=== PATIENT | female | born 1945 | race Caucasian/White ===

== ENCOUNTER 2018-12-17 20:07 | Emergency (ER) | payer MEDICARE, OTHER ==
[~2018-12-17] VITALS: Ht 160 cm; Wt 92.1 kg
[~2018-12-17 20:07] MED LIST: ACIDOPHILUS1 EAC4 PO; ALBUTEROL2.5 MG/0.5 INH; AMLODIPINE BES2.5 MG PO; BENEFIBER1 EAC1 PO; BIOTIN1 MG PO; BIOTIN800 MCG PO; CALCIUM600 MG PO; CEPHALEXIN500 MG PO; CIPRO500 MG PO; DAILY VITAMIN1 EAC2 PO; DYRENIUM100 MG PO; GABAPENTIN300 MG PO; GABAPENTIN600 MG PO; GLIPIZIDE ER5 MG PO; IBUPROFEN800 MG PO; ICAPS PLUS1 EACH PO; KEFLEX500 MG PO; KONDREMUL2.5 ML/5 M PO; KRILL OIL500 MG PO; LISINOPRIL20 MG PO; MAXZIDE 37.5 MG-1 EA PO; METOPROLOL TART25 MG PO; NORCO 5-325 TA1 EACH PO; PAROXETINE HCL20 MG PO; SEN-O-TAB8.6 MG PO; SULFAMETHOXAZO1 EACH PO; TAMIFLU75 MG PO; TIZANIDINE HCL4 M1 PO; TRAZODONE HCL50 MG PO; TUMS200 MG PO; VICODIN 5-5001 EACH PO; VITAMIN D31000 UNI1 PO
[2018-12-17] MEDS ORDERED: TOPROL XL50 MG PO (20:35)
[2018-12-17] MEDS ORDERED: MACROBID 100 M100 MG PO (21:42)
[2018-12-17] MEDS ORDERED: PYRIDIUM200 MG PO (21:43)
== END 2018-12-17 21:58 | disposition home or self-care (01) ==
LOC: ED 20:07
DX: N39.0 Urinary tract infection, site not specified (principal); I10 Essential (primary) hypertension; E11.9 Type 2 diabetes mellitus without complications; Z88.5 Allergy status to narcotic agent; Z91.041 Radiographic dye allergy status; Z79.899 Other long term (current) drug therapy; Z79.84 Long term (current) use of oral hypoglycemic drugs
CPT/HCPCS: 81001; 99283

== ENCOUNTER 2019-03-09 13:24 | Inpatient (IN) | payer MEDICARE, OTHER ==
[~2019-03-09] VITALS: Ht 160 cm; Wt 86.8 kg
--- OUTSIDE RECORDS SUMMARY | ~2019-03-09 | XMS | Encounter Summary ---
Demographics + + + | Address | [address] | | | [place] [address] | + + + | Home Phone | | + + + | Preferred Language | Unknown | + + + | Marital Status | | + + + | Orthodoxy Affiliation | Unknown | + + + | Race | Unknown | + + + | Ethnic Group | Unknown | + + + Author + + + | Author | [facility] | | | and [place] | + + + | Organization | [facility] | | | and [place] | + + + | Address | Unknown | + + + | Phone | Unavailable | + + + Support + + +---------+ + | Name | Relationship | Address | Phone | + + +---------+ + | Alia Melendez | ECON | Unknown | | + + +---------+ + Care Team Providers + +------+ + | Care Briquette Machine Operator Name | Role | Phone | + +------+ + | Vik Oconnor MD | PCP | | + +------+ + Encounter Details +--------+ + + + + | Date | Type | Department | Care Team | Description | +--------+ + + + + | 02/25/ | Hospital | [facility] | Baljinder Tellez, | Asthma, | | 2016 | Encounter | MED [address] XRAY [address] | DO [address] | intermittent, | | | | [place] | [place] | uncomplicated; | | | | [place] [address] | [address] | Chronic kidney | | | | [phone] | | disease, stage 3; | | | | | Yang Cast MD | Chronic pain | | | | | [address] | syndrome; | | | | | [place] | Dermatitis; | | | | | [address] | Uncomplicated type 2 | | | | | | diabetes mellitus | | | | | | (HCC); Essential | | | | | | hypertension; Family | | | | | | history of benign | | | | | | essential tremor; | | | | | | Other | | | | | | hyperlipidemia; | | | | | | Hyperparathyroidism | | | | | | (HCC); Degeneration, | | | | | | intervertebral | | | | | | disc, cervical; | | | | | | Degeneration, | | | | | | intervertebral disc, | | | | | | lumbar; Non morbid | | | | | | obesity, unspecified | | | | | | obesity type; | | | | | | History of migraine | | | | | | headaches | +--------+ + + + + Social History + +-------+ +--------+------+ | Tobacco Use | Types | Packs/Day | Years | Date | | | | | Used | | + +-------+ +--------+------+ | Never Smoker | | | | | + +-------+ +--------+------+ + +---+---+---+ | Smokeless Tobacco: | | | | | Never Used | | | | + +---+---+---+ + + +---------+ + | Alcohol Use | Drinks/Week | oz/Week | Comments | + + +---------+ + | No | 0 Standard drinks | 0.0 | | | | or equivalent | | | + + +---------+ + + + + | Sex Assigned at | Date Recorded | | | | + + + | Not on file | | + + + + + + + | Job Start Date | Occupation | Industry | + + + + | Not on file | Not on file | Not on file | + + + + + + + + | Travel History | Travel Start | Travel End | + + + + + + | No recent travel history available. | + + documented as of this encounter Medications at Time of Discharge + + + +---------+ + + | Medication | Sig | Dispensed | Refills | Start | End Date | | | | | | Date | | + + + +---------+ + + | albuterol 90 | Inhale 2 puffs into | | 0 | | | | mcg/puff inhaler | the lungs every 6 | | | | | | | hours as needed for | | | | | | | Wheezing. | | | | | + + + +---------+ + + | gabapentin | Take 300 mg by mouth | | 0 | | | | (NEURONTIN) 300 mg | 3 times daily. | | | | | | capsule | | | | | | + + + +---------+ + + | lisinopril | Take 20 mg by mouth | | 0 | | | | (PRINIVIL, ZESTRIL) | Daily. | | | | | | 20 mg tablet | | | | | | + + + +---------+ + + | MEGARED OMEGA-3 | Take 1 capsule by | | 0 | | | | KRILL OIL 500 MG | mouth Daily. | | | | | | CAPS | | | | | | + + + +---------+ + + | Multiple Vitamin | Take 1 tablet by | | 0 | | | | (THERAGRAN PO) | mouth Daily. | | | | | + + + +---------+ + + | Probiotic Product | Take 1 capsule by | | 0 | | | | (PROBIOTIC DAILY) | mouth Daily. | | | | | | CAPS | | | | | | + + + +---------+ + + | triamterene | Take 100 mg by mouth | | 0 | | | | (DYRENIUM) 100 MG | 2 times daily. | | | | | | capsule | | | | | | + + + +---------+ + + | cephalexin | Take 500 mg by mouth | | 0 | | | | (KEFLEX) 500 mg | 2 times daily. | | | | 6 | | capsule | | | | | | + + + +---------+ + + | diazePAM (VALIUM) | Take 1 tablet by | 90 | 0 | 03/09/20 | | | 5 mg tablet | mouth every 6 hours | tablet | | 16 | 7 | | | as needed. | | | | | + + + +---------+ + + | | Take 1-2 tablets by | 120 | 0 | 03/09/20 | | | HYDROcodone-acetamin | mouth every 4 hours | tablet | | 16 | 6 | | ophen (NORCO) 10-325 | as needed for Pain. | | | | | | mg per tablet | | | | | | + + + +---------+ + + | | Take 1 tablet by | | 0 | | | | HYDROcodone-acetamin | mouth every 6 hours | | | | 6 | | ophen (NORCO) 5-325 | as needed for Pain. | | | | | | mg per tablet | | | | | | + + + +---------+ + + | lactulose 10 g/15 | Take 30 mLs by mouth | 240 mL | 2 | 03/09/20 | | | mL solution | 2 times daily. For | | | 16 | 6 | | | constipation | | | | | + + + +---------+ + + | OXYBUTYNIN | Take 5 mg by mouth | | 0 | | | | CHLORIDE ER PO | nightly. | | | | 7 | + + + +---------+ + + | PARoxetine (PAXIL) | Take 20 mg by mouth | | 0 | | | | 20 mg tablet | every morning. | | | | 7 | + + + +---------+ + + | | Take 1 tablet by | | 0 | | | | sulfamethoxazole-tri | mouth nightly. | | | | 7 | | methoprim | | | | | | | (BACTRIM,SEPTRA) | | | | | | | 400-80 MG per tablet | | | | | | + + + +---------+ + + | traZODone | Take 50 mg by mouth | | 0 | | | | (DESYREL) 50 mg | nightly. | | | | 7 | | tablet | | | | | | + + + +---------+ + + documented as of this encounter Plan of Treatment Not on filedocumented as of this encounter Procedures + +--------+ + + + | Procedure Name | Priori | Date/Time | Associated Diagnosis | Comments | | | ty | | | | + +--------+ + + + | XR CHEST PA AND | Routin | 02/26/2016 | Asthma, | Results for this | | LATERAL | e | 12:11 PM | intermittent, | procedure are in the | | | | PDT | uncomplicated | results section. | | | | | Chronic kidney | | | | | | disease, stage 3 | | | | | | Chronic pain | | | | | | syndrome Dermatitis | | | | | | Uncomplicated type | | | | | | 2 diabetes mellitus | | | | | | (HCC) Essential | | | | | | hypertension Family | | | | | | history of benign | | | | | | essential tremor | | | | | | Other hyperlipidemia | | | | | | | | | | | | Hyperparathyroidism | | | | | | (HCC) Degeneration, | | | | | | intervertebral | | | | | | disc, cervical | | | | | | Degeneration, | | | | | | intervertebral disc, | | | | | | lumbar Non morbid | | | | | | obesity, unspecified | | | | | | obesity type | | | | | | History of migraine | | | | | | headaches | | + +--------+ + + + documented in this encounter Results XR Chest PA and Lateral (02/26/2016 12:11 PM PDT) + + | Specimen | + + | | + + + + + | Narrative | Performed At | + + + | TWO-VIEW CHEST: 02/26/2016 12:11 PM CLINICAL HISTORY: PRE | [facility] | | OPERATIVE EXAM COMPARISON: None FINDINGS: Heart size is | [facility] | | normal. Aorta and pulmonary vasculature are within normal limits. No | [facility] | | mediastinal widening. Linear densities in the left midlung, | - IMAGING | | consistent with subsegmental atelectasis or scarring. No other areas | | | of abnormal lung density. No effusion or pneumothorax. No acute | | | bony abnormalities. No upper abdominal abnormalities. IMPRESSION - | | | Left mid lung subsegmental atelectasis or scarring. No acute | | | cardiopulmonary abnormality. Dictated and Signed by: Jesús | | | MD Aditya Electronically signed: 02/26/2016 12:18 PM | | + + + + + | Procedure Note | + + | Art Wolf Results In - 02/26/2016 12:21 PM PDT TWO-VIEW CHEST: 02/26/2016 12:11 PM | | | | CLINICAL HISTORY: PRE OPERATIVE EXAM | | | | COMPARISON: None | | | | FINDINGS: Heart size is normal. Aorta and pulmonary vasculature are within | | normal limits. No mediastinal widening. | | | | Linear densities in the left midlung, consistent with subsegmental atelectasis | | or scarring. No other areas of abnormal lung density. No effusion or | | pneumothorax. | | | | No acute bony abnormalities. No upper abdominal abnormalities. | | | | IMPRESSION - Left mid lung subsegmental atelectasis or scarring. No acute | | cardiopulmonary abnormality. | | | | Dictated and Signed by: Jesús Burgess MD | | Electronically signed: 02/26/2016 12:18 PM | + + + + + + + | Performing | Address | City/State/Zipcode | Phone Number | | Organization | | | | + + + + + | [facility] | [address] | [place] | [phone] | | [facility] | | [address] | | | - IMAGING | | | | + + + + + documented in this encounter Visit Diagnoses + + | Diagnosis | + + | Asthma, intermittent, uncomplicated | + + | Chronic kidney disease, stage 3 (HCC) | + + | Chronic pain syndrome | + + | Dermatitis Contact dermatitis and other eczema, due to unspecified cause | + + | Uncomplicated type 2 diabetes mellitus (HCC) Type II or unspecified type diabetes | | mellitus without mention of complication, not stated as uncontrolled | + + | Essential hypertension Unspecified essential hypertension | + + | Family history of benign essential tremor Family history of other neurological | | diseases | + + | Other hyperlipidemia | + + | Hyperparathyroidism (HCC) Hyperparathyroidism, unspecified | + + | Degeneration, intervertebral disc, cervical Degeneration of cervical intervertebral | | disc | + + | Degeneration, intervertebral disc, lumbar Degeneration of lumbar or lumbosacral | | intervertebral disc | + + | Non morbid obesity, unspecified obesity type | + + | History of migraine headaches Personal history of other disorders of nervous system | | and sense organs | + + documented in this encounter"
--- OUTSIDE RECORDS SUMMARY | ~2019-03-09 | XMS | Encounter Summary ---
Demographics + + + | Address | [address] | | | [place] [address] | + + + | Home Phone | | + + + | Preferred Language | Unknown | + + + | Marital Status | | + + + | Pentecostal Affiliation | Unknown | + + + | Race | Unknown | + + + | Ethnic Group | Unknown | + + + Author + + + | Author | [facility] | | | and [place] | + + + | Organization | [facility] | | | and [...] Team Providers + +------+ + | Care Cable Braider Name | Role | Phone | + +------+ + | Vik Oconnor MD | PCP | | + +------+ + Reason for Visit +--------+ + | Reason | Comments | +--------+ + | Other | Pre op meds to stop | +--------+ + Encounter Details +--------+ + + + + | Date | Type | Department | Care Team | Description | +--------+ + + + + | 02/26/ | Telephone | [facility] | Baljinder Tellez, | Other (Pre op meds | | 2016 | | NE[address]UR[address]ERY [address] | DO [address] | to stop) | | | | [address] | [address] [place], [place] | | | | | [place], [place] | [address] | | | | | [address] | | | | | | [phone] | | | +--------+ + + + + Social [...] Not on filedocumented as of this encounter Visit Diagnoses Not on filedocumented in this encounter"
--- OUTSIDE RECORDS SUMMARY | ~2019-03-09 | XMS | Encounter Summary ---
Demographics + + + | Address | [address] | | | [place] [address] | + + + | Home Phone | | + + + | Preferred Language | Unknown | + + + | Marital Status | | + + + | Mandaen Affiliation | Unknown | + + + | Race | Unknown | + + + | Ethnic Group | Unknown | + + + Author + + + | Author | [facility] | | | and [place] | + + + | Organization | [facility] | | | [...] Team Providers + +------+ + | Care Night Club Manager Name | Role | Phone | + +------+ + | Vik Oconnor MD | PCP | | + +------+ + Reason for Visit + + + | Reason | Comments | + + + | Medication Question | | + + + Encounter Details +--------+ + + + + | Date | Type | Department | Care Team | Description | +--------+ + + + + | 03/04/ | Telephone | [facility] | Baljinder Tellez, | Medication Question | | 2016 | | [address] | DO [address] | | | | | [address] | [address] [place], [place] | | | | | [place], [place] | [address] | | | | | [address] | | | | | | [phone] | | | +--------+ + + + [...]
--- OUTSIDE RECORDS SUMMARY | ~2019-03-09 | XMS | Encounter Summary ---
Demographics + + + | Address | [address] | | | [place] [address] | + + + | Home Phone | | + + + | Preferred Language | Unknown | + + + | Marital Status | | + + + | Rastafari Affiliation | Unknown | + + + | Race | Unknown | + + + | Ethnic Group | Unknown | + + + Author + + + | Author | [facility] | | | and [place] | + + + | Organization | [facility] | | | and [...] Team Providers + +------+ + | Care Aviation Support Equipment Repairer Name | Role | Phone | + +------+ + | Vik Oconnor MD | PCP | | + +------+ + Encounter Details +--------+ + + + + | Date | Type | Department | Care Team | Description | +--------+ + + + + | 10/12/ | Abstract | [facility] [place] | Baljinder Tellez, | | | 2015 | | [address]OSUR[address] | DO [address] | | | | | [address] | [address] [place] | | | | | [place] | [address] | | | | | [address] | | | | | | [phone] | | | +--------+ + + + [...]
--- OUTSIDE RECORDS SUMMARY | ~2019-03-09 | XMS | Encounter Summary ---
Demographics + + + | Address | [address] | | | [place] [address] | + + + | Home Phone | | + + + | Preferred Language | Unknown | + + + | Marital Status | | + + + | Bahai Affiliation | Unknown | + + + | Race | Unknown | + + + | Ethnic Group | Unknown | + + + Author + + + | Author | [facility] | | | and [place] | + + + | Organization | [facility] | | | and [...] Team Providers + +------+ + | Care Machine Rebuilder Name | Role | Phone | + +------+ + | Vik Oconnor MD | PCP | | + +------+ + Encounter Details +--------+ + + + + | Date | Type | Department | Care Team | Description | +--------+ + + + + | 01/06/ | Orders Only | [facility] | Baljinder Tellez, | Asthma, | | 2016 | | NEUROSURGERY [address] | DO [address] | intermittent, | | | | [address] | [address] [place], [place] | uncomplicated | | | | [place], [place] | [address] | (Primary Dx); | | | | [address] | | Chronic kidney | | | | [phone] | | disease, stage 3; | | | | | | Chronic pain | | | | | | syndrome; | | | | | | Dermatitis; | | | | | | Uncomplicated type 2 | | | | | | diabetes mellitus | | | | | | (HCC); Essential | | | | | | hypertension, | | | | | | hypertension with | | | | | | unspecified goal; | | | | | | Family history of | | | | | | benign essential | | | | | | tremor; Other | | | | | | [...] Not on filedocumented as of this encounter Results XR Chest PA and [...] + + | [facility] | [address] | [place] | [phone] | | [facility] | | [address] | | | - IMAGING | | | | + + + + + ECG 12 lead (02/26/2016 11:42 AM PDT) + + + + + + | Component | Value | Ref Range | Performed | Pathologist | | | | | At | Signature | + + + + + + | VENTRICULAR | 58 | BPM | [facility] | | | RATE EKG | | | | | + + + + + + | ATRIAL RATE | 58 | BPM | [facility] | | + + + + + + | P-R | 168 | ms | [facility] | | | INTERVAL | | | | | + + + + + + | QRS | 74 | ms | [facility] | | | DURATION | | | | | + + + + + + | Q-T | 408 | ms | [facility] | | | INTERVAL | | | | | + + + + + + | Q-T | 400 | ms | [facility] | | | INTERVAL | | | | | | (CORRECTED) | | | | | + + + + + + | P WAVE AXIS | 20 | degrees | [facility] | | + + + + + + | QRS AXIS | 11 | degrees | [facility] | | + + + + + + | T AXIS | 20 | degrees | [facility] | | + + + + + + | INTERPRETAT | Sinus | | [facility] | | | ION TEXT | bradycardiaOtherwise | | | | | | normal ECGNo previous | | | | | | ECGs availableConfirmed | | | | | | by LAURENCE SCHMIDT MD | | | | | | ([id number]) on 02/27/2016 | | | | | | 8:13:56 AM | | | | + + + + + + + + | Specimen | + + | | + + + + + | Narrative | Performed At | + + + | | | + + + + +---------+ + + | Performing | Address | City/State/Zipcode | Phone Number | | Organization | | | | + +---------+ + + | [facility] | | | | + +---------+ + + Basic Metabolic Panel (02/26/2016 11:38 AM PDT) + + + + + + | Component | Value | Ref Range | Performed | Pathologist | | | | | At | Signature | + + + + + + | Na | 141 | 136 - 149 | [facility] | | | | | mmol/L | [facility] | | | | | | [facility] | | | | | | CENTER - | | | | | | LABORATORY | | + + + + + + | K | 5.0 | 3.5 - 5.1 | [facility] | | | | | mmol/L | [facility] | | | | | | [facility] | | | | | | CENTER - | | | | | | LABORATORY | | + + + + + + | Cl | 103 | 98 - 109 mmol/L | [facility] | | | | | | [facility] | | | | | | [facility] | | | | | | CENTER - | | | | | | LABORATORY | | + + + + + + | CO2 | 28 | 24 - 31 mmol/L | [facility] | | | | | | [facility] | | | | | | [facility] | | | | | | CENTER - | | | | | | LABORATORY | | + + + + + + | Anion Gap | 10 | 3 - 16 mmol/L | [facility] | | | | | | [facility] | | | | | | MEDICAL | | | | | | CENTER - | | | | | | LABORATORY | | + + + + + + | Glucose | 99 | 70 - 109 mg/dL | [facility] | | | | | | [facility] | | | | | | MEDICAL | | | | | | CENTER - | | | | | | LABORATORY | | + + + + + + | BUN | 22 (H) | 7 - 18 mg/dL | [facility] | | | | | | [facility] | | | | | | MEDICAL | | | | | | CENTER - | | | | | | LABORATORY | | + + + + + + | Creatinine | 1.35 (H) | 0.60 - 1.30 | [facility] | | | | | mg/dL | [facility] | | | | | | MEDICAL | | | | | | CENTER - | | | | | | LABORATORY | | + + + + + + | eGFR if not | 39 (L)Comment: | >=60 | [facility] | | | | GLOMERULAR FILTRATION | mL/min/1.73m2 | [facility] | | | MOZAMBICAN | RATE,ESTIMATED | | MEDICAL | | | | mL/min/1.81q6Sulr than | | CENTER - | | | | 60 Chronic kidney | | LABORATORY | | | | disease,if found over a | | | | | | 3-month period.Less than | | | | | | 15 Kidney failureFor | | | | | | | | | | | | Americans,multiply the | | | | | | calculated GFR by 1.21. | | | | | | | | | | + + + + + + | Calcium | 10.2 | 8.3 - 10.5 | [facility] | | | | | mg/dL | [facility] | | | | | | MEDICAL | | | | | | CENTER - | | | | | | LABORATORY | | + + + + + + | BUN/Creatin | 16.3 | | [facility] | | | ine Ratio | | | [facility] | | | | | | [facility] | | | | | | CENTER - | | | | | | LABORATORY | | + + + + + + + + | Specimen | + + | Blood | + + + + + + + | Performing | Address | City/State/Zipcode | Phone Number | | Organization | | | | + + + + + | [facility] | [address] | [place] | [phone] | | [facility] | | [address] | | | - LABORATORY | | | | + + + + + PTT (02/26/2016 11:38 AM PDT) + +-------+ + + + | Component | Value | Ref Range | Performed | Pathologist | | | | | At | Signature | + +-------+ + + + | aPTT | 29 | 22 - 36 seconds | [facility] | | | | | | [facility] | | | | | | MEDICAL | | | | | | CENTER - | | | | | | LABORATORY | | + +-------+ + + + + + | Specimen | + + | Blood | + + + + + + + | Performing | Address | City/State/Zipcode | Phone Number | | Organization | | | | + + + + + | [facility] | [address] | [place] | [phone] | | [facility] | | [address] | | | - LABORATORY | | | | + + + + + Protime INR (02/26/2016 11:38 AM PDT) + + + + + + | Component | Value | Ref Range | Performed | Pathologist | | | | | At | Signature | + + + + + + | Prothrombin | 14.7 (H) | 11.3 - 13.9 | [facility] | | | Time | | seconds | [facility] | | | | | | MEDICAL | | | | | | CENTER - | | | | | | LABORATORY | | + + + + + + | INR | 1.12 (H)Comment: Usual | 0.90 - 1.10 | [facility] | | | | Oral Anticoagulation | | [facility] | | | | Range: 2.0 - | | MEDICAL | | | | 3.0High Level Oral | | CENTER - | | | | Anticoagulation Range: | | LABORATORY | | | | 2.5 - 3.5 | | | | + + + + + + + + | Specimen | + + | Blood | + + + + + + + | Performing | Address | City/State/Zipcode | Phone Number | | Organization | | | | + + + + + | [facility] | [address] | [place] | [phone] | | [facility] | | [address] | | | - LABORATORY | | | | + + + + + CBC with Differential (02/26/2016 11:38 AM PDT) + +-------+ + + + | Component | Value | Ref Range | Performed | Pathologist | | | | | At | Signature | + +-------+ + + + | WBC | 7.5 | 4.0 - 11.0 K/uL | [facility] | | | | | | [facility] | | | | | | MEDICAL | | | | | | CENTER - | | | | | | LABORATORY | | + +-------+ + + + | RBC | 5.04 | 3.70 - 5.20 | [facility] | | | | | M/uL | [facility] | | | | | | MEDICAL | | | | | | CENTER - | | | | | | LABORATORY | | + +-------+ + + + | Hemoglobin | 14.4 | 11.5 - 16.0 | [facility] | | | | | g/dL | [facility] | | | | | | MEDICAL | | | | | | CENTER - | | | | | | LABORATORY | | + +-------+ + + + | Hematocrit | 43.1 | 34.0 - 47.0 % | [facility] | | | | | | [facility] | | | | | | [facility]ICAL | | | | | | CENTER - | | | | | | LABORATORY | | + +-------+ + + + | MCV | 85.4 | 83.0 - 101.0 fL | [facility] | | | | | | [facility] | | | | | | MEDICAL | | | | | | CENTER - | | | | | | LABORATORY | | + +-------+ + + + | MCH | 28.6 | 28.0 - 35.0 pg | [facility] | | | | | | [facility] | | | | | | [facility]ICAL | | | | | | CENTER - | | | | | | LABORATORY | | + +-------+ + + + | MCHC | 33.5 | 32.0 - 36.0 | [facility] | | | | | g/dL | [facility] | | | | | | [facility]ICAL | | | | | | CENTER - | | | | | | LABORATORY | | + +-------+ + + + | RDW-CV | 14.2 | <15.0 % | [facility] | | | | | | [facility] | | | | | | [facility] | | | | | | CENTER - | | | | | | LABORATORY | | + +-------+ + + + | Platelet | 177 | 140 - 440 K/uL | [facility] | | | Count | | | [facility] | | | | | | [facility]ICAL | | | | | | CENTER - | | | | | | LABORATORY | | + +-------+ + + + | MPV | 9.3 | fL | [facility] | | | | | | [facility] | | | | | | [facility]ICAL | | | | | | CENTER - | | | | | | LABORATORY | | + +-------+ + + + | % | 65.8 | 45.0 - 82.0 % | [facility] | | | Neutrophils | | | [facility] | | | | | | MEDICAL | | | | | | CENTER - | | | | | | LABORATORY | | + +-------+ + + + | % | 23.0 | 20.0 - 45.0 % | [facility] | | | Lymphocytes | | | [facility] | | | | | | MEDICAL | | | | | | CENTER - | | | | | | LABORATORY | | + +-------+ + + + | % Monocytes | 8.0 | 4.0 - 12.0 % | [facility] | | | | | | [facility] | | | | | | [facility]ICAL | | | | | | CENTER - | | | | | | LABORATORY | | + +-------+ + + + | % | 2.4 | 0.0 - 5.0 % | [facility] | | | Eosinophils | | | [facility] | | | | | | MEDICAL | | | | | | CENTER - | | | | | | LABORATORY | | + +-------+ + + + | % Basophils | 0.8 | 0.0 - 1.0 % | [facility] | | | | | | [facility] | | | | | | [facility]ICAL | | | | | | CENTER - | | | | | | LABORATORY | | + +-------+ + + + | Absolute | 5.00 | 1.80 - 8.50 | [facility] | | | Neutrophils | | K/uL | [facility] | | | | | | [facility]ICAL | | | | | | CENTER - | | | | | | LABORATORY | | + +-------+ + + + | Absolute | 1.70 | 0.60 - 3.20 | [facility] | | | Lymphocytes | | K/uL | [facility] | | | | | | MEDICAL | | | | | | CENTER - | | | | | | LABORATORY | | + +-------+ + + + | Absolute | 0.60 | 0.00 - 1.00 | [facility] | | | Monocytes | | K/uL | [facility] | | | | | | MEDICAL | | | | | | CENTER - | | | | | | LABORATORY | | + +-------+ + + + | Absolute | 0.20 | 0.00 - 0.40 | [facility] | | | Eosinophils | | K/uL | [facility] | | | | | | MEDICAL | | | | | | CENTER - | | | | | | LABORATORY | | + +-------+ + + + | Absolute | 0.10 | 0.00 - 0.10 | [facility] | | | Basophils | | K/uL | [facility] | | | | | | MEDICAL | | | | | | CENTER - | | | | | | LABORATORY | | + +-------+ + + + + + | Specimen | + + | Blood | + + + + + + + | Performing | Address | City/State/Zipcode | Phone Number | | Organization | | | | + + + + + | [facility] | [address] | [place] | [phone] | | [facility] | | [address] | | | - LABORATORY | | | | + + + + + documented in this encounter Visit Diagnoses + + | Diagnosis | + + | Asthma, intermittent, uncomplicated - Primary | + + | Chronic kidney disease, stage 3 (HCC) | + + | Chronic pain syndrome | + + | Dermatitis Contact dermatitis and other eczema, due to unspecified cause | + + | Uncomplicated type 2 diabetes mellitus (HCC) Type II or unspecified type diabetes | | mellitus without mention of complication, not stated as uncontrolled | + + | Essential hypertension, hypertension with unspecified goal | + + | Family history of [...]
--- OUTSIDE RECORDS SUMMARY | ~2019-03-09 | XMS | Encounter Summary ---
Demographics + + + | Address | [address] | | | [place] [address] | + + + | Home Phone [...] Team Providers + +------+ + | Care Concrete Building Assembler Name | Role | Phone | + +------+ + | Vik Oconnor MD | PCP | | + +------+ + Reason for Visit + + + | Reason | Comments | + + + | Medication Refill | | + + + Encounter Details +--------+--------+ + + + | Date | Type | Department | Care Team | Description | +--------+--------+ + + + | 03/11/ | Refill | [facility] [place] | Baljinder Tellez, | Medication Refill | | 2015 | | NEUROSURGERY [address] | DO [address] | | | | | [address] | [address] [place], [place] | | | | | [place], [place] | [address] | | | | | [address] | | | | | | [phone] | | | +--------+--------+ + + + Social History + +-------+ [...] + + documented as of this encounter Functional Status + + + + | Functional Status | Response | Date of Assessment | + + + + | Are you deaf or do you have serious | No | 03/09/2016 | | difficulty hearing? | | | + + + + | Are you blind or do you have serious | No | 03/09/2016 | | difficulty seeing, even when wearing | | | | glasses? | | | + + + + | Do you have difficulty dressing or bathing? | No | 03/09/2016 | | (5 years old or older) | | | + + + + | Because of a physical, mental, or emotional | No | 03/09/2016 | | condition, do you have difficulty doing | | | | errands alone such as visiting a doctor's | | | | office or shopping? [15 years old or | | | | older)] | | | + + + + + + + + | Cognitive Status | Response | Date of Assessment | + + + + | Because of a physical, mental, or emotional | No | 03/09/2016 | | condition, do you have serious difficulty | | | | concentrating, remembering, or making | | | | decisions? (5 years old or older) | | | + + + + documented as of this encounter Plan of Treatment Not on filedocumented as of this encounter Visit Diagnoses Not on filedocumented in this encounter"
--- OUTSIDE RECORDS SUMMARY | ~2019-03-09 | XMS | Encounter Summary ---
Demographics + + + | Address | [address] | | | [place] [address] | + + + | Home Phone | | + + + | Preferred Language | Unknown | + + + | Marital Status | | + + + | Mormon Affiliation | Unknown | + + + | Race | Unknown | + + + | Ethnic Group | Unknown | + + + Author + + + | Author | [facility] | | | and [place] | + + + | Organization | [facility] | | | [...] Team Providers + +------+ + | Care Secy Name | Role | Phone | + +------+ + | Vik Oconnor MD | PCP | | + +------+ + Reason for Visit +---------+ + | Reason | Comments | +---------+ + | Post Op | 4W PO | +---------+ + Encounter Details +--------+---------+ + + + | Date | Type | Department | Care Team | Description | +--------+---------+ + + + | 04/13/ | Office | [facility] | Vasu Yun | S/P cervical spinal | | 2016 | Visit | NE[address]UR[address]ERY [address] | [address] | fusion (Primary Dx); | | | | [address] | [address] | Cervicalgia | | | | [place], [place] | [place] | | | | | [address] | [address] | | | | | [phone] | | | +--------+---------+ + + + Social History + +-------+ [...] + + documented as of this encounter Last Filed Vital Signs + + + + + | Vital Sign | Reading | Time Taken | Comments | + + + + + | Blood Pressure | 115/65 | 04/13/2016 12:39 PM | | | | | PST | | + + + + + | Pulse | 69 | 04/13/2016 12:39 PM | | | | | PST | | + + + + + | Temperature | - | - | | + + + + + | Respiratory Rate | - | - | | + + + + + | Oxygen Saturation | - | - | | + + + + + | Inhaled Oxygen | - | - | | | Concentration | | | | + + + + + | Weight | 91.2 kg (201 lb) | 04/13/2016 12:39 PM | | | | | PST | | + + + + + | Height | 162.6 cm (5' 4") | 04/13/2016 12:39 PM | | | | | PST | | + + + + + | Body Mass Index | 34.5 | 04/13/2016 12:39 PM | | | | | PST | | + + + + + documented in this encounter Functional Status + + + [...] + + documented as of this encounter Patient Instructions Patient Instructions Vasu Yun PA-C - 04/13/2016 1:20 PM PSTYou may now slowl y increase your lifting up to 15 pounds as tolerated. You may now reach overhead but it shou ld only be 1-2 pounds. Please refrain from twisting for the next 8 weeks. Lastly, you will s ee Dr. Tellez in approximately 2 months where a new x-ray will be taken at that time. In the meantime, you can also begin to wean out of your brace as instructed below. SPINE BRACE WEANING PROTOCOL (5 WEEKS) Below are instructions for weaning your brace. You can move through the weeks slower if yo u feel the need to do so, but the overall goal is to get you out of the brace slowly over th e next several weeks. WEEK 1 If you have been using your brace for activities like sleeping, showering, do not use the b race for these activities any longer but continue using it for everything else. WEEK 2 Stop wearing your brace for sitting and short distance walking. You should use the brace f or anything more involved. WEEK 3 Stop using the brace for medium distance walking. You can bend and twist your back but sti ll proceed slowly with these activities. WEEK 4 Stop using the brace for everything but the most difficult tasks. You should now be able to go on long walks and lift more weight as directed. Add more bending and twisting as tolera lakia. WEEK 5 Stop using the brace for daily use. I would encourage you to use the brace in the future f or activities that you know might aggravate your back or cause pain. You should still work to strengthen your back and use good technique when garbage pick up man things and bending. Electronica lly signed by Vasu Yun PA-C at 04/13/2016 1:20 PM PST documented in this encounter Progress Notes Vasu Yun PA-C - 04/13/2016 1:20 PM PSTFormatting of this note might be diffe rent from the original. Vasu Ynu PA-C [address] [facility], [address] [place] [address] FAX: NEUROSURGERY FOLLOW-UP CHIEF COMPLAINT: Chief Complaint Patient presents with Post Op 4W PO HISTORY OF PRESENT ILLNESS: The patient is a 70 y.o. female that had a cervical fusion for neck pain and arm pain around 4 weeks ago. She returns and overall is doing good. The pat ient complains of some pain in the neck when she takes off her collar for a long period of t shante in a chair. Her pain overall is doing great. She has been weaning off the pain medicine completely. She had two falls over the past month, but recovered from them fine. The patient has been walking as much as directed. She is still taking pain medications at this point, but weaning off. Swallowing has not been a major problem. The patient has had no issues w ith her surgical site. CURRENT MEDICATIONS: Current Outpatient Prescriptions Medication Sig Dispense Refill albuterol 90 mcg/puff inhaler Inhale 2 puffs into the lungs every 6 hours as needed for Wheezing. diazePAM (VALIUM) 5 mg tablet Take 1 tablet by mouth every 6 hours as needed. 90 tablet 0 gabapentin (NEURONTIN) 300 mg capsule Take 300 mg by mouth 3 times daily. HYDROcodone-acetaminophen (NORCO) 10-325 mg per tablet Take 1-2 tablets by mouth every 4 hours as needed for Pain. 120 tablet 0 lactulose 10 g/15 mL solution Take 30 mLs by mouth 2 times daily. For constipation 240 mL 2 lisinopril (PRINIVIL, ZESTRIL) 20 mg tablet Take 20 mg by mouth Daily. MEGARED OMEGA-3 KRILL OIL 500 MG CAPS Take 1 capsule by mouth Daily. metoprolol tartrate (LOPRESSOR) 25 mg tablet Take 25 mg by mouth 2 times daily. Multiple Vitamin (THERAGRAN PO) Take 1 tablet by mouth Daily. OXYBUTYNIN CHLORIDE ER PO Take 5 mg by mouth nightly. PARoxetine (PAXIL) 20 mg tablet Take 20 mg by mouth every morning. Probiotic Product (PROBIOTIC DAILY) CAPS Take 1 capsule by mouth Daily. sulfamethoxazole-trimethoprim (BACTRIM,SEPTRA) 400-80 MG per tablet Take 1 tablet by mo uth nightly. traZODone (DESYREL) 50 mg tablet Take 50 mg by mouth nightly. triamterene (DYRENIUM) 100 MG capsule Take 100 mg by mouth 2 times daily. No current facility-administered medications for this visit. ALLERGIES: Allergies Allergen Reactions Codeine Shortness Of Breath and Other (See Comments) Asthma Iodine Itching SOCIAL HISTORY: The patient reports that she has never smoked. She has never used smokeless tobacco. She r eports that she does not drink alcohol or use illicit drugs. INTERIM PHYSICAL EXAMINATION: Blood pressure 115/65, pulse 69, height 1.626 m (5' 4"), weight 91.173 kg (201 lb). Body ma ss index is 34.48 kg/(m^2). GENERAL: Katja Wei is in no acute distress with unlabored respirations. SPINE: The patient s incision is healing well without drainage, significant erythema, or discharge. EXTREMITIES: No lower extremity edema. NEUROLOGICAL EXAMINATION: MENTAL STATUS: The patient is awake, alert, and oriented. She follows simple and complex commands MOTOR EXAM: Motor strength is 5/5 bilat UE. This is improved when compared to the preopera tive exam. SENSORY EXAM: The sensory examination is improved when compared to the preoperative exam. RADIOGRAPHIC REVIEW: The patient s x-rays show stable instrumentation and alignment and were reviewed with the patient today. There have been no interval changes since the immediate postoperative films . Complete fusion has not yet occurred, but this is normal and would not be expected at thi s time. ASSESSMENT: Encounter Diagnoses Name Primary? S/P cervical spinal fusion Yes Cervicalgia Past Medical History Diagnosis Date Asthma, intermittent Chronic kidney disease, stage 3 Chronic pain syndrome Dermatitis Uncomplicated type 2 diabetes mellitus (HCC) Essential hypertension Family history of benign essential tremor HLD (hyperlipidemia) Hyperparathyroidism (HCC) Degeneration, intervertebral disc, cervical Degeneration, intervertebral disc, lumbar Obesity History of migraine headaches PLAN: Overall, the patient is doing well. Most of the preoperative symptoms are resolving as exp ected. I increased the patient s activities now allowing 15 pound lifting. The patient and also will begin the process of brace weaning. I would like the patient to advance slowly with t his process and discussed this at length during today's visit. I would also like the patien t to continue with postoperative rehabilitation and to advance with therapy as tolerated.. S he does not appear to need any formal rehab at this time. She was mostly worried about her xrays during this visit. She had two falls during the past month and was concerned. shelter pain medication does not appear to be needed.. I refilled her lactulose to help w ith her stools I am hoping to see improvement over the coming weeks to months and plan to continue to foll ow this patient. The patient will follow-up in clinic in around 8 weeks for re-evaluation. ELECTRONICALLY SIGNED BY: Vasu Yun PA-C, 04/13/2016 13:21 documented in this encounter Plan of Treatment Not on filedocumented as of this encounter Results XR Cervical Spine 2 or 3 Views (06/22/2016 12:33 PM PST) + + | Specimen | + + | | + + + + + | Narrative | Performed At | + + + | EXAM:XR CERVICAL SPINE 2 OR 3 VIEWS CLINICAL HISTORY: s/p | [facility] | | cervical fusion COMPARISON: Cervical spine radiographs dating to | [facility] | | March 08, 2016. FINDINGS: Frontal and lateral views of the [facility] | | cervical spine. Anterior cervical discectomy and fusion changes | - IMAGING | | from C3 through C7. Intact hardware. No change in positioning of | | | the interbody graft markers. No change in spinal alignment. No | | | precervical soft tissue thickening. IMPRESSION - No | | | radiographic evidence for an interval complication. Dictated and | | | Signed by: Harsha Mosley MD Electronically signed: 06/22/2016 | | | 12:47 PM | | + + + + + | Procedure Note | + + | Luciano, Art Results In - 06/22/2016 12:50 PM PST EXAM:XR CERVICAL SPINE 2 OR 3 VIEWS | | | | CLINICAL HISTORY: s/p cervical fusion | | | | COMPARISON: Cervical spine radiographs dating to March 08, 2016. | | | | FINDINGS: Frontal and lateral views of the cervical spine. Anterior cervical | | discectomy and fusion changes from C3 through C7. Intact hardware. No change | | in positioning of the interbody graft markers. No change in spinal alignment. | | No precervical soft tissue thickening. | | | | IMPRESSION - | | | | No radiographic evidence for an interval complication. | | | | Dictated and Signed by: Harsha Mosley MD | | Electronically signed: 06/22/2016 12:47 PM | + + + + + + + | Performing | Address | City/State/[facility] | Phone Number | | Organization | | | | + + + + + | [facility] | [address] | [place] | [phone] | | [facility] | | [id number] | | | - IMAGING | | | | + + + + + documented in this encounter Visit Diagnoses + + | Diagnosis | + + | S/P cervical spinal fusion - Primary Arthrodesis status | + + | Cervicalgia | + + documented in this encounter
--- OUTSIDE RECORDS SUMMARY | ~2019-03-09 | XMS | Encounter Summary ---
Demographics + + + | Address | [address] | | | [place] [address] | + + + | Home Phone | | + + + | Preferred Language | Unknown | + + + | Marital Status | | + + + | Congregation Affiliation | Unknown | + + + | Race | Unknown | + + + | Ethnic Group | Unknown | + + + Author + + + | Author | [facility] | | | and [place] | + + + | Organization | [facility] | | [...] Team Providers + +------+ + | Care Plumbing Engineering Draftsperson Name | Role | Phone | + +------+ + | Vik Oconnor MD | PCP | | + +------+ + Reason for Referral Evaluate & Treat (Routine) +--------+ + + + + + | Status | Reason | Specialty | Diagnoses / | Referred By | Referred To | | | | | Procedures | Contact | Contact | +--------+ + + + + + | Closed | Specialty | Physical | Diagnoses | Geoff | [facility] | | | Services | Therapy | | Baljinder [place] DO | HOSPITAL | | | Required | | Degeneration | [address] PHYSICAL | | | | | , | [address] | TH[address]APY [address] | | | | | intervertebr | [place] | [place] | | | | | al disc, | [address] | [place], [place] | | | | | cervical | Phone: | [phone] | | | | | Degeneration | [phone] | Phone: | | | | | , | Fax: | [phone] | | | | | intervertebr | [phone] | Fax: | | | | | al disc, | | [phone] | | | | | lumbar | | | | | | | Procedures | | | | | | | HIM 06/27/17 | | | +--------+ + + + + + Encounter Details +--------+ + + + + | Date | Type | Department | Care Team | Description | +--------+ + + + + | 04/19/ | Orders Only | [facility] | Baljinder Tellez, | Degeneration, | | 2017 | | NEUROSURGERY [address] | DO [address] | intervertebral disc, | | | | [address] | [address] [place] | cervical (Primary | | | | [place], [place] | [address] | Dx); Degeneration, | | | | [address] | | intervertebral disc, | | | | [phone] | | lumbar | +--------+ + + + + Social [...] as of this encounter Plan of Treatment + + +--------+ + + | Name | Type | Priori | Associated Diagnoses | Order Schedule | | | | ty | | | + + +--------+ + + | [facility] | Outpatient | Routin | Degeneration, | Ordered: 04/19/2017 | | Hospital Physical | Referral | e | intervertebral disc, | | | Therapy, External - | | | cervical | | | AMB Referral | | | Degeneration, | | | | | | intervertebral disc, | | | | | | lumbar | | + + +--------+ + + documented as of this encounter Visit Diagnoses + + | Diagnosis | + + | Degeneration, intervertebral disc, cervical - Primary Degeneration of cervical | | intervertebral disc | + + | Degeneration, intervertebral disc, lumbar Degeneration of lumbar or lumbosacral | | intervertebral disc | + + documented in this encounter"
--- OUTSIDE RECORDS SUMMARY | ~2019-03-09 | XMS | Encounter Summary ---
Demographics + + + | Address | [address] | | | [place] [address] | + + + | Home Phone | | + + + | Preferred Language | Unknown | + + + | Marital Status | | + + + | Confucianist Affiliation | Unknown | + + + | Race | Unknown | + + + | Ethnic Group | Unknown | + + + Author + + + | Author | [facility] | | | and [place] | + + + | Organization | [facility] | | | and [...] Team Providers + +------+ + | Care Real Estate Professor Name | Role | Phone | + [...] [address] | Cervicalgia | | | | [place], [place] | [place] | | | | | [address] | [address] | | | | | [phone] | | | +--------+---------+ + + + [...] 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 [employer] lly signed by Vasu Yun PA-C at 04/13/2016 1:20 PM PST documented in this encounter Progress Notes Vasu Yun PA-C - 04/13/2016 1:20 PM PSTFormatting of this note might be diffe rent from the original. Vasu Yun PA-C [address] [facility], [address] [place] [address] FAX: NEUROSURGERY FOLLOW-UP CHIEF COMPLAINT: Chief Complaint [...] during the past month and was concerned. correction pain medication does not appear to be [...] COMPARISON: Cervical spine radiographs dating to | [facility] | | March 08, 2016. FINDINGS: Frontal and lateral views of the [facility] | | cervical spine. Anterior cervical discectomy [...] + + | Performing | Address | City/State/[facility] | Phone Number | | Organization | | | | + + + + + | [facility] | [address] | [place] | [phone] | | [facility] | | [address] | | | - IMAGING | | | | + + + + + documented in this encounter Visit Diagnoses + + | Diagnosis | + + | S/P cervical spinal fusion - Primary Arthrodesis status | + + | Cervicalgia | + + documented in this encounter
--- OUTSIDE RECORDS SUMMARY | ~2019-03-09 | XMS | Encounter Summary ---
Demographics + + + | Address | [address] | | | [place] [address] | + + + | Home Phone | | + + + | Preferred Language | Unknown | + + + | Marital Status | | + + + | Methodist Affiliation | Unknown | + + + | Race | Unknown | + + + | Ethnic Group | Unknown | + + + Author + + + | Author | [facility] | | | and [place] | + + + | Organization | [facility] | | | [...] Team Providers + +------+ + | Care Senior Mechanical Engineer Name | Role | Phone | + +------+ + | Vik Oconnor MD | PCP | | + +------+ + Encounter Details +--------+ + + + + | Date | Type | Department | Care Team | Description | +--------+ + + + + | 11/23/ | Imaging | [facility] | Provider, | | | 2017 | Exam | MED CTR EXTERNAL | MD [address] | | | | | IMAGING | [place] | | | | | [phone] | [place] [address] | | +--------+ + + + + [...] + +--------+ + + + | XR CERVICAL SPINE 4 | Routin | 10/30/2016 | | Results for this | | OR 5 VWS | e | 1:05 PM | | procedure are in the | | | | PDT | | results section. | + +--------+ + + + documented in this encounter Results XR Cervical Spine 4 or 5 Vws (10/30/2016 1:05 PM PDT) + + | Specimen | + + | | + + + + + | Narrative | Performed At | + + + | External films for comparison only - no result from [place]. | [facility] | + + + + +---------+ + + | Performing | Address | City/State/Zipcode | Phone Number | | Organization | | | | + +---------+ + + | [facility] | | | | + +---------+ + + documented in this encounter Visit Diagnoses Not on filedocumented in this encounter"
--- OUTSIDE RECORDS SUMMARY | ~2019-03-09 | XMS | Encounter Summary ---
Demographics + + + | Address | [address] | | | [place] [address] | + + + | Home Phone | | + + + | Preferred Language | Unknown | + + + | Marital Status | | + + + | Tenriism Affiliation | Unknown | + + + | Race | Unknown | + + + | Ethnic Group | Unknown | + + + Author + + + | Author | [facility] | | | and [place] | + + + | Organization | [facility] | | | [...] Team Providers + +------+ + | Care Car Repairer Name | Role | Phone | + +------+ + | Vik Oconnor MD | PCP | | + +------+ + Encounter Details +--------+ + + + + | Date | Type | Department | Care Team | Description | +--------+ + + + + | 03/09/ | [facility] | [facility] | Rani Sen | | | 2016 | Encounter | MED CTR THERAPY OT | C, OT | | | | | ACUTE [address] | | | | | | [place] | | | | | | [address] | | | | | | [phone] | | | +--------+ + + + [...] + + + +---------+ + + | metoprolol | Take 25 mg by mouth | | 0 | | | | tartrate (LOPRESSOR) | 2 times daily. | | | | | | 25 mg tablet | | | | | [...]
--- OUTSIDE RECORDS SUMMARY | ~2019-03-09 | XMS | Encounter Summary ---
Demographics + + + | Address | [address] | | | [place] [address] | + + + | Home Phone | | + + + | Preferred Language | Unknown | + + + | Marital Status | | + + + | Shinto Affiliation | Unknown | + + + | Race | Unknown | + + + | Ethnic Group | Unknown | + + + Author + + + | Author | [facility] | | | and [place] | + + + | Organization | [facility] | | | [...] Team Providers + +------+ + | Care Air Conditioning Unit Tester Name | Role | Phone | + [...] [address] | [address] [place], [place] | uncomplicated | | | | [place], [place] | [address] | (Primary Dx); | | | | [address] | | Chronic kidney | | | | [phone] | | disease, stage 3; | | [...] [address] | [place] | [phone] | | [facility] | | [address] | | | - IMAGING | | [...] MD | | | | | | ([id number]) on 02/27/2016 | | | | | [...] | mL/min/1.73m2 | KE | | | OMANI | RATE,ESTIMATED | | MEDICAL | | | | mL/min/1.94s0Xvnc than | | CENTER - | | [...] + | [facility] | [address] | [place] | [phone] | | [facility] | | [address] | | | - LABORATORY | | [...] + | [facility] | [address] | [place] | [phone] | | [facility] | | [address] | | | - LABORATORY | | [...] [address] | [place] | [phone] | | [facility] | | [address] | | | - LABORATORY | | [...] [address] | [place] | [phone] | | [facility] | | [address] | | | - LABORATORY | | [...]
--- OUTSIDE RECORDS SUMMARY | ~2019-03-09 | XMS | Encounter Summary ---
Demographics + + + | Address | [address] | | | [place] [address] | + + + | Home Phone | | + + + | Preferred Language | Unknown | + + + | Marital Status | | + + + | Jewish Affiliation | Unknown | + + + | Race | Unknown | + + + | Ethnic Group | Unknown | + + + Author + + + | Author | [facility] | | | and [place] | + + + | Organization | [facility] | | | [...] Team Providers + +------+ + | Care Dancing Teacher Name | Role | Phone | + +------+ + | Vik Oconnor MD | PCP | | + +------+ + Encounter Details +--------+ + + + + | Date | Type | Department | Care Team | Description | +--------+ + + + + | 10/13/ | [facility] | [facility] | Baljinder Tellez, | Neck pain | | 2016 | Encounter | MED CTR XRAY [address] | DO [address] | | | | | [place] | [address] [place] | | | | | [place] [address] | [address] | | | | | [phone] | | | +--------+ + + + [...] at Time of Discharge + + + +---------+--------+ + | Medication | Sig | Dispensed | Refills | Start | End Date | | | | | | Date | | + + + +---------+--------+ + | albuterol 90 | Inhale 2 puffs into | | 0 | | | | mcg/puff inhaler | the lungs every 6 | | | | | | | hours as needed for | | | | | | | Wheezing. | | | | | + + + +---------+--------+ + | gabapentin | Take 300 mg by mouth | | 0 | | | | (NEURONTIN) 300 mg | 3 times daily. | | | | | | capsule | | | | | | + + + +---------+--------+ + | lisinopril | Take 20 mg by mouth | | 0 | | | | (PRINIVIL, ZESTRIL) | Daily. | | | | | | 20 mg tablet | | | | | | + + + +---------+--------+ + | MEGARED OMEGA-3 | Take 1 capsule by | | 0 | | | | KRILL OIL 500 MG | mouth Daily. | | | | | | CAPS | | | | | | + + + +---------+--------+ + | Multiple Vitamin | Take 1 tablet by | | 0 | | | | (THERAGRAN PO) | mouth Daily. | | | | | + + + +---------+--------+ + | Probiotic Product | Take 1 capsule by | | 0 | | | | (PROBIOTIC DAILY) | mouth Daily. | | | | | | CAPS | | | | | | + + + +---------+--------+ + | triamterene | Take 100 mg by mouth | | 0 | | | | (DYRENIUM) 100 MG | 2 times daily. | | | | | | capsule | | | | | | + + + +---------+--------+ + | cephalexin | Take 500 mg by mouth | | 0 | | | | (KEFLEX) 500 mg | 2 times daily. | | | | 6 | | capsule | | | | | | + + + +---------+--------+ + | cyclobenzaprine | Take 10 mg by mouth | | 0 | | | | (FLEXERIL) 10 mg | 3 times daily as | | | | 6 | | tablet | needed for Muscle | | | | | | | spasms. | | | | | + + + +---------+--------+ + | glipiZIDE | Take 5 mg by mouth 2 | | 0 | | | | (GLUCOTROL) 5 mg | times daily (before | | | | 6 | | tablet | meals). | | | | | + + + +---------+--------+ + | | Take 1 tablet by | | 0 | | | | HYDROcodone-acetamin | mouth every 6 hours | | | | 6 | | ophen (NORCO) 5-325 | as needed for Pain. | | | | | | mg per tablet | | | | | | + + + +---------+--------+ + | oxybutynin | Take 15 mg by mouth | | 0 | | | | (DITROPAN XL) 15 MG | Daily. | | | | 6 | | 24 hr tablet | | | | | | + + + +---------+--------+ + | PARoxetine (PAXIL) | Take 20 mg by mouth | | 0 | | | | 20 mg tablet | every morning. | | | | 7 | + + + +---------+--------+ + | | Take 1 tablet by | | 0 | | | | sulfamethoxazole-tri | mouth nightly. | | | | 7 | | methoprim | | | | | | | (BACTRIM,SEPTRA) | | | | | | | 400-80 MG per tablet | | | | | | + + + +---------+--------+ + | traZODone | Take 50 mg by mouth | | 0 | | | | (DESYREL) 50 mg | nightly. | | | | 7 | | tablet | | | | | | + + + +---------+--------+ + documented as of this encounter Plan of Treatment Not on filedocumented as of this encounter Procedures + +--------+ + + + | Procedure Name | Priori | Date/Time | Associated Diagnosis | Comments | | | ty | | | | + +--------+ + + + | XR CERVICAL SPINE 4 | Routin | 10/14/2015 | Neck pain | Results for this | | OR 5 VWS | e | 8:40 AM | | procedure are in the | | | | PDT | | results section. | + +--------+ + + + documented in this encounter Results XR Cervical Spine 4 or 5 Vws (10/14/2015 8:40 AM PDT) + + | Specimen | + + | | + + + + + | Narrative | Performed At | + + + | XR CERVICAL SPINE 4 OR 5 VWS. 10/14/2015 8:40 AM HISTORY: Neck | [facility] | | pain . COMPARISON: MRI cervical spine 05/15/2015 and x-ray | [facility] | | cervical spine 10/29/2014 FINDINGS: There is reversal of the | [facility] | | cervical lordosis on the upright neutral view. There is | - IMAGING | | anterolisthesis of C2 on C3 of the upright neutral view, which does | | | not substantially changed on the flexion view or the extension view. | | | There is anterolisthesis of C3 on C4 on the upright neutral view that | | | does not change on flexion or extension views. There is | | | retrolisthesis of C4 on C5 on the upright neutral view that reduces | | | completely on the flexion view and is stable on the extension view. | | | There is retrolisthesis of C5 on C6 on the upright neutral view that | | | decreases on the flexion view and is stable on the extension view. | | | There is retrolisthesis of C6 on C7 on the upright neutral view that | | | appears to resolve on the flexion view and is stable on the extension | | | view. There is diffuse degenerative disc disease. Decreased disc | | | height seen at the levels of C4-5, C5-6, and C6-7, with endplate | | | sclerotic change and osteophyte formation, with similar changes to a | | | slightly lesser extent at C3-4. There is diffuse uncinate process | | | spurring and facet degenerative hypertrophy. Degenerative change is | | | present at the atlantoaxial articulation. Vertebral body heights | | | are maintained. Prevertebral and paraspinal soft tissues are | | | unremarkable. IMPRESSION - Degenerative disc disease, | | | spondylotic change, and spondylolisthesis, as described above, | | | without evidence of acute fracture or subluxation. Dictated and | | | Signed by: Isaías Adams MD Electronically signed: 10/14/2015 | | | 9:46 AM | | + + + + + | Procedure Note | + + | Luciano, Rad Results In - 10/14/2015 9:49 AM PDT XR CERVICAL SPINE 4 OR 5 VWS. | | 10/14/2015 8:40 AMHISTORY: Neck pain . COMPARISON: MRI cervical spine 05/15/2015 and | | x-ray cervical spine 10/29/2014FINDINGS:There is reversal of the cervical lordosis on the | | upright neutral view.There is anterolisthesis of C2 on C3 of the upright neutral view, | | which does notsubstantially changed on the flexion view or the extension view.There is | | anterolisthesis of C3 on C4 on the upright neutral view that does notchange on flexion | | or extension views. There is retrolisthesis of C4 on C5 onthe upright neutral view that | | reduces completely on the flexion view and isstable on the extension view.There is | | retrolisthesis of C5 on C6 on the upright neutral view that decreaseson the flexion view | | and is stable on the extension view.There is retrolisthesis of C6 on C7 on the upright | | neutral view that appears toresolve on the flexion view and is stable on the extension | | view.There is diffuse degenerative disc disease. Decreased disc height seen at | | thelevels of C4-5, C5-6, and C6-7, with endplate sclerotic change and | | osteophyteformation, with similar changes to a slightly lesser extent at C3-4. There | | isdiffuse uncinate process spurring and facet degenerative hypertrophy. Degenerative | | change is present at the atlantoaxial articulation. Vertebral bodyheights are | | maintained. Prevertebral and paraspinal soft tissues areunremarkable.IMPRESSION | | -Degenerative disc disease, spondylotic change, and spondylolisthesis, asdescribed | | above, without evidence of acute fracture or subluxation.Dictated and Signed by: Isaías | | MD Bryan Electronically signed: 10/14/2015 9:46 AM | |formation, with similar changes to a slightly lesser extent at C3-4. There is | |diffuse uncinate process spurring and facet degenerative hypertrophy. | |Degenerative change is present at the atlantoaxial articulation. Vertebral body | |heights are maintained. Prevertebral and paraspinal soft tissues are | |unremarkable. | | | | | |IMPRESSION - | |Degenerative disc disease, spondylotic change, and spondylolisthesis, as | |described above, without evidence of acute fracture or subluxation. | | | |Dictated and Signed by: Isaías Adams MD | | Electronically signed: 10/14/2015 9:46 AM | + + + + + + + | Performing | Address | City/State/Zipcode | Phone Number | | Organization | | | | + + + + + | [facility] | [address] | [place] | [phone] | | [facility] | | [address] | | | - IMAGING | | | | + + + + + documented in this encounter Visit Diagnoses + + | Diagnosis | + + | Neck pain Cervicalgia | + + documented in this encounter"
--- OUTSIDE RECORDS SUMMARY | ~2019-03-09 | XMS | Clinical Summary ---
Demographics + + + | Address | [address] | | | [place] [address] | + + + | Home Phone | | + + + | Preferred Language | Unknown | + + + | Marital Status | Unknown | + + + | Congregational Affiliation | Unknown | + + + | Race | Unknown | + + + | Ethnic Group | Unknown | + + + Author + + + | Author | [facility] (Historical as of | | | 12-09-18) | + + + | Organization | [facility] (Historical as of | | | 12-09-18) | + + + | Address | Unknown | + + + | Phone | Unavailable | + + + Support + + +---------+ + | Name | Relationship | Address | Phone | + + +---------+ + | Alia Melendez | ECON | Unknown | | + + +---------+ + Care Team Providers + +------+ + | Care Health Services Coordinator Name | Role | Phone | + +------+ + | Vik Oconnor MD | PP | | + +------+ + Allergies + + + + + + | Active Allergy | Reactions | Severity | Noted | Comments | | | | | Date | | + + + + + + | Codeine | Shortness of Breath | High | 02/01/20 | | | | | | 12 | | + + + + + + | Povidone Iodine | Itching | Medium | 02/01/20 | | | | | | 12 | | + + + + + + Current Medications + + +---------+---------+------+------+-------+ | Prescription | Sig. | Disp. | Refills | Star | End | Statu | | | | | | t | Date | s | | | | | | Date | | | + + +---------+---------+------+------+-------+ | paroxetine (PAXIL) | Take 20 mg by mouth | | | | | Activ | | 20 MG tablet | every morning. | | | | | e | + + +---------+---------+------+------+-------+ | lisinopril | Take 20 mg by mouth | | | | | Activ | | (PRINIVIL,ZESTRIL) | daily. | | | | | e | | 20 MG tablet | | | | | | | + + +---------+---------+------+------+-------+ | | Take 1 capsule by | | | | | Activ | | triamterene-hydrochl | mouth daily. | | | | | e | | orothiazide | | | | | | | | (DYAZIDE) 37.5-25 MG | | | | | | | | per capsule | | | | | | | + + +---------+---------+------+------+-------+ | trazodone | Take 50 mg by mouth | | | | | Activ | | (DESYREL) 50 MG | nightly. | | | | | e | | tablet | | | | | | | + + +---------+---------+------+------+-------+ | Cholecalciferol | Take 2,000 Units by | | | | | Activ | | (VITAMIN D3) 2000 | mouth daily. | | | | | e | | UNITS TABS | | | | | | | + + +---------+---------+------+------+-------+ | Multiple | Take 1 tablet by | | | | | Activ | | Vitamins-Minerals | mouth daily. | | | | | e | | (MULTIVITAMIN WITH | | | | | | | | MINERALS) tablet | | | | | | | + + +---------+---------+------+------+-------+ | fish oil-omega-3 | Take 2 g by mouth | | | | | Activ | | fatty acids 1000 MG | daily. | | | | | e | | capsule | | | | | | | + + +---------+---------+------+------+-------+ | Biotin 10 MG TABS | Take by mouth. | | | | | Activ | | | | | | | | e | + + +---------+---------+------+------+-------+ | cyclobenzaprine | Take 20 mg by mouth | | | | | Activ | | (FLEXERIL) 10 MG | daily. | | | | | e | | tablet | | | | | | | + + +---------+---------+------+------+-------+ | | Take 1 tablet by | | | | | Activ | | hydrocodone-acetamin | mouth every 8 | | | | | e | | ophen (VICODIN) | (eight) hours as | | | | | | | 5-500 MG per tablet | needed. | | | | | | + + +---------+---------+------+------+-------+ | Aromatic Inhalants | Inhale into the | | | | | Activ | | (INHALER | lungs. | | | | | e | | DECONGESTANT IN) | | | | | | | + + +---------+---------+------+------+-------+ | gabapentin | Take 1 cap po qam | 90 | 3 | 03/1 | | Activ | | (NEURONTIN) 300 MG | and 2 caps po qhs | capsule | | 8/20 | | e | | capsule | | | | 13 | | | + + +---------+---------+------+------+-------+ Active Problems +---------+ + | Problem | Noted Date | +---------+ + | Tremor | 02/01/2012 | +---------+ + Family History + + +------+ + | Medical History | Relation | Name | Comments | + + +------+ + | Hypertension | Mother | | | + + +------+ + + +------+--------+ + | Relation | Name | Status | Comments | + +------+--------+ + | Mother | | | | + +------+--------+ + Social History + +-------+ +--------+------+ | Tobacco Use | Types | Packs/Day | Years | Date | | | | | Used | | + +-------+ +--------+------+ | Never Smoker | | | | | + +-------+ +--------+------+ + + +---------+ + | Alcohol Use | Drinks/We | oz/Week | Comments | | | ek | | | + + +---------+ + | No | | | | + + +---------+ + + + + | Sex Assigned at | Date Recorded | | | | + + + | Not on file | | + + + Last Filed Vital Signs + + + + | Vital Sign | Reading | Time Taken | + + + + | Blood Pressure | 173/80 | 07/10/2012 11:25 AM PDT | + + + + | Pulse | 61 | 07/10/2012 11:25 AM PDT | + + + + | Temperature | - | - | + + + + | Respiratory Rate | - | - | + + + + | Oxygen Saturation | - | - | + + + + | Inhaled Oxygen | - | - | | Concentration | | | + + + + | Weight | 82.6 kg (182 lb) | 07/10/2012 11:25 AM PDT | + + + + | Height | 160 cm (5' 3") | 07/10/2012 11:25 AM PDT | + + + + | Body Mass Index | 32.24 | 07/10/2012 11:25 AM PDT | + + + + Plan of Treatment + + + + + | Health Maintenance | Due Date | Last Done | Comments | + + + + + | Vaccine: | | | | | Dtap/Tdap/Td (1 - | 4 | | | | Tdap) | | | | + + + + + | Vaccine: Zoster (1 | 09/07/199 | | | | of 2) | 5 | | | + + + + + | DEXA SCAN SCREENING | | | | | | 0 | | | + + + + + | Vaccine: | | | | | Pneumococcal 65+ | 0 | | | | Low/Medium Risk (1 | | | | | of 2 - PCV13) | | | | + + + + + | Vaccine: Influenza | | | | | (#1) | 9 | | | + + + + + Results Not on filefrom Last 3 Months Insurance + +--------+ +--------+-------+ + | Payer | Benefi | Subscriber | Type | Phone | Address | | | t Plan | ID | | | | | | / | | | | | | | Group | | | | | + +--------+ +--------+-------+ + | [place] [id number] | Medica | | | | FAMILY | [place] | | re | | | | | RE | | | | | | | FAMILY | | | | | + +--------+ +--------+-------+ + | [place]ICAID | [place] | [id number] | | | [address] | | | | | | | [place] | | | FAMILY | | | | [phone] | | | CARE | | | | | + +--------+ +--------+-------+ + + +--------+ +--------+ + + | Guarantor Name | Accoun | Relation to | Date | Phone | Billing Address | | | t Type | Patient | of | | | | | | | | | | + +--------+ +--------+ + + | VANI BANGURA | Person [birth year] Self [birth year] Home: | [address] | | | [place] | | 1946 | [phone] | [place] | | | am[place] | | | [address] | [phone] | + +--------+ +--------+ + +
--- OUTSIDE RECORDS SUMMARY | ~2019-03-09 | XMS | Encounter Summary ---
Demographics + + + | Address | [address] | | | [place] [address] | + + + | Home Phone | | + + + | Preferred Language | Unknown | + + + | Marital Status | | + + + | Gnosticist Affiliation | Unknown | + + + | Race | Unknown | + + + | Ethnic Group | Unknown | + + + Author + + + | Author | [facility] | | | and [place] | + + + | Organization | [facility] | | | [...] Providers + +------+ + | Care Senior Energy Consultant Name | Role | Phone | + +------+ + | Vik Oconnor MD | PCP | | + +------+ + Reason for Visit +--------+ + | Reason | Comments | +--------+ + | Other | Post op call | +--------+ + Encounter Details +--------+ + + + + | Date | Type | Department | Care Team | Description | +--------+ + + + + | 03/10/ | Telephone | [facility] | Baljinder Tellez, | Other (Post op call) | | 2016 | | [address]UR[address] | DO [address] | | | | | [address] | [address] [place], [place] | | | | | [place], [place] | [address] | | | | | [address] | | | | | | [phone] | | | +--------+ + + + [...]
--- OUTSIDE RECORDS SUMMARY | ~2019-03-09 | XMS | Clinical Summary ---
Demographics + + + | Address | [address] | | | [place] [address] | + + + | Home Phone | | + + + | Preferred Language | Unknown | + + + | Marital Status | Unknown | + + + | Yazidism Affiliation | Unknown | + + + | Race | Unknown | + + + | Ethnic Group | Unknown | + + + Author + + + | Author | [facility] (Historical as of | | | 12-09-18) | + + + | Organization | [facility] (Historical as of | | | 12-09-18) [...] Team Providers + +------+ + | Care Sales Technician Name | Role | Phone | [...] | [place] | [id number] | Medica | | | | FAMILY | [place] | | re | | | | | RE | | | | | | | FAMILY | | | | | + +--------+ +--------+-------+ + | MEDICAID | [place] | [id number] | | | [address] | | | | | | | [place] | | | FAMILY | | | | [address] | | | CARE | | | [...] ar[place] | | 1946 | [phone] | [place] | | | [place] | | | [address] | [address] | + +--------+ +--------+ + +
--- OUTSIDE RECORDS SUMMARY | ~2019-03-09 | XMS | Encounter Summary ---
Demographics + + + | Address | [address] | | | [place] [address] | + + + | Home Phone | | + + + | Preferred Language | Unknown | + + + | Marital Status | | + + + | Denominational Affiliation | Unknown | + + + | Race | Unknown | + + + | Ethnic Group | Unknown | + + + Author + + + | Author | [facility] | | | and [place] | + + + | Organization | [facility] | | | [...] Team Providers + +------+ + | Care Alarm Investigator Name | Role | Phone | + +------+ + | Vik Oconnor MD | PCP | | + +------+ + Reason for Visit + + + | Reason | Comments | + + + | Imaging Only | 6 month post op xray's | + + + Encounter Details +--------+ + + + + | Date | Type | Department | Care Team | Description | +--------+ + + + + | 09/21/ | Telephone | [facility] | Baljinder Tellez, | Imaging Only (6 | | 2017 | | [address] | DO [address] | month post op xray's | | | | [address] | [address] [place], [place] | ) | | | | [place], [place] | [address] | | | | | [address] | | | | | | [phone] | | | +--------+ + + + [...]
--- OUTSIDE RECORDS SUMMARY | ~2019-03-09 | XMS | Encounter Summary ---
Demographics + + + | Address | [address] | | | [place] [address] | + + + | Home Phone | | + + + | Preferred Language | Unknown | + + + | Marital Status | | + + + | Baptism Affiliation | Unknown | + + + | Race | Unknown | + + + | Ethnic Group | Unknown | + + + Author + + + | Author | [facility] | | | and [place] | + + + | Organization | [facility] | | [...] Team Providers + +------+ + | Care Cosmetology Professor Name | Role | Phone | + +------+ + | Vik Oconnor MD | PCP | | + +------+ + Encounter Details +--------+ + + + + | Date | Type | Department | Care Team | Description | +--------+ + + + + | 04/13/ | Hospital | [facility] | Baljinder Tellez, | Status post cervical | | 2016 | Encounter | MED CTR XRAY [address] | DO [address] | spinal fusion; | | | | [place] | [address] [place], [place] | Spondylolisthesis of | | | | [place] [address] | [address] | cervical region | | | | [phone] | | | +--------+ + + + [...] tablets by | 120 | 0 | 03/12/20 | | | HYDROcodone-acetamin | mouth every 4 hours | tablet | | 16 | 7 | | ophen (NORCO) 10-325 | as needed for Pain. | | | | | | mg per tablet | | | | | | + + + +---------+ + + | lactulose 10 g/15 | Take 30 mLs by mouth | 240 mL | 2 | 04/13/20 | | | mL solution | 2 times daily. For | | | 16 | 7 | | | constipation | | | [...] XR CERVICAL SPINE 2 | Routin | 04/13/2016 | Status post | Results for this | | OR 3 VIEWS | e | 11:43 AM | cervical spinal | procedure are in the | | | | PST | fusion | results section. | | | | | Spondylolisthesis of | | | | | | cervical region | | + +--------+ + + + documented in this encounter Results XR Cervical Spine 2 or 3 Views (04/13/2016 11:43 AM PST) + + | Specimen | + + | | + + + + + | Narrative | Performed At | + + + | CERVICAL SPINE: 04/13/2016 11:43 AM CLINICAL HISTORY: S/P | [facility] | | Cervical Fusion COMPARISON: 03/08/2016 FINDINGS: Upright AP | [facility] | | and lateral views of the cervical spine. Anterior compression | [facility] | | plate and screws and interbody bone graft in stable position | - IMAGING | | extending from C3-C7. Alignment is normally maintained. Hardware | | | position is unchanged. Vertebral body heights are normal. No acute | | | bony abnormality. Adjacent soft tissues are radiographically normal. | | | IMPRESSION - Stable C3-C7 ACDF. Dictated and Signed by: Jesús | | | MD Aditya Electronically signed: 04/13/2016 1:54 PM | | + + + + + | Procedure Note | + + | Luciano, Rad Results In - 04/13/2016 1:57 PM PST CERVICAL SPINE: 04/13/2016 11:43 AM | | | | CLINICAL HISTORY: S/P Cervical Fusion | | | | COMPARISON: 03/08/2016 | | | | FINDINGS: Upright AP and lateral views of the cervical spine. | | | | Anterior compression plate and screws and interbody bone graft in stable | | position extending from C3-C7. Alignment is normally maintained. Hardware | | position is unchanged. Vertebral body heights are normal. No acute bony | | abnormality. Adjacent soft tissues are radiographically normal. | | | | IMPRESSION - Stable C3-C7 ACDF. | | | | Dictated and Signed by: Jesús Burgess MD | | Electronically signed: 04/13/2016 1:54 PM | + + + + + + + | Performing | Address | City/State/Zipcode | Phone Number | | Organization | | | | + + + + + | [facility] | [address] | [place] | [phone] | | [facility] | | [address] | | | - IMAGING | | | | + + + + + documented in this encounter Visit Diagnoses + + | Diagnosis | + + | Status post cervical spinal fusion Arthrodesis status | + + | Spondylolisthesis of cervical region Acquired spondylolisthesis | + + documented in this encounter"
--- OUTSIDE RECORDS SUMMARY | ~2019-03-09 | XMS | Encounter Summary ---
Demographics + + + | Address | [address] | | | [place] [address] | + + + | Home Phone | | + + + | Preferred Language | Unknown | + + + | Marital Status | | + + + | Nondenominational Affiliation | Unknown | + + + | Race | Unknown | + + + | Ethnic Group | Unknown | + + + Author + + + | Author | [facility] | | | and [place] | + + + | Organization | [facility] | | [...] + +------+ + | Care Derrick Worker Well Service Name | Role | Phone | + [...] [address] | intermittent, | | | | [place] | [place] | uncomplicated; | | | | [place] [address] | [address] | Chronic kidney | | | | [phone] | | disease, stage 3; | | | | | Yang Cast MD | Chronic pain | | | | | [address] | syndrome; | | | | | [place] | Dermatitis; | | | | | [address] | Uncomplicated type 2 | | | [...] [address] | [place] | [phone] | | [facility] | | [address] | | | - IMAGING | | [...]
--- OUTSIDE RECORDS SUMMARY | ~2019-03-09 | XMS | Encounter Summary ---
Demographics + + + | Address | [address] | | | [place] [address] | + + + | Home Phone | | + + + | Preferred Language | Unknown | + + + | Marital Status | | + + + | Baptist Affiliation | Unknown | + + + | Race | Unknown | + + + | Ethnic Group | Unknown | + + + Author + + + | Author | [facility] | | | and [place] | + + + | Organization | [facility] | | | [...] Team Providers + +------+ + | Care Coal Yard Supervisor Name | Role | Phone | + [...] + | 02/26/ | Telephone | [facility] | Baljinder Tellez, | Other (Pre op meds | | 2016 | | [address]UR[address] | DO [address] | to stop) | | | | [address] | [address] [place], [place] | | | | | [place], [place] | [address] | | | | | [address] | | | | | | [phone] | | | +--------+ + + + [...]
--- OUTSIDE RECORDS SUMMARY | ~2019-03-09 | XMS | Encounter Summary ---
Demographics + + + | Address | [address] | | | [place] [address] | + + + | Home Phone | | + + + | Preferred Language | Unknown | + + + | Marital Status | | + + + | Jewish Affiliation | Unknown | + + + | Race | Unknown | + + + | Ethnic Group | Unknown | + + + Author + + + | Author | [facility] | | | and [place] | + + + | Organization | [facility] | | | and [...] Team Providers + +------+ + | Care Remedial Masseur Name | Role | Phone | + [...] + + | 09/21/ | Telephone | [facility] | Baljinder Tellez, | Imaging Only (6 | | 2017 | | [address] | DO [address] | month post op xray's | | | | [address] | [address] [place], [place] | ) | | | | [place], [place] | [address] | | | | | [address] | | | | | | [phone] | | | +--------+ + + + [...]
--- OUTSIDE RECORDS SUMMARY | ~2019-03-09 | XMS | Encounter Summary ---
Demographics + + + | Address | [address] | | | [place] [address] | + + + | Home Phone | | + + + | Preferred Language | Unknown | + + + | Marital Status | | + + + | Samaritan Affiliation | Unknown | + + + [...] Team Providers + +------+ + | Care Electrical Equipment Technician Name | Role | Phone | [...] [address] [place] | | | | | [phone] | [place] [address] | | +--------+ + + + + [...] for comparison only - no result from [place]. | [facility] | + + + + +---------+ + + | Performing | Address | City/State/Zipcode | Phone Number | | Organization | | | | + +---------+ + + | [facility] | | | | + +---------+ + + documented in this encounter Visit Diagnoses Not on filedocumented in this encounter"
--- OUTSIDE RECORDS SUMMARY | ~2019-03-09 | XMS | Encounter Summary ---
Demographics + + + | Address | [address] | | | [place] [address] | + + + | Home Phone | | + + + | Preferred Language | Unknown | + + + | Marital Status | | + + + | Hinduism Affiliation | Unknown | + + + | Race | Unknown | + + + | Ethnic Group | Unknown | + + + Author + + + | Author | [facility] | | | and [place] | + + + | Organization | [facility] | | | [...] Team Providers + +------+ + | Care Managed Care Provider Name | Role | Phone | + [...] | | | | | | | [place] | | | | | | | [...] + + + + | 03/08/ | Hospital | [facility] | Baljinder Tellez, | | | 2016 - | Encounter | MED CTR [address] | DO [address] | | | | | [place], | [facility] [place] | | | 03/09/ | | [place] [address] | [id number] | | | 2015 | | [phone] | | | +--------+ + + + [...] + + + | Blood Pressure | 119/47 | 03/09/2016 11:43 AM | | | | | PST | | + + + + + | Pulse | 65 | 03/09/2016 11:43 AM | | | | | PST | | + + + + + | Temperature | 36.9 C (98.4 F) | 03/09/2016 11:43 AM | | | | | PST | | + + + + + | Respiratory Rate | 16 | 03/09/2016 11:43 AM | | | | | PST | | + + + + + | Oxygen Saturation | 92% | 03/09/2016 11:43 AM | | | | | PST | | + + + + + | Inhaled Oxygen | - | - | | | Concentration | | | | + + + + + | Weight | 96.3 kg (212 lb 4.9 | 03/09/2016 5:32 AM | | | | oz) | PST | | + + + + + | Height | 162.6 cm (5' 4") | 03/08/2016 6:30 PM | | | | | PST | | + + + + + | Body Mass Index | 36.44 | 03/08/2016 6:30 PM | | | | | PST [...] + + documented as of this encounter Discharge Summaries Umang Parker PA - 03/09/2016 7:23 AM PSTFormatting of this note might be different f rom the original. DISCHARGE SUMMARY Pt. Name/Age/: Katja Wei 70 y.o. 1945 Date of Admission: 03/08/2016 Date of Discharge: 03/09/2016 Admitting Physician: Baljinder Tellez DO PCP: Vik Oconnor Discharging Physician: ANGEL LUIS Nelson Primary Discharge Dx: <principal problem not specified> Secondary Discharge Dx: Patient Active Problem List Diagnosis Asthma, intermittent Chronic kidney disease, stage 3 Chronic pain syndrome Dermatitis Uncomplicated type 2 diabetes mellitus Essential hypertension Family history of benign essential tremor HLD (hyperlipidemia) Hyperparathyroidism Degeneration, intervertebral disc, cervical Degeneration, intervertebral disc, lumbar Obesity History of migraine headaches Reason for Admission (Brief): Ms. Wei is a 70-year-old woman, who presented with sign s and symptoms and radiographic evidence of cervical kyphosis, spondylolisthesis, spondylosi s, and stenosis - upper extremity radiculopathy and neck pain. She failed conservative treat ment and symptoms continued to progress. MRI of the cervical spine demonstrated kyphosis, sp ondylolisthesis, spondylosis, and stenosis C3-C7. Given the progression of her symptoms, she decided to proceed with anterior cervical fusion C3-7 Hospital Course, including Complications: On the day of admission the patient was admitted to [facility] and underwent a C3-C7 fusion. Patient was transferred to PACU and then to the neurosurgical floor. In brief, the hospital stay was uncomplicated, the patient mobilized well with physical therapy and occup ational therapy. There were no cardiac issues, pulmonary issues, evidence of DVT or infecti on. Appropriate discharge plans were made in line with her progress and mobility and she was ultimately discharged to home. Medications Reconciled upon Discharge are: Discharge Medications New Medications Details diazePAM 5 mg tablet Take 1 tablet by mouth every 6 hours as needed. aka: VALIUM HYDROcodone-acetaminophen 10-325 mg per tablet Replaces: HYDROcodone-acetaminophen 5-325 mg per tablet Take 1-2 tablets by mouth every 4 hours as needed for Pain. aka: NORCO lactulose 10 g/15 mL solution Take 30 mLs by mouth 2 times daily. For constipation Unchanged Medications Details albuterol 90 mcg/puff inhaler Inhale 2 puffs into the lungs every 6 hours as needed for Wheezing. gabapentin 300 mg capsule Take 300 mg by mouth 3 times daily. aka: NEURONTIN lisinopril 20 mg tablet Take 20 mg by mouth Daily. aka: PRINIVIL, ZESTRIL MEGARED OMEGA-3 KRILL OIL 500 MG Caps Take 1 capsule by mouth Daily. metoprolol tartrate 25 mg tablet Take 25 mg by mouth 2 times daily. aka: LOPRESSOR OXYBUTYNIN CHLORIDE ER PO Take 5 mg by mouth nightly. PARoxetine 20 mg tablet Take 20 mg by mouth every morning. aka: PAXIL PROBIOTIC DAILY Caps Take 1 capsule by mouth Daily. sulfamethoxazole-trimethoprim 400-80 MG per tablet Take 1 tablet by mouth nightly. aka: BACTRIM,SEPTRA THERAGRAN PO Take 1 tablet by mouth Daily. traZODone 50 mg tablet Take 50 mg by mouth nightly. aka: DESYREL triamterene 100 MG capsule Take 100 mg by mouth 2 times daily. aka: DYRENIUM Discontinued Medications HYDROcodone-acetaminophen 5-325 mg per tablet aka: NORCO Replaced by: HYDROcodone-acetaminophen 10-325 mg per tablet Condition on Discharge: Stable Disposition: Patient was discharged to home Follow-Up Plans: Follow-up with: Dr. Tellez's office in 4 weeks Follow-up with primary care physician as needed. Diet: Resume regular diet Activity: Continue to follow guidelines and precautions as previously discussed. Brace: B Electronically signed by: Umang Parker, 03/09/2016 7:23 [facility] documented in this encounter Discharge Instructions Instructions Umang Parker PA - 03/09/2016Discharge Instructions for Cervical Fusion You had a cervical fusion. During this procedure, your doctor lockedtogether (fused) some of the bones in the curve of your neck. This limits the movement of these bones to help rel ieve your pain. Here s what you need to know about home care following a cervical fusion. Activity Arrange your household to keep the items you need within reach. Remove electrical cords, throw rugs,and anything else that may cause you to fall. Follow your doctor s instructions for wearing acervical collar or brace. The neck co llar or brace is important because it supports and correctly positions your neck after surge ry. Be sure to follow instructions for its care, use, and the length of time you must wear i t. Don t raise your hands over your head [id number])after your surgery. Don t drive until your doctor says it s OK. This will most likely be when you can mo ve your neck from side to side freely and without pain. Never drive while you are taking opi oid pain medication. Walk as much as possible. You may also go up and down stairs as much as you can tolerate . Walking outside or walking on a treadmill at a slow speed with no incline is OK. Don t lift anything heavier than5 pounds. Ask your doctor when you can return to work. Other home care Take your medication exactly as directed. Talk to your doctor about pain medication. Don t take nonsteroidal, anti-inflammatory medications (NSAIDs),such as ibuprofen un less your doctor approves. They may delay or prevent proper fusion of bone. As long as you keep your incision dry you may shower as desired after your surgery. You may allow shower water to run over the incision and get it wet after 5 days, but do not subm erse the incision under water until after you see your provider at your 1 month post op visi t. You may be instructed to use a neck collar while you shower. If so, carefully remove it when you finish showering. Then keep your neck correctly positioned as you gently pat dry y our skin, the incision, and the neck collar. Then put the neck collar back on. Don t soak in bathtubs, hot tubs, or swimming pools until instructed by your doctor. Your incision mayhave beenclosed using sutures, radha, or strips of tape. You can allow strips of tape to fall off on their own. Don t rub the incision, or apply creams or lotions onit. If you smoke, quit. Smoking slows healing of bone. Enroll in a stop-smoking program to i mprove your chances of success. Follow-up Most patients will have a 4 week follow up appointment. Please get your 1 month post op x-rays prior to this your 1 month post op appointment. [phone] [address] [place] [phone]. All righ ts reserved. This information is not intended as a substitute for professional medical care. Always follow your healthcare professional's instructions. documented in this encounter Medications at Time of Discharge [...] + + documented as of this encounter Progress Notes Tea Amezcua PharmD - 03/09/2016 9:13 AM PSTFormatting of this note might be differ ent from the original. PHARMACY CONSULT - BACTRIM DOSING Subjective/Objective: Katja Wei is a 70 y.o. 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 Assessment/Plan: 1. Patient takes bactrim SS 400-80 mg once daily orally for chronic UTI at home. The same d ose was ordered inpatient on 03/08. 2. Patients CrCl today is 44mL/min. For CrCl > 30mL/min, no dosage adjustments are needed. 3. Dose appropriate for renal function and indication 4. Continue with Bactrim SS 400-80mg once daily PO. 5. Pharmacy will continue to follow and recommend dose adjustments as appropriate to clinic al condition and creatinine clearance changes Electronically signed by: Tea Amezcua PHARMD 03/09/2016 9:13 Natali Arguello PA - 03/09/2016 7:14 AM PSTFormatting of this note might be different from the konrad [facility]over [facility] NEUROSURGERY PROGRESS NOTE Pt. Name/Age/: Katja Wei 70 y.o. 1945 Post operative day 1 SUBJECTIVE: Patient is doing well overall. She spent the night in the ICU because she was w aking up slowly from surgery and anesthesia and director of investigations thought this would be most appro priate. She states her left arm is better now than it was before surgery. Her pain is well c ontrolled and she has no other C/C. OBJECTIVE: Patient Vitals for the past 24 hrs: BP Temp Temp src Pulse Resp SpO2 Height Weight 03/09/16 0532 - - - - - - - 96.3 kg (212 lb 4.9 oz) 03/09/16 0400 133/55 mmHg 37.2 C (99 F) Oral 62 15 91 % - - 03/09/16 0252 - - - 67 10 90 % - - 03/09/16 0200 144/57 mmHg - - 63 11 97 % - - 03/09/16 0036 - - - 68 14 91 % - - 03/09/16 0031 - - - 72 11 (!) 88 % - - 03/09/16 0000 135/59 mmHg - - 75 14 95 % - - 03/08/16 2300 126/67 mmHg 36.4 C (97.5 F) Oral 78 16 97 % - - 03/08/16 2225 130/78 mmHg - - 70 12 97 % - - 03/08/160 - - - 119 8 93 % - - 03/08/16 2145 144/68 mmHg - - 120 10 94 % - - 03/08/16 2130 144/64 mmHg - - 123 14 94 % - - 03/08/16 2113 150/66 mmHg - - 122 - - - - 03/08/16 2100 150/64 mmHg - - 121 10 93 % - - 03/08/162020 160/81 mmHg 36.3 C (97.3 F) Oral - - - - - 03/08/16 1945 143/66 mmHg - - 90 19 99 % - - 03/08/16 1930 146/68 mmHg - - 94 25 99 % - - 03/08/16 1918 153/68 mmHg - - 94 17 99 % - - 03/08/16 191 - - - 94 13 100 % - - 03/08/16 1900 149/64 mmHg - - 95 10 95 % - - 03/08/16 1845 - - - 90 11 95 % - - 03/08/16 1830 97/67 mmHg 36.3 C (97.3 F) Oral 94 16 94 % 1.626 m (5' 4") 96 kg (211 lb 10.3 oz) 03/08/16 1801 143/58 mmHg - - 92 12 94 % - - 03/08/16 1756 143/67 mmHg - - 92 9 94 % - - 03/08/16 1751 146/65 mmHg - - 92 10 94 % - - 03/08/16 1747 145/58 mmHg - - 93 10 93 % - - 03/08/16 1741 148/63 mmHg - - 94 13 93 % - - 03/08/16 1736 155/52 mmHg - - 96 14 93 % - - 03/08/16 1731 160/58 mmHg - - 94 16 93 % - - 03/08/16 1727 148/76 mmHg - - 95 18 93 % - - 03/08/16 1722 150/64 mmHg - - 93 15 92 % - - 03/08/16 1717 170/65 mmHg - - 94 16 92 % - - 03/08/16 1711 153/64 mmHg - - 94 13 94 % - - 03/08/16 1706 138/87 mmHg - - 96 14 93 % - - 03/08/16 1701 156/65 mmHg - - 94 14 93 % - - 03/08/16 1656 158/69 mmHg - - 93 13 94 % - - 03/08/16 1651 161/60 mmHg - - 96 17 94 % - - 03/08/16 1647 159/57 mmHg - - 95 14 95 % - - 03/08/16 1640 152/58 mmHg - - 95 13 93 % - - 03/08/16 1635 156/72 mmHg - - 97 19 94 % - - 03/08/16 1630 168/64 mmHg - - 98 18 93 % - - 03/08/16 1625 167/68 mmHg - - 96 13 93 % - - 03/08/16 1620 167/61 mmHg - - 97 14 95 % - - 03/08/16 1615 165/63 mmHg - - 100 15 94 % - - 03/08/16 1610 175/71 mmHg - - 95 15 94 % - - 03/08/16 1605 171/66 mmHg - - 91 12 93 % - - 03/08/16 1600 184/68 mmHg - - 94 15 93 % - - 03/08/16 1555 183/77 mmHg - - 93 17 93 % - - 03/08/16 1553 - - - 94 14 94 % - - 03/08/16 1550 170/73 mmHg - - 92 10 94 % - - 03/08/16 1545 187/77 mmHg - - 90 12 93 % - - 03/08/16 1540 190/79 mmHg - - 89 12 93 % - - 03/08/16 1535 (!) 187/92 mmHg - - 91 11 (!) 87 % - - 03/08/16 1530 (!) 173/94 mmHg - - 88 11 95 % - - 03/08/16 1525 165/68 mmHg - - 81 (!) 7 94 % - - 03/08/16 1520 161/76 mmHg - - 81 8 92 % - - 03/08/16 1518 169/66 mmHg 36 C (96.8 F) Temporal 81 12 92 % - - 03/08/16 1514 - - - - - 90 % - - 03/08/16 1512 - - - 82 - 91 % - - 03/08/16 1000 109/62 mmHg 36.4 C (97.5 F) Temporal 59 18 95 % 1.626 m (5' 4") 93.895 kg (207 lb) I/O last 24 Hours: In: 4239 [P.O.:800; I.V.:3182; IV Piggyback:257] Out: 1130 [Urine:900; Other:130; Blood:100] Min/Max Temp past 24 hours:Temp Av.4 C (97.6 F) Min: 36 C (96.8 F) Max: 37. 2 C (99 F) General: Alert, oriented, no acute distress Dressing: Clean/Dry/Intact Neurological: normal DRAIN OUTPUT: 15 CCs from 1:00-7:00 Labs Recent Results (from the past 24 hour(s)) Type and Screen Result Value Ref Range ABO A Rh Type Negative Antibody Screen Negative POC Glucose Result Value Ref Range Glucose, POC 108 70-150 mg/dL ASSESSMENT:SP C3-C7 fusion Plan:Mobilize. May pull drain after breakfast. Plan on DC home later this AM around noon. Electronically signed by: Umang Parker, 03/09/2016 7:15 [facility] Ronald Landry PharmD - 03/08/2016 4:04 PM PSTFormatting of this note might be different from the origin al. PHARMACY CONSULT - BACTRIM DOSING Subjective/Objective: Katja Wei is a 70 y.o. 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 Assessment/Plan: 1. Patient takes bactrim SS 400-80 mg once daily orally for chronic UTI. Ordered the same d ose here. 2. Pharmacy will continue to follow and recommend dose adjustments as appropriate to clinic al condition and creatinine clearance changes Electronically signed by: Ronald Campos PHARMD 03/08/2016 16:05 documented in this encounter Plan of Treatment Not on filedocumented as of this encounter Procedures + +--------+ + + + | Procedure Name | Priori | Date/Time | Associated Diagnosis | Comments | | | ty | | | | + +--------+ + + + | EXTRA KORY TOP | Routin | 03/09/2016 | | Results for this | | TUBE | e | 7:55 AM | | procedure are in the | | | | PST | | results section. | + +--------+ + + + | CREATININE | Routin | 03/09/2016 | | Results for this | | | e | 7:55 AM | | procedure are in the | | | | PST | | results section. | + +--------+ + + + | CULTURE, MRSA | Routin | 03/08/2016 | | Results for this | | | e | 11:27 PM | | procedure are in the | | | | PST | | results section. | + +--------+ + + + | XR CERVICAL SPINE 2 | STAT | 03/08/2016 | | Results for this | | OR 3 VIEWS | | 10:14 PM | | procedure are in the | | | | PST | | results section. | + +--------+ + + + | FL ION STATS NO | Routin | 03/08/2016 | | Results for this | | CHARGE | e | 2:57 PM | | procedure are in the | | | | PST | | results section. | + +--------+ + + + | FUSION CERVICAL | | 03/08/2016 | Spondylolisthesis | | | ANTERIOR W/ PLATING | | 12:12 PM | of cervical region | | | | | PST | | | + +--------+ + + + +---+--------+ | | Case | | | Notes | | | | | | C-ARM, | | | | | | DRILL, | | | | | | MICROS | | | COPE | | | EST | | | TIME: | | | 2.5H | | | BIOLOG | | | ICS: | | | GRAFTO | | | N | | | TABLE: | | | | | | SKYTRO | | | N | +---+--------+ | | | | | Specia | | | l | | | Needs | | | Jake | | | | | | Wenceslao | | | ; | | | Atlant | | | is | | | Transi | | | tional | | | and | | | Bone | | | Spacer | | | | +---+--------+ + +--------+ +---+ + | POC GLUCOSE | Routin | 03/08/2016 | | Results for this | | | e | 11:24 AM | | procedure are in the | | | | PST | | results section. | + +--------+ +---+ + | TYPE AND SCREEN | Routin | 03/08/2016 | | Results for this | | | e | 11:19 AM | | procedure are in the | | | | PST | | results section. | + +--------+ +---+ + documented in this encounter Results Extra Lavender Top Tube (03/09/2016 7:55 AM PST) + +-------+ + + + | Component | Value | Ref Range | Performed | Pathologist | | | | | At | Signature | + +-------+ + + + | Extra | Done | | [facility] | | | Lavender | | | [facility] | | | Top Tube | | | MEDICAL | | | [...] [address] | [place] | [phone] | | [facility] | | [address] | | | - LABORATORY | | | | + + + + + Creatinine (03/09/2016 7:55 AM PST) + + + + + + | Component | Value | Ref Range | Performed | Pathologist | | | | | At | Signature | + + + + + + | Creatinine | 1.33 (H) | 0.60 - 1.30 | [facility] | | | | | mg/dL | [facility] | | | | | | MEDICAL | | | | | | CENTER - | | | | | | LABORATORY | | + + + + + + | eGFR if not | 39 (L)Comment: | >=60 | [facility] | | | | GLOMERULAR FILTRATION | mL/min/1.73m2 | [facility] | | | TURKMEN | RATE,ESTIMATED | | MEDICAL | | | | mL/min/1.36r8Veay than | | CENTER - | | [...] | + + + + + | [facility] | [address] | [place] | [phone] | | [facility] | | [address] | | | - LABORATORY | | | | + + + + + Culture, MRSA (03/08/2016 11:27 PM PST) + + + + + + | Component | Value | Ref Range | Performed | Pathologist | | | | | At | Signature | + + + + + + | Culture | Negative for MRSA by | | [facility] | | | | chromogenic agar method | | [facility] | | | | | | MEDICAL | | | | | | CENTER - | | | | | | LABORATORY | | + + + + + + + + | Specimen | + + | Respiratory - Both | | anterior nares (body | | structure) | + + + + + + + | Performing | Address | City/State/Zipcode | Phone Number | | Organization | | | | + + + + + | [facility] | [address] | [place] | [phone] | | [facility] | | [address] | | | - LABORATORY | | | | + + + + + XR Cervical Spine 2 or 3 Views (03/08/2016 10:14 PM PST) + + | Specimen | + + | | + + + + + | Narrative | Performed At | + + + | EXAM: XR CERVICAL SPINE 2 OR 3 VIEWS HISTORY: post op | [facility] | | cervical surgery TECHNIQUE: AP and lateral views of the cervical | | | spine COMPARISON: 10/14/2015 FINDINGS: Status post C3-C7 | | | ACDF, in approximate anatomic alignment. Surgical hardware appears | | | intact. No fractures are evident. Surgical drain projects over the | | | anterior cervical soft tissues. IMPRESSION - Status post C3-C7 | | | ACDF with expected post-operative findings. CRITICAL VALUE: No | | | Dictated and Signed by: Chris Vela MD Electronically signed: | | | 03/09/2016 8:01 AM | | + + + + + | Procedure Note | + + | Luciano, Rad Results In - 03/09/2016 8:04 AM PST EXAM: XR CERVICAL SPINE 2 OR 3 VIEWS | | | | HISTORY: post op cervical surgery | | | | TECHNIQUE: AP and lateral views of the cervical spine | | | | COMPARISON: 10/14/2015 | | | | FINDINGS: | | | | Status post C3-C7 ACDF, in approximate anatomic alignment. | | Surgical hardware appears intact. | | No fractures are evident. | | Surgical drain projects over the anterior cervical soft tissues. | | | | IMPRESSION - | | Status post C3-C7 ACDF with expected post-operative findings. | | | | CRITICAL VALUE: No | | | | Dictated and Signed by: Perez Dane, MD | | Electronically signed: 03/09/2016 8:01 AM | + + + +---------+ + + | Performing | Address | City/State/Zipcode | Phone Number | | Organization | | | | + +---------+ + + | [facility] | | | | + +---------+ + + [place] Rob-Espinoza Weaver No Charge (03/08/2016 2:57 PM PST) + + | Specimen | + + | | + + + + + | Narrative | Performed At | + + + | No Radiologist interpretation, please see Chart Review. | [facility] | + + + + +---------+ + + | Performing | Address | City/State/Zipcode | Phone Number | | Organization | | | | + +---------+ + + | [facility] | | | | + +---------+ + + POC Glucose (03/08/2016 11:24 AM PST) + +-------+ + + + | Component | Value | Ref Range | Performed | Pathologist | | | | | At | Signature | + +-------+ + + + | Glucose, | 108 | 70 - 150 mg/dL | [facility] | | | POC | | | [facility] | | [...] | [facility] | [address] | [place] | [phone] | | [facility] | | [address] | | | - LABORATORY | | | | + + + + + Type and Screen (03/08/2016 11:19 AM PST) + + + + + + | Component | Value | Ref Range | Performed | Pathologist | | | | | At | Signature | + + + + + + | ABO | A | | [facility] | | | | | | [facility] | | | | | | MEDICAL | | | | | | CENTER - | | | | | | BLOOD BANK | | + + + + + + | Rh Type | Negative | | [facility] | | | | | | [facility] | | | | | | MEDICAL | | | | | | CENTER - | | | | | | BLOOD BANK | | + + + + + + | Antibody | Negative | | [facility] | | | Screen | | | [facility] | | | | | | MEDICAL | | | | | | CENTER - | | | | | | BLOOD BANK | | + + + + + + + + | Specimen | + + | Blood specimen | | (specimen) | + + + + + + + | Performing | Address | City/State/Zipcode | Phone Number | | Organization | | | | + + + + + | [facility] | [address] | [place] | | | [facility] | | [address] | | | - BLOOD BANK | | | | + + + + + documented in this encounter Visit Diagnoses Not on filedocumented in this encounter Administered Medications + +--------+ +--------+------+------+ | Medication Order | MAR | Action | Dose | Rate | Site | | | Action | Date | | | | + +--------+ +--------+------+------+ | albuterol 2.5 mg/3 mL nebulizer | Given | 03/08/20 | 2.5 mg | | | | solution 2.5 mg 2.5 mg, | | 16 3:34 | | | | | Nebulization, ONCE PRN, Wheezing, | | PM PST | | | | | Starting 03/08/16 at 1454, | | | | | | | For 1 dose, Notify anesthesia if | | | | | | | patient is wheezing and does not | | | | | | | have a history of asthma or COPD | | | | | | | or current smoking., | | | | | | | Recovery/Phase I | | | | | | + +--------+ +--------+------+------+ +---+---+ | | | +---+---+ + +---------+ +-----+-------+---+ | ceFAZolin (ANCEF, KEFZOL) 2 g | New Bag | 03/09/20 | 2 g | 100 | | | in sodium chloride 0.9% 50 mL | | 16 3:59 | | mL/hr | | | IVPB 2 g, Intravenous, | | AM PST | | | | | Administer over 30 Minutes, EVERY | | | | | | | 8 HOURS INTERVAL, First dose on | | | | | | | 03/08/16 at 2030, For 2 | | | | | | | doses, Start 8 hours after | | | | | | | previous dose. Last dose to be | | | | | | | given within 24 hours of surgery | | | | | | | end time., Post-op/Phase II, | | | | | | | Indications: Surgical Prophylaxis | | | | | | + +---------+ +-----+-------+---+ +---------+ +-----+-------+---+ | New Bag | 03/08/20 | 2 g | 100 | | | | 16 8:23 | | mL/hr | | | | PM PST | | | | +---------+ +-----+-------+---+ +---+---+ | | | +---+---+ + +-------+ +------+---+---+ | diazePAM (VALIUM) tablet 5 mg | Given | 03/08/20 | 5 mg | | | | 5 mg, Oral, EVERY 6 HOURS PRN, | | 16 10:27 | | | | | Muscle spasms, Starting Mon | | PM PST | | | | | 03/08/16 at 1900, Use if | | | | | | | methocarbamol and cyclobenzaprine | | | | | | | ineffective or not ordered., | | | | | | | Post-op/Phase II | | | | | | + +-------+ +------+---+---+ +---+---+ | | | +---+---+ + +-------+ +--------+---+---+ | docusate sodium (COLACE) | Given | 03/09/20 | 100 mg | | | | capsule 100 mg 100 mg, Oral, 2 | | 16 8:18 | | | | | TIMES DAILY, First dose on Mon | | AM PST | | | | | 03/08/16 at 2100, First line | | | | | | | agent for constipation, | | | | | | | Post-op/Phase II | | | | | | + +-------+ +--------+---+---+ +-------+ +--------+---+---+ | Given | 03/08/20 | 100 mg | | | | | 16 9:14 | | | | | | PM PST | | | | +-------+ +--------+---+---+ +---+---+ | | | +---+---+ + +-------+ +--------+---+---+ | gabapentin (NEURONTIN) capsule | Given | 03/09/20 | 300 mg | | | | 300 mg 300 mg, Oral, 3 TIMES | | 16 8:21 | | | | | DAILY, First dose on 03/08/16 | | AM PST | | | | | at 2100, Post-op/Phase II | | | | | | + +-------+ +--------+---+---+ +-------+ +--------+---+---+ | Given | 03/08/20 | 300 mg | | | | | 16 9:13 | | | | | | PM PST | | | | +-------+ +--------+---+---+ +---+---+ | | | +---+---+ + + + +------+---+---+ | hydrALAZINE (APRESOLINE) | Given by | 03/08/20 | 5 mg | | | | injection 5 mg 5 mg, | Other | 16 4:01 | | | | | Intravenous, EVERY 20 MINUTES | | PM PST | | | | | PRN, For SBP > 180, DBP > 100, | | | | | | | Starting 03/08/16 at 1454, | | | | | | | Hold if HR > 100. Maximum total | | | | | | | dose 40 mg. Use labetalol first | | | | | | | if available., Recovery/Phase I | | | | | | + + + +------+---+---+ +-------+ +------+---+---+ | Given | 03/08/20 | 5 mg | | | | | 16 3:38 | | | | | | PM PST | | | | +-------+ +------+---+---+ +---+---+ | | | +---+---+ + +-------+ +---------+---+---+ | HYDROcodone-acetaminophen | Given | 03/09/20 | 2 | | | | (NORCO) 10-325 mg per tablet 1-2 | | 16 8:19 | tablets | | | | tablet 1-2 tablet, Oral, EVERY 4 | | AM PST | | | | | HOURS PRN, Pain, Starting Mon | | | | | | | 03/08/16 at 1900, Post-op/Phase | | | | | | | II | | | | | | + +-------+ +---------+---+---+ +-------+ + +---+---+ | Given | 03/09/20 | 2 | | | | | 16 2:25 | tablets | | | | | AM PST | | | | +-------+ + +---+---+ | Given | 03/08/20 | 1 tablet | | | | | 16 8:21 | | | | | | PM PST | | | | +-------+ + +---+---+ +---+---+ | | | +---+---+ + +-------+ +-------+---+---+ | lisinopril (PRINIVIL, ZESTRIL) | Given | 03/09/20 | 20 mg | | | | tablet 20 mg 20 mg, Oral, DAILY, | | 16 8:18 | | | | | First dose on 03/08/16 at | | AM PST | | | | | 1930, Post-op/Phase II | | | | | | + +-------+ +-------+---+---+ +-------+ +-------+---+---+ | Given | 03/08/20 | 20 mg | | | | | 16 8:21 | | | | | | PM PST | | | | +-------+ +-------+---+---+ +---+---+ | | | +---+---+ + +---------+ +--------+--------+---+ | methocarbamol (ROBAXIN) 750 mg | New Bag | 03/09/20 | 750 mg | 143.3 | | | in sodium chloride 0.9% 100 mL | | 16 8:15 | | mL/hr | | | IVPB 750 mg, Intravenous, | | AM PST | | | | | Administer over 45 Minutes, EVERY | | | | | | | 8 HOURS INTERVAL, First dose on | | | | | | | 03/08/16 at 1630, For 4 | | | | | | | doses, Post-op/Phase II | | | | | | + +---------+ +--------+--------+---+ +---------+ +--------+--------+---+ | New Bag | 03/09/20 | 750 mg | 143.3 | | | | 16 12:41 | | mL/hr | | | | AM PST | | | | +---------+ +--------+--------+---+ | New Bag | 03/08/20 | 750 mg | 143.3 | | | | 16 4:32 | | mL/hr | | | | PM PST | | | | +---------+ +--------+--------+---+ +---+---+ | | | +---+---+ + +-------+ +-------+---+---+ | metoprolol tartrate (LOPRESSOR) | Given | 03/09/20 | 25 mg | | | | tablet 25 mg 25 mg, Oral, 2 | | 16 8:19 | | | | | TIMES DAILY, First dose on Mon | | AM PST | | | | | 03/08/16 at 2100, Post-op/Phase | | | | | | | II | | | | | | + +-------+ +-------+---+---+ +-------+ +-------+---+---+ | Given | 03/08/20 | 25 mg | | | | | 16 9:13 | | | | | | PM PST | | | | +-------+ +-------+---+---+ +---+---+ | | | +---+---+ + +-------+ +------+---+---+ | ondansetron (ZOFRAN ODT) | Given | 03/08/20 | 4 mg | | | | disintegrating tablet 4 mg 4 mg, | | 16 8:21 | | | | | Oral, EVERY 6 HOURS PRN, Nausea, | | PM PST | | | | | Vomiting, Starting Tue03/08/16 | | | | | | | at 1900, First line agent, | | | | | | | Post-op/Phase II | | | | | | + +-------+ +------+---+---+ +---+---+ | | | +---+---+ + +-------+ +------+---+---+ | oxybutynin (DITROPAN XL) ER | Given | 03/08/20 | 5 mg | | | | tablet 5 mg 5 mg, Oral, NIGHTLY, | | 16 9:14 | | | | | First dose on Tue03/08/16 at | | PM PST | | | | | 2100, Post-op/Phase II | | | | | | + +-------+ +------+---+---+ +---+---+ | | | +---+---+ + +-------+ +-------+---+---+ | PARoxetine (PAXIL) tablet 20 mg | Given | 03/09/20 | 20 mg | | | | 20 mg, Oral, EVERY MORNING, | | 16 8:18 | | | | | First dose on Tue03/08/16 at | | AM PST | | | | | 1930, Reproductive Risk: Use | | | | | | | appropriate handling | | | | | | | precautions., Post-op/Phase II | | | | | | + +-------+ +-------+---+---+ +-------+ +-------+---+---+ | Given | 03/08/20 | 20 mg | | | | | 16 9:13 | | | | | | PM PST | | | | +-------+ +-------+---+---+ +---+---+ | | | +---+---+ + +---------+ +--------+-------+---+ | sodium chloride 0.9% (NS) | New Bag | 03/08/20 | 1,000 | 100 | | | infusion at 100 mL/hr, | | 16 11:29 | mLs | mL/hr | | | Intravenous, CONTINUOUS, Starting | | AM PST | | | | | Tue03/08/16 at 1100, Pre-op | | | | | | + +---------+ +--------+-------+---+ +---+---+ | | | +---+---+ + +---------+ +---------+-------+---+ | sodium chloride 0.9% (NS) | New Bag | 03/09/20 | 950 mLs | 100 | | | infusion at 100 mL/hr, | | 16 8:09 | | mL/hr | | | Intravenous, CONTINUOUS, Starting | | AM PST | | | | | 03/08/16 at 1930, | | | | | | | Post-op/Phase II | | | | | | + +---------+ +---------+-------+---+ +---------+ +---+-------+---+ | New Bag | 03/08/20 | | 100 | | | | 16 7:44 | | mL/hr | | | | PM PST | | | | +---------+ +---+-------+---+ +---+---+ | | | +---+---+ + +-------+ +---------+---+---+ | sulfamethoxazole-trimethoprim | Given | 03/09/20 | 0.5 | | | | (BACTRIM DS) 800-160 mg per | | 16 8:18 | tablets | | | | tablet 0.5 tablet 0.5 tablet, | | AM PST | | | | | Oral, DAILY, First dose on Mon | | | | | | | 03/08/16 at 1630, Indications: | | | | | | | Urinary Tract Infection | | | | | | + +-------+ +---------+---+---+ +-------+ +---------+---+---+ | Given | 03/08/20 | 0.5 | | | | | 16 8:20 | tablets | | | | | PM PST | | | | +-------+ +---------+---+---+ +---+---+ | | | +---+---+ + +-------+ +-------+---+---+ | traZODone (DESYREL) tablet 50 | Given | 03/08/20 | 50 mg | | | | mg 50 mg, Oral, NIGHTLY, First | | 16 9:13 | | | | | dose on 03/08/16 at 2100, | | PM PST | | | | | Post-op/Phase II | | | | | | + +-------+ +-------+---+---+ +---+---+ | | | +---+---+ + +-------+ +--------+---+---+ | triamterene (DYRENIUM) capsule | Given | 03/09/20 | 100 mg | | | | 100 mg 100 mg, Oral, 2 TIMES | | 16 9:04 | | | | | DAILY, First dose on 03/08/16 | | AM PST | | | | | at 2100, Post-op/Phase II | | | | | | + +-------+ +--------+---+---+ +-------+ +--------+---+---+ | Given | 03/08/20 | 100 mg | | | | | 16 8:28 | | | | | | PM PST | | | | +-------+ +--------+---+---+ +---+---+ | | | +---+---+ documented in this encounter
--- OUTSIDE RECORDS SUMMARY | ~2019-03-09 | XMS | Encounter Summary ---
Demographics + + + | Address | [address] | | | [place] [address] | + + + | Home Phone | | + + + | Preferred Language | Unknown | + + + | Marital Status | | + + + | Cheondoism Affiliation | Unknown | + + + | Race | Unknown | + + + | Ethnic Group | Unknown | + + + Author + + + | Author | [facility] | | | and [place] | + + + | Organization | [facility] | | | and [...] Team Providers + +------+ + | Care Hand Ironer Name | Role | Phone | + +------+ + | Vik Oconnor MD | PCP | | + +------+ + Encounter Details +--------+ + + + + | Date | Type | Department | Care Team | Description | +--------+ + + + + | 03/04/ | Orders Only | [facility] | Baljinder Tellez, | Spondylolisthesis of | | 2016 | | NEUROSURGERY [address] | DO [address] | cervical region | | | | [address] | [address] [place], [place] | (Primary Dx); Status | | | | [place], [place] | [address] | post cervical | | | | [address] | | spinal fusion | | | | [phone] | | | +--------+ + + + [...] 2 or 3 Views (04/13/2016 11:43 AM [facility]) + + | Specimen | + + [...] | [facility] | [address] | [place] | [phone] | | [facility] | | [address] | | | - IMAGING | | | | + + + + + documented in this encounter Visit Diagnoses + + | Diagnosis | + + | Spondylolisthesis of cervical region - Primary Acquired spondylolisthesis | + + | Status post cervical spinal fusion Arthrodesis status | + + documented in this encounter"
--- OUTSIDE RECORDS SUMMARY | ~2019-03-09 | XMS | Encounter Summary ---
Demographics + + + | Address | [address] | | | [place] [address] | + + + | Home Phone | | + + + | Preferred Language | Unknown | + + + | Marital Status | | + + + | Roman Catholic Affiliation | Unknown | + + + | Race | Unknown | + + + | Ethnic Group | Unknown | + + + Author + + + | Author | [facility] | | | and [place] | + + + | Organization | [facility] | | | [...] Team Providers + +------+ + | Care Manager Engagement Name | Role | Phone | + [...] | 03/10/ | Telephone | [facility] | Baljinder Tellez, | Other (Post op call) | | 2016 | | NEUROSUR[address] | DO [address] | | | | | [address] | [address] [place], [place] | | | | | [place], [place] | [address] | | | | | [address] | | | | | | [phone] | | | +--------+ + + + [...]
--- OUTSIDE RECORDS SUMMARY | ~2019-03-09 | XMS | Encounter Summary ---
Demographics + + + | Address | [address] | | | [place] [address] | + + + | Home Phone | | + + + | Preferred Language | Unknown | + + + | Marital Status | | + + + | Alevism Affiliation | Unknown | + + + | Race | Unknown | + + + | Ethnic Group | Unknown | + + + Author + + + | Author | [facility] | | | and [place] | + + + | Organization | [facility] | | | [...] Team Providers + +------+ + | Care Color Television Console Monitor Name | Role | Phone | + [...] | | | | | myelopathy | [address] | [place], [place] | | | | | or | Phone: | [phone] | | | | | radiculopath | [phone] | Phone: | | | | | y Lumbar | Fax: | [phone] | | | | | stenosis | [phone] | Fax: | | | | | Chronic | | [phone] | | | | | midline low [...] + + | 11/22/ | Office | [facility] | Baljinder Tellez, | 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 A small pillow or rolled towel [...] in the groin area Date Last Reviewed: 09/24/201519990317-2697 [employer]. [address] [place] [address]. All righ ts reserved. This information is not intended as a substitute for professional medical care. Always follow your healthcare professional's instructions. documented in this encounter Progress Notes Baljinder Tellez DO - 11/22/2016 1:00 PM PDTFormatting of this note might be different fro m the original. Baljinder Tellez DO [address] [facility], [address] [place] [address] FAX: NEUROSURGERY FOLLOW-UP CHIEF COMPLAINT: [...] Plating; Barb geon: Baljinder Tellez DO; Location: [facility] MAIN OR CYSTOCELE REPAIR 06/10/14 HYSTERECTOMY 1989 [...] options, [facility]. I will refer her [...]
--- OUTSIDE RECORDS SUMMARY | ~2019-03-09 | XMS | Encounter Summary ---
Demographics + + + | Address | [address] | | | [place] [address] | + + + | Home Phone | | + + + | Preferred Language | Unknown | + + + | Marital Status | | + + + | Roman Catholic Affiliation | Unknown | + + + | Race | Unknown | + + + | Ethnic Group | Unknown | + + + Author + + + | Author | [facility] | | | and [place] | + + + | Organization | [facility] | | | [...] Team Providers + +------+ + | Care Primary Teacher Name | Role | Phone | + +------+ + | Vik Oconnor MD | PCP | | + +------+ + Reason for Referral Diagnostic/Screening (Routine) +--------+--------+ + + + + | Status | Reason | Specialty | Diagnoses / | Referred By | Referred To | | | | | Procedures | Contact | Contact | +--------+--------+ + + + + | Closed | | Radiology | Diagnoses | Geoff | [facility] | | | | | | Baljinder Hood DO | [address] | | | | | Spondylolist | [address] | [place], | | | | | sree, | [address] | [place] | | | | | lumbar | [place] | [address] | | | | | region | [address] | Phone: | | | | | Postural | Phone: | [phone] | | | | | kyphosis of | [phone] | Fax: | | | | | thoracolumba | Fax: | [phone] | | | | | r region | [phone] | | | | | | Osteoarthrit | | | | | | | is of spine | | | | | | | with | | | | | | | radiculopath | | | | | | | y, lumbar | | | | | | | region | | | | | | | Lumbar | | | | | | | radicular | | | | | | | pain | | | | | | | Chronic | | | | | | | midline low | | | | | | | back pain | | | | | | | with | | | | | | | right-sided | | | | | | | sciatica | | | | | | | Procedures | | | | | | | MRI Lumbar | | | | | | | Spine wo | | | | | | | Contrast | | | +--------+--------+ + + + + Reason for Visit Diagnostic/Screening (Routine) +--------+--------+ + + + + | Status | Reason | Specialty | Diagnoses / | Referred By | Referred To | | | | | Procedures | Contact | Contact | +--------+--------+ + + + + | Closed | | Radiology | Diagnoses | Geoff, | [facility] | | | | | | Baljinder Hood DO | [address] | | | | | Spondylolist | [address] | [place], | | | | | hesis, | [address] | [place] | | | | | lumbar | [place], [place] | [address] | | | | | region | [address] | Phone: | | | | | Postural | Phone: | [phone] | | | | | kyphosis of | [phone] | Fax: | | | | | thoracolumba | Fax: | [phone] | | | | | r region | [phone] | | | | | | Osteoarthrit | | | | | | | is of spine | | | | | | | with | | | | | | | radiculopath | | | | | | | y, lumbar | | | | | | | region | | | | | | | Lumbar | | | | | | | radicular | | | | | | | pain | | | | | | | Chronic | | | | | | | midline low | | | | | | | back pain | | | | | | | with | | | | | | | right-sided | | | | | | | sciatica | | | | | | | Procedures | | | | | | | MRI Lumbar | | | | | | | Spine wo | | | | | | | Contrast | | | +--------+--------+ + + + + Encounter Details +--------+ + + + + | Date | Type | Department | Care Team | Description | +--------+ + + + + | 11/18/ | Hospital | [facility] | Baljinder Tellez, | Spondylolisthesis, | | 2017 | Encounter | MED CTR MRI [address] | DO [address] | lumbar region; | | | | [address] [place], | [address] [place], [place] | Postural kyphosis of | | | | [place] [id number] | [address] | thoracolumbar | | | | [phone] | | region; | | | | | | Osteoarthritis of | | | | | | spine with | | | | | | radiculopathy, | | | | | | lumbar region; | | | | | | Lumbar radicular | | | | | | pain; Chronic | | | | | | midline low back | | | | | | pain with | | | | | | right-sided sciatica | +--------+ + + + + Social [...] + +---------+ + + | cephalexin | Daily. | | 0 | 10/07/19 | | | (KEFLEX) 250 mg | | | | 17 | | | capsule | | | | | | + + + +---------+ + + | ciprofloxacin | take 1 tablet by | | 0 | 05/10/19 | | | (CIPRO) 500 mg | mouth twice a day | | | 17 | | | tablet | | | | | | + + + +---------+ + + | gabapentin | Take 300 mg by mouth | | 0 | | | | (NEURONTIN) 300 mg | 3 times daily. | | | | | | capsule | | | | | | + + + +---------+ + + | glipiZIDE | | | 0 | 06/05/19 | | | (GLUCOTROL XL) 5 mg | | | | 17 | | | 24 hr tablet | | | | | | + + + +---------+ + + | | as needed. | | 0 | 09/25/19 | | | HYDROcodone-acetamin | | | | 17 | | | ophen (NORCO) 5-325 | | | | | | | mg [...] + + + +---------+ + + | MYRBETRIQ 50 MG ER | Take 50 mg by mouth | | 0 | 06/15/20 | | | tablet | Daily. | | | 17 | | + + + +---------+ + + | Probiotic Product | Take 1 capsule by | | 0 | | | | (PROBIOTIC DAILY) | mouth Daily. | | | | | | CAPS | | | | | | + + + +---------+ + + | tiZANidine | Take 2 mg by mouth | | 0 | 09/25/19 | | | (ZANAFLEX) 2 MG | as needed. | | | 17 | | | tablet | | | | | | + + + +---------+ + + | triamterene | Take 100 mg by mouth | | 0 | | | | (DYRENIUM) 100 MG | 2 times daily. | | | | | | capsule | | | | | | + + + +---------+ + + | | | | 0 | 06/13/19 | | | triamterene-hydrochl | | | | 17 | | | orothiazide | | | | | | | (MAXZIDE-25) 37.5-25 | | | | | | | mg per tablet | | | | | | + + + +---------+ + + | cyclobenzaprine | Take 20 mg by mouth. | | 0 | | | | (FLEXERIL) 10 mg | | | | | 7 | [...] | + +--------+ + + + | MRI LUMBAR SPINE WO | Routin | 11/18/2016 | Spondylolisthesis, | Results for this | | CONTRAST | e | 10:40 AM | lumbar region | procedure are in the | | | | PDT | Postural kyphosis of | results section. | | | | | thoracolumbar | | | | | | region | | | | | | Osteoarthritis of | | | | | | spine with | | | | | | radiculopathy, | | | | | | lumbar region | | | | | | Lumbar radicular | | | | | | pain Chronic | | | | | | midline low back | | | | | | pain with | | | | | | right-sided sciatica | | + +--------+ + + + documented in this encounter Results MRI Lumbar Spine wo Contrast (11/18/2016 10:40 AM PDT) + + | Specimen | + + | | + + + + + | Narrative | Performed At | + + + | UNENHANCED MRI LUMBAR SPINE 11/18/2016 10:02 AM CLINICAL HISTORY: | [facility] | | Lumbar radiculoapthy with spondylolisthesis and thoracolumbar | [facility] | | kyphosis COMPARISON: MRI April 2015 TECHNIQUE: The | [facility] | | following 1.5T MR sequences of the lumbar spine were obtained: 1. | - IMAGING | | Axial and sagittal T1. 2. Axial, sagittal, and coronal T2. 3. | | | Sagittal STIR. FINDINGS: Five non rib-bearing, lumbar type | | | vertebrae are suggested on the coronal sequence. Rightward lumbar | | | curvature centered at L1-2 persists, along with exaggeration of the | | | lumbar lordosis. Vertebral height is maintained. Thinning, if not | | | disruption of the right L5 pars interarticularis is apparent. No | | | suspicious marrow abnormality is evident. The conus medullaris is | | | unremarkable, terminating at T12. At least one rounded low signal | | | gallstone is present within the gallbladder. There is stable mild | | | fullness of the adrenal glands. Imaged intra-abdominal and | | | paraspinal structures are otherwise unremarkable. T11-12: Disc | | | desiccation, disc space narrowing, Modic endplate hyperintensity and | | | a broad-based right paramedian disc protrusion persist, along with | | | minimal central canal stenosis and flattening of the right ventral | | | spinal cord. T12-L1: Disc desiccation, disc space narrowing, Modic | | | endplate hyperintensity, 2 mm retrolisthesis and a generalized | | | posterior disc bulge and small left paramedian disc protrusion again | | | mildly narrow the central canal. Bilateral facet joint effusions | | | persist. L1-2: Disc desiccation, mild disc space narrowing, | | | annular tears, 3 mm retrolisthesis and a generalized posterior disc | | | bulge again combine with dorsal ligamentous and facet hypertrophy to | | | mildly narrow the central canal and left neural foramen to a similar | | | degree. There is no visible nerve root encroachment. Small facet | | | joint effusions persist. L2-3: Anterior annular tear is now | | | apparent. Disc desiccation, mild disc space narrowing, 2 mm | | | retrolisthesis and a generalized posterior disc bulge again combine | | | with dorsal ligamentous and facet hypertrophy to minimally narrow the | | | central canal and foramina to a similar degree. Bilateral facet | | | joint effusions persist. L3-4: Disc desiccation, annular tear, 2 | | | mm anterolisthesis and a minimal posterior disc bulge combining with | | | dorsal ligamentous and facet hypertrophy to mildly narrow the central | | | canal and foramina to a similar degree. There is no visible nerve | | | root encroachment. L4-5: Disc desiccation, 2 mm anterolisthesis | | | and a generalized posterior disc bulge combine with dorsal | | | ligamentous and facet hypertrophy to mildly narrow the central canal | | | and minimally narrow the foramina to a similar degree. L5-S1: Disc | | | desiccation, moderate to severe disc space narrowing, Modic endplate | | | hyperintensity, 2 mm anterolisthesis and a generalized posterior disc | | | bulge as well as left and right lateral disc osteophyte complexes | | | combine with dorsal ligamentous and facet hypertrophy to mildly | | | narrow the foramina to a similar degree. Disc/vertebral osteophytes | | | again approximate the exiting L5 nerve roots, left greater than | | | right, along with the descending S1 nerve roots within the | | | subarticular recesses. IMPRESSION - 1. SIMILAR DEGENERATIVE | | | DISC DISEASE AND MILD ANTEROLISTHESIS AT L5-S1 WITH ENCROACHMENT ON | | | THE EXITING L5 NERVE ROOTS AND DESCENDING S1 NERVE ROOTS, IN THE | | | SETTING OF POTENTIAL UNILATERAL L5 SPONDYLOLYSIS. 2. SIMILAR | | | DEGENERATIVE DISC DISEASE, MILD SPONDYLOLISTHESIS AND MILD STENOSIS | | | ELSEWHERE IN THE LUMBAR AND IMAGED LOWER THORACIC SPINE WITHOUT | | | VISIBLE NERVE ROOT ENCROACHMENT. 3. DEXTROSCOLIOSIS AND | | | EXAGGERATION OF THE LUMBAR LORDOSIS WITH MULTILEVEL FACET | | | ARTHROPATHY. 4. CHOLELITHIASIS. Dictated and Signed by: Adams Esteves MD Electronically signed: 11/18/2016 11:42 AM | | + + + + + | Procedure Note | + + | Art Wolf In - 11/18/2016 11:45 AM PDT UNENHANCED MRI LUMBAR SPINE 11/18/2016 | | 10:02 AMCLINICAL HISTORY: Lumbar radiculoapthy with spondylolisthesis and | | thoracolumbarkyphosis COMPARISON: MRI April 2015TECHNIQUE: The following 1.5T MR | | sequences of the lumbar spine were obtained:1. Axial and sagittal T1.2. Axial, | | sagittal, and coronal T2.3. Sagittal STIR.FINDINGS: Five non rib-bearing, lumbar type | | vertebrae are suggested on thecoronal sequence. Rightward lumbar curvature centered at | | L1-2 persists, alongwith exaggeration of the lumbar lordosis. Vertebral height is | | maintained. Thinning, if not disruption of the right L5 pars interarticularis is | | apparent. No suspicious marrow abnormality is evident. The conus medullaris | | isunremarkable, terminating at T12. At least one rounded low signal gallstone ispresent | | within the gallbladder. There is stable mild fullness of the adrenalglands. Imaged | | intra-abdominal and paraspinal structures are otherwiseunremarkable.T11-12: Disc | | desiccation, disc space narrowing, Modic endplate hyperintensityand a broad-based right | | paramedian disc protrusion persist, along with minimalcentral canal stenosis and | | flattening of the right ventral spinal cord.T12-L1: Disc desiccation, disc space | | narrowing, Modic endplate hyperintensity, 2mm retrolisthesis and a generalized posterior | | disc bulge and small leftparamedian disc protrusion again mildly narrow the central | | canal. Bilateralfacet joint effusions persist.L1-2: Disc desiccation, mild disc space | | narrowing, annular tears, 3 mmretrolisthesis and a generalized posterior disc bulge | | again combine with dorsalligamentous and facet hypertrophy to mildly narrow the central | | canal and leftneural foramen to a similar degree. There is no visible nerve | | rootencroachment. Small facet joint effusions persist.L2-3: Anterior annular tear is | | now apparent. Disc desiccation, mild disc spacenarrowing, 2 mm retrolisthesis and a | | generalized posterior disc bulge againcombine with dorsal ligamentous and facet | | hypertrophy to minimally narrow thecentral canal and foramina to a similar degree. | | Bilateral facet joint effusionspersist.L3-4: Disc desiccation, annular tear, 2 mm | | anterolisthesis and a minimalposterior disc bulge combining with dorsal ligamentous and | | facet hypertrophy tomildly narrow the central canal and foramina to a similar degree. | | There is novisible nerve root encroachment.L4-5: Disc desiccation, 2 mm anterolisthesis | | and a generalized posterior discbulge combine with dorsal ligamentous and facet | | hypertrophy to mildly narrow thecentral canal and minimally narrow the foramina to a | | similar degree.L5-S1: Disc desiccation, moderate to severe disc space narrowing, Modic | | endplatehyperintensity, 2 mm anterolisthesis and a generalized posterior disc bulge | | aswell as left and right lateral disc osteophyte complexes combine with | | dorsalligamentous and facet hypertrophy to mildly narrow the foramina to a | | similardegree. Disc/vertebral osteophytes again approximate the exiting L5 nerveroots, | | left greater than right, along with the descending S1 nerve roots withinthe subarticular | | recesses.IMPRESSION -1. SIMILAR DEGENERATIVE DISC DISEASE AND MILD ANTEROLISTHESIS AT | | L5-S1 WITHENCROACHMENT ON THE EXITING L5 NERVE ROOTS AND DESCENDING S1 NERVE ROOTS, IN | | THESETTING OF POTENTIAL UNILATERAL L5 SPONDYLOLYSIS.2. SIMILAR DEGENERATIVE DISC | | DISEASE, MILD SPONDYLOLISTHESIS AND MILD STENOSISELSEWHERE IN THE LUMBAR AND IMAGED | | LOWER THORACIC SPINE WITHOUT VISIBLE NERVEROOT ENCROACHMENT.3. DEXTROSCOLIOSIS AND | | EXAGGERATION OF THE LUMBAR LORDOSIS WITH MULTILEVELFACET ARTHROPATHY.4. | | CHOLELITHIASIS.Dictated and Signed by: Adams Esteves MD Electronically signed: 11/18/2016 | | 11:42 AM | |mildly narrow the central canal and foramina to a similar degree. There is no | |visible nerve root encroachment. | | | |L4-5: Disc desiccation, 2 mm anterolisthesis and a generalized posterior disc | |bulge combine with dorsal ligamentous and facet hypertrophy to mildly narrow the | |central canal and minimally narrow the foramina to a similar degree. | | | |L5-S1: Disc desiccation, moderate to severe disc space narrowing, Modic endplate | |hyperintensity, 2 mm anterolisthesis and a generalized posterior disc bulge as | |well as left and right lateral disc osteophyte complexes combine with dorsal | |ligamentous and facet hypertrophy to mildly narrow the foramina to a similar | |degree. Disc/vertebral osteophytes again approximate the exiting L5 nerve | |roots, left greater than right, along with the descending S1 nerve roots within | |the subarticular recesses. | | | |IMPRESSION - | |1. SIMILAR DEGENERATIVE DISC DISEASE AND MILD ANTEROLISTHESIS AT L5-S1 WITH | |ENCROACHMENT ON THE EXITING L5 NERVE ROOTS AND DESCENDING S1 NERVE ROOTS, IN THE | |SETTING OF POTENTIAL UNILATERAL L5 SPONDYLOLYSIS. | | | |2. SIMILAR DEGENERATIVE DISC DISEASE, MILD SPONDYLOLISTHESIS AND MILD STENOSIS | |ELSEWHERE IN THE LUMBAR AND IMAGED LOWER THORACIC SPINE WITHOUT VISIBLE NERVE | |ROOT ENCROACHMENT. | | | |3. DEXTROSCOLIOSIS AND EXAGGERATION OF THE LUMBAR LORDOSIS WITH MULTILEVEL | |FACET ARTHROPATHY. | | | |4. CHOLELITHIASIS. | | | |Dictated and Signed by: Adams Esteves MD | | Electronically signed: 11/18/2016 11:42 AM | + + + + + + + | Performing | Address | City[facility] | Phone Number | | Organization | | | | + + + + + | [facility] | [address] 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
--- OUTSIDE RECORDS SUMMARY | ~2019-03-09 | XMS | Encounter Summary ---
Demographics + + + | Address | [address] | | | [place] [address] | + + + | Home Phone | | + + + | Preferred Language | Unknown | + + + | Marital Status | | + + + | Hoahaoism Affiliation | Unknown | + + + | Race | Unknown | + + + | Ethnic Group | Unknown | + + + Author + + + | Author | [facility] | | | and [place] | + + + | Organization | [facility] | | | [...] Team Providers + +------+ + | Care Pictures Editor Name | Role | Phone | + +------+ + | Vik Oconnor MD | PCP | | + +------+ + Encounter Details +--------+ + + + + | Date | Type | Department | Care Team | Description | +--------+ + + + + | 02/25/ | Preadmit | [facility] | Baljinder Tellez, | Pre-operative | | 2016 | Visit | [facility] | DO [address] | clearance (Primary | | | | CLINIC [address] | [address] [place], [place] | Dx); Asthma, | | | | [place], [place] | [address] | intermittent, | | | | [address] | | uncomplicated; | | | | | | Chronic kidney | | | | | | disease, stage 3; | | [...] | + + +--------+ + + | Culture, MRSA | Microbiolog | Routin | Pre-operative | 1 Occurrences | | | y | e | clearance | starting 02/25/2016 | | | | | | until 02/24/2017 | + + +--------+ + + documented as of this encounter Procedures + +--------+ + + + | Procedure Name | Priori | Date/Time | Associated Diagnosis | Comments | | | ty | | | | + +--------+ + + + | ECG 12 LEAD | Routin | 02/26/2016 | Asthma, | Results for this | | | e | 11:42 AM | intermittent, | procedure are in the [...] mellitus | | | | | | ([facility]) Essential | | | | | | [...] | + +--------+ + + + | PTT | Routin | 02/26/2016 | Asthma, | Results for this | | | e | 11:38 AM | intermittent, | procedure are in the [...] | + +--------+ + + + | PROTIME INR | Routin | 02/26/2016 | Asthma, | Results for this | | | e | 11:38 AM | intermittent, | procedure are in the [...] | + +--------+ + + + | CBC WITH | Routin | 02/26/2016 | Asthma, | Results for this | | DIFFERENTIAL | e | 11:38 AM | intermittent, | procedure are in the [...] | + +--------+ + + + | BASIC METABOLIC | Routin | 02/26/2016 | Asthma, | Results for this | | PANEL | e | 11:38 AM | intermittent, | procedure are in the [...] + | CULTURE, MRSA | Routin | 02/26/2016 | | Results for this | | | e | 11:37 AM | | procedure are in the | | | | PDT | | results section. | + +--------+ + + + documented in this encounter Results ECG 12 lead (02/26/2016 11:42 AM PDT) + + + + + + | Component | Value | Ref Range | Performed | Pathologist | | | | | At | Signature | + + + + + + | VENTRICULAR | 58 | BPM | [facility] | | | RATE EKG | [...] MD | | | | | | ([id number]) on 02/27/2016 | | | | | [...] | | GLOMERULAR FILTRATION | mL/min/1.73m2 | [facility] | | | [facility] | RATE,ESTIMATED | | MEDICAL | | | | mL/min/1.29o2Gxsb than | | CENTER - | | [...] | | | | | mg/dL | [facility] | | | | [...] + | [facility] | [address] | [place] | [phone] | | [facility] | | [address] | | | - LABORATORY | | [...] + | [facility] | [address] | [place] | [phone] | | [facility] | | [address] | | | - LABORATORY | | [...] | | Time | | seconds | [facility] | | | | | | MEDICAL | | | | | | CENTER - | | | | | | LABORATORY | | + + + + + + | INR | 1.12 (H)Comment: Usual | 0.90 - 1.10 | [facility] | | | | Oral Anticoagulation | | [facility] | | | | Range: 2.0 - [...] + | [facility] | [address] | [place] | [phone] | | [facility] | | [address] | | | - LABORATORY | | | | + + + + + CBC with Differential (02/26/2016 11:38 AM PDT) + +-------+ + + + | Component | Value | Ref Range | Performed | Pathologist | | | | | At | Signature | + +-------+ + + + | WBC | 7.5 | 4.0 - 11.0 K/uL | [facility] | | | | | | [facility] | | | [...] | | | | g/dL | [facility] | | | | [...] | | Eosinophils | | K/uL | [facility] | | | | | | [...] [address] | [place] | [phone] | | [facility] | | [address] | | | - LABORATORY | | | | + + + + + Culture, MRSA (02/26/2016 11:37 AM PDT) + + + + + + | Component | Value | Ref Range | Performed | Pathologist | | | | | At | Signature | + + + + + + | Culture | Negative for MRSA by | | TOD[facility] | | | | chromogenic agar method | | [facility] | | | [...] ST[facility] | [address] | [place], [place] | [phone] | | [facility] | | [address] | | | - LABORATORY | | | | + + + + + documented in this encounter Visit Diagnoses + + | Diagnosis | + + | Pre-operative clearance - Primary Preoperative examination, unspecified | + + | Asthma, intermittent, uncomplicated [...]
--- OUTSIDE RECORDS SUMMARY | ~2019-03-09 | XMS | Encounter Summary ---
Demographics + + + | Address | [address] | | | [place] [address] | + + + | Home Phone | | + + + | Preferred Language | Unknown | + + + | Marital Status | | + + + | Voodoo Affiliation | Unknown | + + + | Race | Unknown | + + + | Ethnic Group | Unknown | + + + Author + + + | Author | [facility] | | | and [place] | + + + | Organization | [facility] | | [...] Team Providers + +------+ + | Care Stone Processing Machine Operator Name | Role | Phone [...] | | | | | | | [place] | | | | | | | [...] Description | +--------+---------+ + + + | 03/08/ | Surgery | [facility] | Baljinder Tellez, | C3-4, C4-5, C5-6, | | 2016 | | MED CTR OR INTRA OP | DO [address] | C6-7 Anterior | | | | [address] | [address] [place] | Cervical Discectomy | | | | [place] | [address] | w/ Fusion and | | | | [address] | | Plating | | | | [phone] | | | +--------+---------+ + + + [...] of admission the patient was admitted to [facility] and underwent a C3-C7 fusion. Patient was [...] follow guidelines and precautions as previously discussed. Dianne: B Electronically signed by: Umang Parker, 03/09/2016 7:23 [facility] documented in this encounter Discharge Instructions [...] t raise your hands over your head [id number](s)after your surgery. Don t drive until your [...] this your 1 month post op appointment. [id number] [email or web address]. [address] [place] [address]. All righ ts reserved. This information is [...] on 03/08/2016 9:47 and is on bactrim NET APPLICATION SUPPORT SPECIALIST for chronic UTI BP 116/50 mmHg | [...] clearance changes Electronically signed by: Tea Amezcua PHARMFrancisco 03/09/2016 9:13 Natali Arguello PA - 03/09/2016 7:14 AM PSTFormatting of this note might be different from the konrad hoover [facility] NEUROSURGERY PROGRESS NOTE Pt. Name/Age/: Katja Wei 70 y.o. 1945 Post operative day 1 SUBJECTIVE: Patient is doing well overall. She spent the night in the ICU because she was w aking up slowly from surgery and anesthesia and fireworks maker thought this would be most appro priate. [...] - 70 12 97 % - - 03/08/16 2150 - - - 119 8 93 % - - 03/08/16 214 144/68 mmHg - - 120 10 94 % - - 03/08/16 2130 144/64 mmHg - - 123 14 94 % - - 03/08/162112 150/66 mmHg - - 122 - - - - 03/08/16 2100 150/64 mmHg - - 121 10 93 % - - 03/08/162020 160/81 mmHg 36.3 C (97.3 F) Oral - - - - - 03/08/16 194 143/66 mmHg - - 90 19 99 % - - 03/08/16 1930 146/68 mmHg - - 94 25 99 % - - 03/08/161917 153/68 mmHg - - 94 17 99 % - - 03/08/161914 - - - 94 13 100 % [...] Electronically signed by: Umang Parker, 03/09/2016 7:15 [facility] Ronald Landry PharmD - 03/08/2016 4:04 PM PSTFormatting of this note might be different from the origin al. PHARMACY CONSULT - BACTRIM DOSING Subjective/Objective: Katja Wei is a 70 y.o. year old female admitted on 03/08/2016 9:47 and is on bactrim NET APPLICATION SUPPORT SPECIALIST for chronic UTI BP 183/77 mmHg | [...] +--------+ + + + | EXTRA KORY ANTHONY | Routin | 03/09/2016 | | Results [...] + | Extra | Done | | [facility] | | | Lavender | | | [...] + + | [facility] | [address] | [place] | [phone] | | [facility] | | [address] | | | - LABORATORY | | | | + + + + + Creatinine (03/09/2016 7:55 AM PST) + + + + + + | Component | Value | Ref Range | Performed | Pathologist | | | | | At | Signature | + + + + + + | Creatinine | 1.33 (H) | 0.60 - 1.30 | [facility] | | | | | mg/dL | [...] mL/min/1.73m2 | [facility] | | | [place] | RATE,ESTIMATED | | MEDICAL | | | | mL/min/1.49o7Xcth than | | CENTER - | | [...] ST. | [address] | [place] | [phone] | | [facility] | | [address] | | | - LABORATORY | | [...] | | chromogenic agar method | | [facility] | | | [...] ST. | [address] | [place] | [phone] | | [facility] | | [address] | | | - LABORATORY | | [...] Dictated and Signed by: Chris Vela MD | | Electronically signed: 03/09/2016 8:01 AM | + + + +---------+ + + | Performing | Address | City/State/Zipcode | Phone Number | | Organization | | | | + +---------+ + + | [facility] | | | | + +---------+ + + [place] C-Arm Stats No Charge (03/08/2016 2:57 PM PST) + [...] 108 | 70 - 150 mg/dL | [facility] | | | POC | | | [facility] | | [address] | [place] | [phone] | | [facility] | | [address] | | | - LABORATORY | | [...] | | Screen | | | [facility] | | [address] | [place] | | | [facility] | | [address] | | | - BLOOD BANK | | | | + + + + + documented in this encounter Visit Diagnoses + + | Diagnosis | + + | Spondylolisthesis of cervical region Acquired spondylolisthesis | + + documented in this encounter
--- OUTSIDE RECORDS SUMMARY | ~2019-03-09 | XMS | Clinical Summary ---
Demographics + + + | Address | [address] | | | [place] [address] | + + + | Home Phone | | + + + | Preferred Language | Unknown | + + + | Marital Status | Unknown | + + + | Buddhism Affiliation | Unknown | + + + | Race | Unknown | + + + | Ethnic Group | Unknown | + + + Author + + + | Author | [employer] [facility] [facility] (Historical as of | | | 12-09-18) | + + + | Organization | [facility] (Historical as of | | | 12-09-18) [...] Team Providers + +------+ + | Care Brazer Production Line Name | Role | Phone | + [...] | [place] | [id number] | Medica | | | | FAMILY | [place] | | re | | | | | RE | | | | | | | FAMILY | | | | | + +--------+ +--------+-------+ + | MEDICAID | [place] | [id number] | | | [address] | | | | | | | [place] | | | FAMILY | | | | [address] | | | CARE | | | [...] | [birth year] | Home: | [address] | | | arin/Edmundo | | 1946 | [phone] | [place] | | | amita | | | [address] | [address] | + +--------+ +--------+ + +
--- OUTSIDE RECORDS SUMMARY | ~2019-03-09 | XMS | Encounter Summary ---
Demographics + + + | Address | [address] | | | [place] [address] | + + + | Home Phone | | + + + | Preferred Language | Unknown | + + + | Marital Status | | + + + | Restoration Affiliation | Unknown | + + + | Race | Unknown | + + + | Ethnic Group | Unknown | + + + Author + + + | Author | [facility] | | | and [place] | + + + | Organization | [facility] | | | [...] Team Providers + +------+ + | Care Special Education Para Professional Name | Role | Phone | + [...] + | 03/04/ | Telephone | [facility] | Baljinder Tellez, | Medication Question | | 2016 | | NEUROSURGERY [address] | DO [address] | | | | | [address] | [address] [place], [place] | | | | | [place], [place] | [address] | | | | | [address] | | | | | | [phone] | | | +--------+ + + + [...]
--- OUTSIDE RECORDS SUMMARY | ~2019-03-09 | XMS | Encounter Summary ---
Demographics + + + | Address | [address] | | | [place] [address] | + + + | Home Phone | | + + + | Preferred Language | Unknown | + + + | Marital Status | | + + + | Zoroastrian Affiliation | Unknown | + + + | Race | Unknown | + + + | Ethnic Group | Unknown | + + + Author + + + | Author | [facility] | | | and [place] | + + + | Organization | [facility] | | | [...] Team Providers + +------+ + | Care Auto Tire Recapper Name | Role | Phone | + [...] | | | | al disc, | [address] | [place], [place] | | | | | cervical | Phone: | [address] | | | | | Degeneration | [phone] | Phone: | | | | | , | Fax: | [phone] | | | | | intervertebr | [phone] | Fax: | | | | | al disc, | | [phone] | | | | | lumbar | [...] | cervical (Primary | | | | [place], [place] | [address] | Dx); Degeneration, | | | | [address]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
--- OUTSIDE RECORDS SUMMARY | ~2019-03-09 | XMS | Encounter Summary ---
Demographics + + + | Address | [address] | | | [place] [address] | + + + | Home Phone | | + + + | Preferred Language | Unknown | + + + | Marital Status | | + + + | Jainism Affiliation | Unknown | + + + | Race | Unknown | + + + | Ethnic Group | Unknown | + + + Author + + + | Author | [facility] | | | and [place] | + + + | Organization | [facility] | | | and [...] Team Providers + +------+ + | Care Cutting And Splicing Supervisor Name | Role | Phone | [...] | | | | | myelopathy | [address] | [place], [place] | | | | | or | Phone: | [phone] | | | | | radiculopath | [phone] | Phone: | | | | | y Lumbar | Fax: | [phone] | | | | | stenosis | [phone] | Fax: | | | | | Chronic | | [phone] | | | | | midline low [...] + + | 11/22/ | Office | [facility] | Baljinder Tellez, | 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 A small pillow or rolled towel [...] in the groin area Date Last Reviewed: 09/24/201519999256-1540 [employer]. [address] [place] [address]. All righ ts reserved. This information is not intended as a substitute for professional medical care. Always follow your healthcare professional's instructions. documented in this encounter Progress Notes Baljinder Tellez DO - 11/22/2016 1:00 PM PDTFormatting of this note might be different fro m the original. Baljinder Tellez DO [address] [facility], [address] [place] [address] FAX: NEUROSURGERY FOLLOW-UP CHIEF COMPLAINT: [...] Plating; Barb geon: Baljinder Tellez DO; Location: [facility] MAIN OR CYSTOCELE REPAIR 06/10/14 HYSTERECTOMY 1989 [...] options, [facility] conservative management. I will refer her [...]
--- OUTSIDE RECORDS SUMMARY | ~2019-03-09 | XMS | Encounter Summary ---
Demographics + + + | Address | [address] | | | [place] [address] | + + + | Home Phone | | + + + | Preferred Language | Unknown | + + + | Marital Status | | + + + | Caodaism Affiliation | Unknown | + + + [...] Team Providers + +------+ + | Care Pilot Steam Yacht Name | Role | Phone | + [...] | | | | | | | [place] | | | | | | | [...] + + | 03/08/ | Hospital | [facility] | Baljinder Tellez, | | | 2016 - | Encounter | MED CTR ICU [address] | DO [address] | | | | | [place], | TIM [facility] [place] | | | 03/09/ | | [place] [address] | [id number] | | | 2015 | | [phone] | | | +--------+ + + + [...] of admission the patient was admitted to [facility] and underwent a C3-C7 fusion. Patient [...] signed by: Umang Parker, 03/09/2016 7:23 [facility] documented in this encounter Discharge Instructions Instructions [...] t raise your hands over your head [id number](s)after your surgery. Don t drive until your [...] this your 1 month post op appointment. [id number] [employer] [place] [address]. All righ ts reserved. This information is [...] on 03/08/2016 9:47 and is on bactrim DIGITAL DEVELOPER for chronic UTI BP 116/50 mmHg | [...] might be different from the konrad hoover [facility] NEUROSURGERY PROGRESS NOTE Pt. Name/Age/: Katja Wei 70 y.o. 1945 Post operative day 1 SUBJECTIVE: Patient is doing well overall. She spent the night in the ICU because she was w aking up slowly from surgery and anesthesia and chronometer assembler and adjuster thought this would be most appro priate. [...] Electronically signed by: Umang Parker, 03/09/2016 7:15 [facility] Ronald Landry PharmD - 03/08/2016 4:04 PM PSTFormatting of this note might be different from the origin al. PHARMACY CONSULT - BACTRIM DOSING Subjective/Objective: Katja Wei is a 70 y.o. year old female admitted on 03/08/2016 9:47 and is on bactrim DIGITAL DEVELOPER for chronic UTI BP 183/77 mmHg | [...] [address] | [place] | [phone] | | [facility] | | [address] | | | - LABORATORY | | [...] | | GLOMERULAR FILTRATION | mL/min/1.73m2 | [facility] | | | JORDAN[place] | RATE,ESTIMATED | | MEDICAL | | | | mL/min/1.85k7Tnys than | | CENTER - | | [...] + | [address] | [address] | [place] | [phone] | | [facility] | | [address] | | | - LABORATORY | | [...] [address] | [place] | [phone] | | [facility] | | [address] | | | - LABORATORY | | [...] [address] | [place] | [phone] | | [facility] | | [address] | | | - LABORATORY | | [...] ST. | [address] | [place] | | | [facility] | | [address] | | | - BLOOD BANK | [...]
--- OUTSIDE RECORDS SUMMARY | ~2019-03-09 | XMS | Encounter Summary ---
Demographics + + + | Address | [address] | | | [place] [address] | + + + | Home Phone [...] Team Providers + +------+ + | Care Tack Welder Name | Role | Phone | + [...] | 03/10/ | Telephone | [facility] [place] | Baljinder Tellez, | Other (Post op call) | | 2016 | | NEUROSURGERY [address] | DO [address] | | | | | [address] | [address] [place], [place] | | | | | [place], [place] | [address] | | | | | [address] | | | | | | [phone] | | | +--------+ + + + [...]
--- OUTSIDE RECORDS SUMMARY | ~2019-03-09 | XMS | Encounter Summary ---
Demographics + + + | Address | [address] | | | [place] [address] | + + + | Home Phone | | + + + | Preferred Language | Unknown | + + + | Marital Status | | + + + | Congregational Affiliation | Unknown | + + + | Race | Unknown | + + + | Ethnic Group | Unknown | + + + Author + + + | Author | [facility] | | | and [place] | + + + | Organization | [facility] | | [...] Team Providers + +------+ + | Care Hospital Recruiter Name | Role | Phone | + [...] | | | | | | | [place] | | | | | | | [...] | | | | | [address] | [address] [place] | | | | | [place] | [address] | | | | | [address] | | | | | | [phone] | | | +--------+ + + + [...] +----+---+ + + | | 1 | [place] | | | | 2 | 43-degrees | | | | 3 | | | | | 7 | | | +----+---+ + + | | 1 | First | | | | 2 | Inc/Proc St | | | | 5 | | | | | 1 | | | +----+---+ + + | | 1 | [place] off | | | | 4 | [...] video scope | | | | | ([facility] 3); Laryngoscope Blade | | | [...]
--- OUTSIDE RECORDS SUMMARY | ~2019-03-09 | XMS | Encounter Summary ---
Demographics + + + | Address | [address] | | | [place] [address] | + + + | Home Phone | | + + + | Preferred Language | Unknown | + + + | Marital Status | | + + + | Mandaen Affiliation | Unknown | + + + | Race | Unknown | + + + | Ethnic Group | Unknown | + + + Author + + + | Author | [facility] | | | and [place] | + + + | Organization | [facility] | | | [...] Team Providers + +------+ + | Care Patrol Judge Name | Role | Phone | + +------+ + | Vik Oconnor MD | PCP | | + +------+ + Reason for Visit + + + | Reason | Comments | + + + | Imaging Only | | + + + Encounter Details +--------+ + + + + | Date | Type | Department | Care Team | Description | +--------+ + + + + | 03/30/ | Telephone | [facility] [place] | Baljinder Tellez, | Imaging Only | | 2017 | | NEUROSURGERY [address] | DO [address] | | | | | [address] | [address] [place], [place] | | | | | [place], [place] | [address] | | | | | [address] | | | | | | [phone] | | | +--------+ + + + [...]
--- OUTSIDE RECORDS SUMMARY | ~2019-03-09 | XMS | Encounter Summary ---
Demographics + + + | Address | [address] | | | [place] [address] | + + + | Home Phone | | + + + | Preferred Language | Unknown | + + + | Marital Status | | + + + | Latter Day Affiliation | Unknown | + + + | Race | Unknown | + + + | Ethnic Group | Unknown | + + + Author + + + | Author | [facility] | | | and [place] | + + + | Organization | [facility] | | | and [...] Team Providers + +------+ + | Care Densitometer Reader Name | Role | Phone | + [...] + + | 09/21/ | Telephone | [facility] | Baljinder Tellez, | Imaging Only (6 | | 2017 | | NEUROSURGERY [address] | DO [address] | month post op xray's | | | | [address] | [address] [place], [place] | ) | | | | [place], [place] | [address] | | | | | [address] | | | | | | [phone] | | | +--------+ + + + [...]
--- OUTSIDE RECORDS SUMMARY | ~2019-03-09 | XMS | Encounter Summary ---
Demographics + + + | Address | [address] | | | [place] [address] | + + + | Home Phone | | + + + | Preferred Language | Unknown | + + + | Marital Status | | + + + | Religion Affiliation | Unknown | + + + | Race | Unknown | + + + | Ethnic Group | Unknown | + + + Author + + + | Author | [facility] | | | and [place] | + + + | Organization | [facility] | | | and [...] Team Providers + +------+ + | Care Product Safety Expert Name | Role | Phone | + [...] | | | | | | | [place] | | | | | | | [...] | | | | | [address] | [address] [place] | | | | | [place] | [address] | | | | | [address] | | | | | | [phone] | | | +--------+ + + + [...] +----+---+ + + | | 1 | [place] | | | | 2 | 43-degrees | | | | 3 | | | | | 7 | | | +----+---+ + + | | 1 | First | | | | 2 | Inc/Proc St | | | | 5 | | | | | 1 | | | +----+---+ + + | | 1 | [place] off | | | | 4 | [...] video scope | | | | | ([facility] 3); Laryngoscope Blade | | | | [...]
--- OUTSIDE RECORDS SUMMARY | ~2019-03-09 | XMS | Encounter Summary ---
Demographics + + + | Address | [address] | | | [place] [address] | + + + | Home Phone | | + + + | Preferred Language | Unknown | + + + | Marital Status | | + + + | Scientologist Affiliation | Unknown | + + + | Race | Unknown | + + + | Ethnic Group | Unknown | + + + Author + + + | Author | [facility] | | | and [place] | + + + | Organization | [facility] | | | [...] Team Providers + +------+ + | Care Road Machine Runner Name | Role | Phone | + [...] | | | | | | | [place] | | | | | | | [...] Anterior | | | | [address] | [address] [place] | Cervical Discectomy | | | | [place] | [address] | w/ Fusion and | | | | [address] | | Plating | | | | [phone] | | | +--------+---------+ + + + [...] of admission the patient was admitted to [facility] and underwent a C3-C7 fusion. [...] Electronically signed by: Umang Parker, 03/09/2016 7:23 [facility] documented in this encounter Discharge Instructions [...] t raise your hands over your head bad8pyay(s)after your surgery. Don t drive until your [...] this your 1 month post op appointment. [id number] [employer]. [address] [place] [address]. All righ ts reserved. This information is [...] on 03/08/2016 9:47 and is on bactrim SUBSTATION SUPERINTENDENT for chronic UTI BP 116/50 mmHg | [...] by: Tea Amezcua PHARMFrancisco 03/09/2016 9:13 Natali Arguelol PA - 03/09/2016 7:14 AM PSTFormatting of this note might be different from the konrad hoover [facility] NEUROSURGERY PROGRESS NOTE Pt. Name/Age/: Katja Wei 70 y.o. 1945 Post operative day 1 SUBJECTIVE: Patient is doing well overall. She spent the night in the ICU because she was w aking up slowly from surgery and anesthesia and behavioral health care coordinator thought this would be most appro priate. [...] signed by: Umang Parker, 03/09/2016 7:15 [facility] Ronald Landry PharmD - 03/08/2016 4:04 PM PSTFormatting of this note might be different from the origin al. PHARMACY CONSULT - BACTRIM DOSING Subjective/Objective: Katja Wei is a 70 y.o. year old female admitted on 03/08/2016 9:47 and is on bactrim SUBSTATION SUPERINTENDENT for chronic UTI BP 183/77 mmHg | [...] [address] | [place] | [phone] | | [facility] | | [address] | | | - LABORATORY | | [...] mL/min/1.73m2 | [facility] | | | [place] | RATE,ESTIMATED | | MEDICAL | | | | mL/min/1.63l3Tvga than | | CENTER - | | [...] ST. | [address] | [place] | [phone] | | [facility] | | [address] | | | - LABORATORY | | [...] ST. | [address] | [place] | [phone] | | [facility] | | [address] | | | - LABORATORY | | [...] [address] | [place] | [phone] | | [facility] | | [address] | | | - LABORATORY | | [...] St | [place] | | | [facility] | | [address] | | | - BLOOD BANK | | | | + + + + + documented in this encounter Visit Diagnoses + + | Diagnosis | + + | Spondylolisthesis of cervical region Acquired spondylolisthesis | + + documented in this encounter
--- OUTSIDE RECORDS SUMMARY | ~2019-03-09 | XMS | Encounter Summary ---
Demographics + + + | Address | [address] | | | [place] [address] | + + + | Home Phone | | + + + | Preferred Language | Unknown | + + + | Marital Status | | + + + | Zoroastrianism Affiliation | Unknown | + + + [...] Team Providers + +------+ + | Care Web Marketing Specialist Name | Role | Phone | + +------+ + | Vik Oconnor MD | PCP | | + +------+ + Encounter Details +--------+ + + + + | Date | Type | Department | Care Team | Description | +--------+ + + + + | 04/13/ | Hospital | [facility] | Baljinder Tellez, | Status post cervical | | 2016 | Encounter | MED CTR XRAY [address] | DO [address] | spinal fusion; | | | | [place] | [address] [place], [place] | Spondylolisthesis of | | | | [place] [address] | [address] | cervical region | | | | [phone] | | | +--------+ + + + [...] | + + + + + | [facility] | [address] | [place] | [phone] | | [facility] | | [address] | | | - IMAGING | | | | + + + + + documented in this encounter Visit Diagnoses + + | Diagnosis | + + | Status post cervical spinal fusion Arthrodesis status | + + | Spondylolisthesis of cervical region Acquired spondylolisthesis | + + documented in this encounter"
--- OUTSIDE RECORDS SUMMARY | ~2019-03-09 | XMS | Encounter Summary ---
Demographics + + + | Address | [address] | | | [place] [address] | + + + | Home Phone | | + + + | Preferred Language | Unknown | + + + | Marital Status | | + + + | Spiritism Affiliation | Unknown | + + + [...] Team Providers + +------+ + | Care Neuropsychiatric Aide Name | Role | Phone | + +------+ + | Vik Oconnor MD | PCP | | + +------+ + Encounter Details +--------+ + + + + | Date | Type | Department | Care Team | Description | +--------+ + + + + | 10/13/ | [facility] | [facility] | Baljinder Tellez, | Neck pain | | 2016 | Encounter | MED CTR XRAY [address] | DO [address] | | | | | [place] | [address] [place] | | | | | [place] [address] | [address] | | | | | [phone] | | | +--------+ + + + [...] [address] | [place] | [phone] | | [facility] | | [address] | | | - IMAGING | | | | + + + + + documented in this encounter Visit Diagnoses + + | Diagnosis | + + | Neck pain Cervicalgia | + + documented in this encounter"
--- OUTSIDE RECORDS SUMMARY | ~2019-03-09 | XMS | Encounter Summary ---
Demographics + + + | Address | [address] | | | [place] [address] | + + + | Home Phone | | + + + | Preferred Language | Unknown | + + + | Marital Status | | + + + | Anglican Affiliation | Unknown | + + + | Race | Unknown | + + + | Ethnic Group | Unknown | + + + Author + + + | Author | [facility] | | | and [place] | + + + | Organization | [facility] | | | [...] Team Providers + +------+ + | Care Pupil Personnel Services Director Name | Role | Phone | + [...] [address] | [address] [place], [place] | | | | | [place], [place] | [address] | | | | | [address] | | | | | | [phone] | | | +--------+--------+ + + + [...]
--- OUTSIDE RECORDS SUMMARY | ~2019-03-09 | XMS | Encounter Summary ---
Demographics + + + | Address | [address] | | | [place] [address] | + + + | Home Phone [...] Team Providers + +------+ + | Care Ending Machine Operator Name | Role | Phone | + +------+ + | Vik Oconnor MD | PCP | | + +------+ + Encounter Details +--------+ + + + + | Date | Type | Department | Care Team | Description | +--------+ + + + + | 10/13/ | [facility] | [facility] | Baljinder Tellez, | Neck pain | | 2016 | Encounter | MED CTR XRAY [address] | DO [address] | | | | | [place] | [address] [place] | | | | | [place] [address] | [address] | | | | | [phone] | | | +--------+ + + + [...] [address] | [place] | [phone] | | [facility] | | [address] | | | - IMAGING | | | | + + + + + documented in this encounter Visit Diagnoses + + | Diagnosis | + + | Neck pain Cervicalgia | + + documented in this encounter"
--- OUTSIDE RECORDS SUMMARY | ~2019-03-09 | XMS | Encounter Summary ---
Demographics + + + | Address | [address] | | | [place] [address] | + + + | Home Phone | | + + + | Preferred Language | Unknown | + + + | Marital Status | | + + + | Amish Affiliation | Unknown | + + + | Race | Unknown | + + + | Ethnic Group | Unknown | + + + Author + + + | Author | [facility] | | | and [place] | + + + | Organization | [facility] | | [...] Team Providers + +------+ + | Care Computer Animator Name | Role | Phone | + [...] | | | | | | | [place] | | | | | | | [...] | | | | | [address] | [address] [place] | | | | | [place] | [address] | | | | | [address] | | | | | | [phone] | | | +--------+ + + + [...] +----+---+ + + | | 1 | [place] | | | | 2 | 43-degrees | | | | 3 | | | | | 7 | | | +----+---+ + + | | 1 | First | | | | 2 | [address] | | | | 5 | | | | | 1 | | | +----+---+ + + | | 1 | [place] off | | | | 4 | [...] video scope | | | | | ([facility] 3); Laryngoscope Blade | | | | [...]
--- OUTSIDE RECORDS SUMMARY | ~2019-03-09 | XMS | Encounter Summary ---
Demographics + + + | Address | [address] | | | [place] [address] | + + + | Home Phone | | + + + | Preferred Language | Unknown | + + + | Marital Status | | + + + | Quaker Affiliation | Unknown | + + + | Race | Unknown | + + + | Ethnic Group | Unknown | + + + Author + + + | Author | [facility] | | | and [place] | + + + | Organization | [facility] | | | and [...] Team Providers + +------+ + | Care Load Out Person Name | Role | Phone | + [...] | | | | [place] | [address] | | | | | [address] | | | | | | [phone] | | | +--------+ + + + [...]
--- OUTSIDE RECORDS SUMMARY | ~2019-03-09 | XMS | Encounter Summary ---
Demographics + + + | Address | [address] | | | [place] [address] | + + + | Home Phone | | + + + | Preferred Language | Unknown | + + + | Marital Status | | + + + | Uatsdin Affiliation | Unknown | + + + | Race | Unknown | + + + | Ethnic Group | Unknown | + + + Author + + + | Author | [facility] | | | and [place] | + + + | Organization | [facility] | | | [...] Team Providers + +------+ + | Care Delivery Aide Name | Role | Phone | [...] | | | | | | | [place] | | | | | | | [...] + + | 03/08/ | Hospital | [facility] | Baljinder Tellez, | | | 2016 | Encounter | MED CTR XRAY [address] | DO [address] | | | | | [place] | [place] [address] [place] | | | | | [place] [address] | [address] | | | | | [phone] | | | +--------+ + + + [...] | + +--------+ + + + | VARIL LEMON STATS NO | Routin | 03/08/2016 | | Results for this | | CHARGE | e | 2:57 PM | | procedure are in the | | | | PST | | results section. | + +--------+ + + + documented in this encounter Results PR Rob-Arm Stats No Charge (03/08/2016 2:57 PM [...]
--- OUTSIDE RECORDS SUMMARY | ~2019-03-09 | XMS | Encounter Summary ---
Demographics + + + | Address | [address] | | | [place] [address] | + + + | Home Phone | | + + + | Preferred Language | Unknown | + + + | Marital Status | | + + + | Synagogue Affiliation | Unknown | + + + | Race | Unknown | + + + | Ethnic Group | Unknown | + + + Author + + + | Author | [facility] | | | and [place] | + + + | Organization | [facility] | | | [...] Team Providers + +------+ + | Care Clerical Assistant Name | Role | Phone | + +------+ + | Vik Oconnor MD | PCP | | + +------+ + Reason for Visit + + + | Reason | Comments | + + + | Pre-op Exam | | + + + Encounter Details +--------+---------+ + + + | Date | Type | Department | Care Team | Description | +--------+---------+ + + + | 02/25/ | Office | [facility] | ShawndaniaVasu | Cervicalgia (Primary | | 2016 | Visit | NEUR[address]URGERY [address] | D, [address] | Dx); Cervical | | | | [address] | [address] | radiculopathy; | | | | [place], [place] | [place], [place] | Cervical spinal | | | | [address] | [address] | stenosis; | | | | [phone] | | Spondylolisthesis of | | | | | | cervical region | +--------+---------+ + + + Social History [...] + + + | Blood Pressure | 130/71 | 02/26/2016 2:00 PM | | | | | PDT | | + + + + + | Pulse | 67 | 02/26/2016 2:00 PM | | | | | PDT [...] + + + + | Weight | 95.3 kg (210 lb) | 02/26/2016 2:00 PM | | | | | PDT | | + + + + + | Height | 152.4 cm (5') | 02/26/2016 2:00 PM | | | | | PDT | | + + + + + | Body Mass Index | 41.01 | 02/26/2016 2:00 PM | | | | | PDT | | + + + + + documented in this encounter Patient Instructions Patient Instructions Vasu Yun PA-C - 02/26/2016 2:28 PM PDT.Please remember not to take any anti-inflammatories within 7 days of surgery. This includes ibuprofen, Motr in, Advil, aspirin, naproxen, and Aleve. You may have a small glass of water on the morning of surgery to take your normal morning medications. Otherwise, nothing to eat or drink aft er midnight. If you have any change in your health status, please call and let us know. Frank pollard, If you have any questions, please feel free to give our office a call. Otherwise, we w ill see you on the morning of surgery. documented in this encounter Progress Notes Vasu Yun PA-C - 02/26/2016 3:48 PM PDTFormatting of this note might be diffe rent from the original. Vasu Yun PA-C [address] [facility], [address] [place] [address] FAX: NEUROSURGERY HISTORY AND PHYSICAL EXAMINATION CHIEF COMPLAINT: Chief Complaint Patient presents with Pre-op Exam HISTORY OF PRESENT ILLNESS: The patient presents today for her preoperative appointment for her upcoming C3-C7 cervical fusion on 03/08/16. She has had no interval changes in the severity or character of her sy mptoms since her last visit. She denies any shortness of breath or chest pain. She denies any fever or chills.She has no open sores on her body and has not had any antibiotics rece ntly. The PCP has seen her and they have cleared her for surgery. The patient is a 70 y.o. female with the complaint of neck pain symptoms that began many ye ars ago. The patient describes insidious onset. She remembers taking her driving test as a teenager and having the pain. The symptoms have been rapidly worsening. She rates the pain as severe. The [...] Past Surgical History Procedure Laterality Date Hysterectomy 1990 Parathyroidectomy 02/09/2013 Bladder suspension 06/10/14 Cystocele repair 06/10/14 CURRENT MEDICATIONS: Current Outpatient Prescriptions Medication Sig Dispense Refill albuterol 90 mcg/puff inhaler Inhale 2 puffs into the lungs every 6 hours as needed for Wheezing. cephalexin (KEFLEX) 500 mg capsule Take 500 mg by mouth 2 times daily. gabapentin (NEURONTIN) 300 mg capsule Take 300 mg by mouth 3 times daily. HYDROcodone-acetaminophen (NORCO) 5-325 mg per tablet Take 1 tablet by mouth every 6 ho urs as needed for Pain. lisinopril (PRINIVIL, ZESTRIL) 20 mg tablet Take 20 mg by mouth Daily. MEGARED OMEGA-3 KRILL OIL 500 MG CAPS Take 1 capsule by mouth Daily. Multiple Vitamin (THERAGRAN PO) Take 1 tablet by mouth Daily. PARoxetine (PAXIL) 20 mg [...] Mother Hypertension Maternal Grandmother Alcohol abuse Father Depression Father Early Father 55 Suicide Father Other [...] no rheumatoid arthritis. PHYSICAL EXAMINATION: Blood pressure 130/71, pulse 67, height 1.524 m (5'), weight 95.255 kg (210 lb). Body mass index is 41.01 kg/(m^2). 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 CRANIAL NERVES: II: Acuity is intact. [...] Intrinsics 5 4 Ulnar Intrinsics 5 4 Electronic Publications Specialist Strength 4+ 4 Hip Flexion 5 5 [...] DOWNGOING GAIT: Gait is steady. PERIPHERAL NERVE/MISC: Straight leg raise is negative bilaterally. Walter's [...] ASSESSMENT: NEUROSURGICAL DIAGNOSES: Encounter Diagnoses Name Primary? Cervicalgia Yes Cervical radiculopathy Cervical spinal stenosis Spondylolisthesis of cervical region GENERAL DIAGNOSES: Past Medical History Diagnosis Date [...] benefits to surgical intervention with Ms. Armstrong francesco in clinic. These risks included but were [...] the probability and rate of fusion. She would like to move forward with her upcoming cervical fusion. ELECTRONICALLY SIGNED BY: Vasu Yun PA-C, 02/26/2016 15:55 documented in this encounter Plan of Treatment Not on filedocumented as of this encounter Visit Diagnoses + + | Diagnosis | + + | Cervicalgia - Primary | + + | Cervical radiculopathy Brachial neuritis or radiculitis nos | + + | Cervical spinal stenosis Spinal stenosis in cervical region | + + | Spondylolisthesis of cervical region Acquired spondylolisthesis | + + documented in this encounter"
--- OUTSIDE RECORDS SUMMARY | ~2019-03-09 | XMS | Encounter Summary ---
Demographics + + + | Address | [address] | | | [place] [address] | + + + | Home Phone | | + + + | Preferred Language | Unknown | + + + | Marital Status | | + + + | Yazidism Affiliation | Unknown | + + + | Race | Unknown | + + + | Ethnic Group | Unknown | + + + Author + + + | Author | [facility] | | | and [place] | + + + | Organization | [facility] | | | [...] Team Providers + +------+ + | Care Insulation Manager Name | Role | Phone | [...] | Baljinder Hood DO | [address] | | | | | Spondylolist | [address] | [place], | | | | | sree, | [address] | [place] | | | | | lumbar | [place] | [address] | | | | | region | [address] | Phone: | | | | | Postural | Phone: | [phone] | | | | | kyphosis of | [phone] | Fax: | | | | | thoracolumba | Fax: | [phone] | | | | | r region | [phone] | | | | | | Osteoarthrit [...] | Baljinder Hood DO | [address] | | | | | Spondylolist | [address] | [place], | | | | | hesis, | [address] | [place] | | | | | lumbar | [place], [place] | [address] | | | | | region | [address] | Phone: | | | | | Postural | Phone: | [phone] | | | | | kyphosis of | [phone] | Fax: | | | | | thoracolumba | Fax: | [phone] | | | | | r region | [phone] | | | | | | Osteoarthrit [...] + + | 11/18/ | Hospital | [facility] | Baljinder Tellez, | Spondylolisthesis, | | 2017 | Encounter | MED CTR MRI [address] | DO [address] | lumbar region; | | | | [address], | [address] [place], [place] | 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 | [address] | [place] | [phone] | | [facility] | | [address] | | | - IMAGING | | [...]
--- OUTSIDE RECORDS SUMMARY | ~2019-03-09 | XMS | Encounter Summary ---
Demographics + + + | Address | [address] | | | [place] [address] | + + + | Home Phone [...] Team Providers + +------+ + | Care Private Branch Exchange Service Adviser Name | Role | Phone | + +------+ + | Vik Oconnor MD | PCP | | + +------+ + Encounter Details +--------+ + + + + | Date | Type | Department | Care Team | Description | +--------+ + + + + | 02/25/ | Preadmit | [facility] | Baljinder Tellez, | Pre-operative | | 2016 | Visit | MED CTR PREADMIT | DO [address] | clearance (Primary | | | | CLINIC [address] | [address] [place], [place] | Dx); Asthma, | | | | [place], [place] | [address] | intermittent, | | | | [address] | | uncomplicated; | | | | [...] mellitus | | | | | | ([facility]) Essential | | | | | | [...] MD | | | | | | ([id number]) on 02/27/2016 | | | | | [...] mL/min/1.73m2 | [facility] | | | [facility] | RATE,ESTIMATED | | MEDICAL | | | | mL/min/1.92t5Nrzy than | | CENTER - | | [...] [address] | [place] | [phone] | | [facility] | | [address] | | | - LABORATORY | | [...] [address] | [place] | [phone] | | [facility] | | [address] | | | - LABORATORY | | [...] + | [facility] [facility] | [address] | [place] | [phone] | | [facility] | | [address] | | | - LABORATORY | | [...] | | | | | | [facility] | | | | | | MEDICAL [...] | | Eosinophils | | K/uL | [facility] | | | | [...] [address] | [place] | [phone] | | [facility] | | [address] | | | - LABORATORY | | [...] ST. | [address] | [place], [place] | [phone] | | [facility] | | [address] | | | - LABORATORY | | [...]
--- OUTSIDE RECORDS SUMMARY | ~2019-03-09 | XMS | Encounter Summary ---
Demographics + + + | Address | [address] | | | [place] [address] | + + + | Home Phone | | + + + | Preferred Language | Unknown | + + + | Marital Status | | + + + | Catholic Affiliation | Unknown | + + + | Race | Unknown | + + + | Ethnic Group | Unknown | + + + Author + + + | Author | [facility] | | | and [place] | + + + | Organization | [facility] | | [...] Team Providers + +------+ + | Care Direct Sales Consultant Name | Role | Phone | [...] [address] [place] | | | | | [phone] | [place] [address] | | +--------+ + + + + [...] for comparison only - no result from [place]. | | + + + + +---------+ + + | Performing | Address | City/State/Zipcode | Phone Number | | Organization | | | | + +---------+ + + | [facility] | | | | + +---------+ + + documented in this encounter Visit Diagnoses Not on filedocumented in this encounter"
--- OUTSIDE RECORDS SUMMARY | ~2019-03-09 | XMS | Encounter Summary ---
Demographics + + + | Address | [address] | | | [place] [address] | + + + | Home Phone | | + + + | Preferred Language | Unknown | + + + | Marital Status | | + + + | Worship Affiliation | Unknown | + + + | Race | Unknown | + + + | Ethnic Group | Unknown | + + + Author + + + | Author | [facility] | | | and [place] | + + + | Organization | [facility] | | | [...] Team Providers + +------+ + | Care High School English Teacher Name | Role | Phone | + +------+ + | Vik Oconnor MD | PCP | | + +------+ + Encounter Details +--------+ + + + + | Date | Type | Department | Care Team | Description | +--------+ + + + + | 08/10/ | Orders Only | [facility] | Baljinder Tellez, | Neck pain (Primary | | 2016 | | NEUROSURGERY [address] | DO [address] | Dx) | | | | [address] | [address] [place], [place] | | | | | [place] | [address] | | | | | [address] | | | | | | [phone] | | | +--------+ + + + [...] of this encounter Results XR Cervical Spine 4 [...] | + + + + + | [facility] | [address] | [place] | [phone] | | [facility] | | [address] | | | - IMAGING | | | | + + + + + documented in this encounter Visit Diagnoses + + | Diagnosis | + + | Neck pain - Primary Cervicalgia | + + documented in this encounter"
--- OUTSIDE RECORDS SUMMARY | ~2019-03-09 | XMS | Clinical Summary ---
Demographics + + + | Address | [address] | | | [place] [address] | + + + | Home Phone | | + + + | Preferred Language | Unknown | + + + | Marital Status | | + + + | Sikhism Affiliation | Unknown | + + + [...] Team Providers + +------+ + | Care Workplace Relations Adviser Name | Role | Phone | + +------+ + | Vik Oconnor MD | PCP | | + +------+ + Allergies + + + + + + | Active Allergy | Reactions | Severity | Noted | Comments | | | | | Date | | + + + + + + | Codeine | Shortness Of Breath, | High | 10/13/19 | Asthma | | | Other (See | | 16 | | | | Comments) | | | | + + + + + + | Iodine | Itching | | 10/13/19 | | | | | | 16 | | + + + + + + | Povidone Iodine | Itching | Medium | 02/01/20 | | | | | | 12 | | + + + + + + Medications + + + +---------+------+------+-------+ | Medication | Sig | Dispensed | Refills | Star | End | Statu | | | | | | t | Date | s | | | | | | Date | | | + + + +---------+------+------+-------+ | triamterene | Take 100 mg by mouth | | 0 | | | Activ | | (DYRENIUM) 100 MG | 2 times daily. | | | | | e | | capsule | | | | | | | + + + +---------+------+------+-------+ | gabapentin | Take 300 mg by mouth | | 0 | | | Activ | | (NEURONTIN) 300 mg | 3 times daily. | | | | | e | | capsule | | | | | | | + + + +---------+------+------+-------+ | lisinopril | Take 20 mg by mouth | | 0 | | | Activ | | (PRINIVIL, ZESTRIL) | Daily. | | | | | e | | 20 mg tablet | | | | | | | + + + +---------+------+------+-------+ | albuterol 90 | Inhale 2 puffs into | | 0 | | | Activ | | mcg/puff inhaler | the lungs every 6 | | | | | e | | | hours as needed for | | | | | | | | Wheezing. | | | | | | + + + +---------+------+------+-------+ | Probiotic Product | Take 1 capsule by | | 0 | | | Activ | | (PROBIOTIC DAILY) | mouth Daily. | | | | | e | | CAPS | | | | | | | + + + +---------+------+------+-------+ | Multiple Vitamin | Take 1 tablet by | | 0 | | | Activ | | (THERAGRAN PO) | mouth Daily. | | | | | e | + + + +---------+------+------+-------+ | MEGARED OMEGA-3 | Take 1 capsule by | | 0 | | | Activ | | KRILL OIL 500 MG | mouth Daily. | | | | | e | | CAPS | | | | | | | + + + +---------+------+------+-------+ | metoprolol | Take 25 mg by mouth | | 0 | | | Activ | | tartrate (LOPRESSOR) | 2 times daily. | | | | | e | | 25 mg tablet | | | | | | | + + + +---------+------+------+-------+ | ciprofloxacin | take 1 tablet by | | 0 | 01/1 | | Activ | | (CIPRO) 500 mg | mouth twice a day | | | 6/20 | | e | | tablet | | | | 17 | | | + + + +---------+------+------+-------+ | glipiZIDE | | | 0 | 02/1 | | Activ | | (GLUCOTROL XL) 5 mg | | | | 1/20 | | e | | 24 hr tablet | | | | 17 | | | + + + +---------+------+------+-------+ | | | | 0 | 02/1 | | Activ | | triamterene-hydrochl | | | | 9/20 | | e | | orothiazide | | | | 17 | | | | (MAXZIDE-25) 37.5-25 | | | | | | | | mg per tablet | | | | | | | + + + +---------+------+------+-------+ | tiZANidine | Take 2 mg by mouth | | 0 | 06/0 | | Activ | | (ZANAFLEX) 2 MG | as needed. | | | 2/20 | | e | | tablet | | | | 17 | | | + + + +---------+------+------+-------+ | | as needed. | | 0 | 06/0 | | Activ | | HYDROcodone-acetamin | | | | 2/20 | | e | | ophen (NORCO) 5-325 | | | | 17 | | | | mg per tablet | | | | | | | + + + +---------+------+------+-------+ | cephalexin | Daily. | | 0 | 06/1 | | Activ | | (KEFLEX) 250 mg | | | | 4/20 | | e | | capsule | | | | 17 | | | + + + +---------+------+------+-------+ | MYRBETRIQ 50 MG ER | Take 50 mg by mouth | | 0 | 06/1 | | Activ | | tablet | Daily. | | | 5/20 | | e | | | | | | 17 | | | + + + +---------+------+------+-------+ Active Problems + + + | Problem | Noted Date | + + + | Asthma, intermittent | | + + + | Chronic kidney disease, stage 3 | | + + + | Chronic pain syndrome | | + + + | Dermatitis | | + + + | Uncomplicated type 2 diabetes mellitus | | + + + | Essential hypertension | | + + + | Family history of benign essential tremor | | + + + | HLD (hyperlipidemia) | | + + + | Hyperparathyroidism | | + + + | Degeneration, intervertebral disc, cervical | | + + + | Degeneration, intervertebral disc, lumbar | | + + + | Obesity | | + + + | History of migraine headaches | | + + + Family History + + +------+ + | Medical History | Relation | Name | Comments | + + +------+ + | Alcohol abuse | Father | | | + + +------+ + | Depression | Father | | | + + +------+ + | Early | Father | | | + + +------+ + | Suicide | Father | | | + + +------+ + | Cancer | Maternal | | PANCREATIC | | | Grandmoth | | | | | er | | | + + +------+ + | Hypertension | Maternal | | | | | Grandmoth | | | | | er | | | + + +------+ + | Hypertension | Mother | | | + + +------+ + | Migraines | Mother | | | + + +------+ + | Other (see comment) | Mother | | SEPSIS: BOWEL BROKE | + + +------+ + + +------+ + + | Relation | Name | Status | Comments | + +------+ + + | Child | | Alive | | + +------+ + + | Child | | Alive | | + +------+ + + | Daughter | | Alive | | + +------+ + + | Father | | | SUICIDE | | | | (Age | | | | | 55) | | + +------+ + + | Maternal Grandmother | | | | + +------+ + + | Mother | | | SEPSIS | | | | (Age | | | | | 90) | | + +------+ + + Social History + +-------+ +--------+------+ [...] recent travel history available. | + + Last Filed Vital Signs + [...] | | + + + + + Plan of Treatment + + + + + | Health Maintenance | Due Date | Last Done | Comments | + + + + + | Hepatitis C | | | | | Screening | 5 | | | + + + + + | Diabetic Eye Exam | | | | | | 3 | | | + + + + + | Diabetic Foot Exam | | | | | | 3 | | | + + + + + | Hemoglobin A1c | | | | | Screening | 3 | | | + + + + + | Vaccine: | | | | | Dtap/Tdap/Td (1 - | 4 | | | | Tdap) | | | | + + + + + | Colorectal Cancer | | | | | Screening | 5 | | | | (Colonoscopy) | | | | + + + + + | Vaccine: Zoster (1 | | | | | of 2) | 5 | | | + + + + + | Breast Cancer | | | | | Screening | 0 | | | + + + + + | Vaccine: | | | | | Pneumococcal 65+ (1 | 0 | | | | of 2 - PCV13) | | | | + + + + + | Adult Annual | | | | | Wellness Visit | 6 | | | + + + + + | Statin Therapy | | | | | (optimal intensity) | 6 | | | + + + + + | Vaccine: Influenza | | | | | (#1) | 9 | | | + + + + + Implants + +--------+--------+ +--------+--------+--------+ | Implanted | Type | Area | Manufacture | Device | Shelf | Model | | | | | r | | Expira | / | | | | | | Identi | tion | Serial | | | | | | fier | Date | / Lot | + +--------+--------+ +--------+--------+--------+ | Imp Rockn Amy Giron [id number] - | Generi | N/A: | [employer] - | | 11/05/ | [id number] | | [id number]: Qty: 1 | c | Spine | MEDT | | 2023 | 1 / | | on 03/08/2016 by Geoff, | | Cervic | | | | /[id number] | | Baljinder Hood DO at [facility] | | al | | | | | | [facility] | | | | | | | + +--------+--------+ +--------+--------+--------+ | Imp Spn Amy Peek [id number] - | Generi | N/A: | [employer] - | | 10/21/ | [id number] | | [id number]: Qty: 1 | c | Spine | MEDT | | 2023 | 1 / | | on 03/08/2016 by Geoff, | | Cervic | | | | /[id number] | | Baljinder Hood DO at [facility] | | al | | | | | | [facility] | | | | | | | + +--------+--------+ +--------+--------+--------+ | Imp Spn Amy Peek [id number] - | Generi | N/A: | [employer] - | | 09/11/ | [id number] | | [id number]: Qty: 1 | c | Spine | MEDT | | 2023 | 1 / | | on 03/08/2016 by Geoff, | | Pradeepic | | | | /[id number] | | Baljinder Hood DO at [facility] | | al | | | | | | [facility] | | | | | | | + +--------+--------+ +--------+--------+--------+ | Imp Spn Amy Peek [id number] - | Generi | N/A: | [employer] - | | 11/05/ | [id number] | | [id number]: Qty: 1 | c | Spine | MEDT | | 2023 | 1 / | | on 03/08/2016 by Geoff, | | Dain | | | | /[id number] | | Baljinder Hood DO at [facility] | | al | | | | | | [facility] | | | | | | | + +--------+--------+ +--------+--------+--------+ | Putty Bone [facility] Grftn 2.5cc - | Graft | N/A: | [employer] - | | 10/06/ | [id number] | | [id number]: Qty: 1 on | | Spine | MEDT | | 2019 | | | 03/08/2016 by Baljinder Tellez | | Dain | | | | /[id number] | | DO Erwin at [facility] | | al | | | | [id number] | | [facility] | | | | | | / | + +--------+--------+ +--------+--------+--------+ | Plate Ant [place] Cerv 75mm | Plate | N/A: | [employer] - | | | [id number] | | - [id number]: Qty: 1 | | Spine | MEDT | | | 5 / / | | on 03/08/2016 by Geoff | Piyush Gautam | | | | | | Baljinder Hood DO at [facility] | | al | | | | | | [facility] | | | | | | | + +--------+--------+ +--------+--------+--------+ | Screw Slf-Drl V/A 4.0x14mm - | Screw | N/A: | [employer] | | | [id number] | | [id number]: Qty: 2 on | | Spine | DANEK - DIV | | | 4 / / | | 03/08/2016 by Baljinder Tellez | | Pradeepic | [employer] | | | | | A, DO at [facility] | | al | - [facility] | | | | | [facility] | | | | | | | + +--------+--------+ +--------+--------+--------+ | Screw Slf-Drl V/A 4.0x15mm - | Screw | N/A: | [employer] | | | [id number] | | [id number]: Qty: 8 on | | Spine | DANEK - DIV | | | 5 / / | | 03/08/2016 by Baljinder Tellez | | Pradeepic | [employer] | | | | | A, DO at [facility] | | al | - [facility] | | | | | [facility] | | | | | | | + +--------+--------+ +--------+--------+--------+ Results Not on filefrom Last 3 Months Insurance + +--------+ +--------+ +---------+--------+ | Payer | Benefi | Subscriber | Effect | Phone | Address | Type | | | t Plan | ID | juan m | | | | | | / | | Dates | | | | | | Group | | | | | | + +--------+ +--------+ +---------+--------+ | MEDICARE | MEDICA | [id number] | 08/24/19 | [phone] | | Medica | | | RE | | 11-Pre | 5 | | re | | | PART A | | sent | | | | | | AND B | | | | | | + +--------+ +--------+ +---------+--------+ | [employer] | MODA | [id number] | 10/24/19 | [phone] | | Medica | | MEDICAID HMO | HEALTH | | 14-Pre | 1 | | id | | | MDCD | | sent | | | | | | HMO [place] | | | | | | + +--------+ +--------+ +---------+--------+ + +--------+ +--------+ + + | Guarantor Name | Accoun | Relation to | Date | Phone | Billing Address | | | t Type | Patient | of | | | | | | | | | | + +--------+ +--------+ + + | Katja Wei | Person | Self [birth year] | [address] | | [place] | al/Fam | | 1946 | [phone] | [place] | | | amita | | | 3 (Home) | [address] | + +--------+ +--------+ + + Advance Directives + + + + + | Type | Date Recorded | Patient | Explanation | | | | Support Merchandiser | | + + + + + | Power of | | | | | Risk Management Consultant | | | | + + + + + | Advance | 02/26/2016 11:34 | | @ [facility] | | Directive | AM | | | + + + + + + + + + + | Code Status | Date | Date | Comments | | | Activated | Inactivated | | + + + + + | Full Code | 03/08/2016 | 03/09/2016 | | | | 7:00 PM | 3:38 PM | | + + + + +
--- OUTSIDE RECORDS SUMMARY | ~2019-03-09 | XMS | Encounter Summary ---
Demographics + + + | Address | [address] | | | [place] [address] | + + + | Home Phone | | + + + | Preferred Language | Unknown | + + + | Marital Status | | + + + | Amish Affiliation | Unknown | + + + | Race | Unknown | + + + | Ethnic Group | Unknown | + + + Author + + + | Author | [facility] | | | and [place] | + + + | Organization | [facility] | | | [...] Providers + +------+ + | Care Aviation Tactical Readiness Officer Name | Role | Phone | + +------+ + | Vik Oconnor MD | PCP | | + +------+ + Encounter Details +--------+ + + + + | Date | Type | Department | Care Team | Description | +--------+ + + + + | 06/22/ | Hospital | [facility] | Vasu Yun | S/P cervical spinal | | 2017 | Encounter | MED CTR XRAY [address] | D, PA-C [address] | fusion; Cervicalgia | | | | [place] | [address] | | | | | [place] [address] | [place], [place] | | | | | [phone] | [address] | | | | | | | [...] XR CERVICAL SPINE 2 | Routin | 06/22/2016 | S/P cervical | Results for this | | OR 3 VIEWS | e | 12:33 PM | spinal fusion | procedure are in the | | | | PST | Cervicalgia | results section. | + +--------+ + [...] COMPARISON: Cervical spine radiographs dating to | [facility] | | March 08, 2016. FINDINGS: Frontal and lateral views of the [facility] | | cervical spine. Anterior cervical discectomy [...] + | Luciano, Rad Results In - 06/22/2016 12:50 PM PST [...] [address] | [place] | [phone] | | [facility] | | [address] | | | - IMAGING | | | | + + + + + documented in this encounter Visit Diagnoses + + | Diagnosis | + + | S/P cervical spinal fusion Arthrodesis status | + + | Cervicalgia | + + documented in this encounter"
--- OUTSIDE RECORDS SUMMARY | ~2019-03-09 | XMS | Encounter Summary ---
Demographics + + + | Address | [address] | | | [place] [address] | + + + | Home Phone | | + + + | Preferred Language | Unknown | + + + | Marital Status | | + + + | Judaism Affiliation | Unknown | + + + [...] Providers + +------+ + | Care Supervisor Sample Preparation Name | Role | Phone | + [...] | | | | | | | [place] | | | | | | | [...] Anterior | | | | [address] | [address] [place] | Cervical Discectomy | | | | [place] | [address] | w/ Fusion and | | | | [address] | | Plating | | | | [phone] | | | +--------+---------+ + + + [...] of admission the patient was admitted to [facility] and underwent a C3-C7 fusion. Patient was [...] Electronically signed by: Umang Parker, 03/09/2016 7:23 [facility] documented in this encounter Discharge Instructions Instructions [...] t raise your hands over your head vrd8gnoo(s)after your surgery. Don t drive until your [...] this your 1 month post op appointment. [id number] [employer] [address] [place] [address]. All righ ts reserved. 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 Name/Age/: Katja Wei 70 y.o. 1945 Post operative day 1 SUBJECTIVE: Patient is doing well overall. She spent the night in the ICU because she was w aking up slowly from surgery and anesthesia and electron tube assembler thought this would be most appro priate. [...] signed by: Umang Parker, 03/09/2016 7:[address] [facility] Ronald Landry PharmD - 03/08/2016 4:04 PM PSTFormatting of this note might be different from the origin al. PHARMACY CONSULT - BACTRIM DOSING Subjective/Objective: Katja Wei is a 70 y.o. 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 | | | [facility] | RATE,ESTIMATED | | MEDICAL | | | | mL/min/1.22i9Niho than | | CENTER - | | [...] ST. | [address] | [place] | [phone] | | [facility] | | [address] | | | - LABORATORY | | [...] ST. | [address] | [place] | [phone] | | [facility] | | [address] | | | - LABORATORY | | [...] [address] | [place] | [phone] | | [facility] | | [address] | | | - LABORATORY | | [...] [place] | | | [facility] | | [address] | | | - BLOOD BANK | | | | + + + + + documented in this encounter Visit Diagnoses + + | Diagnosis | + + | Spondylolisthesis of cervical region Acquired spondylolisthesis | + + documented in this encounter
--- OUTSIDE RECORDS SUMMARY | ~2019-03-09 | XMS | Encounter Summary ---
Demographics + + + | Address | [address] | | | [place] [address] | + + + | Home Phone | | + + + | Preferred Language | Unknown | + + + | Marital Status | | + + + | Nondenominational Affiliation | Unknown | + + + | Race | Unknown | + + + | Ethnic Group | Unknown | + + + Author + + + | Author | [facility] | | | and [place] | + + + | Organization | [facility] | | [...] Team Providers + +------+ + | Care Catering Sous Chef Name | Role | Phone | + [...] [address] [place] | | | | | [phone] | [place] [address] | | +--------+ + + + + [...] for comparison only - no result from [place]. | [facility] | + + + + +---------+ + + | Performing | Address | City/State/Zipcode | Phone Number | | Organization | | | | + +---------+ + + | [facility] | | | | + +---------+ + + documented in this encounter Visit Diagnoses Not on filedocumented in this encounter"
--- OUTSIDE RECORDS SUMMARY | ~2019-03-09 | XMS | Encounter Summary ---
Demographics + + + | Address | [address] | | | [place] [address] | + + + | Home Phone | | + + + | Preferred Language | Unknown | + + + | Marital Status | | + + + | Episcopalian Affiliation | Unknown | + + + | Race | Unknown | + + + | Ethnic Group | Unknown | + + + Author + + + | Author | [facility] | | | and [place] | + + + | Organization | [facility] | | [...] Providers + +------+ + | Care Tack Coverer Name | Role | Phone | + [...] [address] | Cervicalgia | | | | [place], [place] | [place] | | | | | [address] | [address] | | | | | [phone] | | | +--------+---------+ + + + [...] your back and 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 Electronica lly signed by Vasu Yun PA-C at 04/13/2016 1:20 PM PST documented in this encounter Progress Notes Vasu Yun PA-C - 04/13/2016 1:20 PM PSTFormatting of this note might be diffe rent from the original. Vasu Yun PA-C [address] [facility] [address] [place] [address] FAX: NEUROSURGERY FOLLOW-UP CHIEF COMPLAINT: Chief Complaint [...] during the past month and was concerned. residential pain medication does not appear to be [...] COMPARISON: Cervical spine radiographs dating to | [facility] | | March 08, 2016. FINDINGS: Frontal and lateral views of the [facility] | | cervical spine. Anterior cervical discectomy [...] + + | Performing | Address | City/State[facility] | Phone Number | | Organization | | | | + + + + + | [facility] | [address] | [place] | [phone] | | [facility] | | [address] | | | - IMAGING | | | | + + + + + documented in this encounter Visit Diagnoses + + | Diagnosis | + + | S/P cervical spinal fusion - Primary Arthrodesis status | + + | Cervicalgia | + + documented in this encounter
--- OUTSIDE RECORDS SUMMARY | ~2019-03-09 | XMS | Encounter Summary ---
Demographics + + + | Address | [address] | | | [place] [address] | + + + | Home Phone | | + + + | Preferred Language | Unknown | + + + | Marital Status | | + + + | Mormonism Affiliation | Unknown | + + + [...] Team Providers + +------+ + | Care Tub Attendant Name | Role | Phone | [...] [address] | [address] [place], [place] | | | | | [place] | [address] | | | | | [address] | | | | | | [phone] | | | +--------+ + + + [...] [address] | [place] | [phone] | | [facility] | | [address] | | | - IMAGING | | | | + + + + + documented in this encounter Visit Diagnoses + + | Diagnosis | + + | Neck pain - Primary Cervicalgia | + + documented in this encounter"
--- OUTSIDE RECORDS SUMMARY | ~2019-03-09 | XMS | Encounter Summary ---
Demographics + + + | Address | [address] | | | [place] [address] | + + + | Home Phone | | + + + | Preferred Language | Unknown | + + + | Marital Status | | + + + | Spiritism Affiliation | Unknown | + + + | Race | Unknown | + + + | Ethnic Group | Unknown | + + + Author + + + | Author | [facility] | | | and [place] | + + + | Organization | [facility] | | | and [...] Team Providers + +------+ + | Care Multicultural Services Librarian Name | Role | Phone | + +------+ + | Vik Oocnnor MD | PCP | | + +------+ [...] | Baljinder Hood DO | [address] | | | | | Spondylolist | [address] | [place], | | | | | sree, | [address] | [place] | | | | | lumbar | [place] | [address] | | | | | region | [address] | Phone: | | | | | Postural | Phone: | [phone] | | | | | kyphosis of | [phone] | Fax: | | | | | thoracolumba | Fax: | [phone] | | | | | r region | [phone] | | | | | | Osteoarthrit [...] | Baljinder Hood DO | [address] | | | | | Spondylolist | [address] | [place], | | | | | [place], | [address] | [place] | | | | | lumbar | [place] | [address] | | | | | region | [address] | Phone: | | | | | Postural | Phone: | [phone] | | | | | kyphosis of | [phone] | Fax: | | | | | thoracolumba | Fax: | [phone] | | | | | r region | [phone] | | | | | | Osteoarthrit [...] + + | 11/18/ | Hospital | [facility] | Baljinder Tellez, | Spondylolisthesis, | | 2017 | Encounter | MED CTR MRI [address] | DO [address] | lumbar region; | | | | [address] [place], | [address] [place], [place] | 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 | [address] | [place] | [phone] | | [facility] | | [address] | | | - IMAGING | | [...]
--- OUTSIDE RECORDS SUMMARY | ~2019-03-09 | XMS | Encounter Summary ---
Demographics + + + | Address | [address] | | | [place] [address] | + + + | Home Phone | | + + + | Preferred Language | Unknown | + + + | Marital Status | | + + + | Cheondoism Affiliation | Unknown | + + + | Race | Unknown | + + + | Ethnic Group | Unknown | + + + Author + + + | Author | [facility] | | | and [place] | + + + | Organization | [facility] | | | [...] Team Providers + +------+ + | Care Candy Attendant Name | Role | Phone | + +------+ + PCP | Unavailable | + +------+ + Encounter Details +--------+ + + + + | Date | Type | Department | Care Team | Description | +--------+ + + + + | 03/27/ | Hospital | [facility] | Conversion | | | 2011 | Encounter | [facility] [address] | Transaction, | | | | | [address] | Provider Unknown | | | | | [place] | | | | | | [address] | (Fax) | | | | | [phone] | | | +--------+ + + + [...]
--- OUTSIDE RECORDS SUMMARY | ~2019-03-09 | XMS | Encounter Summary ---
Demographics + + + | Address | [address] | | | [place] [address] | + + + | Home Phone | | + + + | Preferred Language | Unknown | + + + | Marital Status | | + + + | Christianity Affiliation | Unknown | + + + | Race | Unknown | + + + | Ethnic Group | Unknown | + + + Author + + + | Author | [facility] | | | and [place] | + + + | Organization | [facility] | | [...] Team Providers + +------+ + | Care Radiology Special Procedure Tech Name | Role | Phone | + [...] [address] | [address] [place], [place] | | | | | [place], [place] | [address] | | | | | [address] | | | | | | [phone] | | | +--------+ + + + [...]
--- OUTSIDE RECORDS SUMMARY | ~2019-03-09 | XMS | Encounter Summary ---
Demographics + + + | Address | [address] | | | [place] [address] | + + + | Home Phone | | + + + | Preferred Language | Unknown | + + + | Marital Status | | + + + | Methodist Affiliation | Unknown | + + + | Race | Unknown | + + + | Ethnic Group | Unknown | + + + Author + + + | Author | [facility] | | | and [place] | + + + | Organization | [facility] | | [...] Team Providers + +------+ + | Care Tanbark Laborer Name | Role | Phone | + [...] [address] | [address] [place], [place] | | | | | [place] | [address] | | | | | [address] | | | | | | [phone] | | | +--------+ + + + [...] [address] | [place] | [phone] | | [facility] | | [address] | | | - IMAGING | | | | + + + + + documented in this encounter Visit Diagnoses + + | Diagnosis | + + | Neck pain - Primary Cervicalgia | + + documented in this encounter"
--- OUTSIDE RECORDS SUMMARY | ~2019-03-09 | XMS | Clinical Summary ---
Demographics + + + | Address | [address] | | | [place] [address] | + + + | Home Phone | | + + + | Preferred Language | Unknown | + + + | Marital Status | | + + + | Hindu Affiliation | Unknown | + + + [...] Team Providers + +------+ + | Care Baby Counselor Name | Role | Phone | + [...] +--------+--------+ +--------+--------+--------+ | Imp Rockn Amy Giron [id number] - | Generi | N/A: | [facility] - | | 11/05/ | [id number] | | [id number]: Qty: 1 | c | Spine | MEDT | | 2023 | 1 / | | on 03/08/2016 by Geoff, | | Cervic | | | | /96CD | | Baljinder Hood DO at [facility] | | al | | | | | | [facility] | | | | | | | + +--------+--------+ +--------+--------+--------+ | Imp Spn Amy Peek [id number] - | Generi | N/A: | [facility] - | | 10/21/ | [id number] | | [id number]: Qty: 1 | c | Spine | MEDT | | 2023 | 1 / | | on 03/08/2016 by Geoff, | | Cervic | | | | /04CC | | Baljinder Hood DO at [facility] | | al | | | | | | [facility] | | | | | | | + +--------+--------+ +--------+--------+--------+ | Imp Spn Amy Peek [id number] - | Generi | N/A: | [facility] - | | 09/11/ | [id number] | | [id number]: Qty: 1 | c | Spine | MEDT | | 2023 | 1 / | | on 03/08/2016 by Geoff, | | Pradeepic | | | | /59BT | | Baljinder Hood DO at [facility] | | al | | | | | | [facility] | | | | | | | + +--------+--------+ +--------+--------+--------+ | Imp Spn Amy Peek [id number] - | Generi | N/A: | [facility] - | | 11/05/ | [id number] | | [id number]: Qty: 1 | c | Spine | MEDT | | 2023 | 1 / | | on 03/08/2016 by Geoff, | | Dain | | | | /96CD | | Baljinder Hood DO at [facility] | | al | | | | | | [facility] | | | | | | | + +--------+--------+ +--------+--------+--------+ | Putty Bone [facility] Grftn 2.5cc - | Graft | N/A: | [facility] - | | 10/06/ | [id number] | | [id number]: Qty: 1 on | | Spine | MEDT | | 2019 | | | 03/08/2016 by Baljinder Tellez | | Dain | | | | /[id number] | | DO Erwin at [facility] | | al | | | | 5-046 | | [facility] | | | | | | / | + +--------+--------+ +--------+--------+--------+ | Plate Ant Spearman Cerv 75mm | Plate | N/A: | [facility] - | | | [id number] | | - [id number]: Qty: 1 | | Spine | MEDT | | | 5 / / | | on 03/08/2016 by Geoff | Piyush Gautam | | | | | | Baljinder Hood DO at [facility] | | al | | | | | | [facility] | | | | | | | + +--------+--------+ +--------+--------+--------+ | Screw Slf-Drl V/A 4.0x14mm - | Screw | N/A: | [facility] | | | [id number] | | [id number]: Qty: 2 on | | Spine | DANEK - DIV | | | 4 / / | | 03/08/2016 by Baljinder Tlelez | | Pradeepic | [facility] | | | | | A, DO at [facility] | | al | - [facility] | | | | | [facility] | | | | | | | + +--------+--------+ +--------+--------+--------+ | Screw Slf-Drl V/A 4.0x15mm - | Screw | N/A: | [facility] | | | [id number] | | [id number]: Qty: 8 on | | Spine | DANEK - DIV | | | 5 / / | | 03/08/2016 by Baljinder Tellez | | Pradeepic | [facility] | | | | | A, DO at [facility] | | al | - [facility] | | | | | [facility] | | | | | | [...] +--------+ +---------+--------+ | MEDICARE | MEDICA | [id number] | 08/24/19 | [phone] | | Medica | | | RE | | 11-Pre | 5 | | re | | | PART A | | sent | | | | | | AND B | | | | | | + +--------+ +--------+ +---------+--------+ | [employer] | MODA | [id number] | 10/24/19 | [phone] | | Medica | | MEDICAID HMO [...] amita | | | 3 (Home) | [id number] | + +--------+ +--------+ + + Advance Directives + + + + + | Type | Date Recorded | Patient | Explanation | | | | French Comber | | + + + + + | Power of | | | | | Steel Die Printer | | | | + + + [...]
--- OUTSIDE RECORDS SUMMARY | ~2019-03-09 | XMS | Encounter Summary ---
Demographics + + + | Address | [address] | | | [place] [address] | + + + | Home Phone | | + + + | Preferred Language | Unknown | + + + | Marital Status | | + + + | Islam Affiliation | Unknown | + + + | Race | Unknown | + + + | Ethnic Group | Unknown | + + + Author + + + | Author | [facility] | | | and [place] | + + + | Organization | [facility] | | [...] Team Providers + +------+ + | Care Panelbeater Name | Role | Phone | + +------+ + | Vik Oconnor MD | PCP | | + +------+ + Encounter Details +--------+ + + + + | Date | Type | Department | Care Team | Description | +--------+ + + + + | 03/09/ | [facility] | [facility] | Rani Sen | | | 2016 | Encounter | MED CTR THERAPY OT | C, OT | | | | | ACUTE [address] | | | | | | [place] | | | | | | [address] | | | | | | [phone] | | | +--------+ + + + [...]
--- OUTSIDE RECORDS SUMMARY | ~2019-03-09 | XMS | Encounter Summary ---
Demographics + + + | Address | [address] | | | [place] [address] | + + + | Home Phone | | + + + | Preferred Language | Unknown | + + + | Marital Status | | + + + | Muslim Affiliation | Unknown | + + + | Race | Unknown | + + + | Ethnic Group | Unknown | + + + Author + + + | Author | [facility] | | | and [place] | + + + | Organization | [facility] | | | [...] Team Providers + +------+ + | Care Chief Nurse Anesthetist Name | Role | Phone | + [...] | | | , | [place], | [address] Phone: | | | | | unspecified | [place] [address] | [phone] | | | | | cervical | Phone: | Fax: | | | | | region | [phone] | [phone] | | | | | Other | Fax: | | | | | | intervertebr | [phone] | | | | | | al disc | | | | | | | degeneration | | | | | | | , lumbar | | | | | | | region | | | | | | | Procedures | | | | | | | [place] OFFICE | | | | | | [...] + + | 10/13/ | Office | [facility] | Baljinder Tellez, | Spondylolisthesis, | | 2016 | Visit | NEUROSURGERY [address] | DO [address] | cervical region | | | | [address] | [address] [place], [place] | (Primary Dx); 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 Baljinder Tellez DO [address] [facility], [address] [place] [address] FAX: NEUROSURGERY HISTORY AND PHYSICAL EXAMINATION CHIEF [...] has no apparent deficits with short or [facility] memory. CRANIAL NERVES: II: Acuity is intact. [...] Intrinsics 5 4 Ulnar Intrinsics 5 4 Horse Doctor Strength 4+ 4 Hip Flexion 5 5 [...]
--- OUTSIDE RECORDS SUMMARY | ~2019-03-09 | XMS | Encounter Summary ---
Demographics + + + | Address | [address] | | | [place] [address] | + + + | Home Phone | | + + + | Preferred Language | Unknown | + + + | Marital Status | | + + + | Christian Affiliation | Unknown | + + + | Race | Unknown | + + + | Ethnic Group | Unknown | + + + Author + + + | Author | [facility] | | | and [place] | + + + | Organization | [facility] | | | [...] Team Providers + +------+ + | Care Physicist Light And Optics Name | Role | Phone | + +------+ + | Vik Oconnor MD | PCP | | + +------+ + Encounter Details +--------+ + + + + | Date | Type | Department | Care Team | Description | +--------+ + + + + | 03/09/ | [facility] | [facility] | [place], | | | 2016 | Encounter | MED CTR SPEECH | Lelo Anderson, Speech | | | | | THERAPY [address] | Pathologist [address] | | | | [place], | [address] [place] | | | | | [place] [address] | [place] [address] | | | | | [phone] | [phone] | | | | | | | [...]
--- OUTSIDE RECORDS SUMMARY | ~2019-03-09 | XMS | Encounter Summary ---
Demographics + + + | Address | [address] | | | [place] [address] | + + + | Home Phone [...] Team Providers + +------+ + | Care Digital Media Intern Name | Role | Phone | + [...] + | 03/04/ | Telephone | [facility] | Baljinder Tellez, | Medication Question | | 2016 | | NEUROSURGERY [address] | DO [address] | | | | | [address] | [address] [place], [place] | | | | | [place], [place] | [address] | | | | | [address] | | | | | | [phone] | | | +--------+ + + + [...]
--- OUTSIDE RECORDS SUMMARY | ~2019-03-09 | XMS | Encounter Summary ---
Demographics + + + | Address | [address] | | | [place] [address] | + + + | Home Phone | | + + + | Preferred Language | Unknown | + + + | Marital Status | | + + + | Buddhism Affiliation [...] Team Providers + +------+ + | Care Rn Admissions Name | Role | Phone | + [...] | | | | | | | [place] | | | | | | | [...] + + | 03/08/ | Hospital | [facility] | Baljinder Tellez, | | | 2016 | Encounter | MED CTR XRAY [address] | DO [address] | | | | | [place] | [place] [address] [place] | | | | | [place] [address] | [address] | | | | | [phone] | | | +--------+ + + + [...] + + documented in this encounter Results AR Rob-Arm Stats No Charge (03/08/2016 2:57 PM [...]
--- OUTSIDE RECORDS SUMMARY | ~2019-03-09 | XMS | Encounter Summary ---
Demographics + + + | Address | [address] | | | [place] [address] | + + + | Home Phone [...] Team Providers + +------+ + | Care Pharmacy Customer Care Specialist Name | Role | Phone | + +------+ + | Vik Oconnor MD | PCP | | + +------+ + Encounter Details +--------+ + + + + | Date | Type | Department | Care Team | Description | +--------+ + + + + | 02/25/ | Hospital | [facility] | Baljinder Tellez, | Asthma, | | 2016 | Encounter | MED CTR XRAY [address] | DO [address] | intermittent, | | | | [place] | [place] | uncomplicated; | | | | [place] [address] | [address] | Chronic kidney | | | | [phone] | | disease, stage 3; | | | | | Yang Cast MD | Chronic pain | | | | | [address] | syndrome; | | | | | [place] | Dermatitis; | | | | | [address] | Uncomplicated type 2 | | | [...] [address] | [place] | [phone] | | [facility] | | [address] | | | - IMAGING | | [...]
--- OUTSIDE RECORDS SUMMARY | ~2019-03-09 | XMS | Encounter Summary ---
Demographics + + + | Address | [address] | | | [place] [address] | + + + | Home Phone | | + + + | Preferred Language | Unknown | + + + | Marital Status | | + + + | Episcopal Affiliation | Unknown | + + + [...] Team Providers + +------+ + | Care Professional Benefits Sales Consultant Name | Role | Phone [...] | | | | al disc, | [address] | [place], [place] | | | | | cervical | Phone: | [address] | | | | | Degeneration | [phone] | Phone: | | | | | , | Fax: | [phone] | | | | | intervertebr | [phone] | Fax: | | | | | al disc, | | [phone] | | | | | lumbar | [...] | cervical (Primary | | | | [place], [place] | [address] | Dx); Degeneration, | | | | [address]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
--- OUTSIDE RECORDS SUMMARY | ~2019-03-09 | XMS | Encounter Summary ---
Demographics + + + | Address | [address] | | | [place] [address] | + + + | Home Phone | | + + + | Preferred Language | Unknown | + + + | Marital Status | | + + + | Jew Affiliation | Unknown | + + + | Race | Unknown | + + + | Ethnic Group | Unknown | + + + Author + + + | Author | [facility] | | | and [place] | + + + | Organization | [facility] | | | [...] Providers + +------+ + | Care Senior Tax Accountant Name | Role | Phone | + [...] [address] | [address] [place], [place] | uncomplicated | | | | [place], [place] | [address] | (Primary Dx); | | | | [address] | | Chronic kidney | | | | [phone] | | disease, stage 3; | | [...] [address] | [place] | [phone] | | [facility] | | [address] | | | - IMAGING | | [...] MD | | | | | | ([id number]) on 02/27/2016 | | | | | [...] | mL/min/1.73m2 | KE | | | TURKMEN | RATE,ESTIMATED | | MEDICAL | | | | mL/min/1.32a1Vlib than | | CENTER - | | [...] + | [facility] | [address] | [place] | [phone] | | [facility] | | [address] | | | - LABORATORY | | [...] + | [facility] | [address] | [place] | [phone] | | [facility] | | [address] | | | - LABORATORY | | [...] [address] | [place] | [phone] | | [facility] | | [address] | | | - LABORATORY | | [...] [address] | [place] | [phone] | | [facility] | | [address] | | | - LABORATORY | | [...]
--- OUTSIDE RECORDS SUMMARY | ~2019-03-09 | XMS | Encounter Summary ---
Demographics + + + | Address | [address] | | | [place] [address] | + + + | Home Phone [...] Team Providers + +------+ + | Care Director Of Institutional Sales Name | Role | Phone | + [...] [address] | [address] [place], [place] | (Primary Dx); Status | | | | [place], [place] | [address] | post cervical | | | | [address] | | spinal fusion | | | | [phone] | | | +--------+ + + + [...] 2 or 3 Views (04/13/2016 11:43 AM [facility]) + + | Specimen | + + [...] ST. | [address] | [place] | [phone] | | [facility] | | [address] | | | - IMAGING | | | | + + + + + documented in this encounter Visit Diagnoses + + | Diagnosis | + + | Spondylolisthesis of cervical region - Primary Acquired spondylolisthesis | + + | Status post cervical spinal fusion Arthrodesis status | + + documented in this encounter"
--- OUTSIDE RECORDS SUMMARY | ~2019-03-09 | XMS | Encounter Summary ---
Demographics + + + | Address | [address] | | | [place] [address] | + + + | Home Phone | | + + + | Preferred Language | Unknown | + + + | Marital Status | | + + + | Shinto Affiliation | Unknown | + + + | Race | Unknown | + + + | Ethnic Group | Unknown | + + + Author + + + | Author | [facility] | | | and [place] | + + + | Organization | [facility] | | | [...] Team Providers + +------+ + | Care Acetone Button Paster Name | Role | Phone | + +------+ + | Vik Oconnor MD | PCP | | + +------+ + Encounter Details +--------+ + + + + | Date | Type | Department | Care Team | Description | +--------+ + + + + | 02/25/ | Preadmit | [facility] | Baljinder Tellez, | Pre-operative | | 2016 | Visit | MED CTR PREADMIT | DO [address] | clearance (Primary | | | | CLINIC [address] | [address] [place], [place] | Dx); Asthma, | | | | [place], [place] | [address] | intermittent, | | | | [address] | | uncomplicated; | | | | [...] | | | | | ([facility]) Essential | | | | | [...] MD | | | | | | ([id number]) on 02/27/2016 | | | | | [...] mL/min/1.73m2 | [facility] | | | [facility] | RATE,ESTIMATED | | MEDICAL | | | | mL/min/1.30x7Kake than | | CENTER - | | [...] [address] | [place] | [phone] | | [facility] | | [address] | | | - LABORATORY | | [...] [address] | [place] | [phone] | | [facility] | | [address] | | | - LABORATORY | | [...] + | [facility] | [address] | [place] | [phone] | | [facility] | | [address] | | | - LABORATORY | | [...] [address] | [place] | [phone] | | [facility] | | [address] | | | - LABORATORY | | [...] ST. | [address] | [place], [place] | [phone] | | [facility] | | [address] | | | - LABORATORY | | [...]
--- OUTSIDE RECORDS SUMMARY | ~2019-03-09 | XMS | Encounter Summary ---
Demographics + + + | Address | [address] | | | [place] [address] | + + + | Home Phone [...] Team Providers + +------+ + | Care Slip Seat Coverer Name | Role | Phone | [...] [address] | [address] [place], [place] | | | | | [place], [place] | [address] | | | | | [address] | | | | | | [phone] | | | +--------+ + + + [...]
--- OUTSIDE RECORDS SUMMARY | ~2019-03-09 | XMS | Encounter Summary ---
Demographics + + + | Address | [address] | | | [place] [address] | + + + | Home Phone [...] Team Providers + +------+ + | Care Dry Cleaning Teacher Name | Role | Phone | [...] [address] | | | | | [phone] | [place] [address] | | +--------+ + + + + [...] for comparison only - no result from [facility]. | | + + + + +---------+ + + | Performing | Address | City/State/Zipcode | Phone Number | | Organization | | | | + +---------+ + + | [facility] | | | | + +---------+ + + documented in this encounter Visit Diagnoses Not on filedocumented in this encounter"
--- OUTSIDE RECORDS SUMMARY | ~2019-03-09 | XMS | Encounter Summary ---
Demographics + + + | Address | [address] | | | [place] [address] | + + + | Home Phone | | + + + | Preferred Language | Unknown | + + + | Marital Status | | + + + | Sikh Affiliation | Unknown | + + + [...] Team Providers + +------+ + | Care Mangle Press Catcher Name | Role | Phone | + +------+ + | Vik Oconnor MD | PCP | | + +------+ + Encounter Details +--------+ + + + + | Date | Type | Department | Care Team | Description | +--------+ + + + + | 03/09/ | [facility] | [facility] | Rani Sen | | | 2016 | Encounter | MED CTR THERAPY OT | C, OT | | | | | ACUTE [address] | | | | | | [place] | | | | | | [address] | | | | | | [phone] | | | +--------+ + + + [...]
--- OUTSIDE RECORDS SUMMARY | ~2019-03-09 | XMS | Encounter Summary ---
Demographics + + + | Address | [address] | | | [place] [address] | + + + | Home Phone [...] Providers + +------+ + | Care Auto Painter Helper Name | Role | Phone | + [...] | | | , | [place], | [address] Phone: | | | | | unspecified | [place] [address] | [phone] | | | | | cervical | Phone: | Fax: | | | | | region | [phone] | [phone] | | | | | Other | Fax: | | | | | | intervertebr | [phone] | | | | | | al disc | | | | | | | degeneration | | | | | | | , lumbar | | | | | | | region | | | | | | | Procedures | | | | | | | [place] OFFICE | | | | | | [...] + + | 10/13/ | Office | [facility] | Baljinder Tellez, | Spondylolisthesis, | | 2016 | Visit | NEUROSURGERY [address] | DO [address] | cervical region | | | | [address] | [address] [place], [place] | (Primary Dx); Other | | | | [place], [place]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 Baljinder Tellez DO [address] [facility], [address] [place] [address] FAX: NEUROSURGERY HISTORY AND PHYSICAL EXAMINATION CHIEF [...] has no apparent deficits with short or fci memory. CRANIAL NERVES: II: Acuity is intact. [...] Intrinsics 5 4 Ulnar Intrinsics 5 4 Medical Art Therapist Strength 4+ 4 Hip Flexion 5 5 [...]
--- OUTSIDE RECORDS SUMMARY | ~2019-03-09 | XMS | Clinical Summary ---
Demographics + + + | Address | [address] | | | [place] [address] | + + + | Home Phone | | + + + | Preferred Language | Unknown | + + + | Marital Status | | + + + | Presybeterian Affiliation | Unknown | + + + | Race | Unknown | + + + | Ethnic Group | Unknown | + + + Author + + + | Author | [facility] | | | and [place] | + + + | Organization | [facility] | | | [...] Team Providers + +------+ + | Care Patient Support Representative Name | Role | Phone | + [...] +--------+--------+ +--------+--------+--------+ | Imp Rockn Amy Giron [id number] - | Generi | N/A: | [facility] - | | 11/05/ | [id number] | | [id number]: Qty: 1 | c | Spine | MEDT | | 2023 | 1 / | | on 03/08/2016 by Geoff, | | Cervic | | | | /96CD | | Baljinder Hood DO at [facility] | | al | | | | | | [facility] | | | | | | | + +--------+--------+ +--------+--------+--------+ | Imp Spn Amy Peek [id number] - | Generi | N/A: | [facility] - | | 10/21/ | [id number] | | [id number]: Qty: 1 | c | Spine | MEDT | | 2023 | 1 / | | on 03/08/2016 by Geoff, | | Cervic | | | | /04CC | | Baljinder Hood DO at [facility] | | al | | | | | | [facility] | | | | | | | + +--------+--------+ +--------+--------+--------+ | Imp Spn Amy Peek [id number] - | Generi | N/A: | [facility] - | | 09/11/ | [id number] | | [id number]: Qty: 1 | c | Spine | MEDT | | 2023 | 1 / | | on 03/08/2016 by Geoff, | | Pradeepic | | | | /59BT | | Baljinder Hood DO at [facility] | | al | | | | | | [facility] | | | | | | | + +--------+--------+ +--------+--------+--------+ | Imp Spn Amy Peek [id number] - | Generi | N/A: | [facility] - | | 11/05/ | [id number] | | [id number]: Qty: 1 | c | Spine | MEDT | | 2023 | 1 / | | on 03/08/2016 by Geoff, | | Dain | | | | /96CD | | Baljinder Hood DO at [facility] | | al | | | | | | [facility] | | | | | | | + +--------+--------+ +--------+--------+--------+ | Putty Bone [facility] Grftn 2.5cc - | Graft | N/A: | [facility] - | | 10/06/ | [id number] | | [id number]: Qty: 1 on | | Spine | MEDT | | 2019 | | | 03/08/2016 by Baljinder Tellez | | Dain | | | | /[id number] | | DO [place] at [facility] | | al | | | | 5-046 | | [facility] | | | | | | / | + +--------+--------+ +--------+--------+--------+ | Plate Ant [place] Cerv 75mm | Plate | N/A: | [facility] - | | | [id number] | | - [id number]: Qty: 1 | | Spine | MEDT | | | 5 / / | | on 03/08/2016 by Geoff | Piyush Gautam | | | | | | Baljinder Hood DO at [facility] | | al | | | | | | [facility] | | | | | | | + +--------+--------+ +--------+--------+--------+ | Screw Slf-Drl V/A 4.0x14mm - | Screw | N/A: | SOFAMOR | | | [id number] | | [id number]: Qty: 2 on | | Spine | DANEK - DIV | | | 4 / / | | 03/08/2016 by Baljinder Tellez | | Pradeepic | MEDTRONIC | | | | | A, DO at [facility] | | al | - [facility] | | | | | [facility] | | | | | | | + +--------+--------+ +--------+--------+--------+ | Screw Slf-Drl V/A 4.0x15mm - | Screw | N/A: | SOFAMOR | | | [id number] | | [id number]: Qty: 8 on | | Spine | DANEK - DIV | | | 5 / / | | 03/08/2016 by Baljinder Tellez | | Pradeepic | MEDTRONIC | | | | | A, DO at [facility] | | al | - [facility] | | | | | [facility] | | | | | | [...] +--------+ +---------+--------+ | MEDICARE | MEDICA | [id number] | 08/24/19 | [phone] | | Medica | | | RE | | 11-Pre | 5 | | re | | | PART A | | sent | | | | | | AND B | | | | | | + +--------+ +--------+ +---------+--------+ | [employer] | MODA | [id number] | 10/24/19 | [phone] | | Medica | | MEDICAID HMO [...] amita | | | 3 (Home) | [id number] | + +--------+ +--------+ + + Advance Directives + + + + + | Type | Date Recorded | Patient | Explanation | | | | Packing Attendant | | + + + + + | Power of | | | | | Refractory Specialist | | | | + + + [...]
--- OUTSIDE RECORDS SUMMARY | ~2019-03-09 | XMS | Encounter Summary ---
Demographics + + + | Address | [address] | | | [place] [address] | + + + | Home Phone [...] + + | Author | [facility] | | | and [place] | + + + | Organization | [facility] | | [...] Team Providers + +------+ + | Care Insurance Marketing Rep Name | Role | Phone | + +------+ + | Vik Oconnor MD | PCP | | + +------+ + Encounter Details +--------+ + + + + | Date | Type | Department | Care Team | Description | +--------+ + + + + | 06/22/ | Hospital | [facility] | Vasu Yun | S/P cervical spinal | | 2017 | Encounter | MED CTR XRAY [address] | D, PA-C [address] | fusion; Cervicalgia | | | | [place] | [address] | | | | | [place] [address] | [place], [place] | | | | | [phone] | [address] | | | | | | | [...] COMPARISON: Cervical spine radiographs dating to | [facility] | | March 08, 2016. FINDINGS: Frontal and lateral views of the [facility] | | cervical spine. Anterior cervical [...] [address] | [place] | [phone] | | [facility] | | [address] | | | - IMAGING | | | | + + + + + documented in this encounter Visit Diagnoses + + | Diagnosis | + + | S/P cervical spinal fusion Arthrodesis status | + + | Cervicalgia | + + documented in this encounter"
--- OUTSIDE RECORDS SUMMARY | ~2019-03-09 | XMS | Encounter Summary ---
Demographics + + + | Address | [address] | | | [place] [address] | + + + | Home Phone | | + + + | Preferred Language | Unknown | + + + | Marital Status | | + + + | Anabaptism Affiliation | Unknown | + + + [...] Team Providers + +------+ + | Care Reactor Operator Name | Role | Phone | [...] + + | 02/25/ | Office | [facility] | ShawndaniaVasu | Cervicalgia (Primary | | 2016 | Visit | NEUROSURGERY [address] | D, [address] | Dx); Cervical | | | | [address] | [address] | radiculopathy; | | | | [place], [place] | [place], [place] | Cervical spinal | | | | [address] | [address] | stenosis; | | | | [phone] | | Spondylolisthesis of | | | [...] from the original. 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
--- OUTSIDE RECORDS SUMMARY | ~2019-03-09 | XMS | Encounter Summary ---
Demographics + + + | Address | [address] | | | [place] [address] | + + + | Home Phone | | + + + | Preferred Language | Unknown | + + + | Marital Status | | + + + | Bahai Affiliation | Unknown | + + + | Race | Unknown | + + + | Ethnic Group | Unknown | + + + Author + + + | Author | [facility] | | | and [place] | + + + | Organization | [facility] | | | [...] Team Providers + +------+ + | Care Global Marketing Manager Name | Role | Phone | [...] | Baljinder Hood DO | [address] | | | | | Spondylolist | [address] | [place], | | | | | sree, | [address] | [place] | | | | | lumbar | [place] | [address] | | | | | region | [address] | Phone: | | | | | Postural | Phone: | [phone] | | | | | kyphosis of | [phone] | Fax: | | | | | thoracolumba | Fax: | [phone] | | | | | r region | [phone] | | | | | | Osteoarthrit [...] + + | 06/22/ | Office | [facility] | Baljinder Tellez, | 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 | [address] | [place], [place] | [phone] | | [facility] | | [address] | | | - IMAGING | | [...]
--- OUTSIDE RECORDS SUMMARY | ~2019-03-09 | XMS | Encounter Summary ---
Demographics + + + | Address | [address] | | | [place] [address] | + + + | Home Phone | | + + + | Preferred Language | Unknown | + + + | Marital Status | | + + + | Orthodoxy Affiliation | Unknown | + + + | Race | Unknown | + + + | Ethnic Group | Unknown | + + + Author + + + | Author | [facility] | | | and [place] | + + + | Organization | [facility] | | [...] Team Providers + +------+ + | Care Tar Heat Exchanger Cleaner Name | Role | Phone | + +------+ + | Vik Oconnor MD | PCP | | + +------+ + Encounter Details +--------+ + + + + | Date | Type | Department | Care Team | Description | +--------+ + + + + | 03/09/ | [facility] | [facility] | [place], | | | 2016 | Encounter | MED CTR SPEECH | Lelo Anderson, Speech | | | | | THERAPY [address] | Pathologist [address] | | | | | [place], | [address] [place] | | | | | [place] [address] | [place] [address] | | | | | [phone] | [phone] | | | | | | | [...]
--- OUTSIDE RECORDS SUMMARY | ~2019-03-09 | XMS | Encounter Summary ---
Demographics + + + | Address | [address] | | | [place] [address] | + + + | Home Phone | | + + + | Preferred Language | Unknown | + + + | Marital Status | | + + + | Restorationism Affiliation | Unknown | + + + | Race | Unknown | + + + | Ethnic Group | Unknown | + + + Author + + + | Author | [facility] | | | and [place] | + + + | Organization | [facility] | | [...] Providers + +------+ + | Care Hand Miter Operator Name | Role | Phone | + +------+ + PCP | Unavailable | + +------+ + Encounter Details +--------+ + + + + | Date | Type | Department | Care Team | Description | +--------+ + + + + | 03/27/ | Hospital | [facility] MED[facility] | Conversion | | | 2011 | Encounter | [facility] [address] | Transaction, | | | | | [address] | Provider Unknown | | | | | [place] | | | | | | [address] | (Fax) | | | | | [phone] | | | +--------+ + + + [...]
--- OUTSIDE RECORDS SUMMARY | ~2019-03-09 | XMS | Encounter Summary ---
Demographics + + + | Address | [address] | | | [place] [address] | + + + | Home Phone | | + + + | Preferred Language | Unknown | + + + | Marital Status | | + + + | Sabianism Affiliation | Unknown | + + + | Race | Unknown | + + + | Ethnic Group | Unknown | + + + Author + + + | Author | [facility] | | | and [place] | + + + | Organization | [facility] [...] Team Providers + +------+ + | Care Secretary To Board Of Commissioners Name | Role | Phone | + +------+ + | Vik Oconnor MD | PCP | | + +------+ + Encounter Details +--------+ + + + + | Date | Type | Department | Care Team | Description | +--------+ + + + + | 06/22/ | Hospital | [facility] | Vasu Yun | S/P cervical spinal | | 2017 | Encounter | MED CTR XRAY [address] | D, PA-C [address] | fusion; Cervicalgia | | | | [place] | [address] | | | | | [place] [address] | [place], [place] | | | | | [phone] | [address] | | | | | | | [...] COMPARISON: Cervical spine radiographs dating to | [facility] | | March 08, 2016. FINDINGS: Frontal and lateral views of the [facility] | | cervical spine. Anterior cervical [...] [address] | [place] | [phone] | | [facility] | | [address] | | | - IMAGING | | | | + + + + + documented in this encounter Visit Diagnoses + + | Diagnosis | + + | S/P cervical spinal fusion Arthrodesis status | + + | Cervicalgia | + + documented in this encounter"
--- OUTSIDE RECORDS SUMMARY | ~2019-03-09 | XMS | Encounter Summary ---
Demographics + + + | Address | [address] | | | [place] [address] | + + + | Home Phone [...] Providers + +------+ + | Care Pharmacy Informatics Specialist Name | Role | Phone | [...] [address] | [address] [place], [place] | | | | | [place], [place] | [address] | | | | | [address] | | | | | | [phone] | | | +--------+--------+ + + + [...]
--- OUTSIDE RECORDS SUMMARY | ~2019-03-09 | XMS | Encounter Summary ---
Demographics + + + | Address | [address] | | | [place] [address] | + + + | Home Phone [...] Team Providers + +------+ + | Care Fire Prevention Bureau Captain Name | Role | Phone | + [...] Richa LEPE | | | | | [phone] | [place] [address] | | +--------+ + + + + [...] for comparison only - no result from [place]. | | + + + + +---------+ + + | Performing | Address | City/State/Zipcode | Phone Number | | Organization | | | | + +---------+ + + | [facility] | | | | + +---------+ + + documented in this encounter Visit Diagnoses Not on filedocumented in this encounter"
--- OUTSIDE RECORDS SUMMARY | ~2019-03-09 | XMS | Encounter Summary ---
Demographics + + + | Address | [address] | | | [place] [address] | + + + | Home Phone | | + + + | Preferred Language | Unknown | + + + | Marital Status | | + + + | Faith Affiliation | Unknown | + + + | Race | Unknown | + + + | Ethnic Group | Unknown | + + + Author + + + | Author | [facility] | | | and [place] | + + + | Organization | [facility] | | | [...] Team Providers + +------+ + | Care Roster Clerk Name | Role | Phone | [...] | | | | | | | ID | | | | | | | [...] + + | 03/08/ | Hospital | [facility] | Baljinder Tellez, | | | 2016 - | Encounter | MED CTR ICU [address] | DO [address] | | | | | [place], | [facility] [place] | | | 03/09/ | | [place] [address] | [id number] | | | 2015 | | [phone] | | | +--------+ + + + [...] of admission the patient was admitted to [facility] and underwent a C3-C7 fusion. [...] signed by: Umang Parker, 03/09/2016 7:23 [facility] documented in this encounter Discharge Instructions [...] t raise your hands over your head [id number](s)after your surgery. Don t drive until your [...] this your 1 month post op appointment. [id number] [employer]. [address] [place] [address]. All righ ts reserved. This information is [...] on 03/08/2016 9:47 and is on bactrim CVIR TECH for chronic UTI BP 116/50 mmHg | [...] might be different from the konrad hoover [facility] NEUROSURGERY PROGRESS NOTE Pt. Name/Age/: Katja Wei 70 y.o. 1945 Post operative day 1 SUBJECTIVE: Patient is doing well overall. She spent the night in the ICU because she was w aking up slowly from surgery and anesthesia and disaster recovery consultant thought this would be most appro priate. [...] Electronically signed by: Umang Parker, 03/09/2016 7:15 [facility] Ronald Landry PharmD - 03/08/2016 4:04 PM PSTFormatting of this note might be different from the origin al. PHARMACY CONSULT - BACTRIM DOSING Subjective/Objective: Katja Wei is a 70 y.o. year old female admitted on 03/08/2016 9:47 and is on bactrim CVIR TECH for chronic UTI BP 183/77 mmHg | [...] [address] | [place] | [phone] | | [facility] | | [address] | | | - LABORATORY | | [...] | | GLOMERULAR FILTRATION | mL/min/1.73m2 | [facility] | | | MALAGASY | RATE,ESTIMATED | | MEDICAL | | | | mL/min/1.77c3Aeht than | | CENTER - | | [...] + | [address] | [address] | [place] | [phone] | | [facility] | | [address] | | | - LABORATORY | | [...] [address] | [place] | [phone] | | [facility] | | [address] | | | - LABORATORY | | [...] [address] | [place] | [phone] | | [facility] | | [address] | | | - LABORATORY | | [...] ST. | [address] | [place] | | | [facility] | | [address] | | | - BLOOD BANK | [...]
--- OUTSIDE RECORDS SUMMARY | ~2019-03-09 | XMS | Encounter Summary ---
Demographics + + + | Address | [address] | | | [place] [address] | + + + | Home Phone | | + + + | Preferred Language | Unknown | + + + | Marital Status | | + + + | Sikh Affiliation | Unknown | + + + | Race | Unknown | + + + | Ethnic Group | Unknown | + + + Author + + + | Author | [facility] | | | and [place] | + + + | Organization | [facility] | | | [...] Team Providers + +------+ + | Care Band Saw Marker Name | Role | Phone | + [...] | | | | | | Baljinder oHod DO | [address] | | | | | Spondylolist | [address] | [place], | | | | | sree, | [address] | [place] | | | | | lumbar | [place] | [address] | | | | | region | [address] | Phone: | | | | | Postural | Phone: | [phone] | | | | | kyphosis of | [phone] | Fax: | | | | | thoracolumba | Fax: | [phone] | | | | | r region | [phone] | | | | | | Osteoarthrit [...] + | 06/22/ | [facility] | [facility] | Baljinder Tellez, | 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 Baljinder Tellez DO [address] [facility], [address] [place] [address] FAX: NEUROSURGERY FOLLOW-UP CHIEF COMPLAINT: Chief Complaint [...] Plating; Nguyễn rgeon: Baljinder Tellez DO; Location: [facility] MAIN OR CURRENT MEDICATIONS: Current Outpatient Prescriptions [...] [address] | [place], [place] | [phone] | | [facility] | | [address] | | | - IMAGING | | [...]
--- OUTSIDE RECORDS SUMMARY | ~2019-03-09 | XMS | Encounter Summary ---
Demographics + + + | Address | [address] | | | [place] [address] | + + + | Home Phone [...] Providers + +------+ + | Care Manager Monitoring Name | Role | Phone | + +------+ + | Vik Oconnor MD | PCP | | + +------+ + Encounter Details +--------+ + + + + | Date | Type | Department | Care Team | Description | +--------+ + + + + | 03/09/ | [facility] | [facility] | [place], | | | 2016 | Encounter | MED CTR SPEECH | Lelo Anderson, Speech | | | | | THERAPY [address] | Pathologist [address] | | | | | [place], | [address] [place] | | | | | [place] [address] | [place] [address] | | | | | [phone] | [phone] | | | | | | | [...]
--- OUTSIDE RECORDS SUMMARY | ~2019-03-09 | XMS | Encounter Summary ---
Demographics + + + | Address | [address] | | | [place] [address] | + + + | Home Phone | | + + + | Preferred Language | Unknown | + + + | Marital Status | | + + + | Advent Affiliation | Unknown | + + + | Race | Unknown | + + + | Ethnic Group | Unknown | + + + Author + + + | Author | [facility] | | | and [place] | + + + | Organization | [facility] | [...] Team Providers + +------+ + | Care Christmas Tree Contractor Name | Role | Phone | + [...] + | 02/26/ | Telephone | [facility] | Baljinder Tellez, | Other (Pre op meds | | 2016 | | NEUROSURGERY [address] | DO [address] | to stop) | | | | [address] | [address] [place], [place] | | | | | [place], [place] | [address] | | | | | [address] | | | | | | [phone] | | | +--------+ + + + [...]
--- OUTSIDE RECORDS SUMMARY | ~2019-03-09 | XMS | Encounter Summary ---
Demographics + + + | Address | [address] | | | [place] [address] | + + + | Home Phone [...] + + | Author | [facility] | | | and [place] | + + + | Organization | [facility] | | | [...] Team Providers + +------+ + | Care Electric Power Line Repairer Name | Role | Phone | [...] | | | | [place] | [address] | | | | | [address] | | | | | | [phone] | | | +--------+ + + + [...]
--- OUTSIDE RECORDS SUMMARY | ~2019-03-09 | XMS | Encounter Summary ---
Demographics + + + | Address | [address] | | | [place] [address] | + + + | Home Phone [...] Team Providers + +------+ + | Care Ash Kier Boiler Name | Role | Phone | + [...] | | | , | [place], | [address] Phone: | | | | | unspecified | [place] [address] | [phone] | | | | | cervical | Phone: | Fax: | | | | | region | [phone] | [phone] | | | | | Other | Fax: | | | | | | intervertebr | [phone] | | | | | | al disc | | | | | | | degeneration | | | | | | | , lumbar | | | | | | | region | | | | | | | Procedures | | | | | | | [place] OFFICE | | | | | | [...] [address] | [address] [place], [place] | (Primary Dx); 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 Baljinder Tellez DO [address] [facility], [address] [place] [address] FAX: NEUROSURGERY HISTORY AND PHYSICAL EXAMINATION CHIEF [...] has no apparent deficits with short or shelter memory. CRANIAL NERVES: II: Acuity is intact. [...] Intrinsics 5 4 Ulnar Intrinsics 5 4 Net Manager Strength 4+ 4 Hip Flexion 5 5 [...]
--- OUTSIDE RECORDS SUMMARY | ~2019-03-09 | XMS | Encounter Summary ---
Demographics + + + | Address | [address] | | | [place] [address] | + + + | Home Phone | | + + + | Preferred Language | Unknown | + + + | Marital Status | | + + + | Church Affiliation | Unknown | + + + [...] Team Providers + +------+ + | Care Comb Capper Name | Role | Phone | + [...] + + | 03/08/ | Hospital | [facility] | Baljinder Tellez, | | | 2016 | Encounter | MED CTR XRAY [address] | DO [address] | | | | | [place] | [place] [address] [place] | | | | | [place] [address] | [address] | | | | | [phone] | | | +--------+ + + + [...] + + documented in this encounter Results [place] Rob-Arm Stats No Charge (03/08/2016 2:57 PM [...]
--- OUTSIDE RECORDS SUMMARY | ~2019-03-09 | XMS | Encounter Summary ---
Demographics + + + | Address | [address] | | | [place] [address] | + + + | Home Phone [...] Providers + +------+ + | Care Chief Petroleum Engineer Name | Role | Phone | [...] + + | 02/25/ | Office | [facility] | ShawndaniaVasu | Cervicalgia (Primary | | 2016 | Visit | NEUROSURGERY [address] | D, [address] | Dx); Cervical | | | | [address] | [address] | radiculopathy; | | | | [place], [place] | [place], [place] | Cervical spinal | | | | [address] | [address] | stenosis; | | | | [phone] | | Spondylolisthesis of | | | [...] [address] [facility], [address] [place] [address] FAX: NEUROSURGERY HISTORY AND PHYSICAL EXAMINATION CHIEF [...] has no apparent deficits with short or intermediate designer memory. CRANIAL NERVES: II: Acuity is intact. [...] Intrinsics 5 4 Ulnar Intrinsics 5 4 Time Stamp Assembler Strength 4+ 4 Hip Flexion 5 5 [...] her upcoming cervical fusion. ELECTRONICALLY SIGNED BY: aVsu Yun PA-C, 02/26/2016 15:55 documented in this [...]
--- OUTSIDE RECORDS SUMMARY | ~2019-03-09 | XMS | Encounter Summary ---
Demographics + + + | Address | [address] | | | [place] [address] | + + + | Home Phone [...] Team Providers + +------+ + | Care Filemaker Developer Name | Role | Phone | + +------+ + PCP | Unavailable | + +------+ + Encounter Details +--------+ + + + + | Date | Type | Department | Care Team | Description | +--------+ + + + + | 03/27/ | Hospital | [facility] MEDICAL | Conversion | | | 2011 | Encounter | [facility] [address] | Transaction, | | | | | [address] | Provider Unknown | | | | | [place] | | | | | | [address] | (Fax) | | | | | [phone] | | | +--------+ + + + [...]
--- OUTSIDE RECORDS SUMMARY | ~2019-03-09 | XMS | Encounter Summary ---
Demographics + + + | Address | [address] | | | [place] [address] | + + + | Home Phone | | + + + | Preferred Language | Unknown | + + + | Marital Status | | + + + | Taoist Affiliation | Unknown | + + + | Race | Unknown | + + + | Ethnic Group | Unknown | + + + Author + + + | Author | [facility] | | | and [place] | + + + | Organization | [facility] | | | [...] Team Providers + +------+ + | Care Telecom Coordinator Name | Role | Phone | [...] [address] | [address] [place], [place] | (Primary Dx); Status | | | | [place], [place] | [address] | post cervical | | | | [address] | | spinal fusion | | | | [phone] | | | +--------+ + + + [...] 2 or 3 Views (04/13/2016 11:43 AM [facility]) + + | Specimen | + [...] ST. | [address] | [place] | [phone] | | [facility] | | [address] | | | - IMAGING | | | | + + + + + documented in this encounter Visit Diagnoses + + | Diagnosis | + + | Spondylolisthesis of cervical region - Primary Acquired spondylolisthesis | + + | Status post cervical spinal fusion Arthrodesis status | + + documented in this encounter"
--- OUTSIDE RECORDS SUMMARY | ~2019-03-09 | XMS | Encounter Summary ---
Demographics + + + | Address | [address] | | | [place] [address] | + + + | Home Phone | | + + + | Preferred Language | Unknown | + + + | Marital Status | | + + + | Buddhist Affiliation | Unknown | + + + [...] Providers + +------+ + | Care Air Moving Technician Name | Role | Phone | [...] | | | | | myelopathy | [address] | [place], [place] | | | | | or | Phone: | [address] | | | | | radiculopath | [phone] | Phone: | | | | | y Lumbar | Fax: | [phone] | | | | | stenosis | [phone] | Fax: | | | | | Chronic | | [phone] | | | | | midline low [...] + + | 11/22/ | Office | [facility] | Baljinder Tellez, | 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 A small pillow or rolled towel [...] in the groin area Date Last Reviewed: 09/24/201519990157-2708 [employer]. [address] [place] [address]. All righ ts reserved. This information is not intended as a substitute for professional medical care. Always follow your healthcare professional's instructions. documented in this encounter Progress Notes Baljinder Tellez DO - 11/22/2016 1:00 PM PDTFormatting of this note might be different fro m the original. Baljinder Tellez DO [address] [facility], [address] [place] [address] FAX: NEUROSURGERY FOLLOW-UP CHIEF COMPLAINT: [...] Plating; Barb geon: Baljinder Tellez DO; Location: [facility] MAIN OR CYSTOCELE REPAIR 06/10/14 HYSTERECTOMY [...] options, she would like to continue w [facility] conservative management. I will refer her [...]
--- OUTSIDE RECORDS SUMMARY | ~2019-03-09 | XMS | Encounter Summary ---
Demographics + + + | Address | [address] | | | [place] [address] | + + + | Home Phone | | + + + | Preferred Language | Unknown | + + + | Marital Status | | + + + | Islam Affiliation | Unknown | + + + | Race | Unknown | + + + | Ethnic Group | Unknown | + + + Author + + + | Author | [facility] | | | and [place] | + + + | Organization | [facility] | | | [...] Team Providers + +------+ + | Care State Director Name | Role | Phone | [...] | Baljinder Hood DO | [address] | | | | | Spondylolist | [address] | [place], | | | | | sree, | [address] | [place] | | | | | lumbar | [place] | [address] | | | | | region | [address] | Phone: | | | | | Postural | Phone: | [phone] | | | | | kyphosis of | [phone] | Fax: | | | | | thoracolumba | Fax: | [phone] | | | | | r region | [phone] | | | | | | Osteoarthrit [...] + + | 06/22/ | Office | [facility] | Baljinder Tellez, | 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 | [address] | [place], [place] | [phone] | | [facility] | | [address] | | | - IMAGING | | [...]
--- OUTSIDE RECORDS SUMMARY | ~2019-03-09 | XMS | Encounter Summary ---
Demographics + + + | Address | [address] | | | [place] [address] | + + + | Home Phone | | + + + | Preferred Language | Unknown | + + + | Marital Status | | + + + | Lutheran Affiliation | Unknown | + + + | Race | Unknown | + + + | Ethnic Group | Unknown | + + + Author + + + | Author | [facility] | | | and [place] | + + + | Organization | [facility] | | | [...] Providers + +------+ + | Care Machine Shop Specialist Name | Role | Phone | + +------+ + | Vik Oconnor MD | PCP | | + +------+ + Encounter Details +--------+ + + + + | Date | Type | Department | Care Team | Description | +--------+ + + + + | 04/13/ | Hospital | [facility] | Baljinder Tellez, | Status post cervical | | 2016 | Encounter | MED CTR XRAY [address] | DO [address] | spinal fusion; | | | | [place] | [address] [place], [place] | Spondylolisthesis of | | | | [place] [address] | [address] | cervical region | | | | [phone] | | | +--------+ + + + [...] | + + + + + | [facility] | [address] | [place] | [phone] | | [facility] | | [address] | | | - IMAGING | | | | + + + + + documented in this encounter Visit Diagnoses + + | Diagnosis | + + | Status post cervical spinal fusion Arthrodesis status | + + | Spondylolisthesis of cervical region Acquired spondylolisthesis | + + documented in this encounter"
[~2019-03-09 13:24] MED LIST changes: +MACROBID 100 M100 MG PO; +PYRIDIUM200 MG PO; +TOPROL XL50 MG PO
--- NOTE | 2019-03-09 18:16 | NUR ---
IV SITES ARE INTACT, NO SWELLING OR REDNESS NOTED, NO LEAKING AT EITHER SITE. PT IS ALERT TO SELF, FAMILY, AND FOLLOWING DIRECTIONS. PT DENIES PAIN, SOB, AND NAUSEA. VITAL SIGNS ARE WNL.
--- NOTE | 2019-03-09 19:06 | NUR ---
pt is one person assist up to the bedside commode, able to void 150 ml dilute urine. pt refuses eddy cath at this time. pt is cooperative. has been educated on using call light for help.
--- NOTE | 2019-03-09 19:30 | NUR ---
REPORT RECEIVED FROM REINALDO CARABALLO. PT UP IN BED, HR 80'S, VISITING [facility] FAMILY. NO NEEDS AT THIS TIME.
--- NOTE | 2019-03-09 20:14 | NUR ---
IN TO DO ASSESSMENT. PT C/O PAIN ONLY WITH TOUCH OR MOVEMENT OF LLE. LLE ELEVATED UP ON PILLOWS. REDDENED AREA MARKED BY PREVIOUS SHIFT, NOT SPREAD AT THIS POINT. IVF INFUSING. PT GIVEN SUGARFREE JELLO AND SHE ATE IT ALL AND STATED IT MADE HER FEEL BETTER. UP TO BSC TO VOID 125ML CLEAR URINE. BACK TO BED, TO CONTINUE VISITING WITH FAMILY.
--- NOTE | 2019-03-09 22:00 | NUR ---
PT APPEARS TO BE RESTING/EYES CLOSED RESP EVEN AND UNLABORED AND HR 80'S.
--- NOTE | 2019-03-09 23:57 | NUR ---
UP TO BSC TO VOID THEN BACK TO BED. HR FROM 80'S TO 115 WHEN UP AND DOWN SLOWLY TO 90'S ONCE BACK IN BED. ASSESSMENT UNCHANGED FROM PREVIOUS. CONT TO DENY NEED FOR PAIN MEDICINE.
--- NOTE | 2019-03-10 02:56 | NUR ---
UP TO BSC TO VOID 200ML THEN BACK TO BED. STATES PAIN HAS BEEN MUCH LESS SINCE LLE ELEVATED MORE.
--- NOTE | 2019-03-10 04:43 | NUR ---
UP TO BSC TO VOID THEN BACK TO BED WITH LLE ELEVATED. HR STEADY WHILE UP. REQUESTS PAIN MED, TYLENOL GIVEN WITH AM LOPRESSOR.
--- NOTE | 2019-03-10 06:50 | NUR ---
UP TO BSC AND BACK TO BED, LLE UP ON PILLOWS. PT REPORTS THAT THE TYLENOL "REALLY HELPED AND SO DID PUTTING IT UP". GIVEN SOME JELLO AND SHE ATE IT ALL, CHRISTIAN WELL.
--- NOTE | 2019-03-10 08:07 | NUR ---
PT UP TO THE BEDSIDE COMMODE WITH ONE PERSON STANDBY ASSIST. PT AWAKE AND ALERT X4, DENIES NAUSEA AND SOB. PT C/O 6/10 PAIN IN LEFT FOOT/LOW LEG, 500 MG PO TYLENOL GIVEN. PT WASHED HANDS WITH WARM SOAPY WASH CLOTH. VITALS ALL WNL.
--- NOTE | 2019-03-10 08:11 | NUR ---
PT IN BED, LEFT LEG ELEVATED WITH TWO PILLOWS
--- NOTE | 2019-03-10 08:40 | NUR ---
IV SITES ARE INTACT, NO REDNESS OR SWELLING NOTED, FLUIDS AND FLUSHES INFUSE EASILY. PT DENIES PAIN AT EITHER SITE.
[2019-03-10] MEDS ORDERED: GLIPIZIDE5 MG PO (09:18)
[2019-03-10] MEDS ORDERED: METOPROLOL TART50 MG PO (09:19)
[2019-03-10] MEDS ORDERED: METFORMIN HCL500 M1 PO (09:19)
[2019-03-10] MEDS ORDERED: DYAZIDE 37.5-251 EA PO (09:21)
--- NOTE | 2019-03-10 09:34 | NUR ---
IN FOR INITIAL CASE MANAGEMENT ASSESSMENT. PT REPORTS NOT NEEDS AT HOME.
[2019-03-10] MEDS ORDERED: AMLODIPINE BESYL5 MG PO (10:37)
--- NOTE | 2019-03-10 10:38 | NUR ---
Medications reconciled using pharmacy records and patient interview. Patient recently stopped metformin due to severe nausea
--- NOTE | 2019-03-10 11:02 | NUR ---
PT GIVEN 1 TAB NORCO FOR LEFT FOOT/LOW LEG PAIN. PT AWAKE AND ALERT, ABLE TO SWALLOW PILL EASILY. PT ALSO GIVEN 2 TABS SENNAKOT.
--- NOTE | 2019-03-10 11:20 | NUR ---
PT TRANSFERED TO ROOM 112 ON MED/SURG. ALL PERSONAL BELONINGS WENT WITH PT. FULL REPORT GIVEN TO RHONDA CARABALLO, ALL QUESTIONS ANSWERED.
--- NOTE | 2019-03-10 11:28 | NUR ---
REPORT WAS RECEIVED FROM REINALDO CARABALLO IN CCU. PT TO ROOM 112 VIA BED AND IS ALERT AND ORIENTED. VSS. PT ASSISTED UP TO SHOWER CHAIR AND TO SHOWER WITH 2PA. TAWNYA KAY IN TO ASSIST PT WITH SHOWER. NO FURTHER NEEDS OR CONCERNS VOICED.
--- NOTE | 2019-03-10 12:03 | NUR ---
PATIENT TRANSFERRED FROM CCU. IV WRAPPED. PATIENT IN BED. PATIENT TRANSFERRED TO SHOWER CHAIR. TWO PERSON ASSISTING. PATIENT GOES TO TAKE A SHOWER. ONE PERSON ASSISTING. LINENS CHANGED. PATIENT USING A CLEAN GOWN. PATIENT BACKS TO BED. TWO PERSON ASSISTING. CALL LIGHT WITHIN REACH. NO OTHER NEEDS AT THIS TIME
--- NOTE | 2019-03-10 12:12 | NUR ---
PT SITTING UP LUNCH TRAY ARRIVED. BLOOD SUGAR 148 SO CORRECTIONAL INSULIN ADMINSITERED. NO FURTHER NEEDS OR CONCERNS VOICED. CALL LIGHT AND H2O IN REACH.
--- NOTE | 2019-03-10 13:00 | NUR ---
PATIENT RESTING PATIENT WAS A TRANSFER FROM CCU
--- NOTE | 2019-03-10 13:21 | NUR ---
PATIENT RESTING IN BED. DAUGHTER IN ROOM. VITAL SIGNS AND I&O DONE. CALL LIGHT WITHIN REACH. NO OTHER NEEDS AT THIS TIME
--- NOTE | 2019-03-10 14:45 | NUR ---
PT RESTING IN BED LLE ELEVATED ON PILLOWS. ASSESSMENT COMPLETED. CALL LIGHT AND H2O IN REACH. PT APPEARS TO BE IN NO ACUTE DISTRESS. NO NEEDS OR CONCERNS VOICED. FAMILY AT BEDSIDE.
--- NOTE | 2019-03-10 16:53 | NUR ---
PT REPORTS PAIN OF 7/10 TO LEFT FOOT. PT ALSO HAS TEMPERATURE OF 100.00 ORAL. PT REQEUSTED AND RECEIVED PRN PO HYDROCODONE 5/325MG -SEE EMAR. CMS AT BASELINE FOR PATIENT. PT REPORTS ONLY CHRONIC NEUROPATHY TO "BOTH MY BIG TOES". NO FURTHER NEEDS OR CONCERNS VOICED. FRESH ICE WATER AND CALL LIGHT IN REACH.
--- NOTE | 2019-03-10 17:21 | NUR ---
PATIENT IN BED, BLOOD SUGAR CECKED PATIENT IS CURRENTLY EATING DINNER
--- NOTE | 2019-03-10 17:29 | NUR ---
PATIENT RESTING IN BED. VITAL SIGNS AND I&O DONE. LOW OUTPUT. RN NOTIFIED. CALL LIGHT WITHIN REACH. NO OTHER NEEDS AT THIS TIME
--- NOTE | 2019-03-10 19:59 | EKG ---
[facility] [address] [facility] [place], [place] [address] Signed Sinus tachycardia Otherwise normal ECG No previous ECGs available Confirmed by VIVIAN CAMACHO MD ([id number]) on 03/10/2019 7:59:11 PM Electronically Signed By: VIVIAN CAMACHO MD 03/10/191958 PATIENT NAME: VANI BANGURA Electrocardiogram DATE OF : 43 PHYSICIAN: VIVIAN CAMACHO MD REPORT #: [id number] REPORT IS CONFIDENTIAL AND NOT TO BE RELEASED WITHOUT AUTHORIZATION
--- NOTE | 2019-03-10 21:52 | NUR ---
TOOK VITALS/I&Os FOR RN TO GIVE PT MEDS, GAVE PT FRESH WATER, 1-2PA PIVOT PT TO BSC, 1PA PIVOT PT BK INTO BED, NOTHING ELSE NEEDED AT THIS TIME, LEFT PT TO RELAX WHILE RN GOT PT'S MEDS, CALL LIGHT AND BS TABLE IN PLACE
--- NOTE | 2019-03-10 22:16 | NUR ---
AAOX4 AND RESPONDS APPROPRIATELY. VITALS WNL. LUNGS CLEAR THROUGHOUT. BOWEL TONES ACTIVE. VOIDING QS. PAIN 7/10, PRN NORCO GIVEN. EDEMA TO LEFT AND RIGHT FOOT. REDNESS TO LEFT FOOT OUTLINED. IV SITE LEAKY. FAMILY AT BEDSIDE. REINFORCED SAFETY AND FALL PRECAUTION. DENIES OTHER NEEDS. CALL LIGHT WITHIN REACH.
--- NOTE | 2019-03-11 00:36 | NUR ---
PT RESTING WITH EYES CLOSED. RESPIRATIONS EVEN AND UNLABORED. NO ACUTE DISTRESS NOTED. DAUGHTER AT BEDSIDE.
--- NOTE | 2019-03-11 02:10 | NUR ---
ASSISTED PT TO THE SBA. REMINDED HER TO NOT BEAR WEIGHT ON HER LEFT LEG D/T FRACTURE. PT ASKED FURTHER QUESTIONS ABOUT FRACTURE AND WAS ADVISED THAT WE WILL KNOW MORE ABOUT TREATMENT WHEN SHE IS ASSESSED BY DR HARRIS TOMORROW AND AFTER TALKING WITH DR CAMACHO. PT DENIES FURTHER NEED AT THIS TIME AND CALL LIGHT IS CLOSE.
--- NOTE | 2019-03-11 02:25 | NUR ---
PT CALLED REQUESTING PAIN MEDS. SHE RATES LLE PAIN AT 9/10 AT THIS TIME. NORCO ADMINISTERED AND PT DENIES FURTHER NEEDS. CALL LIGHT IS WITHIN REACH.
--- NOTE | 2019-03-11 05:45 | NUR ---
VITALS AND I&OS DONE AN DCHARTED. FRESH WATER AND AN ICE PACK GIVEN.
--- NOTE | 2019-03-11 07:07 | NUR ---
PT RESTING SUPINE IN BED ALERT AND ORIENTED. CALL LIGHT AND H2O IN REACH. NO NEEDS OR CONCERNS VOICED. LLE ELEVATED ON PILLOW. BEDSIDE REPORT RECEIVED FROM RASHMI ROBLERO.
--- NOTE | 2019-03-11 07:22 | NUR ---
ASSTD PT ONTO BEDPAN, PRECIOUS CARE DONE, LEFT PT TO RELAX, CALL LIGHT IN REACH
--- NOTE | 2019-03-11 07:57 | NUR ---
patient used the bedpan this morning, she is waiting for breakfast, blood sugar was done
--- NOTE | 2019-03-11 08:15 | NUR ---
PT SITTING UP IN BED EATING BREAKFAST. CALL LIGHT AND H2O IN REACH. PT DENIES NEEDS OR CONCERNS. ASSESSMENT COMPLETED. PT DENIES PAIN STATES "NO THAT PAIN PILL IS WORKING REALLY WELL". RR14 VSS, AM MEDS ADMINISTERED -SEE EMAR.
--- NOTE | 2019-03-11 09:32 | NUR ---
PATIENT IN BED, USED BEDPAN, VITAL SIGNS AND OUTPUT AND INPUT PUT IN, PATIENT NEEDED NO OTHER ASSISTANCE AT THIS TIME
--- NOTE | 2019-03-11 14:58 | NUR ---
PT REPORTS INCREASED PAIN TO LEFT LE. PT REQUESTED AND RECEIVED PRN PO ANALGESIC -SEE EMAR. CMS REMAINS INTACT WITH ONLY BASELINE NEUROPATHY. CALL LIGHT AND H2O IN REACH. ASSESSMENT COMPLETED. NO FURTHER NEEDS OR CONCERNS VOICED.
--- NOTE | 2019-03-11 17:06 | NUR ---
PT RESTING IN SEMIFOWLERS POSITION INBED EATING DINNER. SCHEDULED MEDS AMDINSITERED. PT DENIES NEEDS OR CONCERNS. CALL LIGHT AND H2O IN REACH.
--- NOTE | 2019-03-11 19:20 | NUR ---
SHIFT REPORT RECIEVED FROM RHONDA CARABALLO. PT RESTING IN BED, WATCHING TV. PRN PAIN MED PROVIDED BY RHONDA CARABALLO AT THIS TIME. NO OTHER NEEDS AT THIS TIME. CALL LIGHT IN REACH.
--- NOTE | 2019-03-11 21:00 | NUR ---
PT ASSESSMENT COMPLETED. SCHEDULED MEDS PROVIDED. NO OTHER NEEDS AT THIS TIME.
--- NOTE | 2019-03-11 21:07 | NUR ---
VITALS I&OS AND BLOOD SUGAR DONE AND CHARTED. HELPED PT GET ONTO THE BEDPAN. CLEANED HER UP . PT NEEDS NOTHING MORE AT THIS TIME.
--- NOTE | 2019-03-11 23:16 | NUR ---
SCHEDULED MED PROVIDED. NO OTHER NEEDS. CALL LIGHT IN REACH.
--- NOTE | 2019-03-11 23:43 | NUR ---
PRN PAIN MEDICATION ADMINISTERED FOR 8/10 PAIN IN LEFT FOOT. pt REFUSES TO PIVOT TO BSC AT THIS TIME, EDUCATION PROVIDED. STATES "IT HURTS TOO BAG RIGHT NOW." BED VELASQUEZ PROVIDED. UNMEASURED VOID ON CHUX, DRAW SHEET AND CHUX CHANGED. SMALL SMEAR OF BM NOTED. LEFT LEG ELEVATED ON PILLOWS. CALL LIGHT IN REACH. NO ADDITIONAL REQUESTS AT THIS TIME.
--- NOTE | 2019-03-12 02:00 | NUR ---
CALL LIGHT ANSWERED. pt ASSISTED TO VOID IN BED VELASQUEZ. LINENS CHANGED. IV SITE SL. IV ANTIBIOTIC INFUSION COMPLETE. CALL LIGHT IN REACH. pt RATES PAIN 8/10 IN LEFT LEG, NECK, BACK. PRIMARY RN NOTIFIED.
--- NOTE | 2019-03-12 02:08 | NUR ---
PAIN 8/10 LLE. PRN PAIN MED PROVIDED. ASSESSMENT COMPLETED. NO CHANGES TO EDMEA OR REDNESS IN LLE. NO OTHER NEEDS AT THIS TIME. CALL LIGHT IN REACH.
--- NOTE | 2019-03-12 03:36 | NUR ---
CALL LIGHT ANSWERED. VOID IN BED VELASQUEZ. pt RATES PAIN 8/10 IN LEFT FOOT. PRN PAIN MEDICATION ADMINISTERED. LLE ELEVATED ON PILLOWS. CALL LIGHT AND PERSONAL SUPPLIES IN REACH.
--- NOTE | 2019-03-12 04:16 | NUR ---
PT RESTING IN BED, EYES CLOSED. RR 16, EVEN, UNLABORED. CALL LIGHT IN REACH.
--- NOTE | 2019-03-12 04:44 | NUR ---
PT UP TO BSC AND BACK TO BED. TOLERATED PIVOT WELL. NO OTHER NEEDS. CALL LIGHT IN REACH.
--- NOTE | 2019-03-12 04:46 | NUR ---
HELPED PT ON THE BSC. CHANGED HER REN AND CLEANED HER UP. GARBAGES EMPTIED AND ROOM CLEANED UP. BEDSIDE TABLE AND CALL LIGHT IN REACH.
--- NOTE | 2019-03-12 04:51 | NUR ---
VITALS AND I&OS DONE AND CHARTED.
--- NOTE | 2019-03-12 06:13 | NUR ---
ASSESSMENT COMPLETED. REDNESS WITHIN OUTLINE ON LLE. PAIN 5/10, PT DENIES NEED FOR PAIN INTERVENTION. NO CHANGES IN EDEMA IN LLE. IV CDI, WNL. NO OTHER NEEDS. CALL LIGHT IN REACH.
--- NOTE | 2019-03-12 06:21 | NUR ---
PT HAS SLEPT MOST THE SHIFT. PAIN MANAGED WITH PRN MEDS. EDEMA UNCHANGED THIS SHIFT, REDNESS HAS NOT PROGRESSED OUTSIDE THE OUTLINE. PT TOLERATED IV MEDS WELL. IV CDI, WNL, FLUSHED WELL.
--- NOTE | 2019-03-12 07:04 | NUR ---
PT RESTING SUPINE IN BED WITH LLE ELEVATED ON PILLOWS. EYES CLOSED AND RESPIRATIONS EVEN AND UNLABORED. CALL LIGHT NAD H2O IN REACH. PT APPEARS TO BE SLEEPING COMFORTABLY. RR16. REPORT RECEIVED FROM RASHMI GARY.
--- NOTE | 2019-03-12 08:10 | NUR ---
PT RESTING SUPINE IN BED ALERT AND ORIENTED PT REPORTS INCREASED 7/10 PAIN TO LLE. PT REQEUSTED AND RECEIVED PRN PO NORCO. CALL LIGHT AND H2O IN REACH. ASSESSMENT COMPLETED. AM MEDS ADMINISTERED. NO FURTHER NEEDS OR CONCERNS VOICED.
--- NOTE | 2019-03-12 08:30 | NUR ---
Pt discussed in AM report. Discussed with Dr. Saba, PT, OT, nursing staff. Pt. may be a good candidate for TC. OT and PT need to evaluate. I will discuss with Breana to confirm her acceptance of this pt.
--- NOTE | 2019-03-12 09:48 | NUR ---
IN TO ANSWER CALL LIGHT PT RESTING RECLINED IN CHAIR ALERT AND ORIENTED. PT REQUESTED AND RECEIVED FRESH WATER. NO FURTHER NEEDS VOICED. LLE ELEVATED ON PILLOWS. PT WATCHING TV AND APPEARS TO BE IN NO ACUTE DISTRESS.
--- NOTE | 2019-03-12 10:26 | NUR ---
PT ALERT AND ORIENTED SITTING UP IN CHAIR WITH LLE ELEVATED ON PILLOWS. PT REQUESTED AND RECEIVED ASSISTANCE TO RESTROOM WITH SBA AND FWW. PT TOLERATED ACTIVITY FAIRLY WITH SLOW GAIT AND LIMP TO LEFT FOOT WHICH SHE WAS ONLY COMFORTABLE PUTTING LIGHT PRESSURE ON DUE TO PAIN AND SWELLING. BLISTERS REMAIN INTACT AND ARE NOT DRAINING TO LEFT FOOT. REDNESS REMAINS WITHIN CIRCLED REGION TO LEFT ANKLE/FOOT. PT ASSISTED BACK TO BED. LLE ELEVATED ON PILLOW. PT DECLINES ICE PACK AT THIS TIME. CALL LIGHT AND H2O IN REACH. NO NEEDS OR CONCERNS VOICED. FAMILY NOW AT BEDSIDE VISITING WITH PATIENT.
--- NOTE | 2019-03-12 11:30 | NUR ---
Spoke with Kandis from OT. Pt does not need further OT, but she feels she would benefit from further PT. Spoke with Caryl, PT and she agrees. Spoke with Dr. Saba and Breana. All are in agreement. Spoke with Katja and she is in agreement she is in need of further PT to discharge home safely. Pt. c/o of severe pain in her LLE when she gets up and c/o effort to do so. Plan is to admit to TC bed.
--- NOTE | 2019-03-12 12:04 | NUR ---
PT REPORTS INCREASED PAIN TO LLE OF 8/10. PRN PO NORCO ADMINISTERED PER PT REQUEST. BLOOD SUGAR CHECKED AT THIS TIME AND WAS 122 SO NO INSULIN ADMINISTERED. LUNCH ORDER RECEIVED AND PT SET UP TO EAT. CALL LIGHT AND H2O IN REACH. NO FURTHER NEEDS OR CONCERNS VOICED.
--- NOTE | 2019-03-12 14:01 | NUR ---
PT ALERT, ORIENTED AND SEEMED PLEASED I STOPPED BY. INFECTION VERY EVIDENT ON PTS' L ANKLE WITH OUTLINE INFECTION HAS TRAVELLED. PT MENTIONED THAT PAIN IS CONTROLLED AND THAT HER RESEARCH ANTHROPOLOGIST HAD BEEN BY TO VISIT. THAT SEEMED TO PLEASE HER. PT REQUESTED PRAYER, WILL FOLLOW NEEDED
--- NOTE | 2019-03-12 16:30 | NUR ---
PT RESTING SUPINE IN BED WITH LLE ELEVATED ON PILLOWS. PT REQUESTED AND RECEIVED ASSISTANCE GETTING UP TO BSC WITH SBA AND FWW PT VOIDS YELLOW URINE AND BACK TO BED. LLE ELEVATED ON PILLOWS AND PER PT REQEUST PRN PO ANALGESIC ADMINSITERED FOR INCREASED PAIN TO LLE. CALL LIGHT AND H2O IN REACH. NO FURTHER NEEDS OR CONCERNS WERE VOICED SPOKE WITH DR DELATORRE REGARDING INCREASED BLISTERING NOTED TO PT'S LLE AND INQUIRED ON POSSIBILITY FOR PICC CONSULT. NO NEW ORDERS AT THIS TIME.
--- NOTE | 2019-03-12 19:20 | NUR ---
SHIFT REPORT RECIEVED FROM RHONDA CARABALLO. PT VISITING WITH FAMILY IN ROOM. PAIN 5/, LLE, PT DENIES NEED FOR INTERVENTION. NO OTHER NEEDS AT THIS TIME. CALL LIGHT IN REACH.
--- NOTE | 2019-03-12 20:40 | NUR ---
CALL LIGHT ANSWERED. 2PA TO PIVOT TRANSFER TO [facility]. pt TOLERATED WELL. CALL LIGHT IN REACH. IV SITE SL WNL.
--- NOTE | 2019-03-12 21:29 | NUR ---
ASSESSMENT COMPLETED. PAIN 8/10, PRN PAIN MED PROVIDED. SCHEDULED MEDS PROVIDED. UP TO BR. NO OTHER NEEDS. CALL LIGHT IN REACH.
--- NOTE | 2019-03-12 21:33 | NUR ---
1PA TO BSC. pt ABLE TO PIVOT TRANSFER. BACK IN BED. LEFT LEG ELEVATED. CALL LIGHT IN REACH. IV ANTIBIOTIC INFUSING WNL.
--- NOTE | 2019-03-12 23:28 | NUR ---
PT RESTING IN BED, EYES CLOSED. RR 18, EVEN, UNLABORED. LLE ELEVATED. IV FLUIDS INFUSING PER ORDER. CALL LIGHT IN REACH.
--- NOTE | 2019-03-12 23:38 | NUR ---
PT UP TO BSC. TOLERATED PIVOT WELL. NO OTHER NEEDS. CALL LIGHT IN REACH.
--- NOTE | 2019-03-12 23:40 | NUR ---
PT RESTING IN BED, EYES CLOSED. RR 18, EVEN, UNLABORED. LLE ELEVATED. CALL LIGHT IN REACH.
--- NOTE | 2019-03-13 01:37 | NUR ---
PT RESTING IN BED, EYES CLOSED. RR 16, EVEN, UNLABORED. CALL LIGHT IN REACH.
--- NOTE | 2019-03-13 02:07 | NUR ---
PT UP TO BSC. PAIN 8/10, PRN PAIN MED PROVIDED. ICE PACK AND ICE WATER PROVIDED. ASSESSMENT COMPLETED. IV CDI, WNL. BLISTERS DEVELOPING ON DORSAL FOOT. NO OTHER NEEDS AT THIS TIME. CALL LIGHT IN REACH.
--- NOTE | 2019-03-13 04:50 | NUR ---
8/10 PAIN REPORTED. PRN PAIN MED PROVIDED. LLE ELEVATED. NO OTHER NEEDS AT THIS TIME. CALL LIGHT IN REACH.
--- NOTE | 2019-03-13 05:52 | NUR ---
PT SLEPT OFF AND ON THIS SHIFT. LLE REDNESS DID NOT ADVANCE OUTSIDE THE OUTLINE. BLISTERS TO TOP OF LEFT FOOT MORE ABUNDANT. PAIN MANAGED WITH SCHEDULED AND PRN PAIN MEDS. PT TOLERATED ELEVATION AND COLD PACKS TO EXTREMITY.UO SUFFICIENT. PT PIVOTS WELL TO BSC. BG MANAGED WITH SLIDING SCALE.
--- NOTE | 2019-03-13 06:35 | NUR ---
CALL LIGHT ANSWERED. 1PA TO PIVOT TO BSC FOR VOID, MINIMAL WEIGHT ON LEFT LEG. TOLERATED WELL. ICE WATER PROVIDED. CALL LIGHT IN REACH. LLE ELEVATED ON PILLOWS.
--- NOTE | 2019-03-13 06:51 | NUR ---
PT STATES PAIN 10/02, LLE. PRN PAIN MED PROVIDED. NO OTHER NEEDS AT THIS TIME. CALL LIGHT IN REACH.
--- NOTE | 2019-03-13 09:09 | NUR ---
PT AWAKE TALKING ON PHONE WITH FAMILY. PT PAIN HAS INPROVED THIS AM. PT PATIENT THE BLISTERS ON HER FOOT ARE LARGER., BUT THE REDNESS HAS STAYED IN THE MARGINS EXCEPT AT THE TOP ON THE ANKLE
--- NOTE | 2019-03-13 10:31 | NUR ---
PT UP TO THE [facility] WITH PT AND THEN TO THE BS COMMODE. AFTER PT WAS DONE SHE WANTED TO GO BACK TO BED. EXPLAINED TO PT THAT IT IS DAYTIME AND SHE NEEDS TO KEEP THE SCHEDULE OF BEING UP DURING THE DAY AND SLEEP AT NIGHT. EXPLAINED THAT HER ROOM WILL BE BRIGHT AND LITE DURING THE DAY AND SHE CAN HAVE IT DARK DURING THE NIGHT. EXPLAINED THAT SHE WILL BE UP IN THE CHAIR FOR ALL MEALS AND SOME OTHER TIMES DURING THE DAY. PT DAUGHTER IS OKAY WITH THIS SO THAT PT CAN GET STRONGER AND BETTER SO THAT SHE CAN GO HOME.
--- NOTE | 2019-03-13 16:47 | NUR ---
PT DOING WELL THIS AFTERNOON PER HIS REPORT. PT IS ON RA, RESP EVEN AND NON LABORED. PT TOOK A WALK IN [place] THIS AFTERNOON, TOLERATING WELL WITH WALKER.
--- NOTE | 2019-03-13 17:00 | NUR ---
In to speak with Katja and her daughter is present. Pt states she is attempting to get up and down, but it is very painful. Daughter given brochure for swing bed. Pt. denies needs at this time. Discussed Dr. Saba is not ready for pt to go to transitional care bed at his time. Pt states understanding as he discussed this with her.
--- NOTE | 2019-03-13 17:14 | NUR ---
PICC LINE PLACEMENT AT THIS TIME. CURRENT DUE MEDICATIONS WILL BE ADMINISTERED ONCE PT AVAIL.
--- NOTE | 2019-03-13 18:45 | NUR ---
PICC INSERTION NOTE: ASKED BY HOSPITALIST TO EVALUATE PATIENT FOR POTENTIAL PICC LINE PLACEMENT. AFTER REVIEWING THE CHART AND INTERVIEWING THE PATIENT AND FAMILY, NO ABSOLUTE CONTRAINDICATIONS WERE IDENTIFIED. PATIENT ABLE TO SIGN THE CONSENT FORM FOR PICC. PATIENT'S LEFT ARM WAS EVALUATED AND ATTEMPTED FIRST BY A PICC LINE RN, NOT THIS RN. 3 TOTAL ATTEMPTS WERE MADE ON LEFT ARM WHICH WERE UNSUCCESSFUL AT GAINING IV ACCESS. THIS RN THEN EVALUATED PATIENT'S RIGHT ARM AND BOTH THE BASILIC AND BRACHIAL VEINS WERE IDENTIFIED. A CEPHALIC VEIN WAS NOT VISUALIZED ON THIS PATIENT. PATIENT'S BRACHIAL AND BASILIC BOTH WERE GREATER THAN 8 FR BY SITE SYLVIA U/S. BASILIC VEIN WAS ATTEMPTED FIRST BUT UNABLE TO THREAD CATHETER INTO VEIN. PT'S BRACHIAL VEIN WAS THEN ATTEMPTED AND ABLE TO GAIN ACCESS INTO VEIN EASILY. DARK, NONPULSATILE BLOOD RETURN WAS NOTED. GUIDEWIRE THEN ADVANCED INTO VEIN WITH SOME DIFFICULTY, BUT ULTIMATELY WAS ADVANCED. INTRODUCER AND PICC WERE NEXT ADVANCED WITHOUT DIFFICULTY. [employer] MAGNET TIP LOCATION DEVICE WAS USED AND SHOWED THE TIP TO BE IN THE EXPECTED AREA FOR A CENTRAL LINE. DRESSING WAS PLACED AND A CHEST XRAY OBTAINED WHICH SHOWED THE TIP TO BE IN AN IDEAL LOCATION. DR. DELATORRE REVIEWED CHEST XRAY IN ROOM AND GAVE APPROVAL FOR USE. PICC LINE FLUSHES WELL AND ASPIRATES BLOOD WITHOUT PROBLEM. 1 CM WAS LEFT EXPOSED. PATIENT AND HER DAUGHTER WERE GIVEN EDUCATION REGARDING HER PICC LINE AND ENCOURAGED TO ASK QUESTIONS.
--- NOTE | 2019-03-13 18:46 | NUR ---
PICC LINE PLACED. DR. DELATORRE VERIFIED PICC LINE PLACEMENT AT BEDSIDE VIA XRAY. RIGHT EXT RESITRICTION BAND PLACED. PT TOLERATED PICC PLACEMENT WELL. MEDICATIONS ADMIN PER DOC ORDER FROM EARLIER.
--- NOTE | 2019-03-13 19:05 | NUR ---
SHIFT REPORT RECIEVED FROM SABINE CARABALLO. NO OTHER NEEDS AT THIS TIME. FAMILY IN ROOM. CALL LIGHT IN REACH,
--- NOTE | 2019-03-13 19:30 | NUR ---
REPORT RECEIVED FROM RASHMI ORTEGA. THIS RN TO TAKE OVER PT CARE.
--- NOTE | 2019-03-13 19:55 | NUR ---
PT PAIN 8/10, PRN PAIN MED PROVIDED. UP TO BSC. TOLERATES PIVOT WELL. NO OTHER NEEDS. FAMILY IN ROOM. CALL LIGHT IN REACH.
--- NOTE | 2019-03-13 22:01 | NUR ---
PT UP TO BSC. RIGHT HAND IV DCd.
--- NOTE | 2019-03-13 22:14 | NUR ---
PT RESTING IN BED, FAMILY IN ROOM. PICC LINE FLUSHED AND HEPARIN LOCKED. NO OTHER NEEDS. CALL LIGHT IN REACH.
--- NOTE | 2019-03-13 23:10 | NUR ---
CALL LIGHT ANSWERED. SBA FOR pt TO PIVOT BACK TO BED FROM BSC. LEFT LEG BLISTER WEEPING SEROUS FLUID. ELEVATED ON PILLOW WITH CHUX. OPEN TO AIR. ICE WATER PROVIDED. CALL LIGHT IN REACH. FAMILY IN ROOM.
--- NOTE | 2019-03-14 00:08 | NUR ---
PT RESTING IN BED, EYES CLOSED. RR 16, EVEN, UNLABORED. DAUGHTER IN ROOM. CALL LIGHT IN REACH.
--- NOTE | 2019-03-14 01:19 | NUR ---
PT UP TO BSC. PAIN 8/10, PRN PAIN MED PROVIDED. DAUGHTER IN ROOM. NO OTHER NEEDS. CALL LIGHT IN REACH.
--- NOTE | 2019-03-14 02:45 | NUR ---
PT RESTING IN BED, EYES CLOSED. RR 14, EVEN, UNLABORED. DAUGHTER IN ROOM. CALL LIGHT IN REACH.
--- NOTE | 2019-03-14 03:22 | NUR ---
ANSWERED CALL LIGHT 1 PA TO BEDSIDE COMMODE AND BACK TO BED. CALL LIGHT IN REACH. NO OTHER NEEDS AT THIS MOMENT.
--- NOTE | 2019-03-14 03:36 | NUR ---
PAIN 9/10, PRN PAIN MED PROVIDED. ASSESSMENT COMPLETED. RED AREA ON ANTERIOR LEG HAS MOVED OUTSIDE THE PREVIOUS OUTLINE SLIGHTLY. OUTLINED AND DATED NEW AREA. NO OTHER NEEDS. CALL LIGHT IN REACH.
--- NOTE | 2019-03-14 05:14 | NUR ---
SCHEDULED MED PROVIDED. PT UP TO BSC. ICE WATER PROVIDED. NO OTHER NEEDS. DAUGHTER IN ROOM. CALL LIGHT IN REACH.
--- NOTE | 2019-03-14 05:20 | NUR ---
PT HAS SLEPT MOST THE SHIFT. DAUGHTER SPENT THE NIGHT IN ROOM. PAIN MANAGED WITH PRN PAIN MEDS. PT TOLERATED IV MEDICATIONS WELL. PIVOT TO BSC TOLERATED WELL. BLISTERS HAVE MODERATE CLEAR TO YELLOW DISCHARGE. PICC CDI, WNL, GOOD BLOOD RETURN. REDNESS ADVANCED OUTSIDE THE OUTLINE ON THE ANTERIOR LLE. OUTLINED AND DATED NEW AREA.
--- NOTE | 2019-03-14 06:14 | NUR ---
PT PICC ACCESSED FOR BLOOD DRAW, FLUSHED. IV MEDS RESTARTED. PT TOLERATED WELL. NO OTHER NEEDS. CALL LIGHT IN REACH.
--- NOTE | 2019-03-14 06:54 | NUR ---
PICTURES TAKEN OF LLE, PRINTED, PLACED IN CHART. NO OTHER NEEDS AT THIS TIME. CALL LIGHT IN REACH.
--- NOTE | 2019-03-14 08:25 | NUR ---
PT RESTING SUPINE IN BED ALERT AND ORIENTED, LLE ELEVATED ON PILLOWS AND ICE PACKS APPLIED. ASSESSMENT COMPLETED. CALL LIGHT AND FRESH H2O IN REACH. REDNESS AND BLISTERING APPEARS INCREASED TO LLE. AUTOMOTIVE SERVICE TECHNICIAN NOTIFIED AND STATES MD IS AWARE.
--- NOTE | 2019-03-14 11:20 | NUR ---
PT RESTING SUPINE IN BED WITH LLE ELEVATED ON PILLOW. DR MORRISON IN TO PERFORM WOUND CX'S AND TO WRAP LEFT FOOT. AFTER MD COMPLETED LLE WRAP WITH UNABOOT PT ASSISTED BACK TO POSTIION OF COMFORT. CALL LIGHT AND H2O IN REACH.
--- NOTE | 2019-03-14 13:44 | NUR ---
In and spoke with Katja and her daughter. Daughter stating concern as she feels infection is worsening. Updated Dr has ordered culture of wound (blister which is now opening and leaking fluid) He has also ordered consult from podiatist. Understanding stated and concerns decreased. Dr. Glover arrives as I am leaving and request dressing for unaboot. Unaboot ordered from pharmacy by RN.
--- NOTE | 2019-03-14 16:49 | NUR ---
PT RESTING SUPINE IN BED ALERT AND ORIENTED. PT REPORTS 9/10 PAIN TO LLE SO PRN PO NORCO ADMINSITERED PER PT REQUEST. CALL LIGHT AND H2O IN REACH. NO FURHTER NEEDS OR CONCERNS VOICED.
--- NOTE | 2019-03-14 19:10 | NUR ---
SHIFT REPORT RECEIVED FROM DAYSHIFT RASHMI ELLIS AT BEDSIDE. PT AWAKE AND RESTING IN BED AND VISITING WITH FAMILY. BLE ELEVATED IN BED. PT APPEARS IN GOOD SPIRITS, NO DISTRESS NOTED. CALL LIGHT IN REACH.
--- NOTE | 2019-03-14 19:41 | NUR ---
HELPED PT BACK TO THE BED FROM THE BSC. PT IS ASKING FOR TYLENOL, I INFORMED HER RN [place]. BEDSIDE TABLE AND CALL BRENT STACK.
--- NOTE | 2019-03-14 20:03 | NUR ---
PRN TYLENOL ADMINISTERED FOR 9/10 PAIN IN LLE. NO FURTHER NEEDS, CALL LIGHT IN REACH. FAMILY IN ROOM.
--- NOTE | 2019-03-14 20:33 | NUR ---
ROUNDED CHARGE. PATIENT IS RESTING IN BED. PATIENT DENIES ANY COMMENTS, QUESTIONS OR CONCERNS. NO NEEDS NOTED. CALL LIGHT IN REACH.
--- NOTE | 2019-03-14 21:45 | NUR ---
ASSESSMENT COMPLETE, SCHEDULED MEDICATIONS GIVEN (SEE EMAR). PT REPORTS 9/10 PAIN, PRN PAIN PILL ALSO GIVEN. VSS, PT ON RA. SCHEDULED IV ABX INFUSING, PICC LINE PATENT, BLOOD RETURN NOTED. DRESSING INTACT. DRESSING TO LLE INTACT, SMALL AMOUNT OF YELLOW SHADOWING NOTED TO DRESSING AND ON CHUCKS. CMS INTACT, PT ABLE TO WIGGLE TOES. BILATERAL PEDAL PULSES OBTAINED. PT DENIES ADDITIONAL NEEDS, CALL LIGHT IN REACH.
--- NOTE | 2019-03-14 22:17 | NUR ---
HELPED PT TO THE BSC AND BACK TO BED. BEDSIDE TABLE AND CALL LIGHT WITHIN REACH.
--- NOTE | 2019-03-14 23:02 | NUR ---
SCHEDULED IV VANCO INFUSING PER MD ORDERS, PICC LINE PATENT, BLOOD RETURN NOTED. PT UP SBA TO BSC, 250MLS OUTPUT. PT ABCK IN BED, DENIES ADDITIONAL NEEDS, CALL LIGHT IN REACH.
--- NOTE | 2019-03-15 00:54 | NUR ---
IV VANCO COMPLETE, DRESSING INTACT. BLOOD RETURN NOTED, FLUSHED PER PROTOCAL AND HEP LOCKED. PT DENIES ADDITIONAL NEEDS, CALL LIGHT IN REACH. FAMILY AT BEDSIDE.
--- NOTE | 2019-03-15 01:50 | NUR ---
PRN PAIN MEDICATION GIVEN FOR 8/10 PAIN IN LLE. NO ADDITIONAL NEEDS AT THIS TIME, CALL LIGHT IN REACH.
--- NOTE | 2019-03-15 03:06 | NUR ---
ASSESSMENT COMPLETE, NO NEW CHANGES OR CONCERNS. PT REPORTS TOLERABLE 5/10 PAIN PRIOR TO AMBULATING TO BSC TO VOID. PT BACK IN BED, DENIES ADDITIONAL NEEDS. YELLOW SHADOWING NOTED TO LLE AT NEAR HEAL, NEW CHUCKS IN PLACE, LLE ELEVATED. CMS INTACT, PT ABLE TO WIGGLE TOES. BILATERAL PEDAL PULSES NOTED. CALL LIGHT IN REACH.
--- NOTE | 2019-03-15 05:34 | NUR ---
PT A/OX4, PAIN CONTROLLED WITH PRN PAIN MEDICATIONS. VSS, PICC LINE DRESSING CDI, HEP LOCKED. SCHEDULEV IV ABX. SBA WITH FWW TO BSC, VOIDING QS. ADA DIET, TOLERATING WELL. NO NAUSEA THIS SHIFT. UNNA BOOT TO LLE, WBAT DUE TO FX. PT USES CALL LIGHT APPROPERIATELY.
--- NOTE | 2019-03-15 06:10 | NUR ---
DR MORRISON IN ROOM TO COMPLETE DRESSING CHANGE TO LLE. VSS AND I&O'S COLLECTED. PRN PAIN MEDICATION GIVEN FOR 8/10 PAIN. NO FURTHER NEEDS, CALL LIGHT IN REACH. FAMILY IN ROOM.
--- NOTE | 2019-03-15 08:08 | NUR ---
REPORT RECIEVED FROM LEARNING ADMINISTRATOR RN.CONTACT PRECAUTIONS IN PLACE. PICC LINE HEP LOCKED. DRESSING TO LEFT LOWER LEG C/D/I. REPORTS PIAN 5 TOLERABLE. STAND PIVOT ASSIST TO BSC. VOIDED 200ML. THEN ASSISTED TO CHAIR FOR BREAKFAST.
--- NOTE | 2019-03-15 08:12 | NUR ---
BLOOD GLUCOSE CHECKED AND DOCUMENTED. PAIN WAS REASSESSED. HUMALOG GIVEN PER SLIDING SCALE. SCHEDULED 0800 MEDS GIVEN, SEE EMAR. SHE TRANSFERRED FROM BED TO CHAIR. LLE ELEVATED WITH PILLOWS. PATIENT EATING BREAKFAST WITH DAUGHTER PRESENT.
--- NOTE | 2019-03-15 09:01 | NUR ---
PATIENT RESTING COMFORTABLY IN HER CHAIR, LLE ELEVATED WITH PILLOWS. SHE USED BEDSIDE COMMODE WITH ASSISTANCE. 0900 SCHEDULED MEDICATIONS GIVEN, SEE EMAR. DAUGHTER RETURNED TO ROOM AND IS SITTING WITH PATIENT. PATIENT WATCHING TV.
--- NOTE | 2019-03-15 09:32 | NUR ---
PATIENT WAS ASSISTED TO USE BEDSIDE COMMODE, BACK IN CHAIR RESTING COMFORTABLY. LLE ELEVATED WITH PILLOWS. ADDRESSED PAIN AND DISCUSSED WHEN SHE WAS DUE FOR NORCO. PATIENT COMFORTABLE WITH PLAN. DAUGHTER IS GIVING PATIENT PROBIOTICS. PATIENT ON PHONE WITH THREE VISITORS IN ROOM.
--- NOTE | 2019-03-15 10:45 | NUR ---
ASSESSMENT COMPLETED. PT UP IN CHAIR. REPORTS PAIN 11/01. PRN NORCO ADMINISTERED. CAP REFILL IN LLE 2. UNABLE TO ASSESS PULSES. DRESSING C/D/I. PT REPORTS SONE NUMBNESS (R/T DIABETES) IN BILAT LE TOES. NO CALF PAIN. LUNGS CLEAR. BOWLE TONES ACTIVE. PT IS ALERT AND ORIENTED. CALL LIGHT IN REACH. DENIES FURHTER NEEDS.
--- NOTE | 2019-03-15 11:06 | NUR ---
DISCUSSED PAIN LEVEL WITH PATIENT, SHE NOTES IMPROVED PAIN AND WOULD PREFER IF PHYSICAL THERAPY COULD COME SOON POSSIBLE DUE TO RELIEVED PAIN AT THE MOMENT. REMAINS RESTING IN CHAIR WITH LLE ELEVATED ON PILLOWS.
[2019-03-15] MEDS ORDERED: MEGARED OMEGA-1 EAC1 PO (12:21)
[2019-03-15] MEDS ORDERED: PROBIOTIC1 EAC1 PO (12:22)
[2019-03-15] MEDS ORDERED: ON GUARD PO (12:27)
--- NOTE | 2019-03-15 13:30 | NUR ---
Spoke with pt and her daughters. plans to transfer pt to [facility]itional [facility] Program. Pt and daughters are in agreement.
== END 2019-03-15 13:00 | disposition swing bed (61) | DRG 872 ==
LOC: ED 13:24 → CCU 15:58 → MS 15:58 → CCU 17:27 → MS 03-10 11:28
PROVIDERS: ADMIT Internal Medicine
PROC: 02HV33Z Insertion of Infusion Device into Superior Vena Cava, Percutaneous Approach (ICD-10-PCS; principal; 2019-03-13 17:30)
DX: A41.9 Sepsis, unspecified organism (principal); L03.116 Cellulitis of left lower limb; R65.20 Severe sepsis without septic shock; S82.832A Other fracture of upper and lower end of left fibula, initial encounter for closed fracture; I10 Essential (primary) hypertension; E11.65 Type 2 diabetes mellitus with hyperglycemia; G25.0 Essential tremor; G89.4 Chronic pain syndrome; Z66 Do not resuscitate; Z88.5 Allergy status to narcotic agent; Z88.8 Allergy status to other drugs, medicaments and biological substances; Z79.84 Long term (current) use of oral hypoglycemic drugs; Z79.899 Other long term (current) drug therapy
CPT/HCPCS: 36415; 36569; 51701; 71045; 73610; 80048; 80053; 80202; 81001; 82550; 82565; 83036; 83605; 83735; 84100; 84520; 85025; 86060; 87040; 93005; 93010; 97110; 97116; 97162; 97165; 99285-25; C1751; J0696; J1650; J1815; J2405; J2543; J3370; J3475; J3480; J7030; J7060; J7121

== ENCOUNTER 2019-03-15 13:05 | Inpatient (IN) | payer MEDICARE, OTHER ==
[~2019-03-15] VITALS: Ht 160 cm; Wt 86.8 kg
--- OUTSIDE RECORDS SUMMARY | ~2019-03-15 | XMS | Encounter Summary ---
Demographics + + + | Address | [address] | | | [place] [address] | + + + | Home Phone | | + + + | Preferred Language | Unknown | + + + | Marital Status | | + + + | Druze Affiliation | Unknown | + + + | Race | Unknown | + + + | Ethnic Group | Unknown | + + + Author + + + | Author | [facility] | | | and [place] | + + + | Organization | [facility] | | [...] Team Providers + +------+ + | Care Derrick Worker Name | Role | Phone | + +------+ + PCP | Unavailable | + +------+ + Encounter Details +--------+ + + + + | Date | Type | Department | Care Team | Description | +--------+ + + + + | 03/27/ | Hospital | [facility] | Conversion | | | 2011 | Encounter | [facility] [address] | Transaction, | | | | | [address] | Provider Unknown | | | | | [place] | | | | | | [address] | (Fax) | | | | | [phone] | | | +--------+ + + + + Social History + +-------+ +--------+------+ | Tobacco Use | Types | Packs/Day | Years | Date | | | | | Used | | + +-------+ +--------+------+ | Never Assessed | | | | | + +-------+ +--------+------+ + + + | Sex Assigned at [...]
--- OUTSIDE RECORDS SUMMARY | ~2019-03-15 | XMS | Encounter Summary ---
Demographics + + + | Address | [address] | | | [place] [address] | + + + | Home Phone | | + + + | Preferred Language | Unknown | + + + | Marital Status | | + + + | Gnosticist Affiliation | Unknown | + + + | Race | Unknown | + + + | Ethnic Group | Unknown | + + + Author + + + | Author | [facility] | | | and [place] | + + + | Organization | [facility] | | | [...] Team Providers + +------+ + | Care Supervisor Title Name | Role | Phone | + +------+ + | Vik Oconnor MD | PCP | | + +------+ + Reason for Visit Auth/Cert +--------+--------+ + + + + | Status | Reason | Specialty | Diagnoses / | Referred By | Referred To | | | | | Procedures | Contact | Contact | +--------+--------+ + + + + | | | | Diagnoses | | | | | | | | | | | | | | 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 | | | | | | | cervical | | | | | | | region | | | | | | | 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 | | | | | | | cervical | | | | | | | region | | | | | | | [M43.12] | | | | | | | Procedures | | | | | | | AL | | | | | | | ARTHRODESIS | | | | | | | ANT | | | | | | | INTERBODY | | | | | | | INC | | | | | | | DISCECTOMY, | | | | | | | CERVICAL | | | | | | | BELOW C2 | | | | | | | FUSION | | | | | | | CERVICAL | | | | | | | ANTERIOR W/ | | | | | | | PLATING | | | +--------+--------+ + + + + Encounter Details +--------+ + + + + | Date | Type | Department | Care Team | Description | +--------+ + + + + | 03/08/ | Anesthesia | [facility] | Matt Douglas | | | 2016 | Event | [facility] | MD Irish [address] | | | | | [address] | [address] [place] | | | | | [place] | [id number] | | | | | [phone] | | | | | | [phone] | | | +--------+ + + + + Anesthesia Record + + + + + | Procedure Name | Responsible | Anesthesia Start | Anesthesia Stop Time | | | Anesthesiologist | Time | | + + + + + | C3-4, C4-5, C5-6, | Matt Douglas, | 03/08/16 1223 | 03/08/16 1530 | | C6-7 Anterior | MD | | | | Cervical Discectomy | | | | | w/ Fusion and | | | | | Plating (N/A Neck) | | | | + + + + + +----+---+ + + | Da | T | Event | Comment | | te | i | | | | | m | | | | | e | | | +----+---+ + + | 11 | 1 | | | | /1 | 1 | | | | 4/ | 1 | | | | 20 | 4 | | | | 16 | | | | +----+---+ + + | | 1 | An Checkout | Pre-use anesthesia machine/equipment checkout. | | | 2 | | | | | 1 | | | | | 7 | | | +----+---+ + + | | 1 | Antibiotic | | | | 2 | Given | | | | 2 | | | | | 3 | | | +----+---+ + + | | 1 | An Start | Versed 2 mg IV in SDS 9, then to OR 2 with sedated patient. | | | 2 | | Reassessment prior to anesthesia induction/procedure. | | | 2 | | | | | 3 | | | +----+---+ + + | | 1 | an irene now | | | | 2 | | | | | 2 | | | | | 6 | | | +----+---+ + + | | 1 | Preoxygenat | | | | 2 | ed | | | | 2 | | | | | 7 | | | +----+---+ + + | | 1 | An | | | | 2 | Induction | | | | 3 | | | | | 0 | | | +----+---+ + + | | 1 | An | | | | 2 | Intubation | | | | 3 | | | | | 3 | | | +----+---+ + + | | 1 | AN Bite | | | | 2 | Block | | | | 3 | | | | | 3 | | | +----+---+ + + | | 1 | [place] | | | | 2 | 43-degrees | | | | 3 | | | | | 7 | | | +----+---+ + + | | 1 | First | | | | 2 | Inc/Proc St | | | | 5 | | | | | 1 | | | +----+---+ + + | | 1 | [place] off | | | | 4 | | | | | 5 | | | | | 8 | | | +----+---+ + + | | 1 | AN No | TOF 4/4 with sustained tetanus. | | | 4 | Residual | | | | 5 | NMB | | | | 8 | | | +----+---+ + + | | 1 | Breathing | | | | 5 | Spontaneous | | | | 0 | ly | | | | 3 | | | +----+---+ + + | | 1 | Oropharynx | | | | 5 | Suctioned | | | | 1 | | | | | 8 | | | +----+---+ + + | | 1 | Moving | | | | 5 | Purposefull | | | | 3 | y | | | | 0 | | | +----+---+ + + | | 1 | Extubated | | | | 5 | Awake | | | | 3 | | | | | 0 | | | +----+---+ + + | | 1 | An Stop | Patient handed off to recovery nurse. | | | 3 | | | | | 0 | | | +----+---+ + + +------+ | Meds | +------+ + + + | Name | Total | + + + | midazolam | 2 mg | + + + | lidocaine 2% (PF) | 60 mg | + + + | vecuronium | 5 mg | + + + | ondansetron | 4 mg | + + + | HYDROmorphone | 2 mg | + + + | propofol | 150 mg | + + + | ceFAZolin (ANCEF, KEFZOL) 2 g in | 2 g | | sodium chloride 0.9% 50 mL IVPB | | + + + | ketamine | 50 mg | + + + | sodium chloride 0.9% (NS) | 1,000 mL | | infusion | | + + + | LR (Infusion) | 400 mL | + + + + + | Name | + + | N2O Flow Rate (L/Min) | + + | O2 Flow Rate (L/Min) | + + | Insp O2 | + + | Exp SEV | + + | Exp CARLOTA | + + | Air Flow Rate (L/Min) | + + + + | No blood administrations on file. | + + +--------+ + + + | Type | Details | Placement | Removal | +--------+ + + + | Brace/ | 03/08/16; cervical collar; | 03/08/16 0000 by | 07/17/18 1643 by | | Orthot | 07/17/18 (Removed/Completed by | Jeison Mccormack RN | User Epic | | ic/Ort | utility); 1643 (Removed/Completed | | | | hosis | by utility) | | | +--------+ + + + | Periph | 03/08/16; 1128; Right; Wrist; 18 | 03/08/16 1128 by | 03/09/16 1302 by | | eral | gauge, 1 1/4 in length; Blood | Marcin La RN | Komal Hermosillo, | | IV | Bank; intradermal injection, | | RN | | | distraction, tolerated well; no | | | | | longer indicated; 03/09/16; 1302 | | | +--------+ + + + | Airway | Placement Date: 03/08/16; | 03/08/16 1233 by | 03/08/16 1530 by | | | Placement Time: 1233; Mask | Matt Douglas, | Matt Douglas, | | | Ventilation: EZ; Airway Grade: | MD | MD | | | 2a; External Maneuvers: CP; | | | | | Successful Technique: video scope | | | | | ([facility] 3); Laryngoscope Blade | | | | | Size: 3; Airway Type: | | | | | endotracheal, oral, cuffed, | | | | | fenestrated, disposable; Size: | | | | | 6.5; Position: Right; Airway Tube | | | | | Secured At: 22; Tube Reference | | | | | Point: secure and patent; Other | | | | | Equipment: tooth guard, stylette; | | | | | Placement Check: breath sounds | | | | | equal bilaterally, bilateral | | | | | chest rise, exhaled CO2 detection | | | | | device; Removal Date: 03/08/16; | | | | | Removal Time: 1530 | | | +--------+ + + + | Read | 03/08/16; 1334; Right; neck; | 03/08/16 1334 by | 07/18/18 1342 by | | only - | 07/18/18 (Completed/Removed by | Perry Simental RN | User Epic | | | Utility); 1342 (Completed/Removed | | | | Incisi | by Utility) | | | | on | | | | +--------+ + + + | Drain/ | 03/08/16; 1336; #1; Right; | 03/08/16 1336 by | 03/09/16 0745 by | | Device | anterior; neck; collapsible | Perry Simental RN | Komal Hermosillo, | | Site | closed device; 10 fr round drain; | | RN | | | tip intact, LIP notified; short | | | | | term use; 03/09/16; 0745 | | | +--------+ + + + documented in this encounter Social History + +-------+ +--------+------+ | Tobacco [...] Visit Diagnoses Not on filedocumented in this encounter Administered Medications + +---------+ +------+------+------+ | Medication Order | MAR | Action | Dose | Rate | Site | | | Action | Date | | | | + +---------+ +------+------+------+ | ceFAZolin (ANCEF, KEFZOL) 2 g | New Bag | 03/08/20 | 2 g | | | | in sodium chloride 0.9% 50 mL | | 16 12:23 | | | | | IVPB 2 g, Intravenous, | | PM PST | | | | | Administer over 30 Minutes, Prior | | | | | | | to Incision, Starting Mon | | | | | | | 03/08/16 at 1034, For 1 dose, | | | | | | | Administer within 1 hour of | | | | | | | surgical incision., Pre-op, | | | | | | | Indications: Surgical Prophylaxis | | | | | | + +---------+ +------+------+------+ +---+---+ | | | +---+---+ + +-------+ +------+---+---+ | HYDROmorphone (DILAUDID) 2 | Given | 03/08/20 | 1 mg | | | | mg/mL injection PRN, Pain, | | 16 12:56 | | | | | Starting 03/08/16 at 1229, | | PM PST | | | | | Anesthesia Intra-op | | | | | | + +-------+ +------+---+---+ +-------+ +------+---+---+ | Given | 03/08/20 | 1 mg | | | | | 16 12:29 | | | | | | PM PST | | | | +-------+ +------+---+---+ +---+---+ | | | +---+---+ + +-------+ +-------+---+---+ | ketamine 50 mg/mL injection | Given | 03/08/20 | 50 mg | | | | PRN, Starting Tue03/08/16 at | | 16 1:17 | | | | | 1317, Anesthesia Intra-op | | PM PST | | | | + +-------+ +-------+---+---+ +---+---+ | | | +---+---+ + +---------+ +---+---+---+ | lactated ringers (LR) infusion | New Bag | 03/08/20 | | | | | Intravenous, CONTINUOUS PRN, | | 16 1:30 | | | | | Starting Tue03/08/16 at 1330, | | PM PST | | | | | Anesthesia Intra-op | | | | | | + +---------+ +---+---+---+ +---+---+ | | | +---+---+ + +-------+ +-------+---+---+ | lidocaine (PF) 2% injection | Given | 03/08/20 | 60 mg | | | | PRN, Starting Tue03/08/16 at | | 16 12:30 | | | | | 1230, Anesthesia Intra-op | | PM PST | | | | + +-------+ +-------+---+---+ +---+---+ | | | +---+---+ + +-------+ +------+---+---+ | midazolam (VERSED) 1 mg/mL | Given | 03/08/20 | 2 mg | | | | injection Intravenous, PRN, | | 16 12:23 | | | | | Anxiety, Starting Tue03/08/16 at | | PM PST | | | | | 1223, Anesthesia Intra-op | | | | | | + +-------+ +------+---+---+ +---+---+ | | | +---+---+ + +-------+ +------+---+---+ | ondansetron (ZOFRAN) injection | Given | 03/08/20 | 4 mg | | | | PRN, Nausea, Vomiting, Starting | | 16 12:29 | | | | | 03/08/16 at 1229, Anesthesia | | PM PST | | | | | Intra-op | | | | | | + +-------+ +------+---+---+ +---+---+ | | | +---+---+ + +-------+ +--------+---+---+ | propofol (DIPRIVAN) injection | Given | 03/08/20 | 150 mg | | | | Intravenous, PRN, Starting Mon | | 16 12:30 | | | | | 03/08/16 at 1230, Anesthesia | | PM PST | | | | | Intra-op | | | | | | + +-------+ +--------+---+---+ +---+---+ | | | +---+---+ + +-------+ +------+---+---+ | vecuronium (NORCURON) injection | Given | 03/08/20 | 5 mg | | | | Intravenous, PRN, Ventilator | | 16 12:29 | | | | | Dyssynchrony, Starting Mon | | PM PST | | | | | 03/08/16 at 1229, Anesthesia | | | | | | | Intra-op | | | | | | + +-------+ +------+---+---+ +---+---+ | | | +---+---+ documented in this encounter"
--- OUTSIDE RECORDS SUMMARY | ~2019-03-15 | XMS | Encounter Summary ---
Demographics + + + | Address | [address] | | | [place] [address] | + + + | Home Phone | | + + + | Preferred Language | Unknown | + + + | Marital Status | | + + + | Amish Affiliation | Unknown | + + + | Race | Unknown | + + + | Ethnic Group | Unknown | + + + Author + + + | Author | [facility] | | | and [place] | + + + | Organization | [facility] | | | and [...] Team Providers + +------+ + | Care Health Record Technician Name | Role | Phone | + [...] | | | | [place] | [address] | | | | | [address] | | | | | | [phone] | | | +--------+ + + + [...]
--- OUTSIDE RECORDS SUMMARY | ~2019-03-15 | XMS | Encounter Summary ---
Demographics + + + | Address | [address] | | | [place] [address] | + + + | Home Phone | | + + + | Preferred Language | Unknown | + + + | Marital Status | | + + + | Restoration Affiliation | Unknown | + + + | Race | Unknown | + + + | Ethnic Group | Unknown | + + + Author + + + | Author | [facility] | | | and [place] | + + + | Organization | [facility] | | | and [place] | + + + | Address | Unknown | + + + | Phone | Unavailable | + + + Support + + +---------+ + | Name | Relationship | Address | Phone | + + +---------+ + | Alai Melendez | ECON | Unknown | | + + +---------+ + Care Team Providers + +------+ + | Care Fender Repairer Name | Role | Phone | + +------+ + | Vik Oconnor MD | PCP | | + +------+ + Encounter Details +--------+ + + + + | Date | Type | Department | Care Team | Description | +--------+ + + + + | 04/08/ | Imaging | [facility] | Provider, | | | 2017 | Exam | [facility] | [address] | | | | | IMAGING | [place] | | | | | [phone] | [place] [address] | | +--------+ + + + + [...] + + + | XR CERVICAL SPINE 2 | Routin | 04/04/2017 | | Results for this | | OR 3 VIEWS | e | 11:00 AM | | procedure are in the | | | | PST | | results section. | + +--------+ + + + documented in this encounter Results XR Cervical Spine 2 or 3 Views (04/04/2017 11:00 AM PST) + + | Specimen | + + | | + + + + + | Narrative | Performed At | + + + | External films | [facility] | | for comparison only - no result from [place]. | | + + + + +---------+ + + | Performing | Address | City/State/Zipcode | Phone Number | | Organization | | | | + +---------+ + + | [facility] | | | | + +---------+ + + documented in this encounter Visit Diagnoses Not on filedocumented in this encounter"
--- OUTSIDE RECORDS SUMMARY | ~2019-03-15 | XMS | Encounter Summary ---
Demographics + + + | Address | [address] | | | [place] [address] | + + + | Home Phone | | + + + | Preferred Language | Unknown | + + + | Marital Status | | + + + | Yazidism Affiliation | Unknown | + + + | Race | Unknown | + + + | Ethnic Group | Unknown | + + + Author + + + | Author | [facility] | | | and [place] | + + + | Organization | [facility] | | | and [...] Team Providers + +------+ + | Care Passenger Car Upholsterer Apprentice Name | Role | Phone | + [...] [address] | Cervicalgia | | | | [place], [place] | [place] | | | | | [address] | [address] | | | | | [phone] | | | +--------+---------+ + + + [...] your back and use good technique when clam picker things and bending. Electronic[employer] lly signed by Vasu Yun PA-C at 04/13/2016 1:20 PM PST documented in this encounter Progress Notes Vasu Yun PA-C - 04/13/2016 1:20 PM PSTFormatting of this note might be diffe rent from the original. Vasu Yun PA-C [address] [facility], [address] [place] [address] FAX: NEUROSURGERY FOLLOW-UP CHIEF COMPLAINT: Chief Complaint [...] during the past month and was concerned. [facility] pain medication does not appear to be [...] COMPARISON: Cervical spine radiographs dating to | [facility] | | March 08, 2016. FINDINGS: Frontal and lateral views of the [facility] | | cervical spine. Anterior cervical [...] + + | Performing | Address | City/State/[facility] | Phone Number | | Organization | | | | + + + + + | [facility] | [address] | [place] | [phone] | | [facility] | | [address] | | | - IMAGING | | | | + + + + + documented in this encounter Visit Diagnoses + + | Diagnosis | + + | S/P cervical spinal fusion - Primary Arthrodesis status | + + | Cervicalgia | + + documented in this encounter
--- OUTSIDE RECORDS SUMMARY | ~2019-03-15 | XMS | Encounter Summary ---
Demographics + + + | Address | [address] | | | [place] [address] | + + + | Home Phone | | + + + | Preferred Language | Unknown | + + + | Marital Status | | + + + | Sabianist Affiliation | Unknown | + + + [...] Team Providers + +------+ + | Care Breakdown Worker Name | Role | Phone | [...] | Physical | Diagnoses | Geoff | [address] | | | Services | Therapy | Spondylosis | Baljinder Hood DO | [facility] | | | Required | | of lumbar | [address] | HOSPITAL | | | | | region | [address] | [address] | | | | | without | [place] | AVE | | | | | myelopathy | [id number] | [place], [place] | | | | | or | Phone: | [phone] | | | | | radiculopath | [phone] | Phone: | | | | | y Lumbar | Fax: | [phone] | | | | | stenosis | [phone] | Fax: | | | | | Chronic | | [phone] | | | | | midline low | | | | | | | back pain | | | | | | | without | | | | | | | sciatica | | | +--------+ + + + + + Reason for Visit + + + | Reason | Comments | + + + | Follow-up | Review of lumbar MRI | + + + Encounter Details +--------+---------+ + + + | Date | Type | Department | Care Team | Description | +--------+---------+ + + + | 11/22/ | Office | [facility] | Baljinder Tellez, | Spondylosis of | | 2017 | Visit | NEUROSURGERY [address] | DO [address] | lumbar region | | | | [address] [place], [place] | without myelopathy | | | | [place], [place] | [address] | or radiculopathy | | | | [address] | | (Primary Dx); Lumbar | | | | [phone] | | stenosis; Chronic | | | | | | midline low back | | | | | | pain without | | | | | | sciatica | +--------+---------+ + + + Social History [...] + + + | Blood Pressure | 125/67 | 11/22/2016 12:58 PM | | | | | PDT | | + + + + + | Pulse | 67 | 11/22/2016 12:58 PM | | | | | PDT | | + + + + + [...] + + + + | Weight | 90.7 kg (200 lb) | 11/22/2016 12:58 PM | | | | | PDT | | + + + + + | Height | 162.6 cm (5' 4") | 11/22/2016 12:58 PM | | | | | PDT | | + + + + + | Body Mass Index | 34.33 | 11/22/2016 12:58 PM | | | | | PDT | | + + + + + [...] of this encounter Patient Instructions Patient Instructions Baljinder Tellez DO - 11/22/2016 2:26 PM PDTPlease obtain a lumbar br yamilet for your comfort. Please start physical therapy. Please follow-up with me as needed. Back Care Tips Caring for your back These are things you can do to prevent a recurrence of acute back pain and to reduce sympto ms from chronic back pain: Maintain a healthy weight. If you are overweight, losing weight will help most types of back pain. Exercise is an important part of recovery from most types of back pain. The muscles behi nd and in front of the spine support the back. This means strengthening both the back muscle s and the abdominal muscles will provide better support for your spine. Swimming and brisk walking are good overall exercises to improve your fitness level. Practice safe lifting methods (below). Practice good posture when sitting, standing and walking. Avoid prolonged sitting. This puts more stress on the lower back than standing or walking. Wear quality shoes with sufficient arch support. Foot and ankle alignment can affect iqra k symptoms. Women should avoid wearing high heels. Therapeutic massage can help relax the back muscles without stretching them. During the first 24 to 72 hours after an acute injury or flare-up of chronic back pain, apply an ice pack to the painful area for 20 minutes and then remove it for 20 minutes, over a period of 60 to 90 minutes, or several times a day. As a safety precaution, do not use a heating pad at bedtime. Sleeping on a heating pad can lead to skin woody or tissue damage. You can alternate ice and heat therapies. Medications Talk to your healthcare provider before using medicines, especially if you have other medic al problems or are taking other medicines. You may use acetaminophen or ibuprofen to control pain, unless your healthcare provider prescribed other pain medicine. If you have chronic conditions like diabetes, liver or kidne y disease, stomach ulcers, or gastrointestinal bleeding, or are taking blood thinners, talk with your healthcare provider before taking any medicines. Be careful if you are given prescription pain medicines, narcotics, or medicine for musc le spasm. They can cause drowsiness, affect your coordination, reflexes, and judgment. Do no t drive or operate heavy machinery while taking these types of medicines. Take prescription pain medicine only as prescribed by your healthcare provider. Lumbar stretch Here is a simple stretching exercise that will help relax muscle spasm and keep your back m ore limber. If exercise makes your back pain worse, don t do it. Lie on your back with your knees bent and both feet on the ground. Slowly raise your left knee to your chest as you flatten your lower back against the chevy or. Hold for 5 seconds. Relax and repeat the exercise with your right knee. Do 10 of these exercises for each leg. Safe lifting method Don t bend over at the waist to lift an object off the floor. Instead, bend your kne es and hips in a squat. Keep your back and head upright Hold the object close to your body, directly in front of you. Straighten your legs to lift the object. Lower the object to the floor in the reverse fashion. If you must slide something across the floor, push it. Posture tips Sitting Sit in chairs with straight backs or low-back support. Keep your knees lower than your hips , with your feet flat on the floor. When driving, sit up straight. Adjust the seat forward so you are not leaning toward the [employer] wheel. A small pillow or rolled towel behind your lower back may help if you are dr iving long distances. Standing When standing for long periods, shift most of your weight to one leg at a time. Alternate l egs every few minutes. Sleeping The best way to sleep is on your side with your knees bent. Put a low pillow under your hea d to support your neck in a neutral spine position. Avoid thick pillows that bend your neck to one side. Put a pillow between your legs to further relax your lower back. If you sleep o n your back, put pillows under your knees to support your legs in a slightly flexed position . Use a firm mattress. If your mattress sags, replace it, or use a 1/2-inch plywood board un roro the mattress to add support. Follow-up care Follow up with yourhealthcare provider, or as advised. If X-rays, a CT scan or an MRI scan were taken, they will be reviewed by a radiologist. You will be notified of any new findings that may affect your care. Call 911 Seek emergency medical care if any of the following occur: Trouble breathing Confusion Very drowsy Fainting or loss of consciousness Rapid or very slow heart rate Loss of bowel or bladder control When to seek medical care Call your healthcare provider if any of the following occur: Pain becomes worse or spreads to your arms or legs Weakness or numbness in one or both arms or legs Numbness in the groin area Date Last Reviewed: 09/24/201519999973-6332 [employer]. [address] [place] [address]. All righ ts reserved. This information is not intended as a substitute for professional medical care. Always follow your healthcare professional's instructions. documented in this encounter Progress Notes Baljinder Tellez DO - 11/22/2016 1:00 PM PDTFormatting of this note might be different fro m the original. Baljinder Tellez DO [address] [facility], [address] [place] [address] FAX: NEUROSURGERY FOLLOW-UP CHIEF COMPLAINT: Chief Complaint Patient presents with Follow-up Review of lumbar MRI HISTORY OF PRESENT ILLNESS: The patient is a 70 y.o. female that had an ACDF C3-7 by me fo r neck pain, arm pain, and arm weakness around 3 months ago. She returns and overall is doi ng well with respect to the neck diseae. The patient complains of low back pain, right leg pain, and difficulty walking. Issues with swallowing have not been a major issue. Most of the pre- and postsurgical complaints have continued to improve overall. Since her last visit her symptoms have persisted in terms of back pain. She has difficultly changing position. Her leg pain is not much of an issue anymore. She presents to review a r ecent MRI of the lumbar spine. PAST MEDICAL HISTORY: Past Medical History: Diagnosis Date Asthma, intermittent Chronic kidney disease, stage 3 Chronic pain syndrome Degeneration, intervertebral disc, cervical Degeneration, intervertebral disc, lumbar Dermatitis Essential hypertension Family history of benign essential tremor History of migraine headaches HLD (hyperlipidemia) Hyperparathyroidism (HCC) Obesity Uncomplicated type 2 diabetes mellitus (HCC) PAST SURGICAL HISTORY: Past Surgical History: Procedure Laterality Date BLADDER SUSPENSION 06/10/14 CERVICAL SPINE SURGERY N/A 03/08/2016 Procedure: C3-4, C4-5, C5-6, C6-7 Anterior Cervical Discectomy w/ Fusion and Plating; Barb geon: Baljinder Tellez DO; Location: [facility] MAIN OR CYSTOCELE REPAIR 06/10/14 HYSTERECTOMY 1989 PARATHYROIDECTOMY 02/09/2013 CURRENT MEDICATIONS: Current Outpatient Prescriptions Medication Sig Dispense Refill albuterol 90 mcg/puff inhaler Inhale 2 puffs into the lungs every 6 hours as needed for Wheezing. cephalexin (KEFLEX) 250 mg capsule Daily. 0 ciprofloxacin (CIPRO) 500 mg tablet take 1 tablet by mouth twice a day 0 gabapentin (NEURONTIN) 300 mg capsule Take 300 mg by mouth 3 times daily. glipiZIDE (GLUCOTROL XL) 5 mg 24 hr tablet 0 HYDROcodone-acetaminophen (NORCO) 5-325 mg per tablet as needed. 0 lisinopril (PRINIVIL, ZESTRIL) 20 mg tablet Take 20 mg by mouth Daily. MEGARED OMEGA-3 KRILL OIL 500 MG CAPS Take 1 capsule by mouth Daily. metoprolol tartrate (LOPRESSOR) 25 mg tablet Take 25 mg by mouth 2 times daily. Multiple Vitamin (THERAGRAN PO) Take 1 tablet by mouth Daily. MYRBETRIQ 50 MG ER tablet Take 50 mg by mouth Daily. 0 Probiotic Product (PROBIOTIC DAILY) CAPS Take 1 capsule by mouth Daily. tiZANidine (ZANAFLEX) 2 MG tablet Take 2 mg by mouth as needed. 0 triamterene (DYRENIUM) 100 MG capsule Take 100 mg by mouth 2 times daily. triamterene-hydrochlorothiazide (MAXZIDE-25) 37.5-25 mg per tablet 0 No current facility-administered medications for this visit. ALLERGIES: Allergies Allergen Reactions Codeine Shortness Of Breath and Other (See Comments) Asthma Povidone Iodine Itching Iodine Itching SOCIAL HISTORY: The patient reports that she has never smoked. She has never used smokeless tobacco. She r eports that she does not drink alcohol or use drugs. FAMILY HISTORY: Family History Problem Relation Age of Onset Alcohol abuse Father Depression Father Early Father 55 Suicide Father Migraines Mother Hypertension Mother Other (see comment) Mother SEPSIS: BOWEL BROKE Cancer Maternal Grandmother PANCREATIC Hypertension Maternal Grandmother REVIEW OF SYSTEMS GENERALLY: No fever, no night sweats, no anemia, no fatigue, no recent profound weight burgess ges. EYES: No eye problems, + use of corrective lenses, no eye injury, no double vision, no blin dness. EARS, NOSE, AND THROAT: No changes in taste or smell, + hearing difficulty, + ringing in th e ears, + ear drainage, no dizziness, no voice changes, no difficulty swallowing, + signific ant snoring, no sleep apnea, no sinus problems, no major dental work. NEUROLOGICALLY: Please see the review of systems discussed above in the history of present illness. In addition, the patient has numbness and pain of legs, tremor/shaking, pain in iqra k. PSYCHIATRIC: No depression, no sleep disorders, no anxiety, no bipolar disorder, no psychot ic episodes. CARDIOVASCULAR: No heart attacks, no heart murmur, no heart fluttering, no chest pain, no a nkle swelling. LUNG DISEASE: No shortness of breath, no cough, no tuberculosis, no bloody cough, no asthma , no emphysema/COPD. GASTROINTESTINAL: No bowel disease, no nausea or vomiting, no rectal bleeding, no constipat ion, no stool incontinence, no liver disease, no gallbladder disease, no abdominal pain, no ulcers. KIDNEY DISEASE: + urinary frequency, no painful or difficult urination, + incontinence, + b ladder problems. ENDOCRINE: + diabetes, no thyroid disease, no osteopenia or osteoporosis, no breast drainag e. SKIN: No breast lumps, no skin changes, no rashes, no itches. HEMATOLOGIC/LYMPHATIC: No enlarged lymph nodes, no easy or unusual bleeding, no personal hi story of cancer. RHEUMATOLOGIC: + joint arthritis, no rheumatoid arthritis. INTERIM PHYSICAL EXAMINATION: Blood pressure 125/67, pulse 67, height 1.626 m (5' 4"), weight 90.7 kg (200 lb). Body mass index is 34.33 kg/m. GENERAL: Katja Wei is in no acute distress with unlabored respirations. HEENT: HEAD/FACE: Normocephalic and atraumatic. There are no areas of recent trauma. SPINE: The patient s incision has healed further and is again without drainage, erythema, or discharge EXTREMITIES: No lower extremity edema. NEUROLOGICAL EXAMINATION: MENTAL STATUS: The patient is awake, alert, and oriented. She follows simple and complex commands MOTOR EXAM: Motor strength is 4+/5 left UE and 5/5 right UE. This is improved from the pre operative exam. SENSORY EXAM: The sensory examination improved from the preoperative exam. REFLEXES: Reflexes are unchanged from her preoperative history and physical. RADIOGRAPHIC REVIEW: The MRI of the lumbar spine from 11/18/16 demonstrates diffuse spondylosis. There are Modic changes T11-12, T12-L1, and L5-S1. There is mild stenosis throughout the region. ASSESSMENT: S/P ACDF C3-7: Encounter Diagnoses Name Primary? Spondylosis of lumbar region without myelopathy or radiculopathy Yes Lumbar stenosis Chronic midline low back pain without sciatica Past Medical History: Diagnosis Date Asthma, intermittent Chronic kidney disease, stage 3 Chronic pain syndrome Degeneration, intervertebral disc, cervical Degeneration, intervertebral disc, lumbar Dermatitis Essential hypertension Family history of benign essential tremor History of migraine headaches HLD (hyperlipidemia) Hyperparathyroidism (HCC) Obesity Uncomplicated type 2 diabetes mellitus (HCC) PLAN: Overall, the patient is doing fairly well. She has spondylosis and mild stenosis throughou t the region. This is likely contributing to her back pain. After a full discussion of operative and non-surgical options, she would like to continue w [facility] conservative management. I will refer her for physical therapy for posture and lumbar st rength training. I will also order a lumbar brace for external stabilization that she can we ar for her comfort. She will follow-up with me as needed. We discussed the possibility of physiatry referral if her pain does not improve with these treatments. ELECTRONICALLY SIGNED BY: Baljinder Tellez DO, 11/22/2016 14:27 documented in this encounter Plan of Treatment + + +--------+ + + | Name | Type | Priori | Associated Diagnoses | Order Schedule | | | | ty | | | + + +--------+ + + | Ambulatory referral | Outpatient | Routin | Spondylosis of | 1 Occurrences | | to Physical Therapy | Referral | e | lumbar region | starting 11/22/2016 | | | | | without myelopathy | until 11/22/2017 | | | | | or radiculopathy | | | | | | Lumbar stenosis | | | | | | Chronic midline low | | | | | | back pain without | | | | | | sciatica | | + + +--------+ + + documented as of this encounter Procedures + +--------+ + + + | Procedure Name | Priori | Date/Time | Associated Diagnosis | Comments | | | ty | | | | + +--------+ + + + | IMAGING REPORT - | | 11/19/2016 | | Results for this | | EXTERNAL SCAN | | 12:00 AM | | procedure are in the | | | | PDT | | results section. | + +--------+ + + + documented in this encounter Results IMAGING REPORT - EXTERNAL SCAN (11/19/2016 12:00 AM PDT) + + + | Narrative | Performed At | + + + | Ordered by an | | | unspecified provider. | | + + + documented in this encounter Visit Diagnoses + + | Diagnosis | + + | Spondylosis of lumbar region without myelopathy or radiculopathy - Primary | | Lumbosacral spondylosis without myelopathy | + + | Lumbar stenosis Spinal stenosis, lumbar region, without neurogenic claudication | + + | Chronic midline low back pain without sciatica | + + documented in this encounter
--- OUTSIDE RECORDS SUMMARY | ~2019-03-15 | XMS | Encounter Summary ---
Demographics + + + | Address | [address] | | | [place] [address] | + + + | Home Phone | | + + + | Preferred Language | Unknown | + + + | Marital Status | | + + + | Lutheran Affiliation | Unknown | + + + [...] Team Providers + +------+ + | Care Piping Engineer Name | Role | Phone | + +------+ + | Vik Oconnor MD | PCP | | + +------+ + Reason for Visit + + + | Reason | Comments | + + + | Neck Pain | | + + + Evaluate & Treat (Routine) +--------+--------+ + + + + | Status | Reason | Specialty | Diagnoses / | Referred By | Referred To | | | | | Procedures | Contact | Contact | +--------+--------+ + + + + | Closed | | Neurosurgery | Diagnoses | Elvin, | Geoff, | | | | | Other | Vik | Baljinder Hood DO | | | | | cervical | MD Kendra | [address] | | | | | disc | [address] | [address] | | | | | degeneration | [address] | [place] | | | | | , | [place], | [address] Phone: | | | | | unspecified | [place] [address] | [phone] | | | | | cervical | Phone: | Fax: | | | | | region | [phone] | [phone] | | | | | Other | Fax: | | | | | | intervertebr | [phone] | | | | | | al disc | | | | | | | degeneration | | | | | | | , lumbar | | | | | | | region | | | | | | | Procedures | | | | | | | SD OFFICE | | | | | | | CONSULTATION | | | | | | | NEW/ESTAB | | | | | | | PATIENT 60 | | | | | | | MIN | | | +--------+--------+ + + + + Encounter Details +--------+---------+ + + + | Date | Type | Department | Care Team | Description | +--------+---------+ + + + | 10/13/ | Office | [facility] | Baljinder Tellez, | Spondylolisthesis, | | 2016 | Visit | NEUROSURGERY [address] | DO [address] | cervical region | | | | [address] | [address] [place], [place] | (Primary Dx); Other | | | | [place], [place] | [address] | secondary kyphosis, | | | | [address] | | cervical region; | | | | [phone] | | Osteoarthritis of | | | | | | spine with | | | | | | radiculopathy, | | | | | | cervical region; | | | | | | Cervical stenosis of | | | | | | spinal canal; | | | | | | Cervical radicular | | | | | | pain; Cervicalgia | +--------+---------+ + + + Social History [...] + + + | Blood Pressure | 115/73 | 10/14/2015 9:30 AM | | | | | PDT | | + + + + + | Pulse | 72 | 10/14/2015 9:30 AM | | | | | PDT | | + + + + + | Temperature | - | - | | + + + + + | Respiratory Rate | 16 | 10/14/2015 9:30 AM | | | | | PDT | | + + + + + | Oxygen Saturation | - | - | | + + + + + | Inhaled Oxygen | - | - | | | Concentration | | | | + + + + + | Weight | 93 kg (205 lb) | 10/14/2015 9:30 AM | | | | | PDT | | + + + + + | Height | 152.4 cm (5') | 10/14/2015 9:30 AM | | | | | PDT | | + + + + + | Body Mass Index | 40.04 | 10/14/2015 9:30 AM | | | | | PDT | | + + + + + documented in this encounter Patient Instructions Patient Instructions Baljinder Tellez DO - 10/14/2015 9:54 AM PDTPlease follow-up with you r primary care physician for preoperative clearance. Please present for surgery when scheduled. documented in this encounter Progress Notes Baljinder Tellez DO - 10/14/2015 9:54 AM PDTFormatting of this note might be different fro m the original. Baljinder Tellez DO [address] [facility], [address] [place] [address] FAX: NEUROSURGERY HISTORY AND PHYSICAL EXAMINATION CHIEF COMPLAINT: Chief Complaint Patient presents with Neck Pain HISTORY OF PRESENT ILLNESS: The patient is a 69 y.o. female with the complaint of neck sandy n symptoms that began many years ago. The patient describes insidious onset. She remembers taking her driving test as a teenager and having the pain. The symptoms have been rapidly w orsening. She rates the pain as severe. The symptoms are frequent, daily, continuous. She describes the pain as aching and stabbing. The patient describes arm symptoms down the left side. The arm symptoms account for at shana st greater than or equal to 50% of her symptoms. Her pain travels from her neck down into h er hand. She also describes dropping objects and decreased range of motion. She does indic ate a history of loss of fine motor function. Other findings of progressive myelopathy are not present. She also complains of back and leg symptoms, but her neck and arm symptoms are her primary concern. Her symptoms improve with rest and changing position. Her symptoms worsen with standing, sitting, walking, running, kneeling, bending, twisting a nd light exertion. She has tried lifestyle modification, rest, physical therapy, pain medicaitons. PAST MEDICAL HISTORY: Past Medical History Diagnosis Date Asthma, intermittent Chronic kidney disease, stage 3 Chronic pain syndrome Dermatitis Uncomplicated type 2 diabetes mellitus (HCC) Essential hypertension Family history of benign essential tremor HLD (hyperlipidemia) Hyperparathyroidism (HCC) Degeneration, intervertebral disc, cervical Degeneration, intervertebral disc, lumbar Obesity History of migraine headaches PAST SURGICAL HISTORY: Past Surgical History Procedure Laterality Date Hysterectomy 1989 Parathyroidectomy 02/09/2013 Bladder suspension 06/10/14 Cystocele repair 06/10/14 CURRENT MEDICATIONS: Current Outpatient Prescriptions Medication Sig Dispense Refill albuterol 90 mcg/puff inhaler Inhale 2 puffs into the lungs every 6 hours as needed for Wheezing. cephalexin (KEFLEX) 500 mg capsule Take 500 mg by mouth 2 times daily. cyclobenzaprine (FLEXERIL) 10 mg tablet Take 10 mg by mouth 3 times daily as needed for Muscle spasms. gabapentin (NEURONTIN) 300 mg capsule Take 300 mg by mouth 3 times daily. glipiZIDE (GLUCOTROL) 5 mg tablet Take 5 mg by mouth 2 times daily (before meals). HYDROcodone-acetaminophen (NORCO) 5-325 mg per tablet Take 1 tablet by mouth every 6 ho urs as needed for Pain. lisinopril (PRINIVIL, ZESTRIL) 20 mg tablet Take 20 mg by mouth Daily. MEGARED OMEGA-3 KRILL OIL 500 MG CAPS Take 1 capsule by mouth Daily. Multiple Vitamin (THERAGRAN PO) Take 1 tablet by mouth Daily. oxybutynin (DITROPAN XL) 15 MG 24 hr tablet Take 15 mg by mouth Daily. PARoxetine (PAXIL) 20 mg tablet Take 20 mg by mouth every morning. Probiotic Product (PROBIOTIC DAILY) CAPS Take 1 capsule by mouth Daily. sulfamethoxazole-trimethoprim (BACTRIM,SEPTRA) 400-80 MG per tablet Take 1 tablet by mo ut nightly. traZODone (DESYREL) 50 mg tablet Take [...] not drink alcohol or use illicit drugs. FAMILY HISTORY: Family History Problem Relation Age of Onset Migraines Mother Cancer Maternal Grandmother PANCREATIC Hypertension Mother Hypertension Maternal Grandmother Alcohol abuse Father Depressive disorder Father Early Father 55 Suicide Father Other (see comment) Mother SEPSIS: BOWEL BROKE REVIEW OF SYSTEMS GENERALLY: No fever, + night sweats, no anemia, no fatigue, + recent profound weight change s. EYES: No eye problems, + use of corrective lenses, no eye injury, no double vision, no blin dness. EARS, NOSE, AND THROAT: No changes in taste or smell, + hearing difficulty, + ringing in th e ears, no ear drainage, no dizziness, no voice changes, no difficulty swallowing,+ signific ant snoring, no sleep apnea, + sinus problems, + major dental work. NEUROLOGICALLY: Please see the review of systems discussed above in the history of present illness. In addition, the patient has numbness/pain of arms, numbness/pain of legs, muscle a aiyana, pain in neck, pain in back, tremor/shaking, migraine. PSYCHIATRIC: + depression, + sleep disorders, +anxiety, no bipolar disorder, no psychotic e pisodes. CARDIOVASCULAR: No heart attacks, no heart murmur, no heart fluttering, no chest pain, + an kle swelling. LUNG DISEASE: + shortness of breath, no cough, no tuberculosis, no bloody cough, + asthma, no emphysema/COPD. GASTROINTESTINAL: No bowel disease, no nausea or vomiting, no rectal bleeding, + constipati on, no stool incontinence, no liver disease, no gallbladder disease, no abdominal pain, no u lcers. KIDNEY DISEASE: + urinary frequency, no painful or difficult urination, + incontinence, + b ladder problems . ENDOCRINE: + diabetes, + thyroid disease, no osteopenia or osteoporosis, no breast drainage . SKIN: No breast lumps, no skin changes, no rashes, no itches. HEMATOLOGIC/LYMPHATIC: No enlarged lymph nodes, no easy or unusual bleeding, no personal hi story of cancer. RHEUMATOLOGIC: + joint arthritis, no rheumatoid arthritis. PHYSICAL EXAMINATION: Blood pressure 115/73, pulse 72, resp. rate 16, height 1.524 m (5'), weight 92.987 kg (205 lb). Body mass index is 40.04 kg/(m^2). GENERAL: Katja Wei is in no acute distress with unlabored respirations. The patient does appear uncomfortable throughout the exam today. HEENT: HEAD/FACE: EYES: EARS: NASOPHARNYX: OROPHARNYX: Normocephalic and atraumatic. There are no areas of recent trauma. Normal sclerae without icterus. No drainage or tenderness. Clear without drainage. Clear without erythema. NECK (ANTERIOR): Supple and without palpable masses. CHEST: Clear to ausculation without crackles or wheeze. HEART: Regular rate and rhythm without murmurs. ABDOMEN: Soft, non-tender, non-distended, and without palpable masses. The patient is obe se. SPINE: The cervical spine exam shows there is tenderness over the C-3, C-4, C-5, C-6 and C- 7 region. Range of motion is limited. Rotation and extension does cause symptoms to radiat e into the extremities on left side. Flexion and extension of the neck does cause severe d iscomfort. No tenderness in the midline of the thoracic or lumbar spine. There is no major palpable d eformity of the spine. EXTREMITIES: No cyanosis, clubbing, or edema. Distal pulses are palpable. NEUROLOGICAL EXAM: MENTAL STATUS: The patient is awake, alert, and oriented. She follows simple and complex commands. Her speech is fluent, she comprehends speech well, and she repeats well. She has no apparent deficits with short or assisted memory. CRANIAL NERVES: II: Acuity is intact. Plasencia are full to confrontation. III, IV, : The pupils are reactive. Extraocular movements are intact. No ptosis is note d. V: Facial sensation is intact and symmetric. VII: Facial movements are symmetric. VIII: Hearing is intact bilaterally. IX, X: The uvula and palate move appropriately. XI: Shrug is equal bilaterally. XII: Tongue protrusion is midline. MOTOR EXAM: (5 IS NORMAL) * Indicates pain limited MUSCLE/ MOVEMENT: RIGHT LEFT Deltoids 5 4+ Biceps 5 4+ Triceps 5 4+ Wrist Flexion 5 4 Wrist Extension 5 4 Median Intrinsics 5 4 Ulnar Intrinsics 5 4 Cylinder Block Hole Reliner Strength 4+ 4 Hip Flexion 5 5 Hip Extension 5 5 Knee Flexion 5 5 Knee Extension 5 5 Dorsiflexion 5 5 Extensor Hallicus Longus 5 5 Plantarflexion 5 5 SENSORY EXAM: Sensory exam shows left C4, C5, C6, and C7-type dysesthesia. REFLEXES: (2 OR 2+ IS NORMAL) REFLEX: RIGHT LEFT BICEPS 2+ 2+ BRACHIORADIALIS 2+ 2+ TRICEPS 2+ 2+ PATELLAR 2+ 2+ ACHILLES 2+ 2+ WINTERS'S PRESENT PRESENT PLANTAR DOWNGOING DOWNGOING GAIT: Gait is steady. PERIPHERAL NERVE/MISC: Tinel is negative at the wrists and elbows bilaterally. Phalen is negative. Straight leg raise is negative bilaterally. Walter's test of the hips is negative bilaterally. RADIOGRAPHIC REVIEW: The patient's imaging was reviewed in detail with the patient today during the visit. The MRI of the cervical spine from 05/15/15 demonstrates loss of cervical lordosis with kyphosis from C3-7. There is spondylolisthesis C3-4 with spondylosis C4-7. There is resulting central and foraminal stenosis C3-7. Cervical flexion and extension views show spondylolisthesis C3-4. ASSESSMENT: NEUROSURGICAL DIAGNOSES: Encounter Diagnoses Name Primary? 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, cervical region Cervical stenosis of spinal canal Cervical radicular pain Cervicalgia GENERAL DIAGNOSES: Past Medical History Diagnosis Date Asthma, intermittent Chronic kidney disease, stage 3 Chronic pain syndrome Dermatitis Uncomplicated type 2 diabetes mellitus (HCC) Essential hypertension Family history of benign essential tremor HLD (hyperlipidemia) Hyperparathyroidism (HCC) Degeneration, intervertebral disc, cervical Degeneration, intervertebral disc, lumbar Obesity History of migraine headaches PLAN: Katja Wei presented today, and it was a pleasure seeing this patient and asse ssing her problems. The patient has cervical kyphosis, spondylolisthesis, spondylosis, and stenosis C3-7. This is likely contributing to her neck pain, arm pain, and arm weakness. I had a lengthy discussion with the patient about her options for care including surgical a nd non-surgical options. She would like to proceed with ACDF C3-7. We discussed the risks, alternatives, and benefits to surgical intervention with Ms. Armstrong ort in clinic. These risks included but were not limited to , stroke, heart attack, nu mbness, weakness, paralysis, failure of fusion, failure of hardware, subsidence, adjacent se gment degeneration, cerebrospinal fluid leak, bleeding, infection, injury to surrounding tis sues and organs, injury from positioning, injury to the nerves, difficulty with breathing, d ifficulty with swallowing, difficulty with voice change, and need for additional surgery. Surgical options were discussed and the technique to be employed was described in detail to her. All her questions were answered. We discussed that the goal of the surgery is to prevent progression of her disease, but it is not considered a cure. We also discussed that although some patients may obtain 100% sym ptom relief, it is realistic to anticipate that some symptoms will continue postoperatively despite a successful surgery. We also discussed that there is no guarantee that surgery will provide improvement in her c ondition, and indeed may even worsen the symptoms. We also discussed that in the course of the procedure the operative plan may be altered to include more, less, or different levels d epending upon findings in order to provide her with the best possible outcome. I recommend and would prescribe a cervical collar before surgery to improve her stability n ow to support her weak muscles and to reduce pain by restricting mobility. For multiple (more than 1 level fusions), I recommend the use of a bone growth stimulator p ostoperatively. This is to improve the probability and rate of fusion. She will follow-up with her primary care provider for preoperative clearance and optimizati on prior to presenting for surgery. ELECTRONICALLY SIGNED BY: Baljinder Tellez DO, 10/14/2015 10:00 documented in this en counter Plan of Treatment Not on filedocumented as of this encounter Visit Diagnoses + + | Diagnosis | + + | Spondylolisthesis, cervical region - Primary | + + | Other secondary kyphosis, cervical region | + + | Osteoarthritis of spine with radiculopathy, cervical region | + + | Cervical stenosis of spinal canal Spinal stenosis in cervical region | + + | Cervical radicular pain Brachial neuritis or radiculitis nos | + + | Cervicalgia | + + documented in this encounter"
--- OUTSIDE RECORDS SUMMARY | ~2019-03-15 | XMS | Encounter Summary ---
Demographics + + + | Address | [address] | | | [place] [address] | + + + | Home Phone [...] Team Providers + +------+ + | Care Wire Transfer Clerk Name | Role | Phone | + [...] | | | | | | | [place] | | | | | | | [...] + + | 03/08/ | Hospital | [facility] | Baljinder Tellez, | | | 2016 | Encounter | MED CTR XRAY [address] | DO [address] | | | | | [place] | [place] [address] [place] | | | | | [place] [address] | [address] | | | | | [phone] | | | +--------+ + + + [...] | + +--------+ + + + | AVRIL LEMON STATS NO | Routin | 03/08/2016 | | Results for this | | CHARGE | e | 2:57 PM | | procedure are in the | | | | PST | | results section. | + +--------+ + + + documented in this encounter Results GA Rob-Arm Stats No Charge (03/08/2016 2:57 PM PST) [...]
--- OUTSIDE RECORDS SUMMARY | ~2019-03-15 | XMS | Encounter Summary ---
Demographics + + + | Address | [address] | | | [place] [address] | + + + | Home Phone | | + + + | Preferred Language | Unknown | + + + | Marital Status | | + + + | Adventism Affiliation | Unknown | + + + [...] Team Providers + +------+ + | Care Reinforcing Metal Worker Name | Role | Phone | + +------+ + | Vik Oconnor MD | PCP | | + +------+ + Encounter Details +--------+ + + + + | Date | Type | Department | Care Team | Description | +--------+ + + + + | 04/13/ | Hospital | [facility] | Baljinder Tellez, | Status post cervical | | 2016 | Encounter | MED CTR XRAY [address] | DO [address] | spinal fusion; | | | | [place] | [address] [place], [place] | Spondylolisthesis of | | | | [place] [address] | [address] | cervical region | | | | [phone] | | | +--------+ + + + [...] | + + + + + | [facility] | [address] | [place] | [phone] | | [facility] | | [address] | | | - IMAGING | | | | + + + + + documented in this encounter Visit Diagnoses + + | Diagnosis | + + | Status post cervical spinal fusion Arthrodesis status | + + | Spondylolisthesis of cervical region Acquired spondylolisthesis | + + documented in this encounter"
--- OUTSIDE RECORDS SUMMARY | ~2019-03-15 | XMS | Encounter Summary ---
Demographics + + + | Address | [address] | | | [place] [address] | + + + | Home Phone | | + + + | Preferred Language | Unknown | + + + | Marital Status | | + + + | Advent Affiliation | Unknown | + + + | Race | Unknown | + + + | Ethnic Group | Unknown | + + + Author + + + | Author | [facility] | | | and [place] | + + + | Organization | [facility] | | [...] Team Providers + +------+ + | Care Instructor Flying Name | Role | Phone | + [...] | | | | al disc, | [address] | [place], [place] | | | | | cervical | Phone: | [address] | | | | | Degeneration | [phone] | Phone: | | | | | , | Fax: | [phone] | | | | | intervertebr | [phone] | Fax: | | | | | al disc, | | [phone] | | | | | lumbar | [...] | cervical (Primary | | | | [place], [place] | [address] | Dx); Degeneration, | | | | [address] | | intervertebral disc, | | | | [phone] | | lumbar | +--------+ + + [...]
--- OUTSIDE RECORDS SUMMARY | ~2019-03-15 | XMS | Encounter Summary ---
Demographics + + + | Address | [address] | | | [place] [address] | + + + | Home Phone [...] Team Providers + +------+ + | Care Clinical Support Nurse Name | Role | Phone | + +------+ + | Vik Oconnor MD | PCP | | + +------+ + Encounter Details +--------+ + + + + | Date | Type | Department | Care Team | Description | +--------+ + + + + | 03/09/ | [facility] | [facility] | [place], | | | 2016 | Encounter | MED CTR SPEECH | Lelo Anderson, Speech | | | | | THERAPY [address] | Pathologist [address] | | | | | [place], | [address] [place] | | | | | [place] [address] | [place] [address] | | | | | [phone] | [phone] | | | | | | | | +--------+ + + [...]
--- OUTSIDE RECORDS SUMMARY | ~2019-03-15 | XMS | Encounter Summary ---
Demographics + + + | Address | [address] | | | [place] [address] | + + + | Home Phone [...] Team Providers + +------+ + | Care [facility] Attendant Name | Role | Phone | + +------+ + | Vik Oconnor MD | PCP | | + +------+ + Encounter Details +--------+ + + + + | Date | Type | Department | Care Team | Description | +--------+ + + + + | 10/13/ | [facility] | [facility] | Baljinder Tellez, | Neck pain | | 2016 | Encounter | MED CTR XRAY [address] | DO [address] | | | | | [place] | [address] [place] | | | | | [place] [address] | [address] | | | | | [phone] | | | +--------+ + + + [...] [address] | [place] | [phone] | | [facility] | | [address] | | | - IMAGING | | | | + + + + + documented in this encounter Visit Diagnoses + + | Diagnosis | + + | Neck pain Cervicalgia | + + documented in this encounter"
--- OUTSIDE RECORDS SUMMARY | ~2019-03-15 | XMS | Encounter Summary ---
Demographics + + + | Address | [address] | | | [place] [address] | + + + | Home Phone [...] Team Providers + +------+ + | Care Canvas Repairer Name | Role | Phone | + +------+ + | Vik Oconnor MD | PCP | | + +------+ + Encounter Details +--------+ + + + + | Date | Type | Department | Care Team | Description | +--------+ + + + + | 03/09/ | [facility] | [facility] | Rani Sen | | | 2016 | Encounter | MED CTR THERAPY OT | C, OT | | | | | ACUTE [address] | | | | | | [place] | | | | | | [address] | | | | | | [phone] | | | +--------+ + + + [...]
--- OUTSIDE RECORDS SUMMARY | ~2019-03-15 | XMS | Encounter Summary ---
Demographics + + + | Address | [address] | | | [place] [address] | + + + | Home Phone | | + + + | Preferred Language | Unknown | + + + | Marital Status | | + + + | Presybeterian Affiliation | Unknown | + + + | Race | Unknown | + + + | Ethnic Group | Unknown | + + + Author + + + | Author | [facility] | | | and [place] | + + + | Organization | [facility] | | | and [...] Team Providers + +------+ + | Care Vascular Surgery Physician Name | Role | Phone | + [...] | Baljinder Hood DO | [address] | | | | | Spondylolist | [address] | [place], | | | | | sree, | [address] | [place] | | | | | lumbar | [place] | [address] | | | | | region | [address] | Phone: | | | | | Postural | Phone: | [phone] | | | | | kyphosis of | [phone] | Fax: | | | | | thoracolumba | Fax: | [phone] | | | | | r region | [phone] | | | | | | Osteoarthrit [...] + + + + Reason for Visit +---------+ + | Reason | Comments | +---------+ + | Post Op | 3M PO | +---------+ + Encounter Details +--------+---------+ + + + | Date | Type | Department | Care Team | Description | +--------+---------+ + + + | 06/22/ | Office | [facility] | Baljinder Tellez, | Osteoarthritis of | | 2017 | Visit | NEUROSURGERY [address] | DO [address] | spine with | | | | [address] | [address] [place], [place] | radiculopathy, | | | | [place], [place] | [address] | cervical region | | | | [address] | | (Primary Dx); S/P | | | | [phone] | | cervical spinal | | | | | | fusion; | | | | | | Spondylolisthesis, | | | | | | lumbar region; | | | | | | Postural kyphosis of | | | | | | thoracolumbar | | | | | | region; | | | | [...] | | | | right-sided sciatica | +--------+---------+ + + + Social [...] + + + | Blood Pressure | 129/66 | 06/22/2016 1:21 PM | | | | | PST | | + + + + + | Pulse | 73 | 06/22/2016 1:21 PM | | | | | PST [...] + + + + | Weight | 92.1 kg (203 lb) | 06/22/2016 1:21 PM | | | | | PST | | + + + + + | Height | 162.6 cm (5' 4") | 06/22/2016 1:21 PM | | | | | PST | | + + + + + | Body Mass Index | 34.84 | 06/22/2016 1:21 PM | | | | | PST [...] Instructions Patient Instructions Baljinder Tellez DO - 06/22/2016 2:00 PM PSTPlease undergo new x-rays of the cervical spine in 3 and 9 months. Please undergo MRI and x-rays of the lumbar spine and follow-up with me once completed. documented in this encounter Progress Notes Baljinder Tellez DO - 06/22/2016 2:03 PM PSTFormatting of this note might be different fro m the original. Baljinder Tellez DO [address] [facility], [address] [place] [address] FAX: NEUROSURGERY FOLLOW-UP CHIEF COMPLAINT: Chief Complaint Patient presents with Post Op 3M PO HISTORY OF PRESENT ILLNESS: The patient [...] postsurgical complaints have continued to improve overall. PAST MEDICAL HISTORY: Past Medical History Diagnosis [...] 02/09/2013 Bladder suspension 06/10/14 Cystocele repair 06/10/14 Cervical spine surgery N/A 03/08/2016 Procedure: C3-4, C4-5, C5-6, C6-7 Anterior Cervical Discectomy w/ Fusion and Plating; Nguyễn rgeon: Baljinder Tellez DO; Location: [facility] MAIN OR CURRENT MEDICATIONS: Current Outpatient Prescriptions Medication Sig Dispense Refill albuterol 90 mcg/puff inhaler Inhale 2 puffs into the lungs every 6 hours as needed for Wheezing. ciprofloxacin (CIPRO) 500 mg tablet take 1 tablet by mouth twice a day 0 cyclobenzaprine (FLEXERIL) 10 mg tablet Take 20 mg by mouth. diazePAM (VALIUM) 5 mg tablet Take 1 tablet by mouth every 6 hours as needed. 90 tablet 0 gabapentin (NEURONTIN) 300 mg capsule Take 300 mg by mouth 3 times daily. glipiZIDE (GLUCOTROL XL) 5 mg 24 hr tablet 0 HYDROcodone-acetaminophen (NORCO) 10-325 mg per tablet Take [...] PO Take 5 mg by mouth nightly. Probiotic Product (PROBIOTIC DAILY) CAPS Take 1 capsule by mouth Daily. sulfamethoxazole-trimethoprim (BACTRIM,SEPTRA) 400-80 MG per tablet Take 1 tablet by mo uth nightly. triamterene (DYRENIUM) 100 MG capsule Take [...] BROKE REVIEW OF SYSTEMS GENERALLY: No fever, no [...] rheumatoid arthritis. INTERIM PHYSICAL EXAMINATION: Blood pressure 129/66, pulse 73, height 1.626 m (5' 4"), weight 92.08 kg (203 lb). Body mas s index is 34.83 kg/(m^2). GENERAL: Katja Wei is in no [...] sensory examination improved from the preoperative exam. New right L3-ty pe dysesthesia. REFLEXES: Reflexes are unchanged from her preoperative history and physical. RADIOGRAPHIC REVIEW: The patient s postoperative x-rays show stable instrumentation and alignment and were rev iewed with the patient today. There have been no interval changes since the immediate posto perative films. There has been increased arthrodesis since the patient s last x-ray which was also reviewed for comparison. ASSESSMENT: S/P ACDF C3-7: Encounter Diagnoses Name Primary? 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 The patient's preoperative symptoms are improving at this point. I have increased the patient s activities as of today, and I would like the patient to co ntinue to advance with activities as tolerated. I am hoping to see complete healing in the next 3-9 months time and will continue to follow the patient with x-rays. I hope sincerely that she continues to see further improvement in her symptoms over the course of her recover y. With respect to her low back pain, leg pain, and difficulty walking, I will order MRI and x -rays of the lumbar spine. Her last MRI was from 05/15/15, but she was not having the symptom s she is currently having. She will follow-up with me after the lumbar imaging. She will undergo repeat x-rays of the neck in 3 and 9 months. ELECTRONICALLY SIGNED BY: Baljinder Tellez DO, 06/22/2016 14:07 documented in this encounter Plan of Treatment + +---------+--------+ + + | Name | Type | Priori | Associated Diagnoses | Order Schedule | | | | ty | | | + +---------+--------+ + + | XR Lumbar Spine 4 + | Imaging | Routin | Spondylolisthesis, | Expected: 06/22/2016 | | Vw | | e | lumbar region | (Approximate), | | | | | Postural kyphosis of | Expires: 06/22/2017 | | | | | thoracolumbar | [...] | | right-sided sciatica | | + +---------+--------+ + + | XR Cervical Spine 2 | Imaging | Routin | Osteoarthritis of | Expected: 03/24/2017 | | or 3 Views | | e | spine with | (Approximate), | | | | | radiculopathy, | Expires: 06/22/2017 | | | | | cervical region S/P | | | | | | cervical spinal | | | | | | fusion | | + +---------+--------+ + + | XR Cervical Spine 2 | Imaging | Routin | Osteoarthritis of | Expected: 09/22/2016 | | or 3 Views | | e | spine with | (Approximate), | | | | | radiculopathy, | Expires: 06/22/2017 | | | | | cervical region S/P | | | | | | cervical spinal | | | | | | fusion | | + +---------+--------+ + + documented as of this encounter Results MRI Lumbar Spine wo [...] 4. CHOLELITHIASIS. Dictated and Signed by: Adams Pickett | | MD Danielito Electronically signed: 11/18/2016 11:42 AM | | + + + + + | Procedure Note | + + | Luciano, Rad Results In - 11/18/2016 11:45 AM PDT UNENHANCED [...] ST. | [address] | [place], [place] | [phone] | | [facility] | | [address] | | | - IMAGING | | | | + + + + + documented in this encounter Visit Diagnoses + + | Diagnosis | + + | Osteoarthritis of spine with radiculopathy, cervical region - Primary | + + | S/P cervical spinal fusion Arthrodesis status | + + | Spondylolisthesis, lumbar region [...]
--- OUTSIDE RECORDS SUMMARY | ~2019-03-15 | XMS | Clinical Summary ---
Demographics + + + | Address | [address] | | | [place] [address] | + + + | Home Phone | | + + + | Preferred Language | Unknown | + + + | Marital Status | | + + + | Faith Affiliation | Unknown | + + + | Race | Unknown | + + + | Ethnic Group | Unknown | + + + Author + + + | Author | [facility] | | | and [place] | + + + | Organization | [facility] | | | [...] Team Providers + +------+ + | Care Buckle Inspector Name | Role | Phone | + [...] +--------+--------+ +--------+--------+--------+ | Imp Rockn Amy Giron [id number] - | Generi | N/A: | [employer] - | | 11/05/ | [id number] | | [id number]: Qty: 1 | c | Spine | MEDT | | 2023 | 1 / | | on 03/08/2016 by Geoff, | | Cervic | | | | /[id number] | | Baljinder Hood DO at [facility] | | al | | | | | | [facility] | | | | | | | + +--------+--------+ +--------+--------+--------+ | Imp Spn Amy Peek [id number] - | Generi | N/A: | [employer] - | | 10/21/ | [id number] | | [id number]: Qty: 1 | c | Spine | MEDT | | 2023 | 1 / | | on 03/08/2016 by Geoff, | | Cervic | | | | /[id number] | | Baljinder Hood DO at [facility] | | al | | | | | | [facility] | | | | | | | + +--------+--------+ +--------+--------+--------+ | Imp Spn Amy Peek [id number] - | Generi | N/A: | [employer] - | | 09/11/ | [id number] | | [id number]: Qty: 1 | c | Spine | MEDT | | 2023 | 1 / | | on 03/08/2016 by Geoff, | | Pradeepic | | | | /[id number] | | Baljinder Hood DO at [facility] | | al | | | | | | [facility] | | | | | | | + +--------+--------+ +--------+--------+--------+ | Imp Spn Amy Peek [id number] - | Generi | N/A: | [employer] - | | 11/05/ | [id number] | | [id number]: Qty: 1 | c | Spine | MEDT | | 2023 | 1 / | | on 03/08/2016 by Geoff, | | Dain | | | | /[id number] | | Baljinder Hood DO at [facility] | | al | | | | | | [facility] | | | | | | | + +--------+--------+ +--------+--------+--------+ | Putty Bone [facility] Grftn 2.5cc - | Graft | N/A: | [employer] - | | 10/06/ | [id number] | | [id number]: Qty: 1 on | | Spine | MEDT | | 2019 | | | 03/08/2016 by Baljinder Tellez | | Dain | | | | /[id number] | | DO Erwin at [facility] | | al | | | | 5-046 | | [facility] | | | | | | / | + +--------+--------+ +--------+--------+--------+ | Plate Ant [place] Cerv 75mm | Plate | N/A: | [employer] - | | | [id number] | | - [id number]: Qty: 1 | | Spine | MEDT | | | 5 / / | | on 03/08/2016 by Geoff | Piyush Gautam | | | | | | Baljinder Hood DO at [facility] | | al | | | | | | [facility] | | | | | | | + +--------+--------+ +--------+--------+--------+ | Screw Slf-Drl V/A 4.0x14mm - | Screw | N/A: | [employer] | | | [id number] | | [id number]: Qty: 2 on | | Spine | DANEK - DIV | | | 4 / / | | 03/08/2016 by Baljinder Tellez | | Pradeepic | [employer] | | | | | A, DO at [facility] | | al | - [facility] | | | | | [facility] | | | | | | | + +--------+--------+ +--------+--------+--------+ | Screw Slf-Drl V/A 4.0x15mm - | Screw | N/A: | [facility] | | | [id number] | | [id number]: Qty: 8 on | | Spine | DANEK - DIV | | | 5 / / | | 03/08/2016 by Baljinder Tellez | | Pradeepic | [employer] | | | | | A, DO at [facility] | | al | - [facility] | | | | | [facility] | | | | | | | [...] +--------+ +---------+--------+ | MEDICARE | MEDICA | [id number] | 08/24/19 | [phone] | | Medica | | | RE | | 11-Pre | 5 | | re | | | PART A | | sent | | | | | | AND B | | | | | | + +--------+ +--------+ +---------+--------+ | [employer] | MODA | [id number] | 10/24/19 | [phone] | | Medica | | MEDICAID HMO [...] [place] | | | 3 (Home) | [id number] | + +--------+ +--------+ + + Advance Directives + + + + + | Type | Date Recorded | Patient | Explanation | | | | Brewery Representative | | + + + + + | Power of | | | | | Outbound Sales Representative | | | | + + + [...]
--- OUTSIDE RECORDS SUMMARY | ~2019-03-15 | XMS | Encounter Summary ---
Demographics + + + | Address | [address] | | | [place] [address] | + + + | Home Phone | | + + + | Preferred Language | Unknown | + + + | Marital Status | | + + + | Mandaeism Affiliation | Unknown | + + + [...] Team Providers + +------+ + | Care Embossing Press Operator Molded Goods Name | Role | Phone | + [...] + | 02/26/ | Telephone | [facility] | Baljinder Tellez, | Other (Pre op meds | | 2016 | | NEUROSURGERY [address] | DO [address] | to stop) | | | | [address] | [address] [place], [place] | | | | | [place], [place] | [address] | | | | | [address] | | | | | | [phone] | | | +--------+ + + + [...]
--- OUTSIDE RECORDS SUMMARY | ~2019-03-15 | XMS | Clinical Summary ---
Demographics + + + | Address | [address] | | | [place] [address] | + + + | Home Phone | | + + + | Preferred Language | Unknown | + + + | Marital Status | Unknown | + + + | Pentecostalism Affiliation | Unknown | + + + | Race | Unknown | + + + | Ethnic Group | Unknown | + + + Author + + + | Author | [facility] (Historical as of | | | 12-09-18) | + + + | Organization | [facility] (Historical as of | | | 12-09-18) [...] Team Providers + +------+ + | Care Line Fisher Name | Role | Phone | + [...] | [place] - PREMIERCARE | [place]-PRE | [id number] | Medica | | | | FAMILY | [place] | | re | | | | | RE | | | | | | | FAMILY | | | | | + +--------+ +--------+-------+ + | MEDICAID | [place] | [id number] | | | [address] | | | | | | | [place] | | | FAMILY | | | | [address] | | | CARE | | | [...] | amita | | | [address] | [address] | + +--------+ +--------+ + +
--- OUTSIDE RECORDS SUMMARY | ~2019-03-15 | XMS | Encounter Summary ---
Demographics + + + | Address | [address] | | | [place] [address] | + + + | Home Phone | | + + + | Preferred Language | Unknown | + + + | Marital Status | | + + + | Religion Affiliation | Unknown | + + + | Race | Unknown | + + + | Ethnic Group | Unknown | + + + Author + + + | Author | [facility] | | | and [place] | + + + | Organization | [facility] | | | and [place] | + + + | Address | Unknown | + + + | Phone | Unavailable | + + + Support + + +---------+ + | Name | Relationship | Address | Phone | + + +---------+ + | Aila Melendez | ECON | Unknown | | + + +---------+ + Care Team Providers + +------+ + | Care Single Resource Boss Name | Role | Phone | + [...] + + | 02/25/ | Office | [facility] | ShawndaniaVasu | Cervicalgia (Primary | | 2016 | Visit | NEUROSURGERY [address] | D, [address] | Dx); Cervical | | | | [address] | [address] | radiculopathy; | | | | [place], [place] | [place], [place] | Cervical spinal | | | | [address] | [address] | stenosis; | | | | [phone] | | Spondylolisthesis of | | | [...] from the original. Vasu Yun PA-C [address] [facility], [address] [place] [address] FAX: NEUROSURGERY HISTORY AND PHYSICAL EXAMINATION CHIEF [...] has no apparent deficits with short or oil heaterman memory. CRANIAL NERVES: II: Acuity is intact. [...] Intrinsics 5 4 Ulnar Intrinsics 5 4 Dietitian Assistant Strength 4+ 4 Hip Flexion 5 5 [...]
--- OUTSIDE RECORDS SUMMARY | ~2019-03-15 | XMS | Encounter Summary ---
Demographics + + + | Address | [address] | | | [place] [address] | + + + | Home Phone [...] Team Providers + +------+ + | Care Bologna Maker Name | Role | Phone | + [...] [address] | [address] [place], [place] | | | | | [place], [place] | [address] | | | | | [address] | | | | | | [phone] | | | +--------+--------+ + + + [...]
--- OUTSIDE RECORDS SUMMARY | ~2019-03-15 | XMS | Encounter Summary ---
Demographics + + + | Address | [address] | | | [place] [address] | + + + | Home Phone [...] + +------+ + | Care Digital Media Designer Name | Role | Phone | + [...] | | | | | | | [place] | | | | | | | [...] + + | 03/08/ | Hospital | [facility] | Baljinder Tellez, | | | 2016 - | Encounter | MED CTR ICU [address] | DO [address] | | | | | [place], | TIM [facility] [place] | | | 03/09/ | | [place] [address] | [id number] | | | 2015 | | [phone] | | | +--------+ + + + [...] of admission the patient was admitted to [facility] and underwent a C3-C7 fusion. Patient was [...] signed by: Umang Parker, 03/09/2016 7:23 [facility] documented in this encounter Discharge Instructions Instructions [...] t raise your hands over your head [id number](s)after your surgery. Don t drive until your [...] this your 1 month post op appointment. [id number] [employer] [place] [address]. All righ ts reserved. This information is [...] on 03/08/2016 9:47 and is on bactrim SENIOR PATIENT ACCOUNT REPRESENTATIVE for chronic UTI BP 116/50 mmHg | [...] might be different from the konrad hoover [facility] NEUROSURGERY PROGRESS NOTE Pt. Name/Age/: Katja Wei 70 y.o. 1945 Post operative day 1 SUBJECTIVE: Patient is doing well overall. She spent the night in the ICU because she was w aking up slowly from surgery and anesthesia and recovery coordinator thought this would be most appro [...] Electronically signed by: Umang Parker, 03/09/2016 7:15 [facility] Ronald Landry PharmD - 03/08/2016 4:04 PM PSTFormatting of this note might be different from the origin al. PHARMACY CONSULT - BACTRIM DOSING Subjective/Objective: Katja Wei is a 70 y.o. year old female admitted on 03/08/2016 9:47 and is on bactrim SENIOR PATIENT ACCOUNT REPRESENTATIVE for chronic UTI BP 183/77 mmHg | [...] [address] | [place] | [phone] | | [facility] | | [address] | | | - LABORATORY | | [...] | | GLOMERULAR FILTRATION | mL/min/1.73m2 | [facility] | | | BRAZILIAN | RATE,ESTIMATED | | MEDICAL | | | | mL/min/1.97w5Iqyp than | | CENTER - | | [...] + | [address] | [address] | [place] | [phone] | | [facility] | | [address] | | | - LABORATORY | | [...] [address] | [place] | [phone] | | [facility] | | [address] | | | - LABORATORY | | [...] [address] | [place] | [phone] | | [facility] | | [address] | | | - LABORATORY | | [...] ST. | [address] | [place] | | | [facility] | | [address] | | | - BLOOD BANK | [...]
--- OUTSIDE RECORDS SUMMARY | ~2019-03-15 | XMS | Encounter Summary ---
Demographics + + + | Address | [address] | | | [place] [address] | + + + | Home Phone [...] Team Providers + +------+ + | Care Cash Register Servicer Name | Role | Phone | + [...] | 03/10/ | Telephone | [facility] | Baljinder Tellez, | Other (Post op call) | | 2016 | | NEUROSURGERY [address] | DO [address] | | | | | [address] | [address] [place], [place] | | | | | [place], [place] | [address] | | | | | [address] | | | | | | [phone] | | | +--------+ + + + [...]
--- OUTSIDE RECORDS SUMMARY | ~2019-03-15 | XMS | Encounter Summary ---
Demographics + + + | Address | [address] | | | [place] [address] | + + + | Home Phone | | + + + | Preferred Language | Unknown | + + + | Marital Status | | + + + | Protestant Affiliation | Unknown | + + + [...] Team Providers + +------+ + | Care Cryptologic Support Specialist Name | Role | Phone | [...] | Baljinder Hood DO | [address] | | | | | Spondylolist | [address] | [place], | | | | | sree, | [address] | [place] | | | | | lumbar | [place] | [address] | | | | | region | [address] | Phone: | | | | | Postural | Phone: | [phone] | | | | | kyphosis of | [phone] | Fax: | | | | | thoracolumba | Fax: | [phone] | | | | | r region | [phone] | | | | | | Osteoarthrit [...] | Baljinder Hood DO | [address] | | | | | Spondylolist | [address] | [place], | | | | | hesis, | [address] | [place] | | | | | lumbar | [place], [place] | [address] | | | | | region | [address] | Phone: | | | | | Postural | Phone: | [phone] | | | | | kyphosis of | [phone] | Fax: | | | | | thoracolumba | Fax: | [phone] | | | | | r region | [phone] | | | | | | Osteoarthrit [...] + + | 11/18/ | Hospital | [facility] | Baljinder Tellez, | Spondylolisthesis, | | 2017 | Encounter | MED CTR MRI [address] | DO [address] | lumbar region; | | | | [place], | [address] [place], [place] | Postural kyphosis of | | | | [place] [address] | [address] | thoracolumbar | | | | [phone] | | region; | | | | [...] + + | Performing | Address | City/State[facility] | Phone Number | | Organization | | | | + + + + + | [address] | [address] | [place] | [phone] | | [facility] | | [address] | | | - IMAGING | | [...]
--- OUTSIDE RECORDS SUMMARY | ~2019-03-15 | XMS | Encounter Summary ---
Demographics + + + | Address | [address] | | | [place] [address] | + + + | Home Phone [...] Team Providers + +------+ + | Care Check Clerk Name | Role | Phone | [...] [address] | [address] [place], [place] | | | | | [place] | [address] | | | | | [address] | | | | | | [phone] | | | +--------+ + + + [...] [address] | [place] | [phone] | | [facility] | | [address] | | | - IMAGING | | | | + + + + + documented in this encounter Visit Diagnoses + + | Diagnosis | + + | Neck pain - Primary Cervicalgia | + + documented in this encounter"
--- OUTSIDE RECORDS SUMMARY | ~2019-03-15 | XMS | Encounter Summary ---
Demographics + + + | Address | [address] | | | [place] [address] | + + + | Home Phone | | + + + | Preferred Language | Unknown | + + + | Marital Status | | + + + | Holiness Affiliation | Unknown | + + + | Race | Unknown | + + + | Ethnic Group | Unknown | + + + Author + + + | Author | [facility] | | | and [place] | + + + | Organization | [facility] | [...] Team Providers + +------+ + | Care Chemical Inspector Name | Role | Phone | + +------+ + | Vik Oconnor MD | PCP | | + +------+ + Encounter Details +--------+ + + + + | Date | Type | Department | Care Team | Description | +--------+ + + + + | 02/25/ | Hospital | [facility] | Baljinder Tellez, | Asthma, | | 2016 | Encounter | MED CTR XRAY [address] | DO [address] | intermittent, | | | | [place] | [place] | uncomplicated; | | | | [place] [address] | [address] | Chronic kidney | | | | [phone] | | disease, stage 3; | | | | | Yang Cast MD | Chronic pain | | | | | [address] | syndrome; | | | | | [place] | Dermatitis; | | | | | [address] | Uncomplicated type 2 | | | [...] [address] | [place] | [phone] | | [facility] | | [address] | | | - IMAGING | | [...]
--- OUTSIDE RECORDS SUMMARY | ~2019-03-15 | XMS | Encounter Summary ---
Demographics + + + | Address | [address] | | | [place] [address] | + + + | Home Phone | | + + + | Preferred Language | Unknown | + + + | Marital Status | | + + + | Latter-Day Affiliation | Unknown | + + + [...] Team Providers + +------+ + | Care Service Cashier Name | Role | Phone | + [...] Richa LEPE | | | | | [phone] | [place] [address] | | +--------+ + + + + [...] for comparison only - no result from [place]. | [facility] | + + + + +---------+ + + | Performing | Address | City/State/Zipcode | Phone Number | | Organization | | | | + +---------+ + + | [facility] | | | | + +---------+ + + documented in this encounter Visit Diagnoses Not on filedocumented in this encounter"
--- OUTSIDE RECORDS SUMMARY | ~2019-03-15 | XMS | Encounter Summary ---
Demographics + + + | Address | [address] | | | [place] [address] | + + + | Home Phone [...] Team Providers + +------+ + | Care Cupola Worker Name | Role | Phone | [...] [address] | [address] [place], [place] | uncomplicated | | | | [place], [place] | [address] | (Primary Dx); | | | | [address] | | Chronic kidney | | | | [phone] | | disease, stage 3; | | [...] [address] | [place] | [phone] | | [facility] | | [address] | | | - IMAGING | | [...] MD | | | | | | ([id number]) on 02/27/2016 | | | | | [...] | mL/min/1.73m2 | [facility] | | | [place] | RATE,ESTIMATED | | MEDICAL | | | | mL/min/1.54h5Pnjv than | | CENTER - | | [...] + | [facility] | [address] | [place] | [phone] | | [facility] | | [address] | | | - LABORATORY | | [...] + | [facility] | [address] | [place] | [phone] | | [facility] | | [address] | | | - LABORATORY | | [...] [address] | [place] | [phone] | | [facility] | | [address] | | | - LABORATORY | | [...] | Basophils | | K/uL | [facility] | | | | | | MEDICAL [...] [address] | [place] | [phone] | | [facility] | | [address] | | | - LABORATORY | | [...]
--- OUTSIDE RECORDS SUMMARY | ~2019-03-15 | XMS | Encounter Summary ---
Demographics + + + | Address | [address] | | | [place] [address] | + + + | Home Phone | | + + + | Preferred Language | Unknown | + + + | Marital Status | | + + + | Tenriism Affiliation | Unknown | + + + | Race | Unknown | + + + | Ethnic Group | Unknown | + + + Author + + + | Author | [facility] | | | and [place] | + + + | Organization | [facility] | | [...] Team Providers + +------+ + | Care Jig Operator Name | Role | Phone | [...] | | | | | | | PA | | | | | | | [...] Anterior | | | | [address] | [address] [place] | Cervical Discectomy | | | | [place] | [address] | w/ Fusion and | | | | [address] | | Plating | | | | [phone] | | | +--------+---------+ + + + [...] of admission the patient was admitted to [facility] and underwent a C3-C7 fusion. Patient [...] Electronically signed by: Umang Parker, 03/09/2016 7:23 [facility] documented in this encounter Discharge Instructions Instructions [...] t raise your hands over your head [id number](s)after your surgery. Don t drive until your [...] this your 1 month post op appointment. [id number] [employer]. [address] [place] [address]. All righ ts reserved. 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 Name/Age/: Katja Wei 70 y.o. 1945 Post operative day 1 SUBJECTIVE: Patient is doing well overall. She spent the night in the ICU because she was w aking up slowly from surgery and anesthesia and manager disaster recovery thought this would be most appro priate. [...] signed by: Umang Parker, 03/09/2016 7:[address] [facility] Ronald Landry PharmD - 03/08/2016 4:04 PM PSTFormatting of this note might be different from the origin al. PHARMACY CONSULT - BACTRIM DOSING Subjective/Objective: Katja Wei is a 70 y.o. 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 | | | [place] | RATE,ESTIMATED | | MEDICAL | | | | mL/min/1.06p7Qtqy than | | CENTER - | | [...] ST. | [address] | [place] | [phone] | | [facility] | | [address] | | | - LABORATORY | | [...] ST. | [address] | [place] | [phone] | | [facility] | | [address] | | | - LABORATORY | | [...] [address] | [place] | [phone] | | [facility] | | [address] | | | - LABORATORY | | [...] | [place] | | | [facility] | | [address] | | | - BLOOD BANK | | | | + + + + + documented in this encounter Visit Diagnoses + + | Diagnosis | + + | Spondylolisthesis of cervical region Acquired spondylolisthesis | + + documented in this encounter
--- OUTSIDE RECORDS SUMMARY | ~2019-03-15 | XMS | Encounter Summary ---
Demographics + + + | Address | [address] | | | [place] [address] | + + + | Home Phone [...] Team Providers + +------+ + | Care Boat Canvas Maker And Installer Name | Role | Phone | + [...] [address] | [address] [place], [place] | (Primary Dx); Status | | | | [place] | [address] | post cervical | | | | [address] | | spinal fusion | | | | [phone] | | | +--------+ + + + [...] ST. | [address] | [place] | [phone] | | [facility] | | [address] | | | - IMAGING | | | | + + + + + documented in this encounter Visit Diagnoses + + | Diagnosis | + + | Spondylolisthesis of cervical region - Primary Acquired spondylolisthesis | + + | Status post cervical spinal fusion Arthrodesis status | + + documented in this encounter"
--- OUTSIDE RECORDS SUMMARY | ~2019-03-15 | XMS | Encounter Summary ---
Demographics + + + | Address | [address] | | | [place] [address] | + + + | Home Phone | | + + + | Preferred Language | Unknown | + + + | Marital Status | | + + + | Amish Affiliation | Unknown | + + + | Race | Unknown | + + + | Ethnic Group | Unknown | + + + Author + + + | Author | [facility] | | | and [place] | + + + | Organization | [facility] | | [...] Team Providers + +------+ + | Care Lead Software Architect Name | Role | Phone | + [...] + + | 09/21/ | Telephone | [facility] | Baljinder Tellez, | Imaging Only (6 | | 2017 | | NEUROSURGERY [address] | DO [address] | month post op xray's | | | | [address] | [address] [place], [place] | ) | | | | [place], [place] | [address] | | | | | [address] | | | | | | [phone] | | | +--------+ + + + [...]
--- OUTSIDE RECORDS SUMMARY | ~2019-03-15 | XMS | Encounter Summary ---
Demographics + + + | Address | [address] | | | [place] [address] | + + + | Home Phone | | + + + | Preferred Language | Unknown | + + + | Marital Status | | + + + | Restorationist Affiliation | Unknown | + + + | Race | Unknown | + + + | Ethnic Group | Unknown | + + + Author + + + | Author | [facility] | | | and [place] | + + + | Organization | [facility] | | [...] Team Providers + +------+ + | Care Dragline Operator Helper Name | Role | Phone | + +------+ + | Vik Oconnor MD | PCP | | + +------+ + Encounter Details +--------+ + + + + | Date | Type | Department | Care Team | Description | +--------+ + + + + | 02/25/ | Preadmit | [facility] | Baljinder Tellez, | Pre-operative | | 2016 | Visit | MED CTR PREADMIT | DO [address] | clearance (Primary | | | | CLINIC [address] | [address] [place], [place] | Dx); Asthma, | | | | [place], [place] | [address] | intermittent, | | | | [address] | | uncomplicated; | | | | [...] mellitus | | | | | | (FORMERLY [facility]) Essential | | | | | | [...] MD | | | | | | ([id number]) on 02/27/2016 | | | | | [...] mL/min/1.73m2 | [facility] | | | IN[place]ES[place] | RATE,ESTIMATED | | MEDICAL | | | | mL/min/1.75v1Qrsd than | | CENTER - | | [...] [address] | [place] | [phone] | | [facility] | | [address] | | | - LABORATORY | | [...] [address] | [place] | [phone] | | [facility] | | [address] | | | - LABORATORY | | [...] + | [facility] | [address] | [place] | [phone] | | [facility] | | [address] | | | - LABORATORY | | [...] [address] | [place] | [phone] | | [facility] | | [address] | | | - LABORATORY | | [...] ST. | [address] | [place], [place] | [phone] | | [facility] | | [address] | | | - LABORATORY | | [...]
--- OUTSIDE RECORDS SUMMARY | ~2019-03-15 | XMS | Encounter Summary ---
Demographics + + + | Address | [address] | | | [place] [address] | + + + | Home Phone | | + + + | Preferred Language | Unknown | + + + | Marital Status | | + + + | Islam Affiliation | Unknown | + + + | Race | Unknown | + + + | Ethnic Group | Unknown | + + + Author + + + | Author | [facility] | | | and [place] | + + + | Organization | [facility] | | | and [...] Team Providers + +------+ + | Care Photograph Developer Name | Role | Phone | + [...] + | 03/04/ | Telephone | [facility] | Baljinder Tellez, | Medication Question | | 2016 | | NEUROSURGERY [address] | DO [address] | | | | | [address] | [address] [place], [place] | | | | | [place], [place] | [address] | | | | | [address] | | | | | | [phone] | | | +--------+ + + + [...]
--- OUTSIDE RECORDS SUMMARY | ~2019-03-15 | XMS | Encounter Summary ---
Demographics + + + | Address | [address] | | | [place] [address] | + + + | Home Phone | | + + + | Preferred Language | Unknown | + + + | Marital Status | | + + + | Presybeterian Affiliation | Unknown | + + + | Race | Unknown | + + + | Ethnic Group | Unknown | + + + Author + + + | Author | [facility] | | | and [place] | + + + | Organization | [facility] | | [...] Team Providers + +------+ + | Care Inside Sales Territory Manager Name | Role | Phone | + +------+ + | Vik Oconnor MD | PCP | | + +------+ + Encounter Details +--------+ + + + + | Date | Type | Department | Care Team | Description | +--------+ + + + + | 06/22/ | Hospital | [facility] | Vasu Yun | S/P cervical spinal | | 2017 | Encounter | MED CTR XRAY [address] | D, PA-C [address] | fusion; Cervicalgia | | | | [place] | [address] | | | | | [place] [address] | [place], [place] | | | | | [phone] | [address] | | | | | | | [...] COMPARISON: Cervical spine radiographs dating to | [facility] | | March 08, 2016. FINDINGS: Frontal and lateral views of the [facility] | | cervical spine. Anterior [...] [address] | [place] | [phone] | | [facility] | | [address] | | | - IMAGING | | | | + + + + + documented in this encounter Visit Diagnoses + + | Diagnosis | + + | S/P cervical spinal fusion Arthrodesis status | + + | Cervicalgia | + + documented in this encounter"
--- OUTSIDE RECORDS SUMMARY | ~2019-03-15 | XMS | Encounter Summary ---
Demographics + + + | Address | [address] | | | [place] [address] | + + + | Home Phone [...] Team Providers + +------+ + | Care Rock Room Worker Name | Role | Phone | [...] [address] | [address] [place], [place] | | | | | [place], [place] | [address] | | | | | [address] | | | | | | [phone] | | | +--------+ + + + [...]
[~2019-03-15 13:05] MED LIST changes: +AMLODIPINE BESYL5 MG PO; +DYAZIDE 37.5-251 EA PO; +GLIPIZIDE5 MG PO; +MEGARED OMEGA-1 EAC1 PO; +METFORMIN HCL500 M1 PO; +METOPROLOL TART50 MG PO; +ON GUARD PO; +PROBIOTIC1 EAC1 PO
--- NOTE | 2019-03-15 14:00 | NUR ---
PT SITTING UP IN CHAIR, LLE ELEVATED. DAUGHTER MAGGIE IN FROM [place]. PT IS ALERT, ORIENTED AND THANKED ME FOR STOPPING BY. GAVE PT A G.POST. WILL FOLLOW NEEDED
--- NOTE | 2019-03-15 14:33 | NUR ---
PT TANSFERED TO SWING BED. PRE MEDICATED FOR PHYSICAL THERAPY. NO LONGER ON CONTACT PRECAUTIONS PER DR DELATORRE'S ORDER.
--- NOTE | 2019-03-15 15:38 | NUR ---
PATIENT AWAKE AND ALERT. USED BEDSIDE COMMODE, RESTING IN BED WITH LLE ON PILLOWS. DAUGHTER IN ROOM. ANTIBIOTIC GIVEN, SEE EMAR. FLUSHED PICC LINE WITH SALINE, GOOD BLOOD RETURN. CALL LIGHT WITHIN REACH, NO OTHER CONCERNS AT THIS TIME. WITH SALINE, GOOD BLOOD RETURN.
--- NOTE | 2019-03-15 16:32 | NUR ---
Pt transfered to TC bed for PT/OT and wound care. Pt. and daughters encouraged as they feel cellulitis is somewhat better. Pt looking forward to working with PT as she feels this will get her home sooner.
--- NOTE | 2019-03-15 16:45 | NUR ---
PATIENT LAYING IN BED, WITH DAUGHTER AND CAPTAIN OF GUARDS PRESENT. VANCO TROUGH DRAWN FROM PICC LINE, FLUSHED WITH SALINE, 5 ML BLOOD DISCARDED, 5 ML BLOOD DRAWN FOR TROUGH, FLUSHED WITH SALINE AGAIN. PATEITN TOLERATED WELL. MEDICATIONS GIVEN, SEE EMAR. WILL START VANCO WHEN TROUGH RESULTS. BED LOWERED, CALL LIGHT WITHIN REACH, PATIENT DENIES ANY OTHER NEEDS AT THE MOMENT.
--- NOTE | 2019-03-15 18:02 | NUR ---
END OF SHIFT SUMMARY: PT REMOVED FROM CONTACT PRECAUTIONS PER PROVIDER REQUEST AND DISCUSSION WITH PRIMARY NURSE. SHE WAS TRANSFERRED TO SWING BED STATUS. NO LONGER GETTING BLOOD GLUCOSE LEVEL PER ORDERS AND DISCUSSION WITH PRIMARY NURSE. ASSISTED PATIENT WITH TRANSFERRING TO CHAIR, BEDSIDE COMMODE, AND BACK TO BED. REFUSED SHOWER DUE TO PAIN. ENCOURAGED PATIENT TO KEEP LLE ELEVATED. MEDS GIVEN SCHEDULED, SEE HOLLYRPhi WILDER Q4 HOURS, PAIN RANGED FROM 5-8 ON THE PAIN SCALE. PT APPEARED NOT TO BE IN PAIN WHEN VISITING WITH FAMILY. SHE STATES A COMFORTABLE PAIN LEVEL IS 5 ON THE PAIN SCALE. VANCO TROUGH DRAWN AND RESULTED PRIOR TO ADMINISTERING VANCO. CONTINUE TO MONITOR, CONTROL PAIN, AND GIVE MEDICATIONS SCHEDULED. PT PARTICIPATES IN CARE AND VERBALIZES UNDERSTANDING.
--- NOTE | 2019-03-15 19:07 | NUR ---
SHIFT REPORT RECEIVED FROM DAYSHIFT RASHMI VILLARREAL AT BEDSIDE. PT AWAKE AND RESTING IN BED, DAUGHTER IN ROOM. PT DENIES NEEDS AT THIS TIME, CALL LIGHT IN REACH. RASHMI ADORNO IN ROOM COMPLETING DRESSING CHANGE.
--- NOTE | 2019-03-15 19:27 | NUR ---
DRESSING CHANGE TO LEFT LOWER EXTREMITY. CAP REFILL 2. WOUND BEDS PINK. BLISTERS FORMING ON LATERAL SIDE OF LEFT FOOT AND LEFT CALF HAVE INCREASED IN SIZE. DR MORRISON NOTIFIED. NO NEW ORDERS. REPORTS HE WILL BE IN IN THE MORNING TO ASSESS. WASHED WITH HIBICLENSE DONE, XEROFORM GAUZE PLACED ON WOUNDS, THEN ABDS, KERLEX WRAPPED THEN COBAN, PT TOLERATED DRESSING CHANGE WELL.
--- NOTE | 2019-03-15 20:30 | NUR ---
ASSESSMENT COMPLETE, SCHEDULED MEDS GIVEN (SEE EMAR). PT DENIES PAIN AT THIS TIME, DRESSING TO LLE CDI. BILATERAL PEDAL PULSES OBTAINED, CMS INTACT. PT ABLE TO WIGGLE TOES. NO ADDITIONAL NEEDS AT THIS TIME, CALL LIGHT IN REACH.
--- NOTE | 2019-03-15 22:30 | NUR ---
SCHEDULED IV ABX ADMINISTERED (SEE EMAR) AND COMPLETE. PICC LINE DRESSING CDI, BLOOD RETURN NOTED BEFORE ABX INFUSION. PICC LINE FLUSHED AND HEP LOCKED PER PROTOCAL. PRN PAIN MEDICATION GIVEN FOR 8-9/10 PAIN. NO ADDITIONAL NEEDS, CALL LIGHT IN REACH.
--- NOTE | 2019-03-16 00:56 | NUR ---
PT RESTING IN BED, EYES CLOSED. RR WNL. NO DISTRESS NOTED. CALL LIGHT IN REACH.
--- NOTE | 2019-03-16 02:46 | NUR ---
PT RESTING IN BED, EYES CLOSED, RR WNL. NO DISTRESS OR SIGNS OF PAIN NOTED AT THIS TIME. LLE ELEVATED ON PILLOW. CALL LIGHT IN REACH.
--- NOTE | 2019-03-16 04:20 | NUR ---
PT HAD UNEVENTFUL NIGHT, SPEFT FOR MOST OF SHIFT. VSS, PAIN CONTROLLED WITH PRN NORCO. DRESSING TO LLE C/D/I, CMS INTACT. PT SBA WITH FWW TO BSC, USES CALL LIGHT APPROPERIATELY. ADA DIET, TOLERATING WELL. NO NAUSEA. IV ABX, HEP LOCKED WHEN NOT IN USE.
--- NOTE | 2019-03-16 05:29 | NUR ---
PRN PAIN MED GIVEN FOR 8/10 PAIN IN LLE. NO FURTHER NEEDS, CALL LIGHT IN REACH.
--- NOTE | 2019-03-16 06:36 | NUR ---
scheduled iv abx infusing, picc dressing cdi. blood return noted, flushes easily. abx complete, and is saline flushed per protocol. no further needs, call light in reach.family in room.
--- NOTE | 2019-03-16 07:10 | NUR ---
Report received, orders acknowledged. Patient awake and alert in bed with family in room. Patient denies pain. Call light within reach.
--- NOTE | 2019-03-16 08:04 | NUR ---
PATIENT ALERT AND ORIENTED, NOTES SHE GOT SOME SLEEP LAST NIGHT. SHE IS CURRENTLY EATING BREAKFAST AN WATCHING TV WITH HER DAUGHTER AND DENIES NEEDING ANYTHING AT THE MOMENT. VITALS TAKEN.
--- NOTE | 2019-03-16 09:22 | NUR ---
ASSESSMENT DONE. PEDAL PULSES DEFERRED ON THE L FOOT DUE TO DRESSING. NO NEW COMPLAINTS. RESTING COMFORTABLLY IN BED WITH DAUGHTER PRESENT. 0800 AND 0900 MEDS ADMINISTERED, SEE EMAR. HEP LOCK DEFERRED UNTIL AFTER VANCO INFUSION AT 1100, DISCUSSED WITH PRIMARY NURSE. CALL LIGHT WITHIN REACH. BED LOWERED. PATIENT ALSO USED BEDSIDE COMMODE AND BACK TO BED.
--- NOTE | 2019-03-16 09:30 | NUR ---
PATIENT WAS BUSY WITH STAFF. WILL TRY TO SEE LATER. WILL CONT WORK WITH PT TODAY.
--- NOTE | 2019-03-16 09:36 | NUR ---
Patient up to bedside commode, voiding and producing a BM.
--- NOTE | 2019-03-16 10:52 | NUR ---
PATIENT RESTING IN BED. DAUGHTER IN ROOM. VITAL SIGNS DONE BY STUDENT RN. I&O DONE. CALL LIGHT WITHIN REACH. NO OTHER NEEDS AT THIS TIME
--- NOTE | 2019-03-16 12:30 | NUR ---
Patient laying in bed with family visiting. Denies pain, no needs at this time. Call light within reach.
--- NOTE | 2019-03-16 12:57 | NUR ---
PATIENT RESTING IN BED. DAUGHTERS IN ROOM. I&O DONE. CALL LIGHT WITHIN REACH. NO OTHER NEEDS AT THIS TIME
--- NOTE | 2019-03-16 13:48 | NUR ---
Patient laying in bed with family in room. IV abx running at 400 mls/hr. Patient reports pain of 8/10, pain medication given. Assessment complete. Denies further needs at this time, call light within reach.
--- NOTE | 2019-03-16 14:43 | NUR ---
CALL LIGHT ANSWERED. PATIENT RESTING IN BED. FAMILY IN ROOM. PATIENT USES BASE COMMODE. ONE PERSON ASSISTING. LINENS CHANGED. GOWN CHANGED. PATIENT BACKS TO BED. CALL LIGHT WITHIN REACH. NO OTHER NEEDS AT THIS TIME
--- NOTE | 2019-03-16 15:45 | NUR ---
Patient laying in bed with family visiting in room. Denies pain. Left leg is elevated on pillows. Denies further needs at this time, call light within reach.
--- NOTE | 2019-03-16 17:30 | NUR ---
Dr. Cisneros notified of patient request to resume a home medication (see eMar)
--- NOTE | 2019-03-16 17:45 | NUR ---
Patient reports pain of 8/10, pain medication given.
--- NOTE | 2019-03-16 18:00 | NUR ---
PATIENT RESTING IN BED. I&O DONE. CALL LIGHT WITHIN REACH. NO OTHER NEEDS AT THIS TIME
--- NOTE | 2019-03-16 21:20 | NUR ---
SENIOR ELECTRICAL DESIGNER ROUNDING NOTE. PT RESTING IN BED WITH PRIMARY RN AT BEDSIDE. PT DENIES QUESTIONS OR CONCERNS, STATES THAT SHE WOULD LIKE HER PRN PAIN MEDICATION. PRIMARY RN REMINDS PT THAT IT IS NOT DUE YET, PT STATES UNDERSTANDING. CALL LIGHT IN REACH, WHITE, BOARD UPDATED. PRIMARY RN REMAINS IN ROOM.
--- NOTE | 2019-03-16 21:29 | NUR ---
PT A&OX4, IN BED LAYING DOWN AT THIS TIME. PT REPORTS PAIN IN LLE; NORCO IN USE AT THIS TIME. LLE DRESSING CDI. LLE ELEVATED ON PILLOWS. PT HAS NO NEEDS AT THIS TIME.
--- NOTE | 2019-03-16 22:00 | NUR ---
DRESSING CHANGE COMPLETED ON LLE PER DOC ORDER. PT TOLERATED WELL.
--- NOTE | 2019-03-16 22:12 | NUR ---
ADMIN ONE TAB NORCO 5/325MG PO FOR REPORTS OF 7/10 LLE PAIN.
--- NOTE | 2019-03-16 23:26 | NUR ---
ADMIN ZANAFLEX FOR REPORTS OF 7/10 LLE PAIN.
--- NOTE | 2019-03-17 02:20 | NUR ---
ADMIN NORCO 5/325MG PO FOR REPORTS OF 7/10 LLE PAIN.
--- NOTE | 2019-03-17 07:10 | NUR ---
Patient sleeping in bed on right side. Report received, orders acknowledged. Call light within reach.
--- NOTE | 2019-03-17 07:55 | NUR ---
VANCO COMPLETE. PT SALINE LOCKED.
--- NOTE | 2019-03-17 08:14 | NUR ---
PATIENT STATES SHE JUST TRANSFERRED TO BEDSIDE COMMODE WITH RASHMI VILLARREAL. PATIENT RESTING IN BED, CALL LIGHT IN REACH. PATIENT PERFORMED AM CARE. PATIENT STATES "THIS IS THE FIRST TIME ANYONE HAS OFFERED TO LET ME WASH MY FACE OR BRUSH MY TEETH SINCE ROCIO BEEN HERE". PATIENT STATES SHE WOULD LIKE TO SHOWER TODAY IF PHYSICAL THERAPY DOESNT WEAR HER OUT.
--- NOTE | 2019-03-17 10:30 | NUR ---
Patient reports pain of 8/10, pain medication given. POC discussed with patient.
--- NOTE | 2019-03-17 10:40 | NUR ---
PATIENT RESTING IN BED, REQUESTING A PAIN PILL FOR PAIN AT AN 8 OUT OF 10. RN IN ROOM. CALL LIGHT IN REACH, NO OTHER NEEDS AT THIS TIME.
--- NOTE | 2019-03-17 11:21 | NUR ---
PT working with patient. Patient ambulated with FWW, 1PA assist, and gait belt.
--- NOTE | 2019-03-17 11:45 | NUR ---
Dressing change performed on lower left leg per orders. Daughter in room. Ice applied to dressing. Patient denies any needs at this time, call light within reach.
--- NOTE | 2019-03-17 14:00 | NUR ---
Patient laying in bed with family in room. POC discussed. Importance of ambulating to toilet and taking a shower discussed. Patient agreeable.
--- NOTE | 2019-03-17 16:45 | NUR ---
Patient reports pain of 8/10, prn pain medication given.
--- NOTE | 2019-03-17 18:40 | NUR ---
Patient reports pain of 8/10, pain medication given.
--- NOTE | 2019-03-17 20:33 | NUR ---
PATIENT RESTING QUIETLY IN BED WATCHING TV.HAS BEEN UP ONCE TO USE THE BEDSIDE COMMODE SINCE I ARRIVED.
--- NOTE | 2019-03-17 22:30 | NUR ---
WEB APPLICATION TESTER ROUNDING NOTE. PRIMARY RN ASSISTED WITH DRESSING CHANGE. PT TOLERATED WELL. VISITOR AT BEDSIDE. PT AND VISITOR HAVE QUESTIONS ABOUT MEDCIATION, ANSWERED. FURTHER NEEDS DENIED AT THIS TIME. CALL LIGHT IN REACH. WHITE BOARD UPDATED.
--- NOTE | 2019-03-17 23:16 | NUR ---
PATIENT LEFT FOOT DRESSING CHANGED AND NORCO GIVEN. ANTIBIOTICS STARTED AND PICC LINE WORKING WELL. CALL LIGHT IN REACH.
--- NOTE | 2019-03-18 01:53 | NUR ---
PATIENT JUST UP TO THE BEDSIDE COMMODE TO URINATE. IV ANTIBIOTIC COMPLETED AND PICC FLUSHED WITH 20MLS NS AND 5MLS HEPARIN AND THEN BACK TO BED. CALL LIGHT IN REACH.
--- NOTE | 2019-03-18 03:14 | NUR ---
CALL LIGHT ANSWERED. 1 PA TO BEDSIDE COMMODE. PATIENT IS BACK IN BED. ICE WATER REFILLED.
--- NOTE | 2019-03-18 03:34 | NUR ---
PATIENT RESTING QUIETLY, EYES CLOSED, RESPIRATIONS REGULAR AND EVEN. CALL LIGHT IN REACH. PATIENT HAS NOT CALLED FOR MORE PAIN MEDICATION.
--- NOTE | 2019-03-18 06:10 | NUR ---
PATIENT HAD A DRESSING CHANGE NEAR THE BEGINING OF THE SHIFT AND HAS HAD NORCO A FEW TIMES FOR 8/10 LT LEG PAIN, BUT SHE SLEPT ALOT LONGER THIS MORNING BETWEEN VELASQUEZ PILLS. PICC LINE IS IS CURRENTLY LOCKED WITH 20MLS NS. DRAWS AND FLUSHES WELL. PATIENT RESTING QUIETLY AT THIS TIME. EYES CLOSED, BREATHING, CALL LIGHT IN REACH.
--- NOTE | 2019-03-18 07:10 | NUR ---
Patient sleeping in bed. Report received, orders acknowledged. Call light within reach.
--- NOTE | 2019-03-18 09:00 | NUR ---
Patient sitting up in bed watching tv. Patient ambulated to toilet with 1PA and FWW. Returned to chair for breakfast with FWW and 1PA. AM medications given. Assessment complete, vitals taken. PICC line flushes and draws blood per protocol. Patient denies further needs at this time, call light within reach.
--- NOTE | 2019-03-18 10:02 | NUR ---
PT REQUESTS PAIN MEDICATION AFTER SBA FROM BATHROOM TO BED. SHE REPORTS PAIN 8/10 IN LEFT FOOT. NORCO 5/325 PO PRN ADMINISTERED AT THIS TIME.
--- NOTE | 2019-03-18 11:00 | NUR ---
Patient working with physical therapy, using FWW and 1 person SBA. Patient ambulated hallways and climbed stairs. Grandson accompanying patient during PT session.
--- NOTE | 2019-03-18 11:30 | NUR ---
Dressing change performed per orders. Patient and grandson part of dressing change teaching, verbalized understanding as well as performed teach-back. Patient denies pain at this time. Lunch delivered. Denies further needs at this time, call light within reach.
--- NOTE | 2019-03-18 14:30 | NUR ---
Patient reports pain of 8/10, pain medication provided. Left leg elevated on pillows. Denies further needs at this time, call light within reach.
--- NOTE | 2019-03-18 16:15 | NUR ---
Patient sitting up in bed. Ambulated to toilet with FWW and 1PA. Returned to bed with FWW and 1PA, voiding QS. Denies further needs at this time, call light within reach.
--- NOTE | 2019-03-18 18:30 | NUR ---
Patient reports pain of 8/10, pain medication given. Patient sitting up in bed watching tv. Denies further needs at this time, call light within reach.
--- NOTE | 2019-03-18 19:30 | NUR ---
BEDSIDE REPORT RECEIVED FROM RASHMI ADORNO. pt APPEARS TO BE SLEEPING. EYES CLOSED. BREATHING UNLABORED, RR 14. LEFT LEG ELEVATED ON PILLOW.
--- NOTE | 2019-03-18 21:26 | NUR ---
pt ASSESSMENT COMPLETE. RATES PAIN 6/10 IN LLE. PRN MEDICATION ADMINISTERED. DRESSING CHANGE COMPLETE. CSM INTACT BLE. GOOD BLOOD RETURN PICC LINE, ANTIBIOTIC ADMINISTERED SCHEDULED, HEPARIN LOCKED. CALL LIGHT IN REACH.
--- NOTE | 2019-03-18 21:59 | NUR ---
HORSE RIDING COACH OR INSTRUCTOR ROUNDING NOTE. PT RESTING IN BED WITH EYES CLOSED, APPEARS TO BE SLEEPING. CALL LIGHT IN REACH. WHITE BOARD UPDATED.
--- NOTE | 2019-03-18 23:34 | NUR ---
CHECKED ON pt. RESTING IN BED WITH EYES CLOSED. RR 16. LIGHTS OFF IN ROOM. LLE ELEVATED ON PILLOWS.
--- NOTE | 2019-03-19 00:21 | NUR ---
CALL LIGHT ANSWERED. pt C/O 12/02 PAIN IN LEFT FOOT. PRN PAIN MEDICATION ADMINISTERED. UP TO BSC WITH TAWNYA ACHARYA SBA FOR VOID AND BACK IN BED. LLE ELEVATED ON PILLOWS.
--- NOTE | 2019-03-19 00:23 | NUR ---
ANSWERED CALL LIGHT. 1 SBA TO BEDSIDE COMMODE. PATIENT IS BACK IN BED. NO OTHER NEEDS AT THIS TIME.
--- NOTE | 2019-03-19 02:56 | NUR ---
CALL LIGHT ANSWERED. SBA TO BEDSIDE COMMODE AND BACK TO BED. ICE WATER REFILLED. NO OTHER NEEDS AT THIS TIME.
--- NOTE | 2019-03-19 03:38 | NUR ---
CHECKED ON pt. RESTING IN BED WITH EYES CLOSED, RR 16. LLE ELEVATED ON PILLOWS.
--- NOTE | 2019-03-19 06:14 | NUR ---
pt RESTED WELL THIS SHIFT. WEIGHT BEARING TOLERATED ON LEFT FOOT. DRESSING CHANGE THIS SHIFT. CDI. LLE ELEVATED ON PILLOWS. PAIN CONTROLLED WITH PRN MEDICATIONS. VOIDING QS. USING CALL LIGHT APPROPRIATELY. 1PA WITH FWW. PICC LINE HEPARIN LOCKED. GOOD BLOOD RETURN.
--- NOTE | 2019-03-19 07:34 | NUR ---
REPORT RECIEVED FROM RASHMI MYERS. PT APPEARS TO BE SLEEPING. LAYING IN BED WITH LEG ELEVATD ON PILLOW.
--- NOTE | 2019-03-19 08:26 | NUR ---
PT SITTING IN BED AFTER FINISHING BREAKFAST. RATES PAIN 8/10, ADMINISTERED NORIN.
--- NOTE | 2019-03-19 10:03 | NUR ---
TALKED TO DAUGHTER JAYLIN THAT PT LIVES WITH, SHE WILL BE AVAILABLE FOR CARE CONFERENCE AT 12:15. CARE STAFF WILL BE NOTIFIED.
--- NOTE | 2019-03-19 10:38 | NUR ---
PT ASSISTED TO RESTROOM WITH SBA AND FWW. TOLERATED WELL.
--- NOTE | 2019-03-19 12:30 | NUR ---
CARE CONFERENCE PATIENT, DAUGHTERS JAYLIN AND YANI, GRANDSON JOCELYN JERAMY, ROMINA MAYNARD PT, PT STUDENT [employer] DECK AND HULL DR GRAHAM SPOKE ON DIAGNOSIS, PROGRESS, MEDICATIONS. PT SPOKE ON PATIENT PROGRESS. PATIENT IS HOPING TO DISCHARGE HOME SOON. DISCUSSED DISCHARGE PLAN: PATIENT HAS WALKER, HAS ONLY 1 STEP INTO HOME AND SHE HAS DONE STAIRS WITH PT. SHE WILL HAVE PICC LINE REMOVED, ALL IV ANTIBIOTICS HAVE FINISHED. HER GRANDSON IS A MEDIC AND HAS HELPED WITH DRESSING CHANGE ONCE. SHE HAS GOOD PAIN CONTROL. SHE WILL HAVE SUPPORT OF FAMILY PRESENT 24/ THROUGH HOLIDAY AND WEEKEND. SHE WILL BE HOMEBOUND, SO HOME HEALTH WILL BE ORDERED, SHE DOESN'T HAVE A PREFERNCE WITH WHO. SHE WILL BE NEEDING DRESSING CHANGES AND MONITOR OF WOUND WITH RN AND HOME PT. PATIENT AND FAMILY FEEL CONFIDENT SHE CAN COME HOME TOMORROW. ALL QUESTIONS ANSWERED.
--- NOTE | 2019-03-19 13:36 | NUR ---
changed dressing per order with assist of patients daughter. pt tolerated well.
--- NOTE | 2019-03-19 16:47 | NUR ---
woke pt for dinner and meds. denies concerns.
--- NOTE | 2019-03-19 17:31 | NUR ---
CARE CONFERENCE TODAY. ALL IS SET FOR DISCHARGE TOMORROW. DRESSING CHANGED THIS AFTERNOON. AGAIN FAMILY ASSISTED. MOTRIN WORKED WELL FOR PAIN TODAY.
--- NOTE | 2019-03-19 19:55 | NUR ---
REPORT RECEIVED FROM DAY SHIFT RN. PT LYING IN BED, ALERT AND ORIENTED. LEFT FOOT ELEVATED ON PILLOW, DRESSING CDI. PT DENIES NEEDS AT THIS TIME. CALL LIGHT IN REACH.
--- NOTE | 2019-03-19 20:26 | NUR ---
CALL LIGHT ANSWERED. SBA WITH FWW TO RESTROOM FOR VOID. GAIT STEADY. WEIGHT BEARING WITH WALKER. pt RATES PAIN 8/10 IN LEFT FOOT WITH AMBULATION. STATES "I MIGHT NEED A PAIN PILL SOON, IT HURTS WHEN I'M UP WALKING". CALL LIGHT IN REACH. LLE ELEVATED ON PILLOWS.
--- NOTE | 2019-03-19 20:45 | NUR ---
ASSESSMENT COMPLETE. PM MEDS GIVEN WITHOUT DIFFICULTY. PRN PAIN GIVEN FOR 8/10 LEFT FOOT PAIN AFTER AMBULATION. PICC LINE HEP LOCKED PER PROTOCOL, BRISK BLOOD RETURN NOTED. LEFT FOOT ELEVATED ON PILLOWS, DRESSING CDI. PT DENIES OTHER NEEDS AT THIS TIME. CALL LIGHT IN REACH.
--- NOTE | 2019-03-19 21:15 | NUR ---
FILENET ADMIN ROUNDING. PT RESTING IN BED WATCHING TV. PT REPORTS PAIN MED RECENTLY ADMINISTERED. DENIES PAIN. DENIES QUESTIONS OR CONCERNS. CALL LIGHT IN REACH. WHITE BOARD UPDATED.
--- NOTE | 2019-03-20 00:36 | NUR ---
PT RESTING IN BED WITH EYES CLOSED, RR EVEN AND UNLABORED. CALL LIGHT WITHIN REACH.
--- NOTE | 2019-03-20 03:10 | NUR ---
PT IN BED RESTING WITH EYES CLOSED, NAD. LEFT FOOT ELEVATED ON PILLOWS. CALL LIGHT IN REACH.
--- NOTE | 2019-03-20 04:02 | NUR ---
PRN MOTRIN ADMINISTERED. PT RATES PAIN 12/02. PT UP TO BATHROOM AND BACK TO BED WITH 1 PA AND FWW. PT TOLERATED WELL. PT DENIES FURTHER NEEDS AT THIS TIME. CALL LIGHT IN REACH.
--- NOTE | 2019-03-20 06:15 | NUR ---
PT WITH UNEVENTFUL NIGHT. A&O, USES CALL LIGHT APPROPRIATELY. MEDICATED WITH PRN MOTRIN AND NORCO. WBAT. SBA WITH FWW. LEFT FOOT DRESSING CDI. ANTICIPATING DC THIS AM.
[2019-03-20] MEDS ORDERED: HYDROCODON-ACE1 EA10 PO (09:25)
--- NOTE | 2019-03-20 09:40 | NUR ---
PT SITTING UP IN BED VISITING WITH DAUGHTER. ATE BREAKFAST, CHRISTIAN WELL. DENIES PAIN OR OTHER CONCERNS AT THIS TIME. LEFT FOOT DRESSED AND ELEVATED ON PILLOWS, DRESSING CDI. PICC LINE IN RIGHT ARM FLUSHES EASILY WITH GOOD BLOOD RETURN, DRESSING CDI. CALL LIGHT WITHIN REACH.
--- NOTE | 2019-03-20 10:17 | NUR ---
In and spoke with pt. She is planning on discharging today. Made a copy of her TC letter for dc which she received yesterday and the letter to the [facility]. She states she has everything she needs to dc for DME and just needs a couple days of dressings until Home Health begins. Daughter Radha arrives and again states they have everything. Daughters and family do the cooking and cleaning, grandson has been taughter change her dressing. They have no concerns.
--- NOTE | 2019-03-20 12:15 | NUR ---
PT SITTING UP IN BED EATING LUNCH. STATES SHE WOULD LIKE TO TAKE A SHOWER BEFORE SHE GOES HOME. DAUGHTER AT BEDSIDE. CALL LIGHT WITHIN REACH.
--- NOTE | 2019-03-20 12:36 | NUR ---
Emailed chart to [facility] to Anastacia. H&P, DC note, progress notes, PT and 0T evals and notes, orders, ER notes. Called and confirmed they will admit pt tomorrow, at the latest on Thanksgiving.
--- NOTE | 2019-03-20 13:10 | NUR ---
PICC LINE DC'D, PT CHRISTIAN WELL. PRESSURE DRESSING IN PLACE.
--- NOTE | 2019-03-20 14:00 | NUR ---
PT SHOWERED WITH ASSISTANCE FROM KEVIN BOWLING. AFTER SHOWER LEFT FOOT DRESSING REMOVED. RINSED WITH HIBACLEANSE SOAP, DRESSED WITH XEROFORM GAUZE, ABD PADS, KERLEX WRAP AND COBAN PER ORDERS. PT CHRISTIAN WELL. DAUGHTER AT BEDSIDE.
== END 2019-03-20 15:40 | disposition home health service (06) | DRG 948 ==
LOC: MS 13:05
PROVIDERS: ADMIT Student in an Organized Health Care Education/Training Program
DX: R53.1 Weakness (principal); L03.115 Cellulitis of right lower limb; R23.8 Other skin changes; G25.0 Essential tremor; E11.9 Type 2 diabetes mellitus without complications; I10 Essential (primary) hypertension; R26.81 Unsteadiness on feet; S82.831D Other fracture of upper and lower end of right fibula, subsequent encounter for closed fracture with routine healing; Z88.5 Allergy status to narcotic agent; Z88.8 Allergy status to other drugs, medicaments and biological substances; Z79.84 Long term (current) use of oral hypoglycemic drugs; Z79.899 Other long term (current) drug therapy
CPT/HCPCS: 97110; 97116; 97162; 97530; J0690; J1650; J3370; J7060

== ENCOUNTER 2020-08-18 10:08 | Emergency (ER) | payer MEDICARE, OTHER ==
[~2020-08-18] VITALS: Ht 160 cm; Wt 85.7 kg
[~2020-08-18 10:08] MED LIST changes: +HYDROCODON-ACE1 EA10 PO
[2020-08-18] MEDS ORDERED: HYDROCODON-ACE1 EA10 PO (15:01)
== END 2020-08-18 15:25 | disposition home or self-care (01) ==
LOC: ED 10:08
DX: M10.9 Gout, unspecified (principal); I10 Essential (primary) hypertension; E11.9 Type 2 diabetes mellitus without complications; Z88.5 Allergy status to narcotic agent; Z88.8 Allergy status to other drugs, medicaments and biological substances; Z79.899 Other long term (current) drug therapy
CPT/HCPCS: 73630; 99283-25

== ENCOUNTER 2020-12-23 15:20 | Emergency (ER) | payer MEDICARE, OTHER ==
[~2020-12-23] VITALS: Ht 160 cm; Wt 85.7 kg
== END 2020-12-23 17:48 | disposition home or self-care (01) ==
LOC: ED 15:20
DX: E11.65 Type 2 diabetes mellitus with hyperglycemia (principal); G44.89 Other headache syndrome; I10 Essential (primary) hypertension; M10.9 Gout, unspecified; Z88.5 Allergy status to narcotic agent; Z88.8 Allergy status to other drugs, medicaments and biological substances; Z79.899 Other long term (current) drug therapy
CPT/HCPCS: 70450; 80053; 81001; 85025; 96374; 96375; 99285-25; J1200; J2765; J7040

== ENCOUNTER 2021-07-06 08:16 | Emergency (ER) | payer MEDICARE, OTHER ==
[~2021-07-06] VITALS: Ht 160 cm; Wt 85.7 kg
[2021-07-06] MEDS ORDERED: METFORMIN HCL500 M2 PO (08:32)
[2021-07-06] MEDS ORDERED: TIZANIDINE HCL4 M1 PO (08:33)
[2021-07-06] MEDS ORDERED: ZANAFLEX4 MG PO (08:34)
[2021-07-06] MEDS ORDERED: LISINOPRIL20 MG PO (08:34)
[2021-07-06] MEDS ORDERED: TRIAMTERENE-HC1 EAC3 PO (08:34)
[2021-07-06] MEDS ORDERED: HYDROCODON-ACE1 EA10 PO (09:26)
== END 2021-07-06 09:40 | disposition home or self-care (01) ==
LOC: ED 08:16
DX: M17.12 Unilateral primary osteoarthritis, left knee (principal); I10 Essential (primary) hypertension; E11.9 Type 2 diabetes mellitus without complications; M10.9 Gout, unspecified; Z88.5 Allergy status to narcotic agent; Z88.8 Allergy status to other drugs, medicaments and biological substances; Z79.899 Other long term (current) drug therapy; Z79.84 Long term (current) use of oral hypoglycemic drugs
CPT/HCPCS: 73560; 99283-25; J3301

== ENCOUNTER 2025-03-03 14:36 | Emergency (ER) | payer MEDICARE, OTHER ==
[~2025-03-03] VITALS: Ht 160 cm; Wt 80.0 kg
[~2025-03-03 14:36] MED LIST changes: +METFORMIN HCL500 M2 PO; +TRIAMTERENE-HC1 EAC3 PO; +ZANAFLEX4 MG PO
[2025-03-03 15:00] LABS: BASOPHILS 0.4 % (0.1-1.2); EOSINOPHILS 9.2 % (0.7-5.8); LYMPHOCYTES 30.4 % (19.3-51.7); MCH 27.4 PG (25.6-32.2); MCHC 32.2 g/dL (32.2-35.5); MCV 85.1 fL (79.4-94.8); MONOCYTES 8.2 % (4.7-12.5); NEUTROPHILS 51.7 % (34.0-71.1); RBC 5.25 M/uL (3.93-5.22)
[2025-03-03 15:10] LABS: ALT (SGPT) 18.0 U/L (14-59); AST (SGOT) 11.0 U/L (15-37); GLOMERULAR FILTRATION RATE,EST 51.0 mL/min (>60); PROTEIN, TOTAL 7.7 g/dL (6.4-8.2); UREA NITROGEN 33.0 mg/dL (7-18)
[2025-03-03 15:54] LABS: INR 0.97 (0.80-1.30); PROTIME 12.5 Sec (11.2-14.2)
[2025-03-03] MEDS ORDERED: GLIPIZIDE10 MG PO (16:50)
[2025-03-03] MEDS ORDERED: MOUNJARO5 MG/0.5 M SUB-Q (17:00)
[2025-03-03] MEDS ORDERED: PREDNISONE20 MG PO (18:10)
[2025-03-03] MEDS ORDERED: VALACYCLOVIR1000 MG PO (18:10)
[2025-03-03] MEDS ORDERED: VALACYCLOVIR HCL 500 MG TAB PO ONE (18:15)
[2025-03-03] MEDS ORDERED: predniSONE 20 MG TAB PO ONE (18:15)
[2025-03-03 18:40] VITALS: BP 141/79
--- NOTE | 2025-03-04 09:55 | EKG ---
[facility] [address] [place] [address] Signed Normal sinus rhythm Cannot rule out Anterior infarct , age undetermined Abnormal ECG When compared with ECG of 09-MAR-2019 13:44, Vent. rate has decreased BY 50 BPM Confirmed by Isidoro Almanza DO ([id number]) on 03/04/2025 9:55:16 AM Electronically Signed By: ISIDORO ALMANZA DO 03/04/25 0955 PATIENT NAME: DANG BANGURAJITENDRA AMAYA Electrocardiogram DATE OF : 43 PHYSICIAN: ISIDORO ALMANZA DO REPORT #: [id number] REPORT IS CONFIDENTIAL AND NOT TO BE RELEASED WITHOUT AUTHORIZATION
== END 2025-03-03 18:41 | disposition home or self-care (01) ==
LOC: ED 14:36
PROVIDERS: Emergency Medicine
DX: G51.0 Bell's palsy (principal); I66.22 Occlusion and stenosis of left posterior cerebral artery; I10 Essential (primary) hypertension; E11.9 Type 2 diabetes mellitus without complications; Z88.5 Allergy status to narcotic agent; Z91.041 Radiographic dye allergy status; Z79.84 Long term (current) use of oral hypoglycemic drugs; Z79.899 Other long term (current) drug therapy
CPT/HCPCS: 36415; 70450; 70496; 70498; 71045; 80053; 85025; 85610; 85730; 93005; 93010; 99291; J7512; Q9967